=== PATIENT | male | born 1980 | race Caucasian/White ===

== ENCOUNTER 2024-09-16 02:20 | Day surgery (SDC) | payer OTHER, SELFPAY ==
[2024-09-09 10:54] VITALS: BMI 32.5
--- OUTSIDE RECORDS SUMMARY | 2024-09-16 02:22 | XMS_ITS ---
Author Name [facility] [place] [facility] [place] Address [address] [place] [address] Care Team Providers Care Department Of Natural Resources Officer Name Role Phone CONNIE MURILLO Primary Care Provider Unavailabl e Insurance Providers: All historical and current Section Date Range: From patient's date of to the date document was created. This section includes the names of all active insurance providers for the patient. Insurance Provider Type of Coverage Plan Name Start of Policy Coverage End of Policy Coverage Group Number Member ID Insurance Provider's Telephone Number Policy Wagner's Name Patient's Relationship to Policy Wagner [facility]U [employer]IG[employer] PREFERRED PROVIDER ORGANIZAT ION (PPO) AP[facility]U HEALT H PLAN Nov 08, 2013 [id number] [phone] WIDEL,CHR ISTOPHER PATIENT APWU-SS PREFERRED PROVIDER ORGANIZAT ION (PPO) APWU Apr 16, 2023 [id number] WIDEL,CHR ISTOPHER PATIENT [facility]U PART A ONLY Mar 11, 2014 [id number] WIDEL,CHR ISTOPHER PATIENT [facility]U HEALT H PLAN Apr 16, 2020 [id number] [phone] WIDEL,CHR ISTOPHER PATIENT [employer] PRESCRIPT ION APWU HEALT H PLAN Mar 11, 2014 [id number] [phone] WIDEL,CHR ISTOPHER PATIENT [employer] PRESCRIPT ION APWU RX PLAN Nov 08, 2013 [id number] [phone] WIDEL,CHR ISTOPHER PATIENT [employer] PRESCRIPT ION APWU Nov 08, 2013 [id number] [phone] WIDEL,CHR ISTOPHER PATIENT Selected Encounter This section includes the information on record at CT for the Encounter. Date/Time Encounter Type Encounter Description Reason Provider Source Dec 04, 2023 12:10 PM Outpatient Encounter ADMIN PAT ACTIVTIES (MASNONCT) GITA JACOBS Encounter Template Text not used by CT Plan of Treatment: Future Appointments (+ 6 months) and Future Tests (+/- 45 days) The Plan of Treatment section includes future care activities for the patient from all CT treatmentfacilities. This section includes future appointments and future orders which are active, pending or scheduled. Future Appointments This section includes appointments that were scheduled to occur 6 months from the date of the Encounter, up to a maximum of 20 appointments. The data comes from all CT treatment facilities. Appointment Date/Time Appointment Type Appointme nt Facility Name Dec 13, 2023 09:30 AM AMBULATORY - SURGERY [facility] Dec 26, 2023 02:00 PM AMBULATORY - REHAB MEDICIN E [facility] Jan 21, 2024 08:30 AM AMBULATORY - REHAB MEDICIN E [facility] Jan 21, 2024 09:30 AM AMBULATORY - SURGERY [facility] Feb 04, 2024 09:00 AM AMBULATORY - REHAB MEDICIN E [facility] Feb 18, 2024 09:00 AM AMBULATORY - REHAB MEDICIN E [facility] May 15, 2024 09:30 AM AMBULATORY - MEDICINE [facility] Active, Pending, and Scheduled Orders This section includes a listing of several types of active, pending, and scheduled orders, including clinic medications orders, diagnostic test orders, procedure orders and consult orders; where the start date of the order is 45 days before the date of the Encounter or 45 days after the date of theEncounter. The data comes from all CT treatment facilities. Test Date/Time Test Type Test Details Facility Name Nov 07, 2023 12:00 AM Laboratory - Blood Bank Order RED BLOOD CELLS - LAB VBECS - NO SPECIMEN REQUIRED SP [facility] Nov 07, 2023 12:00 AM Laboratory - Blood Bank Order TYPE & SCREEN - LAB BLOOD SP [facility] Dec 04, 2023 06:00 AM Laboratory - Blood Bank Order TYPE & SCREEN - LAB BLOOD WC [facility] Lab Results: +/- 30 days of the encounter This section includes the Chemistry and Hematology Lab Results on record with CT for the patient. Radiology Reports and Pathology Reports are provided separately, in subsequent sections. Lab Results This section contains the Chemistry/Hematology Results that were resulted 30 days before or 30 daysafter the date of the Encounter. Date/Time Source Result Type Result - Unit Interpretation Reference Range Specimen Type Comment Dec 05, 2023 04:56 AM [facility] GLUCOSE,BLOOD-poct (STL) BLOOD Specimen Type: BLOOD Comment: Test Performed by: [id number] Meter #: [id number] Ordering Provider: UMESH ABARCA Report Released Date/Time: Dec 05, 2023 06:07 AM Reporting Lab: [facility] [address] [facility] [address] Performing Lab: [facility] [address] [facility] [address] GLUCOSE,BLOOD-poct (STL) 107 mg/dL H 72-99 Dec 04, 2023 10:43 PM [facility] GLUCOSE,BLOOD-poct (STL) BLOOD Specimen Type: BLOOD Comment: Test Performed by: [id number] Meter #: [id number] Ordering Provider: UMESH ABARCA Report Released Date/Time: Dec 04, 2023 11:11 PM Reporting Lab: [facility] [address] [facility] [address] Performing Lab: [address] [address] GLUCOSE,BLOOD-poct (STL) 154 mg/dL H 72-99 Dec 04, 2023 08:57 PM [facility] MAGNESIUM PLASMA Specimen Type: PLASM A No comment entered. Ordering Provider: ANGEL THOMPSON Report Released Date/Time: Dec 04, 2023 02:05 PM Reporting Lab: [address] [address] Performing Lab: [address] [address] MAGNESIUM 2.1 mg/dL 1.6-2.6 Dec 04, 2023 08:57 PM [facility] CBC BLOOD Specimen Type: BLOOD No comment entered. Ordering Provider: ANGEL THOMPSON Report Released Date/Time: Dec 04, 2023 02:05 PM Reporting Lab: [address] [address] Performing Lab: [address] [address] WBC 9.0 10*3/uL 3.6-11.2 RBC 4.43 10*6/uL 4.10-5.70 HGB 13.2 g/dL 13.1-16.8 HCT 39.2 38.2-48.4 MCV 88.5 fL 80.0-100.0 MCH 29.8 pg 27.0-34.0 MCHC 33.7 g/dL 33.0-36.0 PLT 247 10*3/uL 150-400 MPV 10.9 fL 7.5-11.2 RDW 13.0 11.8-15.1 LYMPHOCYTES, AUTO % 8 MONOCYTES, AUTO % 2 NEUTROPHILS, AUTO % 90 EOSINOPHILS, AUTO % 0 BASOPHILS, AUTO % 0 LYMPHOCYTES, ABSOLUTE 0.67 10*3/uL L 0.77- 4.50 MONOCYTES, ABSOLUTE 0.21 10*3/uL 0.19-0. 80 NEUTROPHILS, ABSOLUTE 8.03 10*3/uL H 2.10- 8.00 EOSINOPHILS, ABSOLUTE 0.00 10*3/uL 0.00- 0.60 BASOPHILS, ABSOLUTE 0.01 10*3/uL 0.00-0. 20 Dec 04, 2023 04:56 PM [facility] GLUCOSE,BLOOD-poct (STL) BLOOD Specimen Type: BLOOD Comment: Test Performed by: [id number] Meter #: [id number] Ordering Provider: UMESH ABARCA Report Released Date/Time: Dec 04, 2023 05:07 PM Reporting Lab: [address] [address] Performing Lab: [address] [address] GLUCOSE,BLOOD-poct (STL) 129 mg/dL H 72-99 Dec 04, 2023 02:00 PM [facility] MRSA SURVL NARES DNA NARES Specimen Type: BRENT ES Comment: Qualitative real-time PCR test for the rapid detection of methicillin-resistant Staphylococcus aureus (MRSA) DNA from nasal swabs. A negative result does not preclude infection with the agent(s) tested and should not be used as the sole basis for treatment or other patient management decisions. A positive test does not necessarily indicate the presence of viable organisms, following bacterial culture to recover the organism for further characterization and susceptibility testing. All results must be combined with clinical observations, patient history, and epidemiological information for final interpretation. Ordering Provider: ANGEL THOMPSON Report Released Date/Time: Dec 04, 2023 02:05 PM Reporting Lab: [address] [address] Performing Lab: [address] [address] MRSA SURVL NARES DNA Negative Negative Dec 04, 2023 01:30 PM [facility] GLUCOSE,BLOOD-poct (L) BLOOD Specimen Type: BLOOD Comment: Test Performed by: [id number] Meter #: [id number] Ordering Provider: UMESH ABARCA Report Released Date/Time: Dec 04, 2023 01:43 PM Reporting Lab: [address] [address] Performing Lab: [facility] [address] [facility] [address] GLUCOSE,BLOOD-poct (STL) 126 mg/dL H 72-99 Nov 12, 2023 10:45 AM [facility] MRSA SURVL NARES DNA NARES Specimen Type: BRENT ES Comment: Qualitative real-time PCR test for the rapid detection of methicillin-resistant Staphylococcus aureus (MRSA) DNA from nasal swabs. A negative result does not preclude infection with the agent(s) tested and should not be used as the sole basis for treatment or other patient management decisions. A positive test does not necessarily indicate the presence of viable organisms, following bacterial culture to recover the organism for further characterization and susceptibility testing. All results must be combined with clinical observations, patient history, and epidemiological information for final interpretation. Ordering Provider: SOBIA DOMINGO Report Released Date/Time: Nov 07, 2023 04:35 PM Reporting Lab: [address] [address] Performing Lab: [address] [address] MRSA SURVL NARES DNA Negative Negative Nov 12, 2023 09:55 AM [facility] DRUGS OF ABUSE (NEW) (STL) URINE Specimen Typ e: URINE No comment entered. Ordering Provider: SOBIA DOMINGO Report Released Date/Time: Nov 07, 2023 04:35 PM Reporting Lab: [address] [address] Performing Lab: [address] [address] ETHANOL Negative mg/dL 0-20 AMPHET/METHAMPHETAMINE Negative ng/mL COCAINE METABOLITES Negative ng/mL CANNABINOIDS Negative ng/mL OPIATES Negative ng/mL CREATININE URINE/OTHERS 333.4 mg/dL H 63-1 66 Nov 12, 2023 09:46 AM [facility] PT/INR NEW (L-MA) PLASMA Specimen Type: PLAS MA No comment entered. Ordering Provider: SOBIA DOMINGO Report Released Date/Time: Nov 07, 2023 04:35 PM Reporting Lab: [address] [place] [address] Performing Lab: [address] [address] PROTIME 11.9 s 9.4-12.5 INR VALUE 1.1 {INR} Nov 12, 2023 09:46 AM [facility] APTT PLASMA Specimen Type: PLASM A No comment entered. Ordering Provider: SOBIA DOMINGO Report Released Date/Time: Nov 07, 2023 04:35 PM Reporting Lab: [address] [address] Performing Lab: [address] [address] APTT 28.5 s 26.7-39.9 Nov 12, 2023 09:46 AM [facility] COMPREHENSIVE METABOLIC PANEL PLASMA Specimen Type: PLASMA Comment: No hemolysis noted. Ordering Provider: SOBIA DOMINGO Report Released Date/Time: Nov 07, 2023 04:35 PM Reporting Lab: [address] [address] Performing Lab: [address] [address] CREATININE 0.86 mg/dL 0.7-1.3 UREA NITROGEN 9.1 mg/dL 9.0-25.0 GLUCOSE 106 mg/dL H 72-99 SODIUM 140 meq/L 136-145 POTASSIUM 3.9 meq/L 3.5-5 CHLORIDE 107 meq/L 98-107 CARBON DIOXIDE 24 meq/L 22-31 CALCIUM 8.7 mg/dL 8.4-10.4 PROTEIN 7.2 g/dL 6-8.6 ALBUMIN 4.2 g/dL 3.4-5 TOTAL BILIRUBIN 0.4 mg/dL 0.2-1.2 ALKALINE PHOSPHATASE 132 U/L 40-150 AST/SGOT 23 U/L 5-34 ALT/SGPT 24 U/L 8-40 EGFR (CKD-EPI 2020) 109.5 >60 Nov 12, 2023 09:46 AM [facility] CBC BLOOD Specimen Type: BLOOD No comment entered. Ordering Provider: SOBIA DOMINGO Report Released Date/Time: Nov 07, 2023 04:35 PM Reporting Lab: [facility] [address] [facility] [address] Performing Lab: [address] [address] WBC 5.1 10*3/uL 3.6-11.2 RBC 4.80 10*6/uL 4.10-5.70 HGB 14.2 g/dL 13.1-16.8 HCT 42.2 38.2-48.4 MCV 87.9 fL 80.0-100.0 MCH 29.6 pg 27.0-34.0 MCHC 33.6 g/dL 33.0-36.0 PLT 277 10*3/uL 150-400 MPV 10.6 fL 7.5-11.2 RDW 13.4 11.8-15.1 LYMPHOCYTES, AUTO % 27 MONOCYTES, AUTO % 6 NEUTROPHILS, AUTO % 62 EOSINOPHILS, AUTO % 4 BASOPHILS, AUTO % 1 LYMPHOCYTES, ABSOLUTE 1.39 10*3/uL 0.77- 4.50 MONOCYTES, ABSOLUTE 0.31 10*3/uL 0.19-0. 80 NEUTROPHILS, ABSOLUTE 3.14 10*3/uL 2.10- 8.00 EOSINOPHILS, ABSOLUTE 0.19 10*3/uL 0.00- 0.60 BASOPHILS, ABSOLUTE 0.04 10*3/uL 0.00-0. 20 Nov 12, 2023 09:46 AM [facility] HGA1C BLOOD Specimen Type: BLOO D No comment entered. Ordering Provider: SOBIA DOMINGO Report Released Date/Time: Nov 07, 2023 04:35 PM Reporting Lab: [facility] [address] [facility] [address] Performing Lab: [address] [address] HGA1C 5.6 4.0-6.0 Vital Signs: All taken on the encounter date This section contains inpatient and outpatient Vital Signs collected on the date of the Encounter. Date/Time Temperature Pulse Blood Pressure Respiratory Rate SP02 Pain Height Weight Body Mass Index Source Dec 04, 2023 08:30 PM 5 [facility] Dec 04, 2023 07:23 PM 6 [facility] Dec 04, 2023 04:59 PM 2 [facility] Dec 04, 2023 03:11 PM 3 [facility] Dec 04, 2023 06:15 AM 97.7 72 134/97 16 100 4 72 245.8 33 [facility] Social History: Smoking Status (Most current) and Tobacco Use (All prior to encounter date) This section includes the most current, and the historical, smoking and tobacco- related health factors from the CT facility where the Encounter took place. Current Smoking Status This section includes the most current smoking, or tobacco-related health factor, from the CT facility where the Encounter took place. Date/Time Current Smoking Status Comment Abad lora Apr 21, 2022 01:[address]-TOBACCO NEVER USED [facility] Tobacco Use History This section includes a history of the smoking, or tobacco-related health factors, that were collected on or before the date of the Encounter. The data comes from the CT facility where the Encounter took place. Date/Time Smoking Status/Tobacco Use Comment F acility Dec 03, 2020 12:[address]-TOBACCO NEVER USED [facility] Radiology Reports: +/- 30 days of the encounter Radiology Reports For cases when an order for radiology services may have been completed prior to the date of the Encounter, the report list includes the Radiology Reports that were completed up to 30 days before dateof the Encounter. For cases when an order for radiology services may have been completed after the date of the Encounter, the report list also includes the Radiology Reports that were completed up to30 days after date of the Encounter. The data comes from all CT treatment facilities. Date/Time Radiology Report Provider Source Dec 04, 2023 06:27 AM FLUOROS(SEPARATE PROCEDURE),UP TO 1 HOUR: NIKKO GOMEZ [id number] -[id number] M Exm Date: DEC 04, 2023@06:27 Req Phys: UMESH ABARCA Pat Loc: SICU [facility]E-[facility]/12-05-2023@05:59 Img Loc: [facility]-MAIN RADIOLOGY SUITE Service: [facility], [facility] [address] [place] [address] (Case [id number] COMPLETE) FLUOROS(SEPARATE PROCEDURE),UP TO(RAD Detailed) CPT:35417 CPT Modifiers : TC TECHNICAL COMPONENT Reason for Study: bilater c6-c7 lami Clinical History: Report Status: Verified Date Reported: DEC 05, 2023 Date Verified: DEC 05, 2023 Practice Management Consultant E-Sig: Report: Fluoroscopy was provided to another service. For detailed report on procedure, please see note entered in CPRS by performing physician. Impression: 1. Technical service only. 2. For detailed report of procedure, please see note in CPRS entered by the by physician who performed the procedure. 3. This is a non-medical report and was therefore completed administratively. Primary Interpreting Staff: JANAY FIGUEROA, RADIOLOGIST Verified by svp chief marketing officer for JANAY FIGUEROA /JANAY DAVIS [facility] Nov 12, 2023 09:40 AM CHEST X-RAY, 2 VIE WS: NIKKO GOMEZ SC [id number] -[id number] M Exm Date: NOV 12, 2023@09:40 Req Phys: SOBIA DOMINGO Loc: [facility]-NEUROSURGERY YEAST CULTURE OPERATOR 2 (Req'g Lo Img Loc: [facility]MAIN RADIOLOGY SUITE Service: [address] [address] (Case [id number] COMPLETE) CHEST X-RAY, 2 VIEWS (RAD Detailed) CPT:71492 Reason for Study: Pre Op Clinical History: Report Status: Verified Date Reported: NOV 12, 2023 Date Verified: NOV 12, 2023 Practice Management Consultant E-Sig:/ES/Austin Branham MD. FACR. Report: History: Pre Op. Comparison: No previous pertinent examination is available. Technique: PA and lateral views Findings: No pulmonary consolidation, pleural effusion, pneumothorax, cardiomegaly or pulmonary edema is seen. Impression: No acute cardiopulmonary disease is seen. Primary Interpreting Staff: Austin Branham MD. FACR, Neuroradiologist (Practice Management Consultant) /AUSTIN IGNACIO [facility] Encounter Notes: All associated encounter notes This section contains the clinical notes associated to the Encounter. Date/Time Encounter Note(s) Provider Source Dec 04, 2023 12:10 PM ANESTHESIOLOGY BHAVYA WSHEET: LOCAL TITLE: ANES INTRA-OP FLOWSHEET [facility] STANDARD TITLE: ANESTHESIOLOGY FLOWSHEET DATE OF NOTE: DEC 04, 2023@12:10 ENTRY DATE: DEC 04, 2023@12:10:15 AUTHOR: GITA JACOBS COSIGNER: URGENCY: STATUS: COMPLETED Patient: NIKKO GOMEZ SSN: [id number] Date of Operation: 12/04/2023 Surgery Start Time: 12/04/2023 8:47 Surgery End Time: 12/04/2023 11:55 Anesthesia Care Start: 12/04/2023 7:29 Anesthesia Care End: 12/04/2023 12:10 Anesthesia Method: General 12/04/2023 11:11 (Primary), Airway: Endotracheal Intubation, Technique: Indirect Laryngoscopy, Level Of Consciousness: Sedated, Patient Position: Supine, Preoxygenated, Induction Type: Intravenous, Breathing Circuit: [place] Adult, Ventilation by Mask: Easy to Ventilate without Aid/Adjunct, Intubating Device: Glidescope, Ease: Easy, 1 Number Of Attempts, Intubation View: Grade 2, Blade Size: 3, Size: 8 mm, Depth (cm): 23, Tube: Cuffed, Depth Measurement Location: Teeth, Tracheal Cuff Inflated With Min. Volume To Create Seal, Tracheal Cuff Inflated With: Air, EtCO2 Verified: Waveform, Breath Sounds: Equal And Bilateral, Epigastric Sounds Negative, Performed By: PRIN. CONDON, Performed By Staff: RADHA HORVATH, Result: Successful Rationale For Selected Technique: Expected Difficult, Elective Route: Oral Tube Checklist: Balloons Checked Airway Tube: Standard Adjunct Devices: Stylet Verification Of Tube Placement: Bilateral Chest Movement, Confirmed With Fiberoptic - Vocal Cords Securement: Taped Eye Protection: Both Eyes, Tape, Goggles Insertion Complication: No Complications Noted Positioning: Head Neutral, Head And Neck In Alignment With Spine, Pressure Points Padded & Checked, Eyes, Ears And Nose Free Of Pressure ASA Number: 2 Procedure: C6-7 bilateral laminectomy, attn right Diagnosis: cervical stenosis Holding, Anesthesia, PACU Drugs: ------ Povidone-Iodine skin prep: 5 % Midazolam: 2 mg FentaNYL: 100 mcg Lidocaine: 100 mg Propofol: 150 mg Sugammadex: 200 mg Rocuronium: 50 mg Succinylcholine: 120 mg HYDROmorphone: 1 mg Ondansetron: 4 mg ceFAZolin: 2 g Propofol: 2734.292 mg Remifentanil gtt: 2750.021 mcg Acetaminophen IVPB: 1 g Dexamethasone: 8 mg Ketamine: 50 mg Holding, Anesthesia, PACU Fluids: ------- Normal Saline: 750 ml Estimated Blood Loss: 20 ml Urine Output: 250 ml Ringers Lactated Solution: 543.643 ml Resources: Aquacel foam placed on pk prominence to protect skin during surgery Safety Belt Staff: --------- UMESH ABARCA, SURGEON UMESH ABARCA, ATT. SURGEON NIKO WOLFF, Holding Nurse RADHA HORVATH PRIN. ANES. GITA JACOBS ANES. MANJIT RENNER RELIEF RAILS DEVELOPER Anesthesia Procedure: -- Procedure 12/04/2023 6:24 Line Number: 1, Level Of Consciousness: Awake, Site: Arm, Laterality: Right, Catheter Type: Angio, Catheter Size: 18 Ga, Inserted By: Holding Nurse Procedure Date: 12/04/2023 Procedure Start Time: Procedure End Time: /es/ GITA JACOBS MD Staff Anesthesiologist Signed: 12/04/2023 12:10 GITA JACOBS [facility]
--- OUTSIDE RECORDS SUMMARY | 2024-09-16 02:22 | XMS_ITS | Encounter Summary ---
Author Name [facility] Organization [facility] Address [address] [place] [address] Care Team Providers Care Extractions Technologist Name Role Phone CONNIE MURILLO Primary Care [...] [facility] HEALT H PLAN Nov 08, 2013 [id number] [phone] WIDEL,CHR ISTOPHER PATIENT APWU-SS PREFERRED PROVIDER ORGANIZAT ION (PPO) APWU Apr 16, 2023 [id number] WIDEL,CHR ISTOPHER PATIENT [facility] APWU PART A ONLY Mar 11, 2014 [id number] WIDEL,CHR ISTOPHER PATIENT [facility] APWU HEALT H PLAN Apr 16, 2020 [id number] [phone] WIDEL,CHR ISTOPHER PATIENT [facility] PRESCRIPT ION APWU HEALT H PLAN Mar 11, 2014 [id number] [phone] WIDEL,CHR ISTOPHER PATIENT [facility] PRESCRIPT ION AP[facility] RX PLAN Nov 08, 2013 [id number] [phone] WIDEL,CHR ISTOPHER PATIENT [facility] PRESCRIPT ION AP[facility] Nov 08, 2013 [id number] [phone] WIDEL,CHR ISTOPHER PATIENT Selected Encounter This section includes the information on record at OR for the Encounter. Date/Time Encounter Type Encounter Description Reason Provider Source Dec 04, 2023 02:32 PM 1ST HOSP IP/OBS SF/LOW 40 NEUROSURGERY ICD-10-CM M48.02 Spinal stenosis, cervical region MONTY NEAL [facility] Encounter Template Text not used by OR Assessments - Encounter Diagnoses This section includes the primary and secondary diagnoses documented for the Encounter. Date/Time Primary/Secondary Diagnosis Diagnosis Name Provider Source Dec 05, 2023 07:52 AM PRIMARY [facility]inal [facility], [facility] Dec 05, 2023 07:52 AM SECONDARY Cervicalgia [facility] Plan of Treatment: Future Appointments (+ 6 months) and Future Tests (+/- 45 days) The Plan of Treatment section includes future care activities for the [facility] This section includes future appointments and future orders which are active, pending or scheduled. Future Appointments This section includes appointments that were scheduled to occur 6 months from the date of the Encounter, up to a maximum of 20 appointments. The data comes from all OR treatment facilities. Appointment Date/Time Appointment Type Appointme nt Facility Name Dec 13, 2023 09:30 AM AMBULATORY - SURGERY [facility] Dec 26, 2023 02:00 PM AMBULATORY - REHAB MEDICIN [facility] Jan 21, 2024 08:30 AM AMBULATORY - REHAB MEDICIN E [facility] Jan 21, 2024 09:30 AM AMBULATORY - SURGERY [facility] Feb 04, 2024 09:00 AM AMBULATORY - REHAB MEDICHI E [facility] Feb 18, 2024 09:00 AM AMBULATORY - REHAB MEDICIN E [facility] May 15, 2024 09:30 AM AMBULATORY - MEDICINE [facility] Active, Pending, and Scheduled Orders This section includes a listing of several types of active, pending, and scheduled orders, including clinic medications orders, diagnostic test orders, procedure orders and consult orders; where the start date of the order is 45 days before the date of the Encounter or 45 days after the date of theEncounter. The data comes from all [place] treatment facilities. Test Date/Time Test Type Test Details Facility Name Nov 07, 2023 12:00 AM Laboratory - Blood Bank Order RED BLOOD CELLS - LAB VBECS - NO SPECIMEN REQUIRED [facility] Nov 07, 2023 12:00 AM Laboratory - Blood Bank Order TYPE & SCREEN - LAB BLOOD SP [facility] Dec 04, 2023 06:00 AM Laboratory - Blood Bank Order TYPE & SCREEN - LAB BLOOD [facility] Lab Results: +/- 30 days of the encounter This section includes the Chemistry and Hematology Lab Results on record with OR for the patient. Radiology Reports and Pathology Reports are provided separately, in subsequent sections. Lab Results This section contains the Chemistry/Hematology Results that were resulted 30 days before or 30 daysafter the date of the Encounter. Date/Time Source Result Type Result - Unit Interpretation Reference Range Specimen Type Comment Dec 05, 2023 04:56 AM [facility] GLUCOSE,BLOOD-poct (STL) BLOOD Specimen Type: BLOOD Comment: Test Performed by: [id number] Meter #: [id number] Ordering Provider: MONTY NEAL Report Released Date/Time: Dec 05, 2023 06:07 AM Reporting Lab: [facility] [address] [facility] [address] Performing Lab: [address] [address] GLUCOSE,BLOOD-poct (STL) 107 mg/dL H 72-99 Dec 04, 2023 10:43 PM [facility] GLUCOSE,BLOOD-poct (STL) BLOOD Specimen Type: BLOOD Comment: Test Performed by: [id number] Meter #: [id number] Ordering Provider: MONTY NEAL Report Released Date/Time: Dec 04, 2023 11:11 PM Reporting Lab: [address] [address] Performing Lab: [address] [address] GLUCOSE,BLOOD-poct (STL) 154 mg/dL H 72-99 Dec 04, 2023 08:57 PM [facility] MAGNESIUM PLASMA Specimen Type: PLASM A No comment entered. Ordering Provider: ANGEL THOMPSON Report Released Date/Time: Dec 04, 2023 02:05 PM Reporting Lab: [address] [address] Performing Lab: [address] [address] MAGNESIUM 2.1 mg/dL 1.6-2.6 Dec 04, 2023 08:57 PM [facility] CBC BLOOD Specimen Type: BLOOD No comment entered. Ordering Provider: ANGEL THOMPSON Report Released Date/Time: Dec 04, 2023 02:05 PM Reporting Lab: [address] [address] Performing Lab: [address] [address] WBC 9.0 10*3/uL 3.6-11.2 RBC 4.43 10*6/uL [...] 0.00-0. 20 Dec 04, 2023 04:56 PM [facility] GLUCOSE,BLOOD-poct (STL) BLOOD Specimen Type: BLOOD Comment: Test Performed by: [id number] Meter #: [id number] Ordering Provider: MONTY NEAL Report Released Date/Time: Dec 04, 2023 05:07 PM Reporting Lab: [address] [address] Performing Lab: [address] [address] GLUCOSE,BLOOD-poct (STL) 129 mg/dL H 72-99 Dec 04, 2023 02:00 PM [facility] MRSA SURVL NARES DNA NARES Specimen Type: [...] Dec 04, 2023 02:05 PM Reporting Lab: [address] [address] Performing Lab: [address] [address] MRSA SURVL NARES DNA Negative Negative Dec 04, 2023 01:30 PM [facility] GLUCOSE,BLOOD-poct (L) BLOOD Specimen Type: BLOOD Comment: Test Performed by: [id number] Meter #: [id number] Ordering Provider: MONTY NEAL Report Released Date/Time: Dec 04, 2023 01:43 PM Reporting Lab: [address] [address] Performing Lab: [address] [address] GLUCOSE,BLOOD-poct ([facility]) 126 mg/dL H 72-99 Nov 12, 2023 10:45 AM [facility] MRSA SURVL NARES DNA NARES Specimen Type: [...] Nov 07, 2023 04:35 PM Reporting Lab: [address] [address] Performing Lab: [address] [address] MRSA SURVL NARES DNA Negative Negative Nov 12, 2023 09:55 AM [facility] DRUGS OF ABUSE (NEW) (L) URINE Specimen Typ e: URINE No comment entered. Ordering Provider: SOBIA DOMINGO Report Released Date/Time: Nov 07, 2023 04:35 PM Reporting Lab: [address] [address] Performing Lab: [address] [address] ETHANOL Negative mg/dL 0-20 AMPHET/METHAMPHETAMINE Negative ng/mL COCAINE METABOLITES Negative ng/mL CANNABINOIDS Negative ng/mL OPIATES Negative ng/mL CREATININE URINE/OTHERS 333.4 mg/dL H 63-1 66 Nov 12, 2023 09:46 AM [facility] PT/INR NEW (STL-MA) PLASMA Specimen Type: PLAS MA No comment entered. Ordering Provider: SOBIA DOMINGO Report Released Date/Time: Nov 07, 2023 04:35 PM Reporting Lab: [address] [address] Performing Lab: [address] [address] PROTIME 11.9 s 9.4-12.5 INR VALUE 1.1 {INR} Nov 12, 2023 09:46 AM [facility] APTT PLASMA Specimen Type: PLASM A No comment entered. Ordering Provider: SOBIA DOMINGO Report Released Date/Time: Nov 07, 2023 04:35 PM Reporting Lab: [address] [address] Performing Lab: [address] [address] APTT 28.5 s 26.7-39.9 Nov 12, 2023 09:46 AM [facility] CBC BLOOD Specimen Type: BLOOD No comment entered. Ordering Provider: SOBIA DOMINGO Report Released Date/Time: Nov 07, 2023 04:35 PM Reporting Lab: [address] [address] Performing Lab: [address] [address] WBC 5.1 10*3/uL 3.6-11.2 RBC 4.80 10*6/uL [...] 0.00-0. 20 Nov 12, 2023 09:46 AM [facility] COMPREHENSIVE METABOLIC PANEL PLASMA Specimen Type: PLASMA Comment: No hemolysis noted. Ordering Provider: SOBIA DOMINGO Report Released Date/Time: Nov 07, 2023 04:35 PM Reporting Lab: [address] [address] Performing Lab: [address] [address] CREATININE 0.86 mg/dL 0.7-1.3 UREA NITROGEN 9.1 [...] 109.5 >60 Nov 12, 2023 09:46 AM [facility] HGA1C BLOOD Specimen Type: BLOOD No comment entered. Ordering Provider: SOBIA DOMINGO Report Released Date/Time: Nov 07, 2023 04:35 PM Reporting Lab: [address] [address] Performing Lab: [address] [place] [address] HGA1C 5.6 4.0-6.0 Vital Signs: All taken on the encounter date This section contains inpatient and outpatient Vital Signs collected on the date of the Encounter. Date/Time Temperature Pulse Blood Pressure Respiratory Rate SP02 Pain Height Weight Body Mass Index Source Dec 04, 2023 08:30 PM [facility] Dec 04, 2023 07:23 PM 6 [facility] Dec 04, 2023 04:59 PM 2 [facility] N Dec 04, 2023 03:11 PM 3 [facility] N Dec 04, 2023 06:15 AM 97.7 72 134/97 16 100 4 72 245.8 33 [facility] N Social History: Smoking Status (Most current) and Tobacco Use (All prior to encounter date) This section includes the most current, and the historical, smoking and tobacco- related health factors from the OR facility where the Encounter took place. Current Smoking Status This section includes the most current smoking, or tobacco-related health factor, from the OR facility where the Encounter took place. Date/Time Current Smoking Status Comment Facil ity Apr 21, 2022 01:21 PM OR-TOBACCO NEVER USED [facility] Tobacco Use History This section includes a history of the smoking, or tobacco-related health factors, that were collected on or before the date of the Encounter. The data comes from the OR facility where the Encounter took place. Date/Time Smoking Status/Tobacco Use Comment F acility Dec 03, 2020 12:04 PM OR-TOBACCO NEVER USED [facility] Radiology Reports: +/- 30 days of the [...] the Encounter. The data comes from all OR treatment facilities. Date/Time Radiology Report Provider Source Dec 04, 2023 06:27 AM FLUOROS(SEPARATE PROCEDURE),UP TO 1 HOUR: NIKKO GOMEZ MT [id number] -1980 M Exm Date: DEC 04, 2023@06:27 Req Phys: MONTY NEAL Loc: SICU -/12-05-2023@05:59 Img Loc: [facility] RADIOLOGY SUITE Service: Unknown [address] [address] (Case [id number] COMPLETE) FLUOROS(SEPARATE PROCEDURE),UP TO(RAD Detailed) CPT:47806 CPT Modifiers : TC TECHNICAL COMPONENT Reason for Study: bilater c6-c7 lami Clinical History: Report Status: Verified Date Reported: DEC 05, 2023 Date Verified: DEC 05, 2023 College Archivist E-Sig: Report: Fluoroscopy was provided to another [...] Interpreting Staff: JANAY FIGUEROA, RADIOLOGIST Verified by global recruiter for JANAY FIGUEROA /[facility] Nov 12, 2023 09:40 AM CHEST X-RAY, 2 VIE WS: NIKKO GOMEZ MT [id number] -1980 M Exm Date: NOV 12, 2023@09:40 Req Phys: SOBIA DOMINGO Loc: -NEUROSURGERY STRATEGIC PROCUREMENT MANAGER 2 (Req'g Lo Img Loc: [facility] RADIOLOGY SUITE Service: Unknown [address] [address] (Case [id number] COMPLETE) CHEST X-RAY, 2 VIEWS (RAD Detailed) CPT:46439 Reason for Study: Pre Op Clinical History: Report Status: Verified Date Reported: NOV 12, 2023 Date Verified: NOV 12, 2023 College Archivist E-Sig:/ES/Austin Branham MD. FACR. Report: History: Pre Op. Comparison: No previous pertinent examination is available. Technique: PA and lateral views Findings: No pulmonary consolidation, pleural effusion, pneumothorax, cardiomegaly or pulmonary edema is seen. Impression: No acute cardiopulmonary disease is seen. Primary Interpreting Staff: Austin Branham MD. FACR, Neuroradiologist (College Archivist) /[facility] Encounter Notes: All associated encounter notes This section contains the clinical notes associated to the Encounter. Date/Time Encounter Note(s) Provider Source Dec 04, 2023 02:32 PM NEUROSURGERY NOTE: LOCAL TITLE: NEUROSURGERY STL STANDARD TITLE: NEUROSURGERY NOTE DATE OF NOTE: DEC 04, 2023@14:32 ENTRY DATE: DEC 04, 2023@14:32:57 AUTHOR: JAYANGEL King EXP COSIGNER: URGENCY: STATUS: COMPLETED NEUROSURGERY ST Has ADDENDA SURGERY PERFORMED: Cervical C6-[address] Monty Neal HPI:Nikko Gomez is a pleasant 43 y/o with chronic neck pain radiating down the bilateral arms, right greater than left, to the hands with associated numbness and tingling. MRI revealed C6-7 right disc osteophyte, facet arthropathy, and right foraminal narrowing with mild to moderate canal stenosis. He tried conservative therapy without relief; therefore, he underwent surgery as above. INTERVAL HISTORY:[place] is resting. He states the radicular symptoms in the arms have resolved. He states the surgical neck pain is controlled. He voices no concerns. PAST MEDICAL HISTORY: 1) Benign essential hypertension 2) Obesity 3) Osteoarthritis of knee 4) Sleep apnea 5) Prediabetes 6) Posttraumatic stress disorder 7) Gastroesophageal reflux disease 8) Cervicalgia 9) Tinnitus 10) Exposure to potentially hazardous substance ACTIVE INPATIENT MEDICATIONS: 1) HYDROMORPHONE (OR/PACU) INJ,SOLN IVP Q15MIN PRN 0.2MG-0.8MG 2) FENTANYL INJ,SOLN IVP Q15MIN PRN 25MCG-50MCG 3) ONDANSETRON INJ,SOLN IVP Q6H PRN 4MG/2ML 4) HYDROMORPHONE 30MG/30ML (TURKISH RUBBER) INJ,SOLN IV CONTIN_BY_PUMP PRN 30MG/30ML 5) LABETALOL INJ,SOLN IVP Q15MIN PRN 10MG/2ML 6) ACETAMINOPHEN TAB PO QID 1000MG 7) INSULIN ASPART (NOVOLOG) INJ SQ QID AC/HS SLIDING SCALE 8) METHOCARBAMOL TAB PO QID 750MG 9) OMEPRAZOLE CAP,EC PO BID AC 10) SENNOSIDES (OTC) TAB PO QDAILY 17.2MG 11) DEXTROSE 50% INJ,SOLN IVP PRN 25-50 ML 12) NALOXONE (EQV-NARCAN) INJ,SOLN IVP PRN 0.4MG-2MG 13) ONDANSETRON INJ,SOLN IVP TID PRN 4MG/2ML 14) OXYCODONE (IMMEDIATE RELEASE) UD TAB PO Q4H PRN 5MG 15) OXYCODONE (IMMEDIATE RELEASE) UD TAB PO Q4H PRN 10MG 16) CEFAZOLIN 2GM/BAG INJ,SOLN IVPB ONE-TIME TO BE GIVEN IN O.R. ONLY ON Nov@07:30 17) SODIUM CHLORIDE 0.9/KCL 20MEQ INJ,SOLN IVPB 18) CEFAZOLIN 2GM/BAG INJ,SOLN IVPB Q8H WHILE DRAIN IS IN PLACE PHYSICAL EXAM: A&Ox4. Motor strength 5/5 bilaterally in the upper and lower extremities. Sensation intact to light touch. Cervical surgical dressing dry and intact. JOHNNIE drain in place. LABS:pending A/P: Mr Gomez underwent electvie cervical spine surgery with resolution of his radicular arm symptoms. He is neuro intact 1.NEURO: -POD #0, s/p Cervical C6-7 bilateral laminectomy --> neurochecks Q2 hrs --> monitor and record JOHNNIE drain output --> cefazolin while drain in place --> up with assist --> PT/OT consult in the morning --> wear c-collar for comfort --> Cervical precautions: no lifting greater than 10 lbs, no bending/twisting the spine, no pushing or pulling, no carrying weight, no driving. -Acute post-op pain 2/2 surgical procedure: --> oxycodone PRN for pain --> tylenol and methocarbamol scheduled --> Dilaudid TURKISH RUBBER if pain not controlled with oral regimen 2.Delirium risk and plan of care: -Keep lights on during the day and off at night -Assess for confusion. Minimize noise at night. -Mobilize patient once off bedrest 3.CARDIO: -Hypertension, poa --> he is not on medication at home --> labetolol PRN for SBP > 160 or DBP > 100 4:PULM: -Sleep apnea, poa --> Monitor O2 sats. Apply oxygen as needed (he has a CPAP but does not use it becasue it doesn ot fit correctly per his report) -->Encourage post op pulm hygiene --> IS Q1 hr while awake --> T/C/DB 5.FEN: -Monitor electrolytes. Replaceas needed to goal K+ >4, Mag >2 -Regular diet -IVF's until morning for volume replacement 6.GI: -Risk for constipation post op --> Bowel regimen: sennosides -GERD, poa --> PPI 7.RENAL: --> Monitor urine output s/p desai removal 8:ENDO: -follow glycemic protocol for potential hyperglycemia s/p surgical procedure HgbA1C preop 5.6% --> hold home metformin --> SSI 9.HEME/ID: -risk for post op anemia --> Trend CBC 10.Standards of care: -VTE prophylaxis --> SCD's, chemical proph contraindicated s/p recent surgical procedure -Stress ulcer prophylaxis --> on PPi for GERD -Pressure ulcer prophylaxis --> specialty mattress and OOB -Code status --> Full code This was seen in collaboration with Dr Monty Neal /ben/ ANGEL THOMPSON DNP, DIRECTOR RETIREMENT, NURSE PRACTITIONER, NEUROSURGERY Signed: 12/04/2023 15:15 12/05/2023 ADDENDUM STATUS: COMPLETED Neurosurgery Attending Addendum: I have seen and examined MR Gomez. I have reviewed the patient's medical chart, the nurse practicioners' notes, and relevant imaging studies. I agree with the assessment and plan. I also spoke with Mrs Gomez in person at the bedside in the ICU. /ben/ MONTY NEAL MD PhD FAANS FCNS ATTENDING NEUROSURGEON Signed: 12/05/2023 07:52 ANGEL THOMPSON [facility]
--- OUTSIDE RECORDS SUMMARY | 2024-09-16 02:22 | XMS_ITS ---
Author Name [facility] [facility] [place] Address [address] [place] [address] Care Team Providers Care Fire Safety Inspector Name Role Phone CONNIE MURILLO Primary Care [...] [facility] HEALT H PLAN Nov 08, 2013 [id number] [phone] WIDEL,CHR ISTOPHER PATIENT [facility]-SS PREFERRED PROVIDER ORGANIZAT ION (PPO) [facility] Apr 16, 2023 [id number] WIDEL,CHR ISTOPHER PATIENT [facility] PART A ONLY Mar 11, 2014 [id number] WIDEL,CHR ISTOPHER PATIENT [facility] HEALT H PLAN Apr 16, 2020 [id number] [phone] WIDEL,CHR ISTOPHER PATIENT [facility] PRESCRIPT ION [facility] HEALT H PLAN Mar 11, 2014 [id number] [phone] WIDEL,CHR ISTOPHER PATIENT [facility] PRESCRIPT ION [facility] RX PLAN Nov 08, 2013 [id number] [phone] WIDEL,CHR ISTOPHER PATIENT [facility] PRESCRIPT ION [facility] Nov 08, 2013 [id number] [phone] WIDEL,CHR ISTOPHER PATIENT Selected Encounter This section includes the information on record at OR for the Encounter. Date/Time Encounter Type Encounter Description Reason Provider Source Dec 13, 2023 09:30 AM POSTOP FOLLOW-UP VISIT NEUROSURGERY ICD-10-CM M54.2 Cervicalgia SOBIA DOMINGO [place] Encounter Template Text not used by OR Assessments - Encounter Diagnoses This section includes the primary and secondary diagnoses documented for the Encounter. Date/Time Primary/Secondary Diagnosis Diagnosis Name Provider Source Dec 25, 2023 11:[address] [facility] Dec 25, 2023 11:30 AM SECONDARY Spinal stenosis, cervical region [facility] Plan of Treatment: Future Appointments (+ 6 months) and Future Tests (+/- 45 days) The Plan of Treatment section includes future care activities for the [facility] This section includes future appointments and future orders which are active, pending or scheduled. Future Appointments This section includes appointments that were scheduled to occur 6 months from the date of the Encounter, up to a maximum of 20 appointments. The data comes from all OR treatment facilities. Appointment Date/Time Appointment Type Appointme nt Facility Name Dec 26, 2023 02:00 PM AMBULATORY - REHAB MEDICIN [facility] Jan 21, 2024 08:30 AM AMBULATORY - [facility] MEDICIN [facility] Jan 21, 2024 09:30 AM AMBULATORY - SURGERY [facility] Feb 04, 2024 09:00 AM AMBULATORY - REHAB MEDICIN E [facility] Feb 18, 2024 09:00 AM AMBULATORY - REHAB MEDICIN E [facility] May 15, 2024 09:30 AM AMBULATORY - MEDICINE [facility] Active, Pending, and Scheduled Orders This section [...] LAB VBECS - NO SPECIMEN REQUIRED SP [facility] Nov 07, 2023 12:00 AM Laboratory - Blood Bank Order TYPE & SCREEN - LAB BLOOD SP [facility] Dec 04, 2023 06:00 AM Laboratory - Blood Bank Order TYPE & SCREEN - LAB BLOOD WC [facility] Lab Results: +/- 30 days [...] Type Comment Dec 05, 2023 04:56 AM [facility] GLUCOSE,BLOOD-poct (STL) BLOOD Specimen Type: BLOOD Comment: Test Performed by: [id number] Meter #: [id number] Ordering Provider: UMESH AABRCA Report Released Date/Time: Dec 05, 2023 06:07 AM Reporting Lab: [place] [address] [facility] [id number] Performing Lab: [address] [address] GLUCOSE,BLOOD-poct (STL) 107 mg/dL H 72-99 Dec 04, 2023 10:43 PM [facility] GLUCOSE,BLOOD-poct (STL) BLOOD Specimen Type: BLOOD Comment: Test Performed by: [id number] Meter #: [id number] Ordering Provider: UMESH ABARCA Report Released Date/Time: Dec 04, 2023 11:11 PM Reporting Lab: [address] [address] Performing Lab: [address] [address] GLUCOSE,BLOOD-poct (STL) 154 mg/dL H 72-99 Dec 04, 2023 08:57 PM [facility] MAGNESIUM PLASMA Specimen Type: PLASM A No comment entered. Ordering Provider: ANGEL THOMPSON Report Released Date/Time: Dec 04, 2023 02:05 PM Reporting Lab: [address] [address] Performing Lab: [place] [id number] MAGNESIUM 2.1 mg/dL 1.6-2.6 Dec 04, 2023 08:57 PM [facility] CBC BLOOD Specimen Type: BLOOD No comment entered. Ordering Provider: ANGEL THOMPSON Report Released Date/Time: Dec 04, 2023 02:05 PM Reporting Lab: [address] [address] Performing Lab: [address] [address] WBC 9.0 10*3/uL 3.6-11.2 RBC 4.43 10*6/uL [...] 0.00-0. 20 Dec 04, 2023 04:56 PM [facility] GLUCOSE,BLOOD-poct (STL) BLOOD Specimen Type: BLOOD Comment: Test Performed by: [id number] Meter #: [id number] Ordering Provider: UMESH ABARCA Report Released Date/Time: Dec 04, 2023 05:07 PM Reporting Lab: [address] [address] Performing Lab: [address] [address] GLUCOSE,BLOOD-poct (ST) 129 mg/dL H 72-99 Dec 04, 2023 02:00 PM [facility] MRSA SURVL NARES DNA NARES [...] Dec 04, 2023 02:05 PM Reporting Lab: [address] [address] Performing Lab: [address] [address] MRSA SURVL NARES DNA Negative Negative Dec 04, 2023 01:30 PM [facility] GLUCOSE,BLOOD-poct (L) BLOOD Specimen Type: BLOOD Comment: Test Performed by: [id number] Meter #: [id number] Ordering Provider: UMESH ABARCA Report Released Date/Time: Dec 04, 2023 01:43 PM Reporting Lab: [facility] [address] [place] [address] Performing Lab: [facility] [address] [place] [address] GLUCOSE,BLOOD-poct (STL) 126 mg/dL H 72-99 Vital Signs: All taken on the encounter date This section contains inpatient and outpatient Vital Signs collected on the date of the Encounter. Date/Time Temperature Pulse Blood Pressure Respiratory Rate SP02 Pain Height Weight Body Mass Index Source Dec 13, 2023 09:12 AM 97.8 97 130/85 18 94 241.9 33 [facility] Social History: Smoking Status (Most current) [...] 21, 2022 01:21 PM OR-TOBACCO NEVER USED [facility] Tobacco Use History This section includes a history of the smoking, or tobacco-related health factors, that were collected on or before the date of the Encounter. The data comes from the OR facility where the Encounter took place. Date/Time Smoking Status/Tobacco Use Comment F acility Dec 03, 2020 12:04 PM OR-TOBACCO NEVER USED [facility] Radiology Reports: +/- 30 days [...] FLUOROS(SEPARATE PROCEDURE),UP TO 1 HOUR: NIKKO GOMEZ [place] [id number] -1980 M Exm Date: DEC 04, 2023@06:27 Req Phys: UMESH ABARCA Pat Loc: [facility]/12-05-2023@05:59 Img Loc: -MAIN RADIOLOGY SUITE Service: Unknown [facility], [address] [place] [address] (Case [id number] COMPLETE) FLUOROS(SEPARATE PROCEDURE),UP TO(RAD Detailed) CPT:99030 CPT Modifiers : TC TECHNICAL COMPONENT Reason for Study: bilater c6-c7 lami Clinical History: Report Status: Verified Date Reported: DEC 05, 2023 Date Verified: DEC 05, 2023 Reservoir Engineering Consultant E-Sig: Report: Fluoroscopy was provided to [...] Interpreting Staff: JANAY FIGUEROA, RADIOLOGIST Verified by supplemental manager for JANAY FIGUEROA /[facility] Encounter Notes: All associated encounter notes This section contains the clinical notes associated to the Encounter. Date/Time Encounter Note(s) Provider Source Dec 13, 2023 08:36 AM NEUROSURGERY NOTE: LOCAL TITLE: NEUROSURGERY [facility] STANDARD TITLE: NEUROSURGERY NOTE DATE OF NOTE: DEC 13, 2023@08:36 ENTRY DATE: DEC 13, 2023@08:36:27 AUTHOR: SOBIA DOMINGO COSIGNER: URGENCY: STATUS: COMPLETED [place] presents today for a 2 week post-op visit. SURGERY/PROCEDURE PERFORMED: Bilateral laminectomies C6 and top of C7, and removal of hypertrophied yellow ligament, attn right foramen for decompression S: Doing well. Surgical pain improving. Denies UE radicular pain. Weaning from cervical collar. O: AOX4. Pleasant and cooperative. Strength to BL UE is 5/5. Sensation intact to light touch. Post cervical incision well approximated without erythema, reddness or drainage. A: with cervical spinal stenosis who is POD #9 following a post C6/7 decompression. Incision is healing well. No complaints today. P: 1. Wean from cervical collar 2. Physical therapy arranged to begin in about 4 more weeks 3. Refilled oxycodone/acetaminophen - begin weaning 4. Avoid lifting more than 10-15 pounds until fully healed, no hyperextending neck or lifting overhead 5. RTC arranged for 6 week f/u. /ben/ SOBIA DOMINGO, MSN, FILTER CHANGING TECHNICIAN, BC NURSE PRACTITIONER, NEUROSURGERY Signed: 12/13/2023 09:[address] [facility]
--- OUTSIDE RECORDS SUMMARY | 2024-09-16 02:22 | XMS_ITS | Encounter Summary ---
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 Name Role Phone MURILLOKATHE Primary Care Provider Unavailabl e Insurance Providers: [...] [facility] HEALT H PLAN Nov 08, 2013 [id number] [phone] WIDEL,CHR ISTOPHER PATIENT [facility] PREFERRED PROVIDER ORGANIZAT ION (PPO) [facility] Apr 16, 2023 [id number] WIDEL,CHR ISTOPHER PATIENT [facility] PART A ONLY Mar 11, 2014 [id number] WIDEL,CHR ISTOPHER PATIENT [employer] MENTAL HEALTH [facility] HEALT H PLAN Apr 16, 2020 [id number] [phone] WIDEL,CHR ISTOPHER PATIENT [employer] [facility] PRESCRIPT ION [facility] HEALT H PLAN Mar 11, [facility] [id number] [phone] WIDEL,CHR ISTOPHER PATIENT [employer] [facility] PRESCRIPT ION [facility] Nov 08, 2013 [id number] [phone] WIDEL,CHR ISTOPHER PATIENT [employer] [facility] PRESCRIPT ION [facility] RX PLAN Nov 08, 2013 [facility] [id number] [phone] WIDEL,CHR ISTOPHER PATIENT Selected Encounter This section includes the information on record at [place] for the Encounter. Date/Time Encounter Type Encounter Description Reason Provider Source May 15, 2024 09:30 AM Outpatient Encounter PRIMARY CARE/MEDICINE ICD-10-CM Z00.00 Encntr for general adult medical exam w/o abnormal findings KATHE MURILLO [place] Encounter Template Text not used by [place] Assessments - Encounter Diagnoses This section includes the primary and secondary diagnoses documented for the Encounter. Date/Time Primary/Secondary Diagnosis Diagnosis Name Provider Source May 15, 2024 09:58 AM PRIMARY Encntr for general adult medical exam w/o abnormal findings KATHE MURILLO [facility] May 15, 2024 09:58 AM SECONDARY Cervicalgia KATHE MURILLO [place] [facility] May 15, 2024 09:58 AM SECONDARY Essential (primary) hypertension KATHE MURILLO [facility] May 15, 2024 09:58 AM SECONDARY Gastro-esophageal reflux disease without esophagitis KATHE MURILLO [facility] May 15, 2024 09:58 AM SECONDARY Obesity, unspecified KATHE MURILLO [facility] May 15, 2024 09:58 AM SECONDARY Post-traumatic stress disorder, unspecified KATHE MURILLO [facility] May 15, 2024 09:58 AM SECONDARY Prediabetes KATHE MURILLO [place] [facility] May 15, 2024 09:58 AM SECONDARY Sleep apnea, unspecified MURILLO,KATHE R [facility] May 15, 2024 09:58 AM SECONDARY Tinnitus, unspecified ear KATHE MURILLO [facility] May 15, 2024 09:58 AM SECONDARY Unilateral post-traumatic osteoarthritis, right knee KATHE MURILLO [facility] Vital Signs: All taken on the encounter date This section contains inpatient and outpatient Vital Signs collected on the date of the Encounter. Date/Time Temperature Pulse Blood Pressure Respiratory Rate SP02 Pain Height Weight Body Mass Index Source May 15, 2024 09:29 AM 98.6 70 130/85 18 96 4 257.2 35 [facility] Social History: Smoking Status (Most current) and Tobacco Use (All prior to encounter date) This section includes the most current, and the historical, smoking and tobacco- related health factors from the [place] facility where the Encounter took place. Current Smoking Status This section includes the most current smoking, or tobacco-related health factor, from the [place] facility where the Encounter took place. Date/Time Current Smoking Status Comment Facil ity May 15, 2024 09:30 AM VA-TOBACCO NEVER U SED CIGARETTES [facility] Tobacco Use History This section includes a history of the smoking, or tobacco-related health factors, that were collected on or before the date of the Encounter. The data comes from the [place] facility where the Encounter took place. Date/Time Smoking Status/Tobacco Use Comment F acility May 15, 2024 09:30 AM VA-TOBACCO NEVER U SED OTHER TYPE [facility] May 14, 2023 08:30 AM VA-TOBACCO NEVER USED [facility] Jul 24, 2018 02:44 PM VA-TOBACCO FORMER USER [facility] Jul 24, 2018 02:44 PM [place] QUIT 15 YRS OR MORE [facility] September 07, 2015 10:09 AM LIFETIME NON-USER OF TOBACCO [facility] Encounter Notes: All associated encounter notes This section contains the clinical notes associated to the Encounter. Date/Time Encounter Note(s) Provider Source May 15, 2024 09:37 AM NURSING NOTE: LOCAL TITLE: V15 PACT FACE TO FACE NOTE STL STANDARD TITLE: NURSING NOTE DATE OF NOTE: MAY 15, 2024@09:37 ENTRY DATE: MAY 15, 2024@09:37:58 AUTHOR: DANIELLE REDD EXP COSIGNER: URGENCY: STATUS: COMPLETED Provider Visit: Patient Identifiers : Full Name Date of Reason for visit: Established Follow-Up Mode of Arrival: Ambulatory Allergy Review: MORPHINE Allergy list reviewed and remains current. Recent Vital Signs: Temperature: 98.6 F [37.0 C] (05/15/2024 09:29) Pulse: 70 (05/15/2024 09:29) Respiration: 18 (05/15/2024 09:29) B/P: 130/85 (05/15/2024 09:29) Pain: 4 (05/15/2024 09:29) Wt: 257.2 lb [116.66 kg] (05/15/2024 09:29) Ht: 72 in [182.9 cm] (01/21/2024 09:22) BMI: 35.0 POX: 96% (05/15/2024 09:29) PERSONAL HEALTH INVENTORY Notes: No data available for PHI note titles PERSONAL HEALTH INVENTORY - MAP: No data available for PHI MAP What matters most to you in your life right now? - [place]'s Response: family WHOLE HEALTH SHARED GOALS: PERSONAL HEALTH PLAN - SHARED GOALS: No data available for: Php Shared Goals SHARED GOALS staying healthy Would you like to discuss any personal problem, family problem, alcohol use, drug use, or a mental or emotional illness? No My [facility] ([facility]), please select appointment type: Face to face: Yes- Done Contact provided Primary Care phone number and encouraged to call if any questions or concerns. Review that after hours nurse line [phone] and emergency room are available 06/11 for patient use. Contact verbalized good understanding. Sexual Orientation - CP,L,N,P,PH,PS,S,U: The patient thinks of their sexual orientation as: Straight or Heterosexual Depression Screening - V: Perform PHQ-2 A PHQ-2 screen was performed. The score was 0 which is a negative screen for depression. Over the past two weeks, how often have you been bothered by the following problems? 1. Little interest or pleasure in doing things Not at all 2. Feeling down, depressed, or hopeless Not at all Homelessness/Food Insecurity Screen - DI,L,N,P,PH,PS,S,U: In the past 2 months, have you been living in stable housing that you own, rent, or stay in as part of a household? Yes - Living in stable housing. Are you worried or concerned that in the next 2 months you may NOT have stable housing that you own, rent, or stay in as part of a household? No - Not worried about housing near future The [place] reports the following: Within the past 12 months, you worried whether your food would run out before you got money to buy more. Never true Within the past 12 months, the food you bought just didn't last and you didn't have money to get more. Never true Tobacco Use Screening - AT,DE,L,M,N,P,PH,PS,RT,S,U: The patient has never smoked cigarettes. The patient has never used other types of tobacco. COVID-19 Immunization - L,N,P,PH,U: Refused Pfizer Monovalent COVID-19 vaccine Immunization: COVID-19 (PFIZER), MRNA, LNP-S, PF, ROBIN-SUCROSE, 30 MCG/0.3 ML (AGES 12+ YEARS) Refusal Reason: PATIENT DECISION Patient refuses all immunization(s) in the COVID-19 group Date Documented: 05/15/24 09:40 Influenza Immunization - L,N,P,PH,U: The patient has received the seasonal influenza vaccine for the current season at another location. Documented: INFLUENZA, UNSPECIFIED FORMULATION Historical Date Administered: Mar 2024 Exact date unknown Outside Location: private doctor Information Source: FROM PATIENT'S RECALL /ben/ DANIELLE REDD LPN LICENSED PRACITCAL NURSE Signed: 05/15/2024 09:41 DANIELLE REDD [facility] May 15, 2024 09:33 AM PRIMARY CARE NOTE: LOCAL TITLE: PRIMARY CARE PROVIDER ESTABLISHED VISIT ST STANDARD TITLE: PRIMARY CARE NOTE DATE OF NOTE: MAY 15, 2024@09:33 ENTRY DATE: MAY 15, 2024@09:33:38 AUTHOR: KATHE MURILLO EXP COSIGNER: URGENCY: STATUS: COMPLETED REASON FOR VISIT/CHIEF COMPLAINT: Evaluation and management of chronic medical conditions/My scheduled visit HPI: Patient is a 43 year old WHITE MALE who presents to the clinic for evaluation and management of chronic medical conditions. Patient denies any recent ED visits or hospitalizations. Patient goes by Jose. Private providers: -[place] to the [place] annually [place]. Patient prefers for his private PCP to continue to manage his care. -Private PCP Dr. Lee Owens in [place], [place]. -Private GI Dr. Elmer Bolden in [facility]. -Private podiatry PRN ( unsure of name). -Private optometry ( unsure of name). #Prediabetes: -A1C: Obtains in the private sector. -Historically prescribed Metformin. -[place] reports having private statistical secretary for foot exams PRN. #HTN: -Denies being prescribed medication for this. -Reports having blood pressure machine at home. -Blood pressure readings at home: <130/80. -Denies CP, SOB, heart palpitations, headaches, blurred vision, dizziness/lightheadedness. #Obesity: -BMI: 34.96 -Diet: Regular. -Exercise: Denies regular exercise. -Patient had gastric sleeve in approx. 2014 s/p revision in 2023. -Patient has history of being prescribed Phentermine per private PCP. #BLAYNE: -Denies nightly CPAP use. Reports he is intolerable. #PTSD: -Stable per patient. -Denies SI/HI. -Patient reports having a private counselor that he sees PRN. -Patient reports he was in [place] that contributed to this. #GERD: -Medication: Omeprazole. -Reports compliance with medication regimen. -Patient reports had a EGD 05/09/23. #Cervicalgia: -Chronic. Onset: 2001. -Has associated cervical radiculopathy to bilateral hands (has numbness). -Duration: Constant. -Character: Ache. -Aggravating factors: Unknown. -Relieving factors: Neck traction. -Medications: Denies. -Patient had TENS unit and neck traction. -Treatments: PT and chiropractor historically. -Injury: Denies. -Imaging: Patient had cervical MRI in 2021. -[facility] -Denies bowel or bladder incontinence and saddle anesthesia. -On 12/04/2023 had bilateral laminectomies C6 and top of C7, and removal of hypertrophied yellow ligament, attn right foramen for decompression with [facility]. Last visit 01/21/24 with RTC recommended PRN. #Left knee OA: -Chronic. Began in 2003. -Hx of ACL and meniscal repair and transplant. Reports having the surgeries in 2003, 2013 and 2016. 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 -Previously managed by private orthopedics. Reports he was released. -Patient reports doing PT exercises on his own that helps with the pain. -Denies being on medications for this. -Injury: Reports having a injury when in the in 2003. -Denies clicking, buckling, locking, swelling, or limited ROM of the knee. #Tinnitus: -Stable per patient. SOURCE(S) OF HISTORY: Patient PAST MEDICAL HISTORY: 1) Benign essential hypertension 2) Obesity 3) Osteoarthritis of knee 4) Sleep apnea 5) Prediabetes 6) Posttraumatic stress disorder 7) Gastroesophageal reflux disease 8) Cervicalgia comment: Cervical C6-7 bilateral laminectomy 11/2023. 9) Tinnitus 10) Exposure to potentially hazardous substance SOCIAL HISTORY: Tobacco: Denies. Alcohol: Socially. Has 6 drinks once a month. Illicit: Vapes cannabis. ALLERGIES: MORPHINE ALLERGY REVIEW: Allergy list reviewed and remains current. MEDICATIONS: Active and Recently Outpatient Medications (excluding Supplies): Active Non-VA Medications Status 1) Non-VA METFORMIN HCL 1000MG TAB 500MG BY MOUTH TWICE A DAY ACTIVE WITH MEALS Indication: prediabetes 2) Non-VA OMEPRAZOLE 40MG EC CAP 40MG BY MOUTH TWICE A DAY ACTIVE Indication: FOR GASTROESOPHAGEAL REFLUX DISEASE REVIEW OF SYSTEMS: Constitutional: Denies weight loss, fever, chills. Ears, Nose, Mouth, Throat: Denies nasal drainage or sore throat. Denies dizziness. Endocrinology: Denies heat or cold intolerance, polydipsia, polyuria, or polyphagia. Cardiovascular: Denies chest pain, palpitations, or dizziness. Respiratory: Denies cough or shortness of breath. ABD/GI: Denies abdominal pain, nausea, vomiting, constipation, diarrhea or incontinence. Musculoskeletal/Extremities: Denies edema. Denies pain. /WALKING DRAGLINE OPERATOR: Denies frequency, hesitancy, urgency, or hematuria. Psychology: Denies insomnia or SI/HI. Denies anxiety or depression. Neurology: Denies DAVIES, tremors, neuropathy, or seizures. Skin: Denies rashes, skin lesions. PHYSICAL EXAMINATION: VITALS (most recent, as listed in the electronic record): Temperature: 98.6 F [37.0 C] (05/15/2024 09:29) BP: 130/85 (05/15/2024 09:29) Pulse: 70 (05/15/2024 09:29) Resp: 18 (05/15/2024 09:29) PulsOx: 96% (05/15/2024 09:29) Pain: 4 (05/15/2024 09:29) Weight: Measurement DT WEIGHT LB(KG)[BMI] 05/15/2024 09:29 257.2(116.66)[35*] 01/21/2024 09:22 247.1(112.08)[34*] 12/13/2023 09:12 241.9(109.72)[33*] HEENT: EOMI, PERRLA, Moist mucous membranes. No Scleral icterus or cervical lymphadenopathy. Lungs: Clear to auscultation bilaterally. No accessory muscle use. Cardiovascular: Regular rate and rhythm. No murmur. No JVD. Abdomen: Soft, nontender and non-distended. No palpable masses. Positive bowel sounds in all four quadrants. Extremities: No edema. Nontender. Full ROM to all joints. Gait steady. : Deferred. Neurologic: No focal neurological deficits. Psychiatric: Appropriate mood and affect. Skin: Skin warm, dry and intact. No lesions or rashes noted. DATA REVIEW: HGA1C 5.6 % 11/12/2023 09:46 Lipid Panel: No LIPID PANEL EO data found CMP: SODIUM 140 mEq/L 11/12/2023 09:46 POTASSIUM 3.9 mEq/L 11/12/2023 09:46 CHLORIDE 107 mEq/L 11/12/2023 09:46 UREA NITROGEN 9.1 mg/dL 11/12/2023 09:46 CREATININE 0.86 mg/dL 11/12/2023 09:46 CALCIUM 8.7 mg/dL 11/12/2023 09:46 PROTEIN 7.2 g/dL 11/12/2023 09:46 ALBUMIN 4.2 g/dL 11/12/2023 09:46 ALKALINE PHOSPHATASE 132 U/L 11/12/2023 09:46 ALT/SGPT 24 U/L 11/12/2023 09:46 AST/SGOT 23 U/L 11/12/2023 09:46 TOTAL BILIRUBIN 0.4 mg/dL 11/12/2023 09:46 CARBON DIOXIDE 24 mEq/L 11/12/2023 09:46 GLUCOSE 106 H mg/dL 11/12/2023 09:46 EGFR (CKD-EPI 2020) 109.5 11/12/2023 09:46 CBC: WBC 9.0 10*3/uL 12/04/2023 20:00 RBC 4.43 10*6/uL 12/04/2023 20:00 HGB 13.2 g/dL 12/04/2023 20:00 HCT 39.2 % 12/04/2023 20:00 MCV 88.5 fL 12/04/2023 20:00 MCH 29.8 pg 12/04/2023 20:00 MCHC 33.7 g/dL 12/04/2023 20:00 RDW 13.0 % 12/04/2023 20:00 PLT 247 10*3/uL 12/04/2023 20:00 MPV 10.9 fL 12/04/2023 20:00 NEUTROPHILS, AUTO % 90 % 12/04/2023 20:00 LYMPHOCYTES, AUTO % 8 % 12/04/2023 20:00 MONOCYTES, AUTO % 2 % 12/04/2023 20:00 EOSINOPHILS, AUTO % 0 % 12/04/2023 20:00 BASOPHILS, AUTO % 0 % 12/04/2023 20:00 NEUTROPHILS, ABSOLUTE 8.03 H 10*3/uL 12/04/2023 20:00 LYMPHOCYTES, ABSOLUTE 0.67 L 10*3/uL 12/04/2023 20:00 MONOCYTES, ABSOLUTE 0.21 10*3/uL 12/04/2023 20:00 EOSINOPHILS, ABSOLUTE 0.00 10*3/uL 12/04/2023 20:00 BASOPHILS, ABSOLUTE 0.01 10*3/uL 12/04/2023 20:00 PSA: No PSA EO data found Result: Acceptable. Health maintenance: -Declines immunizations today. Immunization Series Date Facility Reaction Info COVID-19 (DYLAN), VECTOR-NR, R* 2 02/18/2021 [facility] COVID-19 (DYLAN), VECTOR-NR, R* 1 06/24/2020 [facility] INFLUENZA, MDCK, QUADRIVALENT, PF 1 02/18/2021 [facility] TDAP 09/04/2017 [facility] <C> Colonoscopy: Patient denies family history of colon cancer. [place] reports pending to be scheduled for this in the private sector. PSA: Patient denies family history of prostate cancer. Eye exam: Evaluation and management per private optometry. Obtains labs in the private sector. ASSESSMENT/PLAN: Annual visit: -Routine labs reviewed. -Preventative health screenings reviewed. -Recommend regular eye exams. -Discussed Fall Safety. -Continue wearing mask in public and wash hands frequently. -Immunizations reviewed. -Evaluation and management per private PCP. Prediabetes: -Continue medication regimen. -Reviewed lifestyle modifications. -Dietitian contact information given. -Evaluation and management per private PCP. HTN: -Controlled at home. -Discussed importance of regular exercise and/or physical activity in the control of blood pressure. -Discussed low sodium diet w/ <2 g daily. -Discussed avoidance of caffeine. -Discussed appropriate sleep hygiene and quality with >6 hours of uninterrupted sleep. -Self-monitor BP at home and report readings consistently above goal of <130/80. -Evaluation and management per private PCP. Obesity: -Reviewed lifestyle modifications. -MOVE program and dietitian contact information given. -Evaluation and management per private PCP. BLAYNE: -Recommend using CPAP machine nightly. -Clean machine daily and replace filters q6m. -The patient has been advised that using CPAP regularly can decrease cardiac strain and help to control blood pressure. -Evaluation and management per private PCP. PTSD: -Reviewed lifestyle modifications. - crisis line and whole health contact information given. -Patient declines [facility] psychology consult. -Evaluation and management per private PCP. GERD: -Continue medication regimen. -Reviewed lifestyle modifications. -Educated to avoid triggering foods such as alcohol, caffeinated drinks, chocolate, coffee, spicy foods, citrus foods, tomatoes etc. -Evaluation and management per private GI. Cervicalgia: -Whole health contact information given. -Evaluation and management per private PCP. Left knee OA: -Whole health contact information given. -Evaluation and management per private PCP. Tinnitus: -Audiology contact information given. -Educated to avoid loud noises, avoid cotton swabs and to keep ears dry. -Evaluation and management per private PCP. RETURN TO CLINIC: 1 year or earlier as needed. SUMMARY STATEMENT: Plan of care has been discussed with including expected therapeutic benefits and potential side effects of prescribed medication and treatments. verbalizes understanding and is in agreement with the plan of care. Patient was instructed to keep all scheduled appointments and contact food assembler for any additional problems. Medication Reconciliation Opt STL: I have reviewed the patient's medication list (including active outpatient prescriptions dispensed from this [place] (local) and dispensed from another [place] or [place] facility (remote) as well as inpatient orders (local pending and active), local clinic medications, locally documented non-VA medications, and local prescriptions that have or been discontinued in the past 90 days.) with the patient and/or his/her care-sleep tech. Handwritten corrections, additions and/or deletions were made to the list, as appropriate. Corrected Outpatient Medication List was provided to the patient/caregiver. HIV Screening (Routine): Patient has been offered HIV testing and has declined. I have explained that HIV testing is recommended for all adults, even if all risk factors are absent. PAVE Foot Check - L,N,P,PH,PO,PT,U: Patient declined limb care exam. The patient was advised the [place] mandates all patients with diabetes mellitus, end stage renal disease, peripheral vascular disease, or sensory neuropathy should have a complete foot check completed annually. This includes a visual exam of the skin, pedal pulses and a sensory exam. Patients with any abnormality noted during the foot check should be referred to a specialist. Avg Risk Colorectal Cancer Screen - L,N,P,PH: AVERAGE RISK colorectal cancer screening is due based on information available to this clinical reminder Patient has arranged or is choosing to arrange this care independent of and without assistance from this [place]. /ben/ Kathe Murillo DNP, COINING PRESS OPERATOR, CREATIVE DESIGNER-C Primary Care Nurse Practitioner Signed: 05/15/2024 09:58 KATHE MURILLO [facility]
--- OUTSIDE RECORDS SUMMARY | 2024-09-16 02:22 | XMS_ITS | Data Portability ---
[facility] [address] [place] [address] Care Team Providers Care Network Intelligence Analyst Name Role Phone MIRIAM OWENS Primary Care Provider Unavailabl e Assessment Encounter Date Assessment Date Assessment LastModified by Organization Details LastModified Time 06/12/2023 06/12/[address] [facility] sinus rhythm with IVCD moderate. Chest x-ray no acute findings. [id number] A1c 5.7. Diabetes is stable headaches have been stable his chronic medical problems no new issues he has blood work coming up with his bariatric surgeon next week and if that is all without marked abnormality then he is optimized for surgery and he will see me back in 4 months. Anxiety appears to Not available 06/23/2023 21:59:57 03/19/2024 03/19/2024 blood work has been ordered podiatry referral for diabetic foot exam x-rays up-to-date on diabetic eye exam. Refer for vasectomy. We have a host of blood work that his bariatric surgeon once done he would wishes to get it done here in our lab so we will go ahead and write those orders follow up 6 months [email or web address] Not available 03/23/2024 15:57:19 Plan of Treatment Reminders Order Date Submit Date Provider Last Modified By Organization Details Last Modified Time Details Appointments ANY 15 2024 10:15A M Miriam Owens MD Not available Not available Not available Lab HbA1c (hemoglob in A1c), blood 2023 024 ALEX [facility], [address], [address], [address], 03/28/2024 19:10:02 albumin/c reatinine , mass ratio, urine 2023 024 [facility], [address], [address], [place], [address], 03/28/2024 19:09:57 lipid panel, serum 2023 024 [facility], [address], [address], [place], [address], 03/28/2024 19:09:58 CMP, serum or plasma 2023 024 [facility], [address], [address], [place], [address], 03/28/2024 19:09:59 CBC w/ auto diff 2023 024 [facility], [address], [address], [place], [address], 03/28/2024 19:10:07 TSH, ultra-sen sitive, serum 2023 024 [facility], [address], [address], [place], [address], 03/28/2024 19:10:06 T4, free, serum 2023 024 ALEXOTILIO [facility], [address], [address], [place], [address], 03/28/2024 19:10:12 T3, free, serum or plasma 2023 024 ALEX [facility], [address], [address], [place], [address], 03/28/2024 19:10:08 cobalamin and folate panel, serum 2023 024 MAUMELLE [facility], [address], [address], [place], [address], 03/28/2024 19:10:00 thiamine, QN, blood 2023 024 [email or web address] [facility], [address], [address], [place], [address], 03/19/2024 18:23:48 iron + TIBC + ferritin, serum 2023 024 ALEX [facility], [address], [address], [place], [address], 03/28/2024 19:10:13 vitamin D, 25-hydrox y, total, serum 2023 024 ALEX [facility], [address], [address], [place], [address], 03/28/2024 19:10:16 vitamin A (retinol) , serum 2023 024 ALEX [facility], [address], [address], [place], [address], 03/28/2024 19:10:11 vitamin E, serum 2023 024 ALEX [facility], [address], [address], [place], [address], 03/28/2024 19:10:14 PTH (parathyr oid hormone), intact, serum or plasma 2023 024 ALEX Charles, [address], [address], [place], [address], 03/28/2024 19:10:10 copper, serum or plasma 2023 024 ALEX Charles, [address], [address], [place], [address], 03/28/2024 19:10:03 selenium, quantitat koko, blood 2023 024 ALEX Charles, [address], [address], [place], [address], 03/28/2024 19:10:15 zinc, serum or plasma 2023 024 MAUMELLE [facility], [address], [address], [place], [address], 03/28/2024 19:10:05 HbA1c (hemoglob in A1c), blood 2023 024 In-Office Order, Internal Use Only DO Not Attach Compendium DO Not Attach Compendium, Do Not Delete/merge, [id number] 06/23/2023 22:00:38 Referral urologist referral 2023 024 MAUMELLE [facility], [address] [place] [address] [address], [address], [place], [address], 03/21/2024 17:33:21 podiatris t referral 2023 024 ALEX Rainer Griffiths DPM, [address], [address], [place], [address], 05/06/2024 17:44:56 Procedures None recorded. Surgeries None recorded. Imaging None recorded. Medication Orders None recorded. Patient TargetsNo targets recorded. Patient Instructions Encounter Date Encounter Id Patient Instructions Last Modified By Organization Details Last Modified Time 03/19/2024 [id number] A healthy lifestyle: care instructions [email or web address] Not available 03/19/2024 18:23:48 vitamin K [email or web address] Not available 2023 18:23:48 Reason for Referral Camp Attendant Referral for Type 2 diabetes mellitus Referring Physician: Miriam Owens, Internal Medicine, Encounter Date: 03/19/2024 Urologist Referral for Vasec telly requested Referring Physician: Miriam Owens, Internal Medicine, Encounter Date: 03/19/2024 Results Created Date Observation Date Name Description Value Unit Range Abnormal Flag Note LastModifiedBy Organization Detail LastModifiedTime 06/12/19 24 06/12/2023 HbA1c (hemo globi n A1c), blood HbA1c 5.7 Not Available In-Office Order Internal Use Only DO Not Attach Compendium DO Not Attach Compendium, Do Not Delete/merge, [id number] 06/12/2023 15:25:57 03/19/20 24 03/20/2024 ALBUM IN/CR EATIN INE RATIO ,URIN E creatinine, urine 193.3 mg/dL notest ab. Not Available [facility] ([facility]) [address] [place], [address], 03/28/2024 19:09:57 03/19/20 24 03/20/2024 ALBUM IN/CR EATIN INE RATIO ,URIN E albumin, urine 10.3 ug/mL notest ab. Not Available [facility] ([facility]) [address] [place], [address], 03/28/2024 19:09:57 03/19/20 24 03/20/2024 ALBUM IN/CR EATIN INE RATIO ,URIN E alb/creat ratio 5 mg/g_ creat 0-29 Nadia l: 0 - 29 Moder ately incre ased: 30 - 300 Sever callie incre ased: >300 Not Available [facility] ([facility]) [address] [place], [address], 03/28/2024 19:09:57 03/19/20 24 03/20/2024 LIPID PANEL cholesterol, total 206 mg/dL 100-19 9 above high normal Not Available [facility] ([facility]) [address] [place], [address], 03/28/2024 19:09:58 03/19/20 24 03/20/2024 LIPID PANEL triglyceride s 115 mg/dL 0-149 Not Available [facility] ([facility]) [address] [place], [address], 03/28/2024 19:09:58 03/19/20 24 03/20/2024 LIPID PANEL HDL cholesterol 53 mg/dL >39 Not Available [facility] [address] [place], [address], 03/28/2024 19:09:58 03/19/20 24 03/20/2024 LIPID PANEL VLDL cholesterol catrachito 21 mg/dL 5-40 Not Available [facility] ([facility]) [address] [facility], [place], [address], 03/28/2024 19:09:58 03/19/20 24 03/20/2024 LIPID PANEL LDL chol calc ([facility]) 132 mg/dL 0-99 above high normal Not Available [facility] ([facility]) [address] [facility], [place], [address], 03/28/2024 19:09:58 03/19/20 24 03/20/2024 COMP. METAB OLIC PANEL (14) glucose 78 mg/dL 70-99 Not Available [facility] ([facility]) [address] [place], [address], 03/28/2024 19:09:59 03/19/20 24 03/20/2024 COMP. METAB OLIC PANEL (14) BUN 9 mg/dL 6-24 Not Available [facility] ([facility]) [address] [place], [address], 03/28/2024 19:09:59 03/19/20 24 03/20/2024 COMP. METAB OLIC PANEL (14) creatinine 1.00 mg/dL 0.76-1 .27 Not Available [facility] ([facility]) [address] [place], [address], 03/28/2024 19:09:59 03/19/20 24 03/20/2024 COMP. METAB OLIC PANEL (14) eGFR 95 mL/mi n/1.7 3 >59 Not Available [facility] ([facility]) [address] [place], [address], 03/28/2024 19:09:59 03/19/20 24 03/20/2024 COMP. METAB OLIC PANEL (14) BUN/creatini ne ratio 9 9-20 Not Available [facility] ([facility]) [address] [facility] [place] [place], [address], 03/28/2024 19:09:59 03/19/20 24 03/20/2024 COMP. METAB OLIC PANEL (14) sodium 143 mmol/ L 134-14 4 Not Available [facility] ([facility]) [address] [facility] [place] [place], [address], 03/28/2024 19:09:59 03/19/20 24 03/20/2024 COMP. METAB OLIC PANEL (14) potassium 4.3 mmol/ L 3.5-5. 2 Not Available [facility] ([facility]) [address] [facility], [place], [address], 03/28/2024 19:09:59 03/19/20 24 03/20/2024 COMP. METAB OLIC PANEL (14) chloride 104 mmol/ L 96-106 Not Available [facility] ([facility]) [address] [facility] [place] [place], [address], 03/28/2024 19:09:59 03/19/20 24 03/20/2024 COMP. METAB OLIC PANEL (14) carbon dioxide, total 27 mmol/ L 20-29 Not Available [facility] ([facility]) [address] [facility] [place] [place], [address], 03/28/2024 19:09:59 03/19/20 24 03/20/2024 COMP. METAB OLIC PANEL (14) calcium 9.1 mg/dL 8.7-10 .2 Not Available [facility] ([facility]) [address] [facility] [place] [place], [address], 03/28/2024 19:09:59 03/19/20 24 03/20/2024 COMP. METAB OLIC PANEL (14) protein, total 6.8 g/dL 6.0-8. 5 Not Available [facility] ([facility]) [address] [place], [address], 03/28/2024 19:09:59 03/19/20 24 03/20/2024 COMP. METAB OLIC PANEL (14) albumin 4.3 g/dL 4.1-5. 1 Not Available [facility] ([facility]) [address] [place], [address], 03/28/2024 19:09:59 03/19/20 24 03/20/2024 COMP. METAB OLIC PANEL (14) globulin, total 2.5 g/dL 1.5-4. 5 Not Available [facility] ([facility]) [address] [place], [address], 03/28/2024 19:09:59 03/19/20 24 03/20/2024 COMP. METAB OLIC PANEL (14) bilirubin, total 0.2 mg/dL 0.0-1. 2 Not Available [facility] ([facility]) [address] [place], [address], 03/28/2024 19:09:59 03/19/20 24 03/20/2024 COMP. METAB OLIC PANEL (14) alkaline phosphatase 145 IU/L 44-121 above high normal Not Available [facility] ([facility]) [address] [place], [address], 03/28/2024 19:09:59 03/19/20 24 03/20/2024 COMP. METAB OLIC PANEL (14) AST (SGOT) 21 IU/L 0-40 Not Available [facility] ([facility]) [address] [place], [address], 03/28/2024 19:09:59 03/19/20 24 03/20/2024 COMP. METAB OLIC PANEL (14) ALT (SGPT) 25 IU/L 0-44 Not Available [facility] ([facility]) [address], [place], [address], 03/28/2024 19:09:59 03/19/20 24 03/20/2024 VITAM IN B12 AND FOLAT E vitamin B12 285 pg/mL 232-12 45 Not Available [facility] ([facility]) [address] [facility], [place], [address], 03/28/2024 19:10:00 03/19/20 24 03/20/2024 VITAM IN B12 AND FOLAT E folate (folic acid), serum 9.6 NG/mL >3.0 A serum folat e marisa ntrat ion of less than 3.1 ng/mL is consi dered to repre sent clini catrachito defic iency . Not Available [facility] ([facility]) [address] [facility], [place], [address], 03/28/2024 19:10:00 03/19/20 24 03/20/2024 HEMOG LOBIN A1C hemoglobin A1C 5.5 % 4.8-5. 6 Predi abete s: 5.7 - 6.4 Diabe genet: >6.4 Glyce kenney contr ol for adult s with diabe genet: <7.0 Not Available [facility] ([facility]) [address] [facility], [place], [address], 03/28/2024 19:10:02 03/19/20 24 03/21/2024 COPPE R, SERUM OR PLASM A copper, serum or plasma 93 ug/dL 69-132 Detec tion Limit = 5 Not Available [facility] ([facility]) [address] [facility], [place], [address], 03/28/2024 19:10:03 03/19/20 24 03/21/2024 ZINC, PLASM A OR SERUM zinc, plasma or serum 67 ug/dL 44-115 Detec tion Limit = 5 Not Available [facility] ([facility]) [address] [place], [address], 03/28/2024 19:10:05 03/19/20 24 03/20/2024 TSH TSH 1.300 uIU/m L 0.450- 4.500 Not Available [facility] ([facility]) [address] [facility], [place], [address], 03/28/2024 19:10:06 03/19/20 24 03/20/2024 CBC WITH DIFFE RENTI AL/PL ATELE T WBC 5.6 x10e3 /uL 3.4-10 .8 Not Available [facility] ([facility]) [address] [facility], [place], [address], 03/28/2024 19:10:07 03/19/20 24 03/20/2024 CBC WITH DIFFE RENTI AL/PL ATELE T RBC 4.73 x10e6 /uL 4.14-5 .80 Not Available [facility] ([facility]) [address] [facility], [place], [address], 03/28/2024 19:10:07 03/19/20 24 03/20/2024 CBC WITH DIFFE RENTI AL/PL ATELE T hemoglobin 14.4 g/dL 13.0-1 7.7 Not Available [facility] ([facility]) [address] [facility], [place], [address], 03/28/2024 19:10:07 03/19/20 24 03/20/2024 CBC WITH DIFFE RENTI AL/PL ATELE T hematocrit 43.3 % 37.5-5 1.0 Not Available [facility] ([facility]) [address] [facility], [place], [address], 03/28/2024 19:10:07 03/19/20 24 03/20/2024 CBC WITH DIFFE RENTI AL/PL ATELE T MCV 92 fL 79-97 Not Available [facility] ([facility]) [address] [place], [address], 03/28/2024 19:10:07 03/19/20 24 03/20/2024 CBC WITH DIFFE RENTI AL/PL ATELE T MCH 30.4 pg 26.6-3 3.0 Not Available [facility] ([facility]) [address] [facility], [place], [address], 03/28/2024 19:10:07 03/19/20 24 03/20/2024 CBC WITH DIFFE RENTI AL/PL ATELE T MCHC 33.3 g/dL 31.5-3 5.7 Not Available [facility] ([facility]) [address] [facility], [place], [address], 03/28/2024 19:10:07 03/19/20 24 03/20/2024 CBC WITH DIFFE RENTI AL/PL ATELE T RDW 12.2 % 11.6-1 5.4 Not Available [facility] ([facility]) [address] [facility], [place], [address], 03/28/2024 19:10:07 03/19/20 24 03/20/2024 CBC WITH DIFFE RENTI AL/PL ATELE T platelets 283 x10e3 /uL 150-45 0 Not Available [facility] ([facility]) [address] [facility], [place], [address], 03/28/2024 19:10:07 03/19/20 24 03/20/2024 CBC WITH DIFFE RENTI AL/PL ATELE T neutrophils 58 % notest ab. Not Available [facility] ([facility]) [address] [facility], [place], [address], 03/28/2024 19:10:07 03/19/20 24 03/20/2024 CBC WITH DIFFE RENTI AL/PL ATELE T lymphs 31 % notest ab. Not Available [facility] ([facility]) [address] [place] [address], [place], [address], 03/28/2024 19:10:07 03/19/20 24 03/20/2024 CBC WITH DIFFE RENTI AL/PL ATELE T monocytes 7 % notest ab. Not Available [facility] ([facility]) [address] [facility], [place], [address], 03/28/2024 19:10:07 03/19/20 24 03/20/2024 CBC WITH DIFFE RENTI AL/PL ATELE T eos 3 % notest ab. Not Available [facility] ([facility]) [address] [facility], [place], [address], 03/28/2024 19:10:07 03/19/20 24 03/20/2024 CBC WITH DIFFE RENTI AL/PL ATELE T basos 1 % notest ab. Not Available [facility] ([facility]) [address] [facility], [place], [address], 03/28/2024 19:10:07 03/19/20 24 03/20/2024 CBC WITH DIFFE RENTI AL/PL ATELE T neutrophils (absolute) 3.2 x10e3 /uL 1.4-7. 0 Not Available [facility] ([facility]) [address] [facility], [place], [address], 03/28/2024 19:10:07 03/19/20 24 03/20/2024 CBC WITH DIFFE RENTI AL/PL ATELE T lymphs (absolute) 1.7 x10e3 /uL 0.7-3. 1 Not Available [facility] ([facility]) [address] [facility], [place], [address], 03/28/2024 19:10:07 03/19/20 24 03/20/2024 CBC WITH DIFFE RENTI AL/PL ATELE T monocytes(ab solute) 0.4 x10e3 /uL 0.1-0. 9 Not Available [facility] ([facility]) [address] [facility], [place], [address], 03/28/2024 19:10:07 03/19/20 24 03/20/2024 CBC WITH DIFFE RENTI AL/PL ATELE T eos (absolute) 0.2 x10e3 /uL 0.0-0. 4 Not Available [facility] ([facility]) [address] [place], [address], 03/28/2024 19:10:07 03/19/20 24 03/20/2024 CBC WITH DIFFE RENTI AL/PL ATELE T baso (absolute) 0.0 x10e3 /uL 0.0-0. 2 Not Available [facility] ([facility]) [address] [place], [address], 03/28/2024 19:10:07 03/19/20 24 03/20/2024 CBC WITH DIFFE RENTI AL/PL ATELE T immature granulocytes 0 % notest ab. Not Available [facility] ([facility]) [address] [place], [address], 03/28/2024 19:10:07 03/19/20 24 03/20/2024 CBC WITH DIFFE RENTI AL/PL ATELE T immature grans (abs) 0.0 x10e3 /uL 0.0-0. 1 Not Available [facility] ([facility]) [address] [place], [address], 03/28/2024 19:10:07 03/19/20 24 03/20/2024 TRIIO DOTHY POLO E (T3), FREE triiodothyro nine (T3), free 3.1 pg/mL 2.0-4. 4 Not Available [facility] ([facility]) [address] [place], [address], 03/28/2024 19:10:08 03/19/20 24 03/20/2024 PTH, INTAC T PTH, intact 53 pg/mL 15-65 Not Available [facility] ([facility]) [address] [place], [address], 03/28/2024 19:10:09 03/19/20 24 03/28/2024 VITAM IN A, SERUM vitamin A 45.1 ug/dL 20.1-6 2.0 Refer ence inter vals for vitam in A deter mined from [facility] inter nal studi es. Indiv idual s with vitam in A less than 20 ug/dL are consi dered vitam in A defic ient and those with serum marisa ntrat ions less than 10 ug/dL are consi dered sever callie defic ient. This test was devel nikkied and its perfo rmanc e alyssa cteri stics deter mined by [facility] [facility]. It has not been clear ed or appro veronica by the Food and Drug Admin istra tion. Not Available [facility] ([facility]) [address] [place], [address], 03/28/2024 19:10:11 03/19/20 24 03/20/2024 T4,FR EE(DI RECT) T4,free(dire ct) 1.09 NG/dL 0.82-1 .77 Not Available [facility] ([facility]) [address] [place], [address], 03/28/2024 19:10:12 03/19/20 24 03/20/2024 FE+TI BC+FE R iron bind.cap.(TI BC) 410 ug/dL 250-45 0 Not Available [facility] ([facility]) [address] [place], [address], 03/28/2024 19:10:13 03/19/20 24 03/20/2024 FE+TI BC+FE R UIBC 345 ug/dL 111-34 3 above high normal Not Available [facility] ([facility]) [address] [place], [address], 03/28/2024 19:10:13 03/19/20 24 03/20/2024 FE+TI BC+FE R iron 65 ug/dL 38-169 Not Available [facility] ([facility]) [address] [place], [address], 03/28/2024 19:10:13 03/19/20 24 03/20/2024 FE+TI BC+FE R iron saturation 16 % 15-55 Not Available [facility] ([facility]) [address] [facility], [place], [address], 03/28/2024 19:10:13 03/19/20 24 03/20/2024 FE+TI BC+FE R ferritin 18 NG/mL 30-400 below low normal Not Available [facility] ([facility]) [address] [facility], [place], [address], 03/28/2024 19:10:13 03/19/20 24 03/28/2024 VITAM IN E vitamin E(alpha tocopherol) 9.9 mg/L 7.0-25 .1 Not Available [facility] ([facility]) [address] [facility], [place], [address], 03/28/2024 19:10:14 03/19/20 24 03/28/2024 VITAM IN E vitamin E(gamma tocopherol) 1.6 mg/L 0.5-5. 5 Refer ence inter vals for alpha and gamma -toco phero l deter mined from [facility] [employer] n Surve y, 2004- 2005. Indiv idual s with alpha -toco phero l level s less than 5.0 mg/L are consi dered vitam in E defic ient. Not Available [facility] ([facility]) [address] [facility], [place], [address], 03/28/2024 19:10:14 03/19/20 24 03/26/2024 SELEN IUM, BLOOD selenium, blood 141 ug/L 100-34 0 Detec tion Limit = 10 Not Available [facility] ([facility]) [address] [facility], [place], [address], 03/28/2024 19:10:15 03/19/20 24 03/20/2024 VITAM IN D, 25-HY DROXY vitamin D, 25-hydroxy 18.8 NG/mL 30.0-1 00.0 below low normal Vitam in D defic iency has been defin ed by the Insti tute of Medic ine and an Endoc rine Socie ty pract ice guide line as a level of serum 25-OH vitam in D less than 20 ng/mL (1,2) . The Endoc rine Socie ty went on to furth er defin e vitam in D insuf ficie ncy as a level betwe en 21 and 29 ng/mL (2). 1. IOM (Inst itute of Medic ine). 2010. Dieta ry refer ence garland es for calci um and D. Alva logan [place]: [facility] . 2. Nannette burnham MF, Allyssa hall [place], Pita off-F errar i DAVIES, et al. Evalu ation , treat ment, and preve ntion of vitam in D defic iency : an Endoc rine Socie ty clini catrachito pract ice guide line. JCEM. 2010; 96(7) :1911 -30. Not Available [facility] ([facility]) [address] [facility], [place], [address], 03/28/2024 19:10:16 06/12/19 24 06/05/2023 XR, chest No observ ation record ed. BARCODE Not Available 2023 11:11:20 06/12/19 24 06/05/2023 elect xavier arellanogr am No observ ation record ed. [email or web address] Not Available 06/12 12:02:09 06/13/19 24 05/08/2023 esoph agoga strod uoden oscop y with biops y (PROC ) No observ ation record ed. BARCODE Not Available 2023 09:07:26 03/31/20 24 03/31/2024 diabe tic eye exam* No observ ation record ed. debra Fajardo [address], [place], [address], 04/01/2024 16:25:09 Result Notes None recorded. Problems Name Problem SNOMED Code Status Onset Date Resolution Date Notes Provider Name and Address Organization Details Recorded Time Type 2 diabetes mellitus 10358439 Active 024 Paula Moore MA [facility], [place] - SI 4 15:06:59 Problem Notes None recorded. Medical Equipment None Reported. Allergies Allergen ID Allergen Name Allergen Category Reaction Reaction Severity Criticality Documentation Date Start Date Code Code System Note Provider Name and Address Organization Details Recorded Time 853311 morphine medicatio n dizziness Not available Not available 06/12/2023 7052 RxNorm Sam Melton MA null, [place] - [facility] 4 10:04:21 Medications Name Sig Start Date Stop Date Status Note LastModified by Organization Details LastModified Time walg algy rlf aleg d 240mg/dc tbs TAKE 1 TABLET BY MOUTH EVERY DAY active Not Available Not Available No t Available methocarbam ol 500 mg tablet active Not Available Not Available Not Available azithromyci n 250 mg tablet 06/12 completed Not Available Not Available Not Available benzonatate 200 mg capsule TAKE 1 CAPSULE BY MOUTH THREE TIMES DAILY NEEDED FOR COUGH 06/12 completed Not Available Not Available Not Available phentermine 37.5 mg tablet TAKE 1 TABLET BY MOUTH EVERY MORNING active Not Available Not Available No t Available omeprazole 40 mg capsule,del ayed release TAKE 1 CAPSULE BY MOUTH TWICE DAILY active Not Available Not Available No t Available oxycodone-a cetaminophe n 5 mg-325 mg tablet TAKE 1 TO 2 TABLETS BY MOUTH EVERY 6 HOURS FOR 3 DAYS NEEDED FOR PAIN active Not Available Not Available No t Available cyanocobala min (vit B-12) 1,000 mcg/mL injection solution INJECT 1 ML IN THE MUSCLE ONCE A MONTH active Not Available Not Available No t Available mupirocin 2 % topical ointment active Not Available Not Available Not Available scopolamine 1 mg over 3 days transdermal patch APPLY 1 PATCH BEHIND EAR AT BEDTIME THE NIGHT BEFORE PROCEDURE active Not Available Not Available No t Available albuterol sulfate HFA 90 mcg/actuati on aerosol inhaler INHALE 2 PUFFS BY MOUTH EVERY 4 TO 6 HOURS NEEDED FOR WHEEZING / SHORTNESS OF BREATH active Not Available Not Available No t Available ondansetron 4 mg disintegrat ing tablet DISSOLVE 1 TABLET ON THE TONGUE EVERY 4 HOURS NEEDED FOR NAUSEA active Not Available Not Available No t Available metformin ER 500 mg tablet,exte nded release 24 hr TAKE 1 TABLET BY MOUTH ONCE DAILY WITH DINNER FOR 1 WEEK THEN TAKE 1 TABLET BY MOUTH WITH BREAKFAST AND DINNER active Not Available Not Available No t Available aprepitant 40 mg capsule TAKE 1 CAPSULE BY MOUTH 3 HOURS PRIOR TO SURGERY active Not Available Not Available No t Available cholecalcif hector (vitamin D3) 1,250 mcg (50,000 unit) capsule TAKE ONE CAPSULE BY MOUTH ONCE WEEKLY active Not Available Not Available No t Available naloxone 4 mg/actuatio n nasal spray active Not Available Not Available Not Available Bariatric Multivitami ns active Not Available Not Available Not Available Citracal-D3 Maximum Plus active Not Available Not Available Not Available Wegovy 1.7 mg/0.75 mL subcutaneou s pen injector INJECT 1.7 MG UNDER THE SKIN WEEKLY active Not Available Not Available No t Available Wegovy 1 mg/0.5 mL subcutaneou s pen injector INJECT 1 MG UNDER THE SKIN ONCE WEEKLY active Not Available Not Available No t Available Wegovy 0.5 mg/0.5 mL subcutaneou s pen injector INJECT 0.5 MG UNDER THE SKIN ONCE WEEKLY active Not Available Not Available No t Available Allergy Relief-D (fexofenadi ne) 180 mg-240 mg tablet,ext. release 24 hr TAKE 1 TABLET BY MOUTH EVERY DAY 2024 active Not Available Not Available Not Avai lable Vitals Date Recorded Body height Body mass index (BMI) Body weight Heart rate Oxygen saturation Oxygen saturation in Arterial blood by Pulse oximetry Body temperature Systolic blood pressure Diastolic blood pressure Provider Name and Address Organization Details Last Updated DateTime 4 182.88 cm 38.2 kg/m2 465120. 05 g 96 /min 96 % 96 % 98.3 [degF] 140 mm[Hg] 90 mm[Hg] Sam Melton MA [place] - [facility] 4 10:16:20 Date Recorded Body height Body mass index (BMI) Body weight Heart rate Oxygen saturation Oxygen saturation in Arterial blood by Pulse oximetry Systolic blood pressure Diastolic blood pressure Provider Name and Address Organization Details Last Updated DateTime 4 182.88 cm 34.4 kg/m2 367407. 46 g 68 /min 97 % 97 % 122 mm[Hg] 68 mm[Hg] Makenna Lopez MA [place] - [facility] 14:16:23 Social History Question Answer Notes LastModified by Organizat ion Details LastModified Time Tobacco Smoking Status Never Smoker Sam Melton MA null, [place] - [facility] 06/12/2023 10:11:18 Are You Blind Or Do You Have Difficulty Seeing? No Information not available 06/12/2023 What Is Your Level Of Caffeine Consumption? Occasional Coffee Information not available 06/12/2023 Are You Deaf Or Do You Have Serious Difficulty Hearing? No Information not available 06/12/2023 What Type Of Diet Are You Following? REGULAR Information not available 06/12/2023 What Is The Highest Grade Or Level Of School You Have Completed Or The Highest Degree You Have Received? [id number] Information not available 06/12/2023 Are There Any Guns Present In Your Home? No Information not available 06/12/2023 What Was The Date Of Your Most Recent Tobacco Screening? 03/19/2024 [email or web address] Information not available 03/19/2024 What Is Your Relationship Status? Information not available 06/12/2023 Do You Use Your Seat Belt Or Car Seat Routinely? Yes Information not available 06/12/2023 Do You Have Smoke And Carbon Monoxide Detectors In Your Home? Yes Information not available 06/12/2023 Do You Use Sunscreen Routinely? Yes Information not available 06/12/2023 Has Tobacco Cessation Counseling Been Provided? No Information not available 06/12/2023 Sex: Male Functional Status Question Answer Note LastModified by Organizat ion Details LastModified Time Do you use any illicit or recreational drugs? No Information not available 06/12/2023 Do you or have you ever used any other forms of tobacco or nicotine? No Information not available 06/12/2023 What is your level of alcohol consumption? Occasional Information not available 06/12/2023 Are you currently employed? Yes Information not available 06/12/2023 Are you able to care for yourself? 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 Occasional Information not available 06/12/2023 Mental Status Question Answer Note LastModified by Organization D etails LastModified Time Do you feel stressed (tense, restless, nervous, or anxious, or unable to sleep at night)? [id number] Information not available 06/12/2023 Family History Nothing Reported. Medical History Condition Response Coronary Artery Disease N High Blood Pressure N Atrial Fibrillation N Thyroid Problems N Kidney or Bladder Problems N GI Problems N Depression Y COPD N Blood Clots N Skin Problems N Anemia N Heart Attack (MS) N Diabetes Y Anxiety Disorder Y Muscle, Joint, or Bone Problems Y Seizures/Epilepsy N Acid Reflux (GERD) Y Cancer N Stroke N Asthma N Allergies Y High Cholesterol N Hepatitis N Liver Disease N Headaches Y Osteoporosis N Heart Failure N Immunizations Vaccine Type Date Status Note Provider Nam e and Address Organization Details Recorded Time Influenza, MDCK, quadrivalent, PF 02/18/2021 completed MADAN L[place], [place] - [facility] 03/19/2024 17:50:56 COVID-19 vaccine, vector-nr, rS-Ad26, PF, 0.5 mL 06/24/2020 completed MADAN [place], [place] - [facility] 03/19/2024 17:50:56 COVID-19 vaccine, vector-nr, rS-Ad26, PF, 0.5 mL 02/18/2021 completed MADAN [place], [place] - [facility] 03/19/2024 17:50:56 Past Encounters Encounter ID Performer Location Encounter Start Date Encounter Closed Date Diagnosis/Indication Diagnosis SNOMED-CT Code Diagnosis ICD10 Code Diagnosis Note [id number] MD Alisa Davis (Adult Med) [address] [place] [phone] 06/12/2023 09:52:29 06/12/2023 10:46:47 Type 2 diabetes mellitus 76204809 E11.9 Gastroesop hageal reflux disease 476427262 K21.00 Anxiety 74793437 F41.9 [id number] MD Alisa Davis (Adult Med) [address] [place] [address] 03/19/2024 13:55:12 03/19/2024 15:16:10 Type 2 diabetes mellitus 51885281 E11.9 Gastroesop hageal reflux disease without esophagitis 155284670 K21.9 Screening for cardiovascular system disease 315236359 Z13.6 Long-term drug therapy 054164666 Z79.891 Vasectomy requested 1839 37896 Z30.2 Fatigue 34926571 R53.83 Obesity 901397874 E66.9 Health Concerns Section Related Observation LastModified by Organization Detai ls LastModified Time None Recorded Concern Status LastModified by Organization Details LastModified Time None Recorded Advance Directives Directive None Recorded Payers Encounter Date Sequence Insurance Name Policy Number Policy Wagner Covered Member ID Wagner Member ID Guarantor Name 06/12/2023 1 [facility]) [id number] Adonis Timmonsl [id number] [facility] Adonis Coronado 03/19/2024 1 [facility]) [id number] Adonis Timmonsl [id number] [facility] Notes Date Note Type Note Provider Name and Address Organization Details Recorded Time 06/12/2023 text/html Gastric bypass planned. GERD some nausea no vomiting depression stable headaches history of which but doing okay anxiety stable Miriam Owens MD Attn: Accounting,[address] [place], [address], [facility] 06/23/2023 22:00:40 03/19/2024 text/html diabetes has bee n controlled by a surgery. He has had sometimes a little bit of fatigue he has GERD has been doing fine he wants to be referred for a vasectomy Miriam Owens MD Attn: Accounting[address] [facility], [place], [address], [facility] 03/23/2024 15:57:40
--- OUTSIDE RECORDS SUMMARY | 2024-09-16 02:22 | XMS_ITS | Encounter Summary ---
Author Organization [facility] Health Address [address] [place] [address] Care Team Providers Care Guard Supervisor Name Role Phone Lee Owens MD Primary Care Provider [phone] Encounter Details Date Type Department Care Team (Late st Contact Info) Description 10/02/2019 Lab Requisition [facility] [address] [place] [address] Social History Tobacco Use Types Packs/Day Years Used Date Smoking Tobacco: Never Assessed Sex and Gender Information Value Date Recorded Sex Assigned at Not on file Legal Sex Male 2:04 PM CDT Gender Identity Not on file Sexual Orientation Not on file documented as of this encounter Functional Status * Is person deaf or have serious hearing difficulty? Answer Date of Assessment Author No 08/14/2016 8:28 AM CDT Nikki Reyna RN * Is person blind or have serious difficulty seeing? Answer Date of Assessment Author No 08/14/2016 8:28 AM CDT Nikki Reyna RN * Does person have serious difficulty walking/climbing stairs? Answer Date of Assessment Author No 08/14/2016 8:28 AM CDT Nikki Reyna RN * Does person have difficulty dressing/bathing? Answer Date of Assessment Author No 08/14/2016 8:28 AM CDT Nikki Reyna RN * Does person have difficulty doing errands alone? Answer Date of Assessment Author No 08/14/2016 8:28 AM CDT Nikki Reyna RN documented as of this encounter Mental Status * Does person have difficulty concentrating/remembering/making decisions? Answer Entry Date Author No 08/14/2016 8:28 AM CDT Nikki Reyna RN documented in this encounter Plan of Treatment Not on file documented as of this encounter Procedures Procedure Name Priority Date/Time Associated Diagnosis Comments SARS-COV-2 (COVID-19) IN HOUSE Routine 10/01/2019 1:10 PM CDT documented in this encounter Results * SARS-COV-2 (COVID-19) IN HOUSE (10/01/2019 1:10 PM CDT) COVID-19 PCR Not detected Not detected, Invalid 10/02/2019 8:56 PM CDT [facility] Microbiology SPECIMEN FROM NASOPHARYNGEAL STRUCTURE / Unknown Collection / Unknown 10/01/2019 1:10 PM CDT 10/02/2019 11:05 AM CDT Narrative [facility] - 10/02/2019 8:56 PM CDT This Real Time RT-PCR assay was developed and its performance characteristics determined by [facility]. This test has been authorized by the Food and Drug administration (FDA)under an Emergency Use Authorization (EUA). This test has been validated in accordance with the FDA's guidance document Policy for Diagnostic Testing in Laboratories Certified to perform High Complexity Testing under CLIA prior to Emergency Use Authorization for Coronavirus Disease-2019 during the Public Health Emergency issued on June 14, 2019. FDA independent review of this validation is pending. This test is only authorized for the duration of time the declaration that circumstances exist justifying the authorization of emergency use of in vitro diagnostic tests for detection of SARS-CoV-2 virus and/or diagnosis of COVID-19 infection under section 564(b)(1) of the Act, 21 U.S.C 360bbb-3 (b)(1), unless the authorization is terminated or revoked sooner. us LAB - MICROBIOLOGY ORDERABLES Fi nal Result [facility] [address] [place] [address], [facility] [phone] documented in this encounter Visit Diagnoses Not on filedocumented in this encounter Additional Health Concerns Infection Onset Date Last Indicated Resolved Time COVID-19 Under Investigation 10/02/2019 10/01/2019 10/02/2019 8:56 PM CDT documented as of this encounter Care Teams Guard Supervisor Relationship Specialty Start Date End Date Lee Owens MD PCP - General Internal Medicine 08/14/16 documented as of this encounter
--- OUTSIDE RECORDS SUMMARY | 2024-09-16 02:22 | XMS_ITS | Encounter Summary ---
Author Name [facility] [place] [facility] [place] Address [address] [place] [address] Care Team Providers Care Member Of Technical Staff Name Role Phone CONNIE MURILLO Primary Care [...] [facility] HEALT H PLAN Nov 08, 2013 [id number] [phone] WIDEL,CHR ISTOPHER PATIENT [facility] PREFERRED PROVIDER ORGANIZAT ION (PPO) [facility] Apr 16, 2023 [id number] WIDEL,CHR ISTOPHER PATIENT [facility] PART A ONLY Mar 11, 2014 [id number] WIDEL,CHR ISTOPHER PATIENT [facility] HEALT H PLAN Apr 16, 2020 [id number] [phone] WIDEL,CHR ISTOPHER PATIENT [facility] PRESCRIPT ION [facility] HEALT H PLAN Mar 11, 2014 [id number] [phone] WIDEL,CHR ISTOPHER PATIENT [facility] PRESCRIPT ION [facility] RX PLAN Nov 08, 2013 [facility] [id number] [phone] WIDEL,CHR ISTOPHER PATIENT [facility] PRESCRIPT ION [facility] Nov 08, 2013 [id number] [phone] WIDEL,CHR ISTOPHER PATIENT Selected Encounter This section includes the information on record at [place] for the Encounter. Date/Time Encounter Type Encounter Description Reason Provider Source Dec 04, 2023 09:30 AM Outpatient Encounter GENERAL SURGERY AGUEDA VALDEZ Encounter Template Text not used by [place] Plan of Treatment: Future Appointments (+ 6 months) and Future Tests (+/- 45 days) The Plan of Treatment section includes future care activities for the patient [facility] [place] [facility] This section includes future appointments and future orders which are active, pending or scheduled. Future Appointments This section includes appointments that were scheduled to occur 6 months from the date of the Encounter, up to a maximum of 20 appointments. The data comes from all [place] treatment facilities. Appointment Date/Time Appointment Type Appointme nt Facility Name Dec 13, 2023 09:30 AM AMBULATORY - SURGERY [facility] Dec 26, 2023 02:00 PM AMBULATORY - REHAB MEDICIN E [facility] Jan 21, 2024 08:30 AM AMBULATORY - REHAB MEDICIN E [facility] Jan 21, 2024 09:30 AM AMBULATORY - SURGERY [facility] Feb 04, 2024 09:00 AM AMBULATORY - REHAB MEDICIN E [facility] Feb 18, 2024 09:00 AM AMBULATORY - REHAB MEDICIN E [facility] May 15, 2024 09:30 AM AMBULATORY - MEDICINE [facility] Active, Pending, and Scheduled Orders This section includes a listing of several types of active, pending, and scheduled orders, including clinic medications orders, diagnostic test orders, procedure orders and consult orders; where the start date of the order is 45 days before the date of the Encounter or 45 days after the date of theEncounter. The data comes from all [facility] facilities. Test Date/Time Test Type Test Details Facility Name Nov 07, 2023 12:00 AM Laboratory - Blood Bank Order RED BLOOD CELLS - LAB VBECS - NO SPECIMEN REQUIRED SP [facility] Nov 07, 2023 12:00 AM Laboratory - Blood Bank Order TYPE & SCREEN - LAB BLOOD SP [facility] Dec 04, 2023 06:00 AM Laboratory - Blood Bank Order TYPE & SCREEN - LAB BLOOD WC [facility] Lab Results: +/- 30 days of the encounter This section includes the Chemistry and Hematology Lab Results on record with [facility] for the [facility]. Radiology Reports and Pathology Reports are provided separately, in subsequent sections. Lab Results This section contains the Chemistry/Hematology Results that were resulted 30 days before or 30 daysafter the date of the Encounter. Date/Time Source Result Type Result - Unit Interpretation Reference Range Specimen Type Comment Dec 05, 2023 04:56 AM [facility] GLUCOSE,BLOOD-poct (STL) BLOOD Specimen Type: BLOOD Comment: Test Performed by: [id number] Meter #: [id number] Ordering Provider: UMESH ABARCA Report Released Date/Time: Dec 05, 2023 06:07 AM Reporting Lab: [facility] [address] [facility] [address] Performing Lab: [place] [id number] [facility] [address] GLUCOSE,BLOOD-poct (STL) 107 mg/dL H 72-99 Dec 04, 2023 10:43 PM [facility] GLUCOSE,BLOOD-poct (STL) BLOOD Specimen Type: BLOOD Comment: Test Performed by: [id number] Meter #: [id number] Ordering Provider: UMESH ABARCA Report Released Date/Time: Dec 04, 2023 11:11 PM Reporting Lab: [place] [id number] [facility] [address] Performing Lab: [facility] [address] [facility] [address] GLUCOSE,BLOOD-poct (STL) 154 mg/dL H 72-99 Dec 04, 2023 08:57 PM [facility] MAGNESIUM PLASMA Specimen Type: PLASM A No comment entered. Ordering Provider: ANGEL THOMPSON Report Released Date/Time: Dec 04, 2023 02:05 PM Reporting Lab: [place] [address] [facility] [address] Performing Lab: [address] [address] MAGNESIUM 2.1 mg/dL 1.6-2.6 Dec 04, 2023 08:57 PM [facility] CBC BLOOD Specimen Type: BLOOD No comment entered. Ordering Provider: ANGEL THOMPSON Report Released Date/Time: Dec 04, 2023 02:05 PM Reporting Lab: [address] [address] Performing Lab: [address] [address] WBC 9.0 10*3/uL 3.6-11.2 RBC 4.43 10*6/uL [...] 20 Dec 04, 2023 04:56 PM [facility] GLUCOSE,BLOOD-poct (STL) BLOOD Specimen Type: BLOOD Comment: Test Performed by: [id number] Meter #: [id number] Ordering Provider: UMESH ABARCA Report Released Date/Time: Dec 04, 2023 05:07 PM Reporting Lab: [address] [address] Performing Lab: [address] [address] GLUCOSE,BLOOD-poct (STL) 129 mg/dL H 72-99 Dec 04, 2023 02:00 PM [facility] MRSA SURVL NARES DNA NARES Specimen Type: [...] Dec 04, 2023 02:05 PM Reporting Lab: [address] [address] Performing Lab: [address] [address] MRSA SURVL NARES DNA Negative Negative Dec 04, 2023 01:30 PM [facility] GLUCOSE,BLOOD-poct (L) BLOOD Specimen Type: BLOOD Comment: Test Performed by: [id number] Meter #: [id number] Ordering Provider: UMESH ABARCA Report Released Date/Time: Dec 04, 2023 01:43 PM Reporting Lab: [address] [address] Performing Lab: [address] [address] GLUCOSE,BLOOD-poct (STL) 126 mg/dL H 72-99 Nov 12, 2023 10:45 AM [facility] MRSA SURVL NARES DNA NARES Specimen Type: [...] Nov 07, 2023 04:35 PM Reporting Lab: [address] [address] Performing Lab: [address] [address] MRSA SURVL NARES DNA Negative Negative Nov 12, 2023 09:55 AM [facility] DRUGS OF ABUSE (NEW) (STL) URINE Specimen Typ e: URINE No comment entered. Ordering Provider: SOBIA DOMINGO Report Released Date/Time: Nov 07, 2023 04:35 PM Reporting Lab: [address] [address] Performing Lab: [address] [address] ETHANOL Negative mg/dL 0-20 AMPHET/METHAMPHETAMINE Negative ng/mL COCAINE METABOLITES Negative ng/mL CANNABINOIDS Negative ng/mL OPIATES Negative ng/mL CREATININE URINE/OTHERS 333.4 mg/dL H 63-1 66 Nov 12, 2023 09:46 AM [facility] PT/INR NEW (STL-MA) PLASMA Specimen Type: PLAS MA No comment entered. Ordering Provider: SOBIA DOMINGO Report Released Date/Time: Nov 07, 2023 04:35 PM Reporting Lab: [address] [address] Performing Lab: [place] [address] [facility] [address] PROTIME 11.9 s 9.4-12.5 INR VALUE 1.1 {INR} Nov 12, 2023 09:46 AM [facility] APTT PLASMA Specimen Type: PLASM A No comment entered. Ordering Provider: SOBIA DOMINGO Report Released Date/Time: Nov 07, 2023 04:35 PM Reporting Lab: [address] [address] Performing Lab: [address] [address] APTT 28.5 s 26.7-39.9 Nov 12, 2023 09:46 AM [facility] COMPREHENSIVE METABOLIC PANEL PLASMA Specimen Type: PLASMA Comment: No hemolysis noted. Ordering Provider: SOBIA DOMINGO Report Released Date/Time: Nov 07, 2023 04:35 PM Reporting Lab: [address] [address] Performing Lab: [address] [address] CREATININE 0.86 mg/dL 0.7-1.3 UREA NITROGEN 9.1 [...] 109.5 >60 Nov 12, 2023 09:46 AM [facility] CBC BLOOD Specimen Type: BLOOD No comment entered. Ordering Provider: SOBIA DOMINGO Report Released Date/Time: Nov 07, 2023 04:35 PM Reporting Lab: [facility] [address] [facility] [address] Performing Lab: [address] [address] WBC 5.1 10*3/uL 3.6-11.2 RBC 4.80 10*6/uL [...] 0.00-0. 20 Nov 12, 2023 09:46 AM [facility] HGA1C BLOOD Specimen Type: BLOOD No comment entered. Ordering Provider: SOBIA DOMINGO Report Released Date/Time: Nov 07, 2023 04:35 PM Reporting Lab: [place] [address] [facility] [address] Performing Lab: [address] [address] HGA1C 5.6 4.0-6.0 Vital Signs: All taken on the encounter date This section contains inpatient and outpatient Vital Signs collected on the date of the Encounter. Date/Time Temperature Pulse Blood Pressure Respiratory Rate SP02 Pain Height Weight Body Mass Index Source Dec 04, 2023 08:30 PM 5 [facility] N Dec 04, 2023 07:23 PM 6 [facility] N Dec 04, 2023 04:59 PM 2 [facility] N Dec 04, 2023 03:11 PM 3 [facility] N Dec 04, 2023 06:15 AM 97.7 72 134/97 16 100 4 72 245.8 33 [facility] Social History: Smoking Status (Most current) and Tobacco Use (All prior to encounter date) This section includes the most current, and the historical, smoking and tobacco- related health factors from the [place] facility where the Encounter took place. Current Smoking Status This section includes the most current smoking, or tobacco-related health factor, from the [place] facility where the Encounter took place. Date/Time Current Smoking Status Comment Facil ity Apr 21, 2022 01:21 PM [place]-TOBACCO NEVER USED [facility] Tobacco Use History This section includes a history of the smoking, or tobacco-related health factors, that were collected on or before the date of the Encounter. The data comes from the [place] facility where the Encounter took place. Date/Time Smoking Status/Tobacco Use Comment F acility Dec 03, 2020 12:04 PM [place]-TOBACCO NEVER USED [facility] Radiology Reports: +/- 30 days of the [...] the Encounter. The data comes from all [place] treatment facilities. Date/Time Radiology Report Provider Source Dec 04, 2023 06:27 AM FLUOROS(SEPARATE PROCEDURE),UP TO 1 HOUR: NIKKO GOMEZ [place] [id number] -[id number] M Ex Date: DEC 04, 2023@06:27 Req Phys: UMESH ABARCA Pat Loc: [facility]/12-05-2023@05:59 Img Loc: -MAIN RADIOLOGY SUITE Service: [address] [address] (Case [id number] COMPLETE) FLUOROS(SEPARATE PROCEDURE),UP TO(RAD Detailed) CPT:70751 CPT Modifiers : TC TECHNICAL COMPONENT Reason for Study: bilater c6-c7 lami Clinical History: Report Status: Verified Date Reported: DEC 05, 2023 Date Verified: DEC 05, 2023 Manager Corporate Communications E-Sig: Report: Fluoroscopy was provided to another [...] Interpreting Staff: JANAY FIGUEROA, RADIOLOGIST Verified by rodding anode worker for JANAY FIGUEROA /JANAY ADVIS [facility] Nov 12, 2023 09:40 AM CHEST X-RAY, 2 VIE WS: PATRICIAPEÑAKATERIN [place] [id number] -1980 M Exm Date: NOV 12, 2023@09:40 Req Phys: SOBIA DOMINGO Pat Loc: -[facility] 2 (Req'g Lo Img Loc: -MAIN RADIOLOGY SUITE Service: [facility], [facility] [address] [place] [address] (Case [id number] COMPLETE) CHEST X-RAY, 2 VIEWS (RAD Detailed) CPT:08846 Reason for Study: Pre Op Clinical History: Report Status: Verified Date Reported: NOV 12, 2023 Date Verified: NOV 12, 2023 Manager Corporate Communications E-Sig:/ES/Austin Branham MD. FACR. Report: History: Pre Op. Comparison: No previous pertinent examination is available. Technique: PA and lateral views Findings: No pulmonary consolidation, pleural effusion, pneumothorax, cardiomegaly or pulmonary edema is seen. Impression: No acute cardiopulmonary disease is seen. Primary Interpreting Staff: Austin Branham MD. FACR, Neuroradiologist (Manager Corporate Communications) /[place] IGNACIO [facility] Encounter Notes: All associated encounter notes This section contains the clinical notes associated to the Encounter. Date/Time Encounter Note(s) Provider Source Dec 04, 2023 09:30 AM NURSING PROCEDURE NOTE: LOCAL TITLE: [facility] OPERATING ROOM/PROCEDURE FIRE RISK ASSESSMEN STANDARD TITLE: NURSING PROCEDURE NOTE DATE OF NOTE: DEC 04, 2023@09:30 ENTRY DATE: DEC 04, 2023@09:30:04 AUTHOR: AGUEDA VALDEZ COSIGNER: URGENCY: STATUS: COMPLETED PROBLEM: FIRE RISK ASSESSMENT EXPECTED OUTCOME: Patient will remain free from injury related to surgical fire/ procedural fire NURSING ASSESSMENT: A. Is an alcohol-based skin antiseptic or other flammable solution being used preoperatively? Yes, Interventions TIME-OUT to include: Flammable prep solutions were contained in nonflammable packaging. Flammable prep solutions utilized were a unit dosed applicator. Allow flammable skin antiseptics to dry completely and fumes to dissipate per manufacture guidelines prior to applying drapes and before using a potential ignition source. Flammable solution soaked materials have been removed from the OR/Procedural area prior to draping and use of an ignition source. Comments: B. Is the procedure being performed above the xiphoid process or in the oropharynx? Yes, Interventions Coat head and facial hair near the site with water-soluble surgical lubricant to decrease flammability. Use an adhesive incise drape between the surgical/procedural site and the oxygen source. If oxygen concentration is greater than 30% consider laryngeal mask airway or endotracheal tube. Comments: C. Is open oxygen or nitrous oxide being administered (delivery via nasal cannula or face mask)? No D. Is an ESU (Electrical Surgical Unit), laser, or fiber optic cord being used? Yes, Interventions ESU Place the ESU in a location that does not put stress on the electrical cord. Keep the electrical cord dry and free of kinks, knots, and bends. Inspect the ESU cord before use, and do not use it if there is any evidence of breaks, nicks, or cracks in the outer insulation coating. Keep the active electrode cord free of kinks and coils during use. Only the person controlling the active electrode should activate the ESU. Use the lowest possible power setting for the ESU. Store the active electrode in a clean, dry, non-conductive safety holster when it is not in use. Keep sterile drapes or linens away from the activated ESU. Do not use an ignition source to enter the bowel or the trachea. Keep the ESU active electrode away from oxygen, nitrous oxide, or combustible anesthetic gas sources if possible. Do not activate the active electrode in the presence of flammable agents until the agents are dry and vapors have dissipated (eg, alcohol-based skin antiseptics, tinctures, de-fatting agents, collodion, petroleum-based lubricants, phenol, aerosol adhesives, uncured methyl methacrylate). Keep the active electrode tip clean. Use active electrode tips according to the cork insulation setter's instructions. Use only active electrodes or return electrodes that are compatible with the ESU. Seat the active electrode tip securely into the electrosurgical hand piece. Do not alter the active electrode tip (eg, by bending, by using insulation sheaths made from flammable materials such as rubber catheters). Activate the active electrode only when it is in close proximity to the target tissue and away from other metal objects that could conduct heat or cause arcing. Inspect minimally invasive electrosurgical instruments for impaired insulation and remove them from service if the insulation is not intact. Use cut or blend settings instead of coagulation when possible. Remove the active electrode tip from the electrosurgical hand piece before discarding it. Remove the batteries or disable the cautery tip before disposing of battery-powered, hand-held cautery units, if applicable. During perineal procedure, use moistened radiopaque sponges to cover or pack the anus. Comments: E. Other possible contributors to fire are present (defibrillator, drills, saws, burrs) No OUTCOME: Option 1. Patient is free from fire/burn injury. Additional comments: /ben/ AGUEDA VALDEZ RN, BSN REGISTERED NURSE Signed: 12/04/2023 09:30 AGUEDA VALDEZ [facility] Dec 04, 2023 09:30 AM NURSING INPATIENT NOTE: LOCAL TITLE: [facility] ACUTE INPATIENT NSG SHIFT ASSESSMENT STANDARD TITLE: NURSING INPATIENT NOTE DATE OF NOTE: DEC 04, 2023@09:30 ENTRY DATE: DEC 04, 2023@09:30:46 AUTHOR: AGUEDA VALDEZ EXP COSIGNER: URGENCY: STATUS: COMPLETED Version 2.2 Charting in accordance with [place] APPROVED [place] STANDARD (NCAES) ACUTE INPATIENT/REHABILITATION NURSING ADMISSION SCREENING, ASSESSMENT, AND STANDARDS OF CARE ======== ASSESSMENT ======== ======== GENITOURINARY ======== Urinary Catheter: Type: Indwelling: New Insertion/Application: Date/Time of insertion: Nov@08:00 Type: Urethral: Regular Size (Slovenian): 16 Balloon inflation (mL): 10 Indication(s): Perioperative use for selected surgical procedures Catheter Associated Urinary Tract Infection (CAUTI) Prevention Insertion Bundle Completed - Hands washed prior to donning sterile gloves - Sterile gloves worn by nurse case management - Sterile drape and sponges - Sterile periurethral cleaning - Single use of lubricant and jelly by nurse case management Comment: Secured to bed for duration of case. Assessment: Type: Site Condition: No redness, pain, swelling Indication(s): ======= INTEGUMENTARY/SKIN/WOUND - (INCLUDING MITZY) SEE NOTE: VAAES SKIN INPECTION/ASSESSMENT ======= /es/ AGUEDA VALDEZ RN, BSN REGISTERED NURSE Signed: 12/04/2023 09:32 AGUEDA VALDEZ [facility]
--- OUTSIDE RECORDS SUMMARY | 2024-09-16 02:23 | XMS_ITS | Encounter Summary ---
Author Name [facility] Organization [facility] [place] Address [address] [place] [address] Care Team Providers Care Hand Sewer Shoes Name Role Phone CONNIE MURILLO Primary Care [...] AP[facility]U HEALT H PLAN Nov 08, 2013 [id number] [phone] WIDEL,CHR ISTOPHER PATIENT [facility]-SS PREFERRED PROVIDER ORGANIZAT ION (PPO) AP[facility]U Apr 16, 2023 [id number] WIDEL,CHR ISTOPHER PATIENT [facility] APWU PART A ONLY Mar 11, 2014 [id number] WIDEL,CHR ISTOPHER PATIENT [facility]ENT[facility] APWU HEALT H PLAN Apr 16, 2020 [id number] [phone] WIDEL,CHR ISTOPHER PATIENT [facility] PRESCRIPT ION APWU HEALT H PLAN Mar 11, 2014 [id number] [phone] WIDEL,CHR ISTOPHER PATIENT [facility] [facility] PRESCRIPT ION APWU RX PLAN Nov 08, 2013 [id number] [phone] WIDEL,CHR ISTOPHER PATIENT [employer] [facility] PRESCRIPT ION AP[facility]U Nov 08, 2013 [id number] [phone] WIDEL,CHR ISTOPHER PATIENT Selected Encounter This section includes the information on record at [place] for the Encounter. Date/Time Encounter Type Encounter Description Reason Provider Source Nov 12, 2023 09:15 AM OFFICE O/P EST MOD 30 MIN NEUROSURGERY ICD-10-CM M54.2 Cervicalgia ANGEL THOMPSON [facility] Encounter Template Text not used by [place] Assessments - Encounter Diagnoses This section includes the primary and secondary diagnoses documented for the Encounter. Date/Time Primary/Secondary Diagnosis Diagnosis Name Provider Source Nov 20, 2023 12:56 PM [facility] Nov 20, 2023 12:56 PM SECONDARY Spinal stenosis, cervical [facility] Plan of Treatment: Future Appointments (+ 6 months) and Future Tests (+/- 45 days) The Plan of Treatment section includes future care activities for the [facility] This section includes future appointments and future orders which are active, pending or scheduled. Future Appointments This section includes appointments that were scheduled to occur 6 months from the date of the Encounter, up to a maximum of 20 appointments. The data comes from all [place] treatment facilities. Appointment Date/Time Appointment Type Appointme nt Facility Name Dec 04, 2023 06:00 AM AMBULATORY - NONE [facility] Dec 13, 2023 09:30 AM AMBULATORY - SURGERY [facility] Dec 26, 2023 02:00 PM AMBULATORY - REHAB MEDICIN E [facility] Jan 21, 2024 08:30 AM AMBULATORY - REHAB MEDICIN E [facility] Jan 21, 2024 09:30 AM AMBULATORY - SURGERY [facility] Feb 04, 2024 09:00 AM AMBULATORY - REHAB MEDICIN E [facility] Feb 18, 2024 09:00 [facility] Active, Pending, and Scheduled Orders This section includes a listing of several types of active, pending, and scheduled orders, including clinic medications orders, diagnostic test orders, procedure orders and consult orders; where the start date of the order is 45 days before the date of the Encounter or 45 days after the date of theEncounter. The data comes from all [place] treatment facilities. Test Date/Time Test Type Test Details Facility Name Nov 07, 2023 12:00 AM Laboratory - Blood Bank Order RED BLOOD CELLS - LAB VBECS - NO SPECIMEN REQUIRED [facility] Nov 07, 2023 12:00 AM Laboratory - Blood Bank Order TYPE & SCREEN - LAB BLOOD SP [facility] Dec 04, 2023 06:00 AM Laboratory - Blood Bank Order TYPE & SCREEN - LAB BLOOD [facility] Lab Results: +/- 30 days [...] Type Comment Dec 05, 2023 04:56 AM [facility] GLUCOSE,BLOOD-poct (STL) BLOOD Specimen Type: BLOOD Comment: Test Performed by: [id number] Meter #: [id number] Ordering Provider: MONTY NEAL Report Released Date/Time: Dec 05, 2023 06:07 AM Reporting Lab: [facility] [address] [facility] [address] Performing Lab: [place] [id number] [facility] [address] GLUCOSE,BLOOD-poct (STL) 107 mg/dL H 72-99 Dec 04, 2023 10:43 PM [facility] GLUCOSE,BLOOD-poct (STL) BLOOD Specimen Type: BLOOD Comment: Test Performed by: [id number] Meter #: [id number] Ordering Provider: MONTY NEAL Report Released Date/Time: Dec 04, 2023 11:11 PM Reporting Lab: [address] [address] Performing Lab: [address] [address] GLUCOSE,BLOOD-poct (STL) 154 mg/dL H 72-99 Dec 04, 2023 08:57 PM [facility] MAGNESIUM PLASMA Specimen Type: PLASM A No comment entered. Ordering Provider: ANGEL THOMPSON Report Released Date/Time: Dec 04, 2023 02:05 PM Reporting Lab: [address] [address] Performing Lab: [address] [address] MAGNESIUM 2.1 mg/dL 1.6-2.6 Dec 04, 2023 08:57 PM [facility] CBC BLOOD Specimen Type: BLOOD No comment entered. Ordering Provider: ANGEL THOMPSON Report Released Date/Time: Dec 04, 2023 02:05 PM Reporting Lab: [address] [address] Performing Lab: [address] [address] WBC 9.0 10*3/uL 3.6-11.2 RBC 4.43 10*6/uL [...] 0.00-0. 20 Dec 04, 2023 04:56 PM [facility] GLUCOSE,BLOOD-poct (STL) BLOOD Specimen Type: BLOOD Comment: Test Performed by: [id number] Meter #: [id number] Ordering Provider: MONTY NEAL Report Released Date/Time: Dec 04, 2023 05:07 PM Reporting Lab: [address] [address] Performing Lab: [address] [address] GLUCOSE,BLOOD-poct (STL) 129 mg/dL H 72-99 Dec 04, 2023 02:00 PM [facility] MRSA SURVL NARES DNA NARES Specimen [...] Dec 04, 2023 02:05 PM Reporting Lab: [address] [address] Performing Lab: [address] [address] MRSA SURVL NARES DNA Negative Negative Dec 04, 2023 01:30 PM [facility] GLUCOSE,BLOOD-poct ([facility]) BLOOD Specimen Type: BLOOD Comment: Test Performed by: [id number] Meter #: [id number] Ordering Provider: MONTY NEAL Report Released Date/Time: Dec 04, 2023 01:43 PM Reporting Lab: [address] [address] Performing Lab: [address] [address] GLUCOSE,BLOOD-poct ([facility]) 126 mg/dL H 72-99 Nov 12, 2023 10:45 AM [facility] MRSA SURVL NARES DNA NARES Specimen [...] Nov 07, 2023 04:35 PM Reporting Lab: [address] [address] Performing Lab: [address] [address] MRSA SURVL NARES DNA Negative Negative Nov 12, 2023 09:55 AM [facility] DRUGS OF ABUSE (NEW) (L) URINE Specimen Typ e: URINE No comment entered. Ordering Provider: SOBIA DOMINGO Report Released Date/Time: Nov 07, 2023 04:35 PM Reporting Lab: [address] [address] Performing Lab: [address] [address] ETHANOL Negative mg/dL 0-20 AMPHET/METHAMPHETAMINE Negative ng/mL COCAINE METABOLITES Negative ng/mL CANNABINOIDS Negative ng/mL OPIATES Negative ng/mL CREATININE URINE/OTHERS 333.4 mg/dL H 63-1 66 Nov 12, 2023 09:46 AM [facility] PT/INR NEW (STL-MA) PLASMA Specimen Type: PLAS MA No comment entered. Ordering Provider: SOBIA DOMINGO Report Released Date/Time: Nov 07, 2023 04:35 PM Reporting Lab: [address] [address] Performing Lab: [address] [address] PROTIME 11.9 s 9.4-12.5 INR VALUE 1.1 {INR} Nov 12, 2023 09:46 AM [facility] APTT PLASMA Specimen Type: PLASM A No comment entered. Ordering Provider: SOBIA DOMINGO Report Released Date/Time: Nov 07, 2023 04:35 PM Reporting Lab: [address] [address] Performing Lab: [address] [address] APTT 28.5 s 26.7-39.9 Nov 12, 2023 09:46 AM [facility] CBC BLOOD Specimen Type: BLOOD No comment entered. Ordering Provider: SOBIA DOMINGO Report Released Date/Time: Nov 07, 2023 04:35 PM Reporting Lab: [address] [address] Performing Lab: [address] [address] WBC 5.1 10*3/uL 3.6-11.2 RBC 4.80 10*6/uL [...] 0.00-0. 20 Nov 12, 2023 09:46 AM [facility] COMPREHENSIVE METABOLIC PANEL PLASMA Specimen Type: PLASMA Comment: No hemolysis noted. Ordering Provider: SOBIA DOMINGO Report Released Date/Time: Nov 07, 2023 04:35 PM Reporting Lab: [address] [address] Performing Lab: [address] [address] CREATININE 0.86 mg/dL 0.7-1.3 UREA NITROGEN 9.1 [...] 109.5 >60 Nov 12, 2023 09:46 AM [facility] HGA1C BLOOD Specimen Type: BLOOD No comment entered. Ordering Provider: SOBIA DOMINGO Report Released Date/Time: Nov 07, 2023 04:35 PM Reporting Lab: [address] [address] Performing Lab: [address] [address] HGA1C 5.6 4.0-6.0 Vital Signs: All taken on the encounter date This section contains inpatient and outpatient Vital Signs collected on the date of the Encounter. Date/Time Temperature Pulse Blood Pressure Respiratory Rate SP02 Pain Height Weight Body Mass Index Source Nov 12, 2023 08:58 AM 98.1 77 144/89 18 98 7 72 244.9 33 [facility] Social History: Smoking Status (Most current) and Tobacco Use (All prior to encounter date) This section includes the most current, and the historical, smoking and tobacco- related health factors from the [place] facility where the Encounter took place. Current Smoking Status This section includes the most current smoking, or tobacco-related health factor, from the [place] facility where the Encounter took place. Date/Time Current Smoking Status Comment Abad lora Apr 21, 2022 01:21 PM [place]-TOBACCO NEVER USED [facility] Tobacco Use History This section includes a history of the smoking, or tobacco-related health factors, that were collected on or before the date of the Encounter. The data comes from the [place] facility where the Encounter took place. Date/Time Smoking Status/Tobacco Use Comment F acility Dec 03, 2020 12:04 PM [place]-TOBACCO NEVER USED [facility] Radiology Reports: +/- 30 days of [...] the Encounter. The data comes from all [place] treatment facilities. Date/Time Radiology Report Provider Source Dec 04, 2023 06:27 AM FLUOROS(SEPARATE PROCEDURE),UP TO 1 HOUR: NIKKO GOMEZ [id number] -1980 M Exm Date: DEC 04, 2023@06:27 Req Phys: MONTY NEAL Pat Loc: [facility]E-[facility]/12-05-2023@05:59 Img Loc: -MAIN RADIOLOGY SUITE Service: Unknown [facility] [address] (Case [id number] COMPLETE) FLUOROS(SEPARATE PROCEDURE),UP TO(RAD Detailed) CPT:47775 CPT Modifiers : TC TECHNICAL COMPONENT Reason for Study: bilater c6-c7 lami Clinical History: Report Status: Verified Date Reported: DEC 05, 2023 Date Verified: DEC 05, 2023 Radiologic Technology Program Director E-Sig: Report: Fluoroscopy was provided to another [...] Interpreting Staff: JANAY FIGUEROA, RADIOLOGIST Verified by supervisor stave finishing for JANAY FIGUEROA /[facility]EROAC[facility] Nov 12, 2023 09:40 AM CHEST X-RAY, 2 VIE WS: NIKKO GOMEZ MA [id number] -1980 M Exm Date: NOV 12, 2023@09:40 Req Phys: SOBIA DOMINGO Pat Loc: [facility]-NEUROSURGERY INSPECTOR PLATING 2 (Req'g Lo Img Loc: [facility]-MAIN RADIOLOGY SUITE Service: [address] [address] (Case [id number] COMPLETE) CHEST X-RAY, 2 VIEWS (RAD Detailed) CPT:90839 Reason for Study: Pre Op Clinical History: Report Status: Verified Date Reported: NOV 12, 2023 Date Verified: NOV 12, 2023 Radiologic Technology Program Director E-Sig:/ES/Austin Branham MD. FACR. Report: History: Pre Op. Comparison: No previous pertinent examination is available. Technique: PA and lateral views Findings: No pulmonary consolidation, pleural effusion, pneumothorax, cardiomegaly or pulmonary edema is seen. Impression: No acute cardiopulmonary disease is seen. Primary Interpreting Staff: Austin Branham MD. FACR, Neuroradiologist (Radiologic Technology Program Director) /[place] [facility] Encounter Notes: All associated encounter notes This section contains the clinical notes associated to the Encounter. Date/Time Encounter Note(s) Provider Source Nov 27, 2023 01:29 PM NEUROSURGERY NOTE: LOCAL TITLE: NEUROSURGERY STL STANDARD TITLE: NEUROSURGERY NOTE DATE OF NOTE: NOV 27, 2023@13:29 ENTRY DATE: NOV 27, 2023@13:29:18 AUTHOR: PAMELA HEWITT EXP COSIGNER: URGENCY: STATUS: COMPLETED PREOPERATIVE PHONE CALL Left message for patient to return call at extension [phone]. SURGERY:C6-7 bilateral laminectomy on 12/04/[address] Monty Neal Pt has stopped/Pt will hold: Stop all aspirin products and NSAIDs by 11/24/23 Do not take metformin the morning of surgery Discussed/Reinforced: ~Reporting to 4N at 6am ~NPO after midnight the night before surgery, except for a sip of water with medications. ~NPO status after midnight also includes: chewing tobacco, smoking anything, eating candy, gum, breath mints. ~Surgical Scrub-Chlorhexidine: Wash with and rinse off for 5 days. The 5th day being the morning of surgery. Avoid contact with head, eyes, and genital region. ~Mupirocin applied to both nostrils twice a day for 5 days. ~ understands that he will need a wheelchair driver upon discharge. ~Will stay well hydrated and limit alcohol the week before surgery. ~ instructed to bring CPAP if he has one and any inhalers he is on. Pt verbalized understanding of preoperative plan as dicussed above. /ben/ PAMELA JAMESN RN REGISTERED NURSE Signed: 11/27/2023 13:38 PAMELA HEWITT [facility] Nov 12, 2023 08:55 AM NEUROSURGERY H & P NOTE: LOCAL TITLE: NEUROSURGERY HISTORY AND PHYSICAL STL STANDARD TITLE: NEUROSURGERY H & P NOTE DATE OF NOTE: NOV 12, 2023@08:55 ENTRY DATE: NOV 12, 2023@08:55:46 AUTHOR: ANGEL THOMPSON EXP COSIGNER: URGENCY: STATUS: COMPLETED NEUROSURGERY HISTORY AND PHYSICAL STL Has ADDENDA Chief Complaint: neck pain radiating down the arms Reason for Admission:C6-7 bilateral laminectomy on 12/04/[address] Monty Neal Outpatient medication list has been compared to the admission order medication list: [ ] there are no discrepancies [X] the following medication(s) were held for the following reason(s): Stop all aspirin products and NSAIDs by 11/24/23 Do not take metformin the morning of surgery History of Present Illness:Nikko Gomez is a pleasant 42 y/o with chronic neck pain radiating down the bilateral arms, right greater than left, to the hands with associated numbness and tingling. MRI revealed C6-7 right disc osteophyte, facet arthropathy, and right foraminal narrowing with mild to moderate canal stenosis. He tried conservative therapy without relief; therefore, he is scheduled for surgery as above. Significant past medical history: 1) Benign essential hypertension 2) Obesity 3) Osteoarthritis of knee 4) Sleep apnea 5) Prediabetes 6) Posttraumatic stress disorder 7) Gastroesophageal reflux disease 8) Cervicalgia 9) Tinnitus 10) Exposure to potentially hazardous substance Active Outpatient Medications (including Supplies): Active Outpatient Medications Status 1) CHLORHEXIDINE GLUCONATE 4% TOP LIQUID APPLY MODERATE ACTIVE AMOUNT TO AFFECTED AREA(S) DIRECTED FOR SKIN DISINFECTION (TOPICAL USE ONLY) AVOID CONTACT WITH EYES. STARTING 5 DAYS PRIOR TO SURGERY, USE THE SOLUTION DAILY IN THE SHOWER AND WASH YOUR ENTIRE BODY (WITH THE EXCEPTION OF FACE AND GENITALS). 2) MUPIROCIN 2% OINT APPLY SPARINGLY TO AFFECTED AREA(S) ACTIVE TWICE A DAY FOR BACTERIAL INFECTION EXTERNAL USE ONLY. STARTING 5 DAYS PRIOR TO SURGERY, APPLY OINTMENT TWICE PER DAY TO NARES. 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 No chest pain or SOB. Denies lightheadedness or dizziness. Bowels are ok, without constipation, diarrhea, or incontinence. Urine is ok without hematuria, dysuria, retention, or incontinence. Denies abnormal bleeding or bruising. Had one episode 3 weeks ago where he got chest pain radiating to his back when bending over but it resolved within the day. Pertinent Examination: A&Ox3. VS stable. Lungs clear to auscultation. Cardiac: RR S1S2. Extremities without edema. Strength 5/5 bilaterally in the upper and lower extremities. Joseph's negative. No hyperreflexia. Gait steady. He has a small reddened patchy rash on the left side of his posterior neck, right arm, and left hip- states he was cutting grass a few days ago and it came up after that. He thinks it is poison emy. He has been using hydrocortisone on it. Diagnosis/Conclusion/Impres edd:cervical stenosis Plan: [employer] to undergo C6-7 bilateral laminectomy on 12/04/[address] Monty Neal. satisfied with this date. Consent obtained. Preop instructions discussed. -NPO after midnight the night before surgery, except for a sip of water with medications. -Stop all aspirin products and NSAIDs by 11/24/23 -Do not take metformin the morning of surgery -Arrive at [facility] @0600 the day of surgery. [employer] was instructed on the importance of being on time and failure to do so could results in cancellation of the surgery. -Preop testing ordered--> CBC, CMP, PT, PTT, HgbA1C, urine drug screen, MRSA swab, EKG, and chest x-ray to be done today. -Chlorhexidine surgical scrub--> shower with the surgical scrub daily for 5 days prior to surgery 11/28 thru 12/02. Wash the entire body (except face and genital region) for 2 minutes, then rinse off. -Apply mupirocin ointment inside the nares BID x5 days prior to surgery 11/28 thru 12/02 -[employer] instructed that he will need a wheelchair driver upon discharge--> , Arielle, will be the wheelchair driver. -[employer] denies inhaler use. He states he has a CPAP but does not wear it because the mask does not fit correctly. He was advised to bring the CPAP given the preop written instructions and verbalized understanding. Further recommendations as needed. Please note that this dictation was completed with computer voice recognition software, often unanticipated grammatical, syntax and other interpretive errors are inadvertently transcribed by the computer software. Please disregard these errors /ben/ ANGEL THOMPSON DNP, APRN, NAEL NURSE PRACTITIONER, NEUROSURGERY Signed: 11/12/2023 09:28 11/20/2023 ADDENDUM STATUS: COMPLETED Labs:MRSA neg, UDS neg, PT/INR/PTT normal, HgbA1C 5.6% CBC and CMP within acceptable limits EKG: Sinus bradycardia, 56 BPM Otherwise normal ECG No previous ECGs available CXR: No acute cardiopulmonary disease is seen. Anesthesia preop /ben/ ANGEL THOMPSON DNP, APRN, BC NURSE PRACTITIONER, NEUROSURGERY Signed: 11/20/2023 17:20 11/30/2023 ADDENDUM STATUS: COMPLETED anesthesia preop 11/30/23: RECOMMENDATIONS/PLAN: 1. Additional labs/imaging/consults needed for anesthesia team: none 2. The patient may proceed as planned and will be reassessed by Anesthesia AM of surgery. 3. NPO after midnight except for small sips of water with meds. 4. Unless directed by procedural team, take morning medications with a sip of water. (pt is not taking metformin anymore) /quentin THOMPSON DNP, APRN, BC NURSE PRACTITIONER, NEUROSURGERY Signed: 11/30/2023 14:24 ANGEL THOMPSON [facility]
--- OUTSIDE RECORDS SUMMARY | 2024-09-16 02:23 | XMS_ITS | CONTINUITY OF CARE DOCUMENT ---
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
--- OUTSIDE RECORDS SUMMARY | 2024-09-16 02:23 | XMS_ITS | Encounter Summary ---
Author Name [facility] [facility] [place] Address [address] [place] [address] Care Team Providers Care Director Imaging Name Role Phone CHIDI CONNIE Primary Care Provider Unavailabl e Insurance Providers: [...] APWU HEALT H PLAN Nov 08, 2013 [id number] [phone] WIDEL,CHR ISTOPHER PATIENT [facility] PREFERRED PROVIDER ORGANIZAT ION (PPO) APWU Apr 16, 2023 [id number] WIDEL,CHR ISTOPHER PATIENT [facility] APWU PART A ONLY Mar 11, 2014 [id number] WIDEL,CHR ISTOPHER PATIENT [employer] APWU HEALT H PLAN Apr 16, 2020 [id number] [phone] WIDEL,CHR ISTOPHER PATIENT [employer] PRESCRIPT ION APWU HEALT H PLAN Mar 11, 2014 [id number] [phone] WIDEL,CHR ISTOPHER PATIENT [employer] ([employer]) PRESCRIPT ION APWU RX PLAN Nov 08, 2013 [id number] [phone] WIDEL,CHR ISTOPHER PATIENT [employer]) PRESCRIPT ION APWU Nov 08, 2013 [id number] [phone] WIDEL,CHR ISTOPHER PATIENT Selected Encounter This section includes the information on record at [place] for the Encounter. Date/Time Encounter Type Encounter Description Reason Provider Source Dec 04, 2023 06:34 PM CRITICAL CARE FIRST HOUR GENERAL SURGERY ICD-10-CM M54.2 Cervicalgia EDUARDO CEE [facility] Encounter Template Text not used by [place] Assessments - Encounter Diagnoses This section includes the primary and secondary diagnoses documented for the Encounter. Date/Time Primary/Secondary Diagnosis Diagnosis Name Provider Source Dec 04, 2023 07:32 PM PRIMARY [facility] Dec 04, 2023 07:32 PM SECONDARY Essential (primary) [facility] Dec 04, 2023 07:32 PM SECONDARY Gastro-esophageal reflux disease without esophagitis [facility] Dec 04, 2023 07:32 PM SECONDARY Ob[facility], [facility] Dec 04, 2023 07:32 PM SECONDARY Post-traumatic stress disorder, unspecified [facility] Dec 04, 2023 07:32 PM SECONDARY Prediabetes [facility] Dec 04, 2023 07:32 PM SECONDARY Sleep apnea, unspecified [facility] Plan of Treatment: Future Appointments (+ 6 months) and Future Tests (+/- 45 days) The Plan of Treatment section includes future care activities for the patient from all [place] [facility]. This section includes future appointments and future orders which are active, pending or scheduled. Future Appointments This section includes appointments that were scheduled to occur 6 months from the date of the Encounter, up to a maximum of 20 appointments. The data comes from all [facility]. Appointment Date/Time Appointment Type Appointme nt Facility Name Dec 13, 2023 09:30 AM AMBULATORY - SURGERY . [facility] Dec 26, 2023 02:00 PM AMBULATORY - REHAB MEDICIN E [facility] Jan 21, 2024 08:30 AM AMBULATORY - REHAB MEDICIN E [facility] Jan 21, 2024 09:30 AM AMBULATORY - SURGERY [facility] Feb 04, 2024 09:00 AM AMBULATORY - REHAB MEDICIN E [facility] Feb 18, 2024 09:00 AM AMBULATORY - REHAB [facility] May 15, 2024 09:30 AM AMBULATORY - MEDICINE [facility] Active, Pending, and Scheduled Orders This section includes a listing of several types of active, pending, and scheduled orders, including clinic medications orders, diagnostic test orders, procedure orders and consult orders; where the start date of the order is 45 days before the date of the Encounter or 45 days after the date of theEncounter. The data comes from all [facility]. Test Date/Time Test Type Test Details Facility Name Nov 07, 2023 12:00 AM Laboratory - Blood Bank Order RED BLOOD CELLS - LAB VBECS - NO SPECIMEN REQUIRED [facility] Nov 07, 2023 12:00 AM Laboratory - Blood Bank Order TYPE & SCREEN - LAB BLOOD [facility] Dec 04, 2023 06:00 AM Laboratory - Blood Bank Order TYPE & SCREEN - LAB BLOOD [facility] Lab Results: +/- 30 days of the encounter This section includes the Chemistry and Hematology Lab Results on record with [place] for the patient. Radiology Reports and Pathology Reports are provided separately, in subsequent sections. Lab Results This section contains the Chemistry/Hematology Results that were resulted 30 days before or 30 daysafter the date of the Encounter. Date/Time Source Result Type Result - Unit Interpretation Reference Range Specimen Type Comment Dec 05, 2023 04:56 AM [facility] GLUCOSE,BLOOD-poct (STL) BLOOD Specimen Type: BLOOD Comment: Test Performed by: [id number] Meter #: [id number] Ordering Provider: UMSEH ABARCA Report Released Date/Time: Dec 05, 2023 06:07 AM Reporting Lab: [facility] [address] [address] Performing Lab: [facility] [address] [address] GLUCOSE,BLOOD-poct (STL) 107 mg/dL H 72-99 Dec 04, 2023 10:43 PM [facility] GLUCOSE,BLOOD-poct (STL) BLOOD Specimen Type: BLOOD Comment: Test Performed by: [id number] Meter #: [id number] Ordering Provider: UMESH ABARCA Report Released Date/Time: Dec 04, 2023 11:11 PM Reporting Lab: [facility] [address] [address] Performing Lab: [facility] [address] [address] GLUCOSE,BLOOD-poct (STL) 154 mg/dL H 72-99 Dec 04, 2023 08:57 PM [facility] MAGNESIUM PLASMA Specimen Type: PLASM A No comment entered. Ordering Provider: ANGEL THOMPSON Report Released Date/Time: Dec 04, 2023 02:05 PM Reporting Lab: [facility] [address] [address] Performing Lab: [facility] [address] [address] MAGNESIUM 2.1 mg/dL 1.6-2.6 Dec 04, 2023 08:57 PM [facility] CBC BLOOD Specimen Type: BLOOD No comment entered. Ordering Provider: ANGEL THOMPSON Report Released Date/Time: Dec 04, 2023 02:05 PM Reporting Lab: [facility] [address] [address] Performing Lab: [facility] [address] [address] WBC 9.0 10*3/uL 3.6-11.2 RBC 4.43 10*6/uL [...] 0.00-0. 20 Dec 04, 2023 04:56 PM [facility] GLUCOSE,BLOOD-poct (STL) BLOOD Specimen Type: BLOOD Comment: Test Performed by: [id number] Meter #: [id number] Ordering Provider: UMESH ABARCA Report Released Date/Time: Dec 04, 2023 05:07 PM Reporting Lab: [place] [address] [address] Performing Lab: [place] [address] [address] GLUCOSE,BLOOD-poct (STL) 129 mg/dL H 72-99 Dec 04, 2023 02:00 PM [facility] MRSA SURVL NARES DNA NARES Specimen [...] Dec 04, 2023 02:05 PM Reporting Lab: [facility] [address] [address] Performing Lab: [address] [address] MRSA SURVL NARES DNA Negative Negative Dec 04, 2023 01:30 PM [facility] GLUCOSE,BLOOD-poct ([facility]) BLOOD Specimen Type: BLOOD Comment: Test Performed by: [id number] Meter #: [id number] Ordering Provider: UMESH ABARCA Report Released Date/Time: Dec 04, 2023 01:43 PM Reporting Lab: [facility] [address] [address] Performing Lab: [address] [address] GLUCOSE,BLOOD-poct ([facility]) 126 mg/dL H 72-99 Nov 12, 2023 10:45 AM [facility] MRSA SURVL NARES DNA NARES Specimen [...] Nov 07, 2023 04:35 PM Reporting Lab: [facility] [address] [address] Performing Lab: [address] [address] MRSA SURVL NARES DNA Negative Negative Nov 12, 2023 09:55 AM [facility] DRUGS OF ABUSE (NEW) (STL) URINE Specimen Typ e: URINE No comment entered. Ordering Provider: SOBIA DOMINGO Report Released Date/Time: Nov 07, 2023 04:35 PM Reporting Lab: [facility] [address] [address] Performing Lab: [facility] [address] [address] ETHANOL Negative mg/dL 0-20 AMPHET/METHAMPHETAMINE Negative ng/mL COCAINE METABOLITES Negative ng/mL CANNABINOIDS Negative ng/mL OPIATES Negative ng/mL CREATININE URINE/OTHERS 333.4 mg/dL H 63-1 66 Nov 12, 2023 09:46 AM [facility] PT/INR NEW (STL-MA) PLASMA Specimen Type: PLAS MA No comment entered. Ordering Provider: SOBIA DOMINGO Report Released Date/Time: Nov 07, 2023 04:35 PM Reporting Lab: [facility] [address] [address] Performing Lab: [address] [address] PROTIME 11.9 s 9.4-12.5 INR VALUE 1.1 {INR} Nov 12, 2023 09:46 AM [facility] APTT PLASMA Specimen Type: PLASM A No comment entered. Ordering Provider: SOBIA DOMINGO Report Released Date/Time: Nov 07, 2023 04:35 PM Reporting Lab: [facility] [address] [address] Performing Lab: [facility] [address] [place] [phone] APTT 28.5 s 26.7-39.9 Nov 12, 2023 09:46 AM [facility] COMPREHENSIVE METABOLIC PANEL PLASMA Specimen Type: PLASMA Comment: No hemolysis noted. Ordering Provider: SOBIA DOMINGO Report Released Date/Time: Nov 07, 2023 04:35 PM Reporting Lab: [facility] [address] [address] Performing Lab: [address] [address] CREATININE 0.86 mg/dL 0.7-1.3 UREA NITROGEN 9.1 [...] 109.5 >60 Nov 12, 2023 09:46 AM [facility] CBC BLOOD Specimen Type: BLOOD No comment entered. Ordering Provider: SOBIA DOMINGO Report Released Date/Time: Nov 07, 2023 04:35 PM Reporting Lab: [address] [address] Performing Lab: [address] [address] WBC 5.1 10*3/uL 3.6-11.2 RBC 4.80 10*6/uL [...] 12, 2023 09:46 AM [facility] HGA1C BLOOD Specimen Type: BLOOD No comment entered. Ordering Provider: SOBIA DOMINGO Report Released Date/Time: Nov 07, 2023 04:35 PM Reporting Lab: [facility] [address] [facility] [address] Performing Lab: [facility] [address] [address] HGA1C 5.6 4.0-6.0 Vital Signs: All taken on the encounter date This section contains inpatient and outpatient Vital Signs collected on the date of the Encounter. Date/Time Temperature Pulse Blood Pressure Respiratory Rate SP02 Pain Height Weight Body Mass Index Source Dec 04, 2023 08:30 PM 5 [facility] Dec 04, 2023 07:23 PM 6 [facility] Dec 04, 2023 04:59 PM 2 [facility] Dec 04, 2023 03:11 PM 3 [facility] Dec 04, 2023 06:15 AM 97.7 72 134/97 16 100 4 72 245.8 33 [facility] N Social History: Smoking Status (Most current) and Tobacco Use (All prior to encounter date) This section includes the most current, and the historical, smoking and tobacco- related health factors from the [place] facility where the Encounter took place. Current Smoking Status This section includes the most current smoking, or tobacco-related health factor, from the [place] facility where the Encounter took place. Date/Time Current Smoking Status Comment Abad lora Apr 21, 2022 01:21 PM [facility] NEVER USED [facility] Tobacco Use History This section includes a history of the smoking, or tobacco-related health factors, that were collected on or before the date of the Encounter. The data comes from the [place] facility where the Encounter took place. Date/Time Smoking Status/Tobacco Use Comment F acility Dec 03, 2020 12:04 PM [facility] NEVER USED [facility] Radiology Reports: +/- 30 days of the [...] the Encounter. The data comes from all [place] treatment facilities. Date/Time Radiology Report Provider Source Dec 04, 2023 06:27 AM FLUOROS(SEPARATE PROCEDURE),UP TO 1 HOUR: NIKKO GOMEZ [place] [id number] -[id number] M Exm Date: DEC 04, 2023@06:27 Req Phys: UMESH ABARCA Loc: SICU [facility]E[place]/12-05-2023@05:59 [facility] [place]: [place] Service: [facility], [facility] [address] [place] [address] (Case [id number] COMPLETE) FLUOROS(SEPARATE PROCEDURE),UP TO(RAD Detailed) CPT:05648 CPT Modifiers : TC TECHNICAL COMPONENT Reason for Study: bilater c6-c7 lami Clinical History: Report Status: Verified Date Reported: DEC 05, 2023 Date Verified: DEC 05, 2023 Machine Loader E-Sig: Report: Fluoroscopy was provided to another [...] Interpreting Staff: JANAY FIGUEROA, RADIOLOGIST Verified by biodiesel engineering manager for JANAY FIGUEROA /JANAY DAVIS [facility] Nov 12, 2023 09:40 AM CHEST X-RAY, 2 VIE WS: NIKKO GOMEZ [place] [id number] -1980 M Exm Date: NOV 12, 2023@09:40 Req Phys: SOBIA DOMINGO Loc: [facility]-NEUROSURGERY SAW SHARPENER 2 (Req'g Lo Img Loc: [facility]-MAIN RADIOLOGY SUITE Service: Unknown [facility], [facility] [address] [place] [address] (Case [id number] COMPLETE) CHEST X-RAY, 2 VIEWS (RAD Detailed) CPT:91437 Reason for Study: Pre Op Clinical History: Report Status: Verified Date Reported: NOV 12, 2023 Date Verified: NOV 12, 2023 Machine Loader E-Sig:/ES/Austin Branham MD. FACR. Report: History: Pre Op. Comparison: No previous pertinent examination is available. Technique: PA and lateral views Findings: No pulmonary consolidation, pleural effusion, pneumothorax, cardiomegaly or pulmonary edema is seen. Impression: No acute cardiopulmonary disease is seen. Primary Interpreting Staff: Austin Branham MD. FACR, Neuroradiologist (Machine Loader) /[facility] Encounter Notes: All associated encounter notes This section contains the clinical notes associated to the Encounter. Date/Time Encounter Note(s) Provider Source Dec 04, 2023 06:34 PM SURGERY ATTENDING CRITICAL CARE UNIT NOTE: LOCAL TITLE: SURGICAL CRITICAL CARE ATTENDING [facility] STANDARD TITLE: SURGERY ATTENDING CRITICAL CARE UNIT NOTE DATE OF NOTE: DEC 04, 2023@18:34 ENTRY DATE: DEC 04, 2023@18:34:38 AUTHOR: TIFFANIE CEE EXP COSIGNER: URGENCY: STATUS: COMPLETED PRINCIPAL DIAGNOSIS:Cervical canal stenosis C6-7 and right foramenal stenosis with medically intractable right arm pain SURGERY PERFORMED:Cervical C6-7 bilateral laminectomy attn right foramen, removal of hypertrophied ligament POST-OPERATIVE DAY NUMBER: DOS HPI:Nikko Gomez is a pleasant 43 y/o with chronic neck pain radiating down the bilateral arms, right greater than left, to the hands with associated numbness and tingling. MRI revealed C6-7 right disc osteophyte, facet arthropathy, and right foraminal narrowing with mild to moderate canal stenosis, he underwent surgery as above. PAST MEDICAL HISTORY: HTN / HLD / diabetes / BLAYNE / prediabetes / GERD INTERVAL HISTORY:[place] resting well. Some discomfort at surgical site, but radiating rt arm pain and numbness resolved. No other complaints VITALS Temp (Tmax):36.7 Pulse: 80 Blood Pressure: 143/100 Respiration: 19 Pulse Ox: 97 I-IV: 1300 ml O-Urine:250 ml EBL: 20ml JOHNNIE Drain neck: 30ml (SS) DIET/TUBE FEEDINGS: Regular Diet INTRAVENOUS FLUIDS: NS w/ 20mEq KCL @ 120ml/hr DRIPS: None ACTIVE INPATIENT MEDICATIONS 1) HYDROMORPHONE (OR/PACU) INJ,SOLN IVP Q15MIN PRN 0.2MG-0.8MG 2) FENTANYL INJ,SOLN IVP Q15MIN PRN 25MCG-50MCG 3) ONDANSETRON INJ,SOLN IVP Q6H PRN 4MG/2ML 4) HYDROMORPHONE 30MG/30ML (PSYCHOLOGICAL ASSISTANT) INJ,SOLN IV CONTIN_BY_PUMP PRN 30MG/30ML 5) ACETAMINOPHEN TAB PO QID 1000MG 6) INSULIN ASPART (NOVOLOG) INJ SQ QID AC/HS SLIDING SCALE 7) METHOCARBAMOL TAB PO QID 750MG 8) OMEPRAZOLE CAP,EC PO BID AC 9) SENNOSIDES (OTC) TAB PO QDAILY 17.2MG 10) DEXTROSE 50% INJ,SOLN IVP PRN 25-50 ML 11) NALOXONE (EQV-NARCAN) INJ,SOLN IVP PRN 0.4MG-2MG 12) ONDANSETRON INJ,SOLN IVP TID PRN 4MG/2ML 13) LABETALOL INJ,SOLN IVP Q6H PRN 5MG/1ML 14) OXYCODONE (IMMEDIATE RELEASE) UD TAB PO Q4H PRN 5MG 15) OXYCODONE (IMMEDIATE RELEASE) UD TAB PO Q4H PRN 10MG 16) CEFAZOLIN 2GM/BAG INJ,SOLN IVPB ONE-TIME TO BE GIVEN IN O.R. ONLY ON Nov@07:30 17) SODIUM CHLORIDE 0.9/KCL 20MEQ INJ,SOLN IVPB 18) CEFAZOLIN 2GM/BAG INJ,SOLN IVPB Q8H WHILE DRAIN IS IN PLACE PHYSICAL EXAM General:NAD, pleasant, resting Cardiovascular System:RRR Respiratory:CTAB Abdomen:Soft, NT/ND/Bs + Extremities:WWP Vascular:2+ PP Neurologic:AAO X 4, No focal deficits, Motor 5/5 BUE/BLE, Sensation intact, Cervical incision C/D/I, JOHNNIE drain w/ SS output Skin:Appropriate for ethnicity, warm, dry; surgical site CDI with JOHNNIE x1 LABS WBC: 5.1 10*3/uL (11/12/23 09:46) HGB 14.2 g/dL 11/12/2023 09:46 HCT: 42.2 % (11/12/23 09:46) PLT: PLT 277 10*3/uL 11/12/2023 09:46 Neut/Bands: 0 BMP: SODIUM 140 mEq/L 11/12/2023 09:46 POTASSIUM 3.9 mEq/L 11/12/2023 09:46 CHLORIDE 107 mEq/L 11/12/2023 09:46 UREA NITROGEN 9.1 mg/dL 11/12/2023 09:46 CREATININE 0.86 mg/dL 11/12/2023 09:46 CALCIUM 8.7 mg/dL 11/12/2023 09:46 CARBON DIOXIDE 24 mEq/L 11/12/2023 09:46 GLUCOSE 106 H mg/dL 11/12/2023 09:46 EGFR (CKD-EPI 2020) 109.5 11/12/2023 09:46 Accuchecks: GLUCOSE,BLOOD-poct (STL) 129 H mg/dL 12/04/2023 16:56 GLUCOSE,BLOOD-poct (STL) 126 H mg/dL 12/04/2023 13:30 ASSESSMENT AND RECOMMENDATIONS 1. Neurology: #Cervical canal stenosis C6-7 (POA) POD #0, s/p Cervical C6-7 bilateral laminectomy - Neuro checks q2hr - Cefazolin while JOHNNIE is in place - Cervical precautions - Maintain c-collar - Encourage early mobilization - PT/OT in AM #Acute post-op pain 2/2 surgical procedure: - Scheduled Acetaminophen - PRN Oxycodone mild to moderate - Hydromorphone PSYCHOLOGICAL ASSISTANT if indicated - Methocarbamol - BM regimen while on opiates # PTSD (POA) - No meds 2. At risk for Delirium and Plan of Care: CAM-ICU: Neg Moderate risk for delirium, givenrisk factors such as: use of opiates for postop pain, psychiatric hx, hx of EtOH use, hx of HTN, severity of illness and diminished mobility Preventative measures, such as: Judicious opiate use, promotion of sleep hygiene, lights on by day, resumption of home psychoactives, promote mobility 3. Cardiovascular System: #HTN (POA) - No meds at home - PRN IV Labetalol for SBP > 160 4. Pulmonary: - Wean FiO2 as tolerated for SpO2 >93% - Promote postop pulm hygiene to include T/C/DB and IS q1hr w/a # BLAYNE (POA) - does not use CPAP 5. Fluids, Electrolytes, Nutrients: Replete lytes prn 6. Gastrointestinal: #GERD (POA) - Cont home Omeprazole 7. Renal: 8. Endocrinology: - No acute Endo issues - HGA1C 5.6% 10/13/23 - Continue BG checks and SSI per ICU Glycemia protocol # Obesity (POA) 9. Hematology/Infectious Diseases: Trend CBC 10.Prophylaxis(Deep Vein Thrombosis/Stress Ulcer): VTE: SCDs, holding chemical prophylaxis in setting of recent surgery / bleeding risk SUP: No indication at present PU: Specialty mattress; OOBTC and walking with assist 11.Central Line:None 12.Daily goals checklist reviewed on rounds:Yes Total time spent Critical Care: 40 Minutes /ben/ TIFFANIE CEE MD SICU concrete block mason/Anesthesiologis t/Palliative Care Signed: 12/04/2023 19:[address] [facility]
--- OUTSIDE RECORDS SUMMARY | 2024-09-16 02:23 | XMS_ITS | Data Portability ---
Author Organization [facility], Main Office Address [address] [place] [address] Assessment Encounter Date Assessment Date Assessment LastModified by Organization Details LastModified Time 04/28/2024 04/28/2024 pes planus shin. pain Rt, onychomycosis akachigian Not available 04/29/2024 09:16:57 Plan of Treatment Reminders Order Date Submit Date Provider Last Modified By Organization Details Last Modified Time Details Appointments None record ed. Lab None record ed. Referral None record ed. Procedures None record ed. Surgeries None record ed. Imaging None record ed. Medication Orders None record ed. Patient TargetsNo targets recorded. Patient InstructionsNo instructions recorded. Reason for Referral None Reported. Problems Name Problem SNOMED Code Status Onset Date Resolution Date Notes Provider Name and Address Organization Details Recorded Time Benign essential hypertensi on 1626315 Active Not Available [facility] 3 14:45:25 Hyperchole sterolemia 85784751 Active Not Available [facility] 3 14:45:25 Insomnia 697786484 Active Not Available [facility] 3 14:45:25 Contact dermatitis caused by urushiol from Eastern poison emy 644146027 Active 2021 Not Available [facility] 3 14:45:25 Acute dermatitis 32143461 Active Not Available [facility] 3 14:45:25 Obesity 568056358 Active Not Available [facility] 3 14:45:25 Liver enzymes level above reference range 412982075 Active Not Available [facility] 3 14:45:25 Allergic rhinitis 03999494 Active 2022 Stacy Gonzalez RN null, [facility] 3 12:14:53 Cough 85025375 Active 2022 Stacy Gonzalez RN [facility], [facility] [employer] [facility] 3 16:41:11 Onychomyco sis of toenails 878732540 Active 2024 Christos Harmon DPM [address], [place], [address] , [facility] [employer] [facility] [employer] [facility] 5 09:17:00 Pain in right foot 7124935996088 07 Active 2024 Christos Harmon DPM [address], [place], [address] , [employer] [facility] [employer] 5 09:17:09 Acquired pes planus of right foot 5315870512205 06 Active 2024 Christos Harmno DPM [address], [address], [place], [address] , [facility] [employer] [facility] [employer] 5 09:17:14 Problem Notes None recorded. Procedures Surgical History Date Name Laterality Status Provider Name and Address Organization Details Recorded Time 04/28/19 25 Nail Debridement completed Christos Harmon DPM [address], [place], [address], [facility] [employer] 04/29/2024 09:16:12 04/28/19 25 Strapping Foot & Ankle completed Christos Harmon DPM [address], [place], [address], [facility] [employer] [facility] 04/29/2024 09:16:21 Knee Surgery completed Not Available [facility] 06/14/2022 14:44:01 cholecystectomy completed Not Available [facility] 06/14/2022 14:44:01 Gastric Bypass completed Not Available [facility] 06/14/2022 14:44:01 Imaging Results None recorded. Procedure Notes None recorded. Medical Equipment None Reported. Allergies No known drug allergies Medications Name Sig Start Date Stop Date Status Note LastModified by Organization Details LastModified Time martha allen rlf aleg d 240mg/dc tbs TAKE 1 TABLET BY MOUTH EVERY DAY active Not Available Not Available No t Available amoxicillin 500 mg capsule 11/21 completed Not Available Not Available Not Available methocarbam ol 500 mg tablet active Not Available Not Available Not Available promethazin e-DM 6.25 mg-15 mg/5 mL oral syrup 11/21 completed Not Available Not Available Not Available BD Luer-Carlo Syringe 3 mL 25 x 1 1/2 USE TO INJECT VITAMIN B12 EVERY MONTH active Not Available Not Available No t Available benzonatate 200 mg capsule TAKE 1 CAPSULE BY MOUTH THREE TIMES DAILY NEEDED FOR COUGH active Not Available Not Available No t Available hydrocodone 5 mg-acetamin ophen 325 mg tablet TAKE 2 TABLETS BY MOUTH EVERY 8 HOURS NEEDED FOR PAIN 12/06 completed Not Available Not Available Not Available meloxicam 15 mg tablet 12/06 completed Not Available Not Available Not Available Zithromax Z-Esteban 250 mg tablet TAKE 2 TABLETS (500 MG) BY ORAL ROUTE ONCE DAILY FOR 1 DAY THEN 1 TABLET (250 MG) BY ORAL ROUTE ONCE DAILY FOR 4 DAYS 2022 active Not Available Not Available Not Avai lable phentermine 15 mg capsule 12/06 completed Not Available Not Available Not Available Zyrtec 10 mg tablet Take 1 tablet every day by oral route. 12/06 completed Not Available Not Available Not Available phentermine 37.5 mg tablet TAKE 1 TABLET BY MOUTH EVERY MORNING 12/06 completed Not Available Not Available Not Available sulfamethox azole 800 mg-trimetho prim 160 mg tablet Take 1 tablet every 12 hours by oral route. 06/05 completed Not Available Not Available Not Available omeprazole 40 mg capsule,del ayed release TAKE 1 CAPSULE BY MOUTH TWICE DAILY active Not Available Not Available No t Available ketorolac 10 mg tablet TAKE 1 TABLET BY MOUTH EVERY 6 HOURS 12/06 completed Not Available Not Available Not Available oxycodone-a cetaminophe n 5 mg-325 mg tablet TAKE 1 TO 2 TABLETS BY MOUTH EVERY 6 HOURS FOR 3 DAYS NEEDED FOR PAIN active Not Available Not Available No t Available famotidine 20 mg tablet TAKE 1 TABLET BY MOUTH EVERY DAY 12/06 completed Not Available Not Available Not Available prednisolon e acetate 1 % eye drops,suspe nsion 11/21 completed Not Available Not Available Not Available ciprofloxac in 0.3 % eye drops 10/05 completed Not Available Not Available Not Available triamcinolo ne acetonide 40 mg/mL suspension for injection Take 80 mg by injection route. active Not Available Not Available No t Available cyanocobala min (vit B-12) 1,000 mcg/mL injection solution INJECT 1ML IN THE MUSCLE ONCE A MONTH active Not Available Not Available No t Available oseltamivir 75 mg capsule TK 1 C PO BID FOR 5 DAYS 01/17 completed Not Available Not Available Not Available esomeprazol e magnesium 40 mg capsule,del ayed release qd 08/12 completed Not Available Not Available Not Available triamcinolo ne acetonide 0.1 % topical ointment apply to rash daily 04/28 completed Not Available Not Available Not Available lisinopril 10 mg tablet Take 1 tablet every day by oral route. 04/28 completed Not Available Not Available Not Available polymyxin B sulfate 10,000 unit-trimet hoprim 1 mg/mL eye drops 11/21 completed Not Available Not Available Not Available mupirocin 2 % topical ointment active Not Available Not Available Not Available ergocalcife rol (vitamin D2) 1,250 mcg (50,000 unit) capsule TAKE ONE CAPSULE BY MOUTH WEEKLY active Not Available Not Available No t Available scopolamine 1 mg over 3 days transdermal patch APPLY 1 PATCH BEHIND EAR AT BEDTIME THE NIGHT BEFORE PROCEDURE active Not Available Not Available No t Available methylpredn isolone 4 mg tablets in a dose pack FOLLOW PACKAGE DIRECTION S active Not Available Not Available No t [...] Not Available Not Available No t Available cefdinir 300 mg capsule Take 1 capsule twice a day by oral route for 10 days. active Not Available Not Available No t Available metformin ER 500 mg tablet,exte nded release 24 hr TAKE 1 TABLET BY MOUTH ONCE DAILY WITH DINNER FOR 1 WEEK THEN TAKE 1 TABLET BY MOUTH WITH BREAKFAST AND DINNER active Not Available Not Available No t Available phentermine 37.5 mg capsule TAKE 1 CAPSULE BY MOUTH ONCE DAILY IN THE MORNING active Not Available Not Available No t Available amoxicillin 875 mg-potyulianaiu m clavulanate 125 mg tablet 03/06 completed Not Available Not Available Not Available topiramate 50 mg tablet TAKE 1 TABLET BY MOUTH WITH DINNER active Not Available Not Available No t Available Charlene-D 24 Hour 180 mg-240 mg tablet,exte nded release Take 1 tablet every day by oral route. 2022 active Not Available Not Available Not Avai lable aprepitant 40 mg capsule TAKE 1 CAPSULE BY MOUTH 3 HOURS PRIOR TO SURGERY active Not Available Not Available No t Available Nascobal 500 mcg/spray nasal spray 04/28 completed Not Available Not Available Not Available Charlene-D 2021 active Not Available Not Available Not Avai lable naloxone 4 mg/actuatio n nasal spray active Not Available Not Available Not Available Vitals Date Recorded Body height Body mass index (BMI) Body weight Oxygen saturation Oxygen saturation in Arterial blood by Pulse oximetry Heart rate Body temperature Provider Name and Address Organization Details Last Updated DateTime 5 182.88 cm 33.9 kg/m2 882725. 09 g 97 % 97 % 68 /min 98.6 [degF] [facility] [place] [facility] [place] [email or web address] [facility] 5 14:25:47 Date Recorded Body mass index (BMI) Body height Heart rate Body temperature Body weight Systolic blood pressure Diastolic blood pressure Provider Name and Address Organization Details Last Updated DateTime 2 36.6 kg/m2 182.88 cm 83 /min 98.2 [degF] 858264. 94 g 124 mm[Hg] 74 mm[Hg] Not Available [facility] 3 14:45:09 Social History Question Answer Notes LastModified by Organizat ion Details LastModified Time Tobacco Smoking Status Never Smoker Not Available [facility] 06/14/2022 14:43:58 Do You Have An Advance Directive? No [id number] Information not available 06/14/2022 Do You Wear A Helmet When Biking? No [id number] Information not available 06/14/2022 What Is Your Level Of Caffeine Consumption? Occasional [id number].[id number] Information not available 06/14/2022 In The 14 Days Before Symptom Onset, Have You Had Close Contact With A Laboratory-confir med COVID-19 While That Case Was Ill? No [id number] Information not available 06/14/2022 In The 14 Days Before Symptom Onset, Have You Had Close Contact With A Person Who Is Under Investigation For COVID-19 While That Person Was Ill? No [id number] [id number] Information not available 06/14/2022 What Type Of Diet Are You Following? REGULAR MIGRATION.[id number] 8754 Information not available 06/14/2022 Have There Been Any Changes To Your Family Or Social Situation? No MIGRATION.[id number] Information not available 06/14/2022 Are There Any Guns Present In Your Home? Yes MIGRATION.[id number] 5348 Information not available 06/14/2022 Do You Use Insect Repellent Routinely? No MIGRATION.[id number] 5859 Information not available 06/14/2022 Where Do You Live? [facility] MIGRATION.[id number] 9415 Information not available 06/14/2022 Do You Have A Medical Power Of Dermatological Surgeon? No MIGRATION.857249 7177 Information not available 06/14/2022 What Was The Date Of Your Most Recent Tobacco Screening? 04/28/2024 [email or web address] Information not available 04/28/2024 Do You Have Any Pets? Yes MIGRATION.[id number] 8839 Information not available 06/14/2022 What Is Your Relationship Status? MIGRATION.[id number] 0539 Information not available 06/14/2022 Do You Use Your Seat Belt Or Car Seat Routinely? Yes MIGRATION.[id number] 2612 Information not available 06/14/2022 Do You Have Smoke And Carbon Monoxide Detectors In Your Home? Yes MIGRATION.796459 6907 Information not available 06/14/2022 Are You Passively Exposed To Smoke? No MIGRATION.836693 2685 Information not available 06/14/2022 Are There Any Smokers In Your House? No MIGRATION.735101 4966 Information not available 06/14/2022 Do You Use Sunscreen Routinely? No MIGRATION.518719 2629 Information not available 06/14/2022 Has Tobacco Cessation Counseling Been Provided? No MIGRATION.060792 5278 Information not available 06/14/2022 Have You Recently Traveled Abroad? No MIGRATION.649213 6601 Information not available 06/14/2022 Do You Have Any Dietary Restrictions? No MIGRATION.397546 6003 Information not available 06/14/2022 Sex: Unknown Functional Status Question Answer Note LastModified by Organizat ion Details LastModified Time Do you use any illicit or recreational drugs? No MIGRATION.925861 8142 Information not available 06/14/2022 Do you or have you ever used any other forms of tobacco or nicotine? Yes MIGRATION.109544 9213 Information not available 06/14/2022 What is your level of alcohol consumption? Occasional MIGRATION.734779 1326 Information not available 06/14/2022 What is your occupation? [employer] MIGRATION.168194 7960 Information not available 06/14/2022 Do you or have you ever used e-cigarettes or vape? Current user of electronic cigarettes MIGRATION.648828 9132 Information not available 06/14/2022 What is your exercise level? Occasional MIGRATION.822298 8565 Information not available 06/14/2022 Mental Status Question Answer Note LastModified by Organizat ion Details LastModified Time Do you feel stressed (tense, restless, nervous, or anxious, or unable to sleep at night)? [id number] [id number].[id number] Information not available 06/14/2022 Family History Nothing Reported. Medical History Condition Response HAVE YOU BEEN HOSPITALIZED OR SEEN IN [facility] IN THE PAST YEAR ? N Past Encounters Encounter ID Performer Location Encounter Start Date Encounter Closed Date Diagnosis/Indication Diagnosis SNOMED-CT Code Diagnosis ICD10 Code Diagnosis Note [id number] Lee Owens MD [facility] Internal [facility] [place] [facility] [place] [address] 12/06/2021 00:00:00 12/06/2021 22:28:32 [id number] Christos Harmon DPM [facility] Pod[facility] [address] [address] 04/28/2024 14:10:30 04/29/2024 14:13:07 Onychomycosis of toenails 980321048 B35.1 Pain in right foot 97985 39048 60787 M79.671 Acquired p es planus of right foot 5497397051 04639 M21.41 Health Concerns Section Related Observation LastModified by Organization Detai ls LastModified Time None Recorded Concern Status LastModified by Organization Details LastModified Time None Recorded Advance Directives Directive N: Payers Encounter Date Sequence Insurance Name Policy Number Policy Wagner Covered Member ID Wagner Member ID Guarantor Name 04/28/2024 1 [employer] [id number] Adonis Coronado [id number] Adonis Coronado Notes Date Note Type Note Provider Name and Address Organization Details Recorded Time 04/28/2024 text/html [facility] pt RTC for c/o flat feet, occasional heel pain, long, thick, dystrophic nails shin feet. Christos Harmon DPM [address] [facility], [facility] [address], [place], [address], [place] [facility] 04/29/2024 09:17:21
--- OUTSIDE RECORDS SUMMARY | 2024-09-16 02:23 | XMS_ITS | Encounter Summary ---
Author Name [facility] Address [address] [place] [address] Care Team Providers Care Compliance Monitor Name Role Phone CONNIE MURILLO Primary Care [...] [facility] HEALT H PLAN Nov 08, 2013 [id number] [phone] WIDEL,CHR ISTOPHER PATIENT [facility] PREFERRED PROVIDER ORGANIZAT ION (PPO) [facility] Apr 16, 2023 [id number] WIDEL,CHR ISTOPHER PATIENT [facility] PART A ONLY Mar 11, 2014 [id number] WIDEL,CHR ISTOPHER PATIENT [facility] HEALT H PLAN Apr 16, 2020 [id number] [phone] WIDEL,CHR ISTOPHER PATIENT [facility] PRESCRIPT ION [facility] HEALT H PLAN Mar 11, 2014 [id number] [phone] WIDEL,CHR ISTOPHER PATIENT [facility] PRESCRIPT ION [facility] RX PLAN Nov 08, 2013 [id number] [phone] WIDEL,CHR ISTOPHER PATIENT [facility] PRESCRIPT ION [facility] Nov 08, 2013 [id number] [phone] WIDEL,CHR ISTOPHER PATIENT Selected Encounter This section includes the information on record at [place] for the Encounter. Date/Time Encounter Type Encounter Description Reason Provider Source Feb 18, 2024 09:00 AM PT RE-EVAL EST PLAN CARE PHYSICAL THERAPY ICD-10-CM M48.02 Spinal stenosis, cervical region LY RUSHING [place] Encounter Template Text not used by [place] Assessments - Encounter Diagnoses This section includes the primary and secondary diagnoses documented for the Encounter. Date/Time Primary/Secondary Diagnosis Diagnosis Name Provider Source Mar 04, 2024 11:50 AM PRIMARY Spinal stenosis, cervical region LY RUSHING [facility] Plan of Treatment: Future Appointments (+ 6 months) and Future Tests (+/- 45 days) The Plan of Treatment section includes future care activities for the patient from all [place] treatmentfacilities. This section includes future appointments and future orders which are active, pending or scheduled. Future Appointments This section includes appointments that were scheduled to occur 6 months from the date of the Encounter, up to a maximum of 20 appointments. The data comes from all [place] treatment facilities. Appointment Date/Time Appointment Type Appointme nt Facility Name May 15, 2024 09:30 AM AMBULATORY - MEDICINE [facility] Social History: Smoking Status (Most current) and Tobacco Use (All prior to encounter date) This section includes the most current, and the historical, smoking and tobacco- related health factors from the [facility] where the [facility]. Current Smoking Status This section includes the most current smoking, or tobacco-related health factor, from the [facility] facility where the Encounter took place. Date/Time Current Smoking Status Comment Abad lora Apr 21, 2022 01:21 PM [place]-TOBACCO NEVER USED [facility] Tobacco Use History This section includes a history of the smoking, or tobacco-related health factors, that were collected on or before the date of the Encounter. The data comes from the [facility] where the Encounter took place. Date/Time Smoking Status/Tobacco Use Comment Bart acrj Dec 03, 2020 12:04 PM [place]-TOBACCO NEVER USED [facility] Encounter Notes: All associated encounter notes This section contains the clinical notes associated to the Encounter. Date/Time Encounter Note(s) Provider Source Feb 18, 2024 11:34 AM PHYSICAL THERAPY D ISCHARGE NOTE: LOCAL TITLE: PT DISCHARGE STL STANDARD TITLE: PHYSICAL THERAPY DISCHARGE NOTE DATE OF NOTE: FEB 18, 2024@11:34 ENTRY DATE: FEB 18, 2024@11:34:11 AUTHOR: LY RUSHING EXP COSIGNER: URGENCY: STATUS: COMPLETED Current PC Provider: CONNIE MURILLO Current PC Team: [facility] PACT 3 USED [employer] WORK[employer] Current Pat. 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 Date: Jan 14, 2024 DST ID: Orderable Item: PT OUTPT STL Consult: Consult Request Provisional Diagnosis: Spinal Stenosis, Cervical Region(ICD-10-CM M48.02) Reason For Request: Physical Therapy Outpatient Consult Please educate patient prior to placing this consult that if they no show to this appointment, the consult will be discontinued and a new consult will be needed in order to reschedule.If a referral is for multiple areas, the treating therapist will work with the patient to prioritize treatment area(s) to optimize function. Referrals from patients who have received and been discharged from physical therapy within the last 6 months for the same condition will not be accepted. If contact with Physical Therapy Department is needed: Launch Email to [facility] PT Group Evaluation and Treatment for: (Please include post-op protocol as appropriate) S/p C6/7 decompression Responsible attending:Mae (REQUIRED) Enter any precautions: Chart Review: Imaging Chart Review: [facility] including: - PHYSICAL THERAPY DISCHARGE NOTE for s/p C6-7 decompression on 12/04/23 Referring provider: Al Wall NP Start of Care:12/26/23 Reevaluation due:01/25/24 POC through:03/26/24 Visits to date: 4 No shows/cancellations: 0 Treatment time: Total: 30 mins. Therapeutic exercise: 15 mins. PT Re-eval. Subjective: [place] states that he feels he is doing well enough to be discharged. He is having right upper trap trigger point discomfort. Pt states that he is feeling much better. States that he is able to work without too much discomfort. He also states that he reminds himself about practicing good posture. 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 Assistive Device:NA Posture: Improved posture AROM Cervical: (* = pain) right left -cervical rotation 30d 30d -cervical lateral flexion 25d 25d -upper cervical flexion 25d -upper cervical extension 20d AROM Shoulder: (* = pain) right left -standing flexion WNL's WNL's -standing abduction WNL's WNL's Palpation:Mild tenderness in the C-spine area Also some mild tenderness in the bilat upper traps. Treatment: Add to HEP Begin with 10 reps. -AROM of right and left upper extremities, against the wall. -[place] lifts -Arms up the wall(facing the wall) -Arms up the wall(back to the wall) -Lifting 5lb weight->flexion to shoulder level and abd to shoulder level, 10 reps. each -Instructed in 2 PNF patterns for BUE strengthening utilizing diagonal patterns with a 3lb weight, 10 reps. each. [place] to try Theracane or TENS if needed. He also has home cervical traction unit, but he not going to use unless needed and OK'D by his doctor. Therapeutic exercise: Pt was instructed in and demonstrated independence with current HEP x 1 (pt was provided with handouts): 2 sets of 10 reps.(as tolerated) -C-spine AROM(no excessive neck ext) -AROM of both shoulders -Theraband ex's:pulling theraband out to the side at knee level 1st, then at shoulder level(keeping elbows straight) -Shoulder rolls and pinches -Pt instructed to be aware of neck aligment and upper body posture saurabh. 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 Pt is a 43 yr old male with a dx of s/p C6-7 decompression on 12/04/23. He has been progressing well following surgery. He would benefit from improving his upper body posture and strength, as well as, C-spine posture/alignment He was cooperative and seems well motivated. Pt works(from home) full-time primariy using a computer most of the time --Complexity of eval: [X] Low [] Medium [] High -Complexity of eval due to: -Co-morbidities:see above -Personal Factors:see above -Examination: -Elements addressed: -Outcome measure: -Clinical Presentation: - [X] Stable and/or Uncomplicated - [] Evolving Clinical Presentation with Changing Clinical Characteristics: - [] Unstable And Unpredictable Characteristics Goals: Short term:(4 weeks) 1) Pt. will demonstrate independence with current HEP x 1 2) Pt. will verbalize pain at worst:2/10 Group Home: (12 weeks) 1) Pt. will demonstrate independence with current HEP x 1 2) Pt. will verbalize pain at worst /10 3) Pt will improve and be aware of upper body posture 4) Improve strength of upper body/bilat shoulders --BARRIERS: [X] NONE. [] Complexities/Conditions/Cir cumstances that may impact treatment: [] Cognition: [] Home environment: [] Distance patient lives from facility: [] Support of family/friends to assist: [] Transportation to facility issues: [] Patients willingness to participate: [] Work issues: [] Difficulty getting time off: [] Requires certain time slots to accommodate work schedule: [] Co-morbidities: [] Other: --REHABILITATION POTENTIAL: [] POOR - Limited potential for improvement. [] GUARDED - There exists a question of the potential for improvement [] FAIR - Presents with the potential to improve in some areas while other deficits may remain unchanged. [X] GOOD - Presents with the potential to improve to a level of functional independence, though may continue to demonstrate certain minimal limitations with consistent performance of HEP. [] EXCELLENT - Presents with the potential to fully recover with no residual deficits. --CONTINUED SKILLED THERAPY NEEDED TO ADDRESS THE FOLLOWING IMPAIRMENTS/FUNCTIONAL LIMITATIONS AND EDUCATIONAL NEEDS: [X] Pain: [X] Physiological impairments of: [] Balance: [X] ROM: [X] Strength: [] Other: [X] ADL deficits: [] WB activities: [X] Self-care: [] Other: [X] Education needs: Individual(s) involved: [X] Patient: [] Caregiver: [X] Achieving (I) with home program: [X] Gain further of understanding of self-management of condition: [X] Self-Care: [] Caregiver education: [] Other: Equipment Patient Currently Has:NA Plan: DC from [facility]. Pt to call if needed. --PATIENT EDUCATION DOCUMENTATION: Person(s) who received education: [x] Patient; [] Family: [] Other: Education Topic/Teaching Needs: [X] Home program: [X] Why compliance with home program is important [] Regarding automated call/letter regarding scheduled appointment; two no show policy; late arriving for appointment; follow up appointment lengths. [] TENS [X] Nature of condition [] Other: Methods used Included: [] Handout(s): [] Home program: [] Why compliance with home program is important [] Regarding automated call/letter regarding scheduled appointment; two no show policy; late arriving for appointment; follow up appointment lengths. [] TENS [] Other: [x] One-on one: [] Verbal instructions [] Visual instructions [] Tactile cues. [] Other: Teaching Outcomes: [X] Good; [] Fair; [] Poor [x] Patient acknowledged understanding of instruction [] Family/Other acknowledged understanding of instruction /es/ Ly Rushing MA, PT Physical Therapist Signed: 02/18/2024 11:45 LY RUSHING [facility]
--- OUTSIDE RECORDS SUMMARY | 2024-09-16 02:23 | XMS_ITS ---
[facility] HOSPITALIZATION [facility] Encounter Summary Created on: September 15, 2024 NIKKO GOMEZ : 1980 Sex: Male Author Name [facility] [place] [facility] [place] Address [address] [place] [address] Care Team Providers Care Metallographic Technician Name Role Phone KATHE MURILLO Primary Care Provider Unavailabl e Insurance [...] APWU HEALT H PLAN Nov 08, 2013 [id number] [phone] WIDEL,CHR ISTOPHER PATIENT APWU-SS PREFERRED PROVIDER ORGANIZAT ION (PPO) APWU Apr 16, 2023 [id number] WIDEL,CHR ISTOPHER PATIENT FORMERLY [facility] APWU PART A ONLY Mar 11, 2014 [id number] WIDEL,CHR ISTOPHER PATIENT [employer] APW[facility] HEALT H PLAN Apr 16, 2020 [id number] [phone] WIDEL,CHR ISTOPHER PATIENT [employer] ([employer]) PRESCRIPT ION [facility] HEALT H PLAN Mar 11, 2014 [id number] [phone] WIDEL,CHR ISTOPHER PATIENT [employer] ([employer]) PRESCRIPT ION APWU RX PLAN Nov 08, 2013 [id number] [phone] WIDEL,CHR ISTOPHER PATIENT [employer] ([employer]) PRESCRIPT ION APWU Nov 08, 2013 [id number] [phone] WIDEL,CHR ISTOPHER PATIENT Selected Encounter This section includes the information on record at [place] for the Encounter. Date/Time Encounter Type Encounter Description Reason Pro vider Source Dec 04, 2023 01:26 PM Inpatient Visit HOSPITALIZATION ICD-10-CM Z48.811 Encntr for surgical aftcr fol surgery on the nervous sys HAYLEY ABARCA Encounter Template Text not used by [place] Assessments - Encounter Diagnoses This section includes the primary and secondary diagnoses documented for the Encounter. Date/Time Primary/Secondary Diagnosis Diagnosis Name Provider Source Dec 05, 2023 01:47 PM Diagnosis for Length of Stay Spinal stenosis, cervical region [facility] Dec 05, 2023 01:47 PM SECONDARY Body mass index [BMI] 33.0-33.9, adult [facility] Dec 05, 2023 01:47 PM SECONDARY Encntr for surgical aftcr fol surgery on the nervous sys [facility] Dec 05, 2023 01:47 PM SECONDARY Essential (primary) hypertension [facility] Dec 05, 2023 01:47 PM SECONDARY Gastro-esophageal reflux disease without esophagitis [facility] Dec 05, 2023 01:47 PM SECONDARY Hyperlipidemia, unspecified [facility] Dec 05, 2023 01:47 PM SECONDARY Obesity, unspecified [facility] Dec 05, 2023 01:47 PM SECONDARY Obstructive sleep apnea (adult) (pediatric) [facility] Dec 05, 2023 01:47 PM SECONDARY Osteophyte, vertebrae [facility] Dec 05, 2023 01:47 PM SECONDARY Post-traumatic stress disorder, unspecified [facility] Plan of Treatment: Future Appointments (+ 6 months) and Future Tests (+/- 45 days) The Plan of Treatment section includes future care activities for the patient [facility] [place] [facility] This section includes future appointments and future orders which are active, pending or scheduled. Future Appointments This section includes appointments that were scheduled to occur 6 months from the date of the Encounter, up to a maximum of 20 appointments. The data comes from all [facility]. Appointment Date/Time Appointment Type Appointme nt Facility Name Dec 13, 2023 09:30 AM AMBULATORY - SURGERY [facility] Dec 26, 2023 02:00 PM AMBULATORY - REHAB MEDICIN E [facility] Jan 21, 2024 08:30 AM AMBULATORY - REHAB MEDICIN E [facility] Jan 21, 2024 09:30 AM AMBULATORY - SURGERY [facility] Feb 04, 2024 09:00 AM AMBULATORY - REHAB MEDICIN E [facility] Feb 18, 2024 09:00 AM [facility] May 15, 2024 09:30 AM AMBULATORY - MEDICINE [facility] Active, Pending, and Scheduled Orders This section includes a listing of several types of active, pending, and scheduled orders, including clinic medications orders, diagnostic test orders, procedure orders and consult orders; where the start date of the order is 45 days before the date of the Encounter or 45 days after the date of theEncounter. The data comes from all [facility]. Test Date/Time Test Type Test Details Facility Name Nov 07, 2023 12:00 AM Laboratory - Blood Bank Order RED BLOOD CELLS - LAB VBECS - NO SPECIMEN REQUIRED [facility] Nov 07, 2023 12:00 AM Laboratory - Blood Bank Order TYPE & SCREEN - LAB BLOOD [facility] Dec 04, 2023 06:00 AM Laboratory - Blood Bank Order TYPE & SCREEN - LAB BLOOD [facility] Lab Results: +/- 30 days of the [...] Type Comment Dec 05, 2023 04:56 AM [facility] GLUCOSE,BLOOD-poct (STL) BLOOD Specimen Type: BLOOD Comment: Test Performed by: [id number] Meter #: [id number] Ordering Provider: UMESH ABARCA Report Released Date/Time: Dec 05, 2023 06:07 AM Reporting Lab: [address] [address] Performing Lab: [facility] [address] [place] [phone] GLUCOSE,BLOOD-poct (STL) 107 mg/dL H 72-99 Dec 04, 2023 10:43 PM [facility] GLUCOSE,BLOOD-poct (STL) BLOOD Specimen Type: BLOOD Comment: Test Performed by: [id number] Meter #: [id number] Ordering Provider: UMESH ABARCA Report Released Date/Time: Dec 04, 2023 11:11 PM Reporting Lab: [facility] [address] [facility] [address] Performing Lab: [facility] [address] [facility] [address] GLUCOSE,BLOOD-poct (STL) 154 mg/dL H 72-99 Dec 04, 2023 08:57 PM [facility] MAGNESIUM PLASMA Specimen Type: PLASM A No comment entered. Ordering Provider: DESTINI THOMPSON Report Released Date/Time: Dec 04, 2023 02:05 PM Reporting Lab: [facility] [address] [facility] [address] Performing Lab: [facility] [address] [place] [phone] MAGNESIUM 2.1 mg/dL 1.6-2.6 Dec 04, 2023 08:57 PM [facility] CBC BLOOD Specimen Type: BLOOD No comment entered. Ordering Provider: DESTINI HTOMPSON Report Released Date/Time: Dec 04, 2023 02:05 PM Reporting Lab: [facility] [address] [facility] [address] Performing Lab: [address] [address] WBC 9.0 10*3/uL 3.6-11.2 RBC 4.43 10*6/uL [...] 0.00-0. 20 Dec 04, 2023 04:56 PM [facility] GLUCOSE,BLOOD-poct (STL) BLOOD Specimen Type: BLOOD Comment: Test Performed by: [id number] Meter #: [id number] Ordering Provider: UMESH ABARCA Report Released Date/Time: Dec 04, 2023 05:07 PM Reporting Lab: [place] [id number] [facility] [address] Performing Lab: [address] [address] GLUCOSE,BLOOD-poct (STL) 129 mg/dL H 72-99 Dec 04, 2023 02:00 PM [facility] MRSA SURVL NARES DNA NARES Specimen [...] epidemiological information for final interpretation. Ordering Provider: DESTINI THOMPSON Report Released Date/Time: Dec 04, 2023 02:05 PM Reporting Lab: [address] [address] Performing Lab: [address] [address] MRSA SURVL NARES DNA Negative Negative Dec 04, 2023 01:30 PM [facility] GLUCOSE,BLOOD-poct (STL) BLOOD Specimen Type: BLOOD Comment: Test Performed by: [id number] Meter #: [id number] Ordering Provider: UMESH ABARCA Report Released Date/Time: Dec 04, 2023 01:43 PM Reporting Lab: [place] [address] [facility] [address] Performing Lab: [address] [address] GLUCOSE,BLOOD-poct (STL) 126 mg/dL H 72-99 Nov 12, 2023 10:45 AM [facility] MRSA SURVL NARES DNA NARES Specimen [...] information for final interpretation. Ordering Provider: SOBIA WALL Report Released Date/Time: Nov 07, 2023 04:35 PM Reporting Lab: [facility] [address] [facility] [address] Performing Lab: [facility] [address] [place] [phone] MRSA SURVL NARES DNA Negative Negative Nov 12, 2023 09:55 AM [facility] DRUGS OF ABUSE (NEW) (STL) URINE Specimen Typ e: URINE No comment entered. Ordering Provider: SOBIA WALL Report Released Date/Time: Nov 07, 2023 04:35 PM Reporting Lab: [facility] [address] [place] [phone] Performing Lab: [address] [address] ETHANOL Negative mg/dL 0-20 AMPHET/METHAMPHETAMINE Negative ng/mL COCAINE METABOLITES Negative ng/mL CANNABINOIDS Negative ng/mL OPIATES Negative ng/mL CREATININE URINE/OTHERS 333.4 mg/dL H 63-1 66 Nov 12, 2023 09:46 AM [facility] PT/INR NEW (STL-MA) PLASMA Specimen Type: PLAS [place] No comment entered. Ordering Provider: SOBIA WALL Report Released Date/Time: Nov 07, 2023 04:35 PM Reporting Lab: [facility] [address] [place] [phone] Performing Lab: [facility] [address] [place] [phone] PROTIME 11.9 s 9.4-12.5 INR VALUE 1.1 {INR} Nov 12, 2023 09:46 AM [facility] APTT PLASMA Specimen Type: PLASM A No comment entered. Ordering Provider: SOBIA WALL Report Released Date/Time: Nov 07, 2023 04:35 PM Reporting Lab: [facility] [address] [facility] [address] Performing Lab: [facility] [address] [place] [phone] APTT 28.5 s 26.7-39.9 Nov 12, 2023 09:46 AM [facility] COMPREHENSIVE METABOLIC PANEL PLASMA Specimen Type: PLASMA Comment: No hemolysis noted. Ordering Provider: SOBIA WALL Report Released Date/Time: Nov 07, 2023 04:35 PM Reporting Lab: [address] [address] Performing Lab: [address] [address] CREATININE 0.86 mg/dL 0.7-1.3 UREA NITROGEN 9.1 [...] 109.5 >60 Nov 12, 2023 09:46 AM [facility] CBC BLOOD Specimen Type: BLOOD No comment entered. Ordering Provider: SOBIA WALL Report Released Date/Time: Nov 07, 2023 04:35 PM Reporting Lab: [address] [address] Performing Lab: [address] [address] WBC 5.1 10*3/uL 3.6-11.2 RBC 4.80 10*6/uL [...] 0.00-0. 20 Nov 12, 2023 09:46 AM [facility] HGA1C BLOOD Specimen Type: BLOOD No comment entered. Ordering Provider: SOBIA WALL Report Released Date/Time: Nov 07, 2023 04:35 PM Reporting Lab: [facility] [address] [facility] [address] Performing Lab: [address] [address] HGA1C 5.6 4.0-6.0 Vital Signs: All taken on the encounter date This section contains inpatient and outpatient Vital Signs collected on the date of the Encounter. Date/Time Temperature Pulse Blood Pressure Respiratory Rate SP02 Pain Height Weight Body Mass Index Source Dec 04, 2023 08:30 PM 5 [facility] Dec 04, 2023 07:23 PM 6 [facility] N Dec 04, 2023 04:59 PM 2 [facility] Dec 04, 2023 03:11 PM 3 [facility] N Dec 04, 2023 06:15 AM 97.7 72 134/97 16 100 4 72 245.8 33 [facility] N Social History: Smoking Status (Most current) and Tobacco Use (All prior to encounter date) This section includes the most current, and the historical, smoking and tobacco- related health factors from the [facility] where the Encounter took place. Current Smoking Status This section includes the most current smoking, or tobacco-related health factor, from the [place] facility where the Encounter took place. Date/Time Current Smoking Status Comment Abad lora Apr 21, 2022 01:21 PM VA-TOBACCO NEVER USED [facility] Tobacco Use History This section includes a history of the smoking, or tobacco-related health factors, that were collected on or before the date of the Encounter. The data comes from the [place] facility where the Encounter took place. Date/Time Smoking Status/Tobacco Use Comment F acility Dec 03, 2020 12:04 PM [place]-TOBAC[place] NEVER USED [facility] Radiology Reports: +/- 30 days of [...] the Encounter. The data comes from all [place] treatment facilities. Date/Time Radiology Report Provider Source Dec 04, 2023 06:27 AM FLUOROS(SEPARATE PROCEDURE),UP TO 1 HOUR: NIKKO GOMEZ [place] [id number] -1980 M Exm Date: DEC 04, 2023@06:27 Req Phys: UEMSH ABARCA Pat Loc: SICU OE-[facility]/12-05-2023@05:59 Img Loc: -MAIN RADIOLOGY SUITE Service: [facility], [facility] [address] [place] [address] (Case [id number] COMPLETE) FLUOROS(SEPARATE PROCEDURE),UP TO(RAD Detailed) CPT:33296 CPT Modifiers : TC TECHNICAL COMPONENT Reason for Study: bilater c6-c7 lami Clinical History: Report Status: Verified Date Reported: DEC 05, 2023 Date Verified: DEC 05, 2023 Package Drier E-Sig: Report: Fluoroscopy was provided to another [...] Interpreting Staff: JANAY FIGUEROA, RADIOLOGIST Verified by television journalist for JANAY FIGUEROA /SEF MHAPSEKAR,JANAY [facility] Nov 12, 2023 09:40 AM CHEST X-RAY, 2 VIE WS: NIKKO GOMEZ [place] [id number] -1980 M Exm Date: NOV 12, 2023@09:40 Req Phys: SOBIA WALL Loc: -NEUROSURGERY SAFETY ADMINISTRATOR 2 (Req'g Lo Img Loc: -MAIN RADIOLOGY SUITE Service: Unknown [facility], [facility] [address] [place] [address] (Case [id number] COMPLETE) CHEST X-RAY, 2 VIEWS (RAD Detailed) CPT:54304 Reason for Study: Pre Op Clinical History: Report Status: Verified Date Reported: NOV 12, 2023 Date Verified: NOV 12, 2023 Package Drier E-Sig:/ES/Austin Branham MD. FACR. Report: History: Pre Op. Comparison: No previous pertinent examination is available. Technique: PA and lateral views Findings: No pulmonary consolidation, pleural effusion, pneumothorax, cardiomegaly or pulmonary edema is seen. Impression: No acute cardiopulmonary disease is seen. Primary Interpreting Staff: Austin Branham MD. FACR, Neuroradiologist (Package Drier) /AUSTIN IGNACIO [facility] Encounter Notes: All associated encounter notes This section contains the clinical notes associated to the Encounter. Date/Time Encounter Note(s) Provider Source Dec 05, 2023 01:47 PM DISCHARGE SUMMARY: LOCAL TITLE: DISCHARGE OBSERVATION SURGERY ST STANDARD TITLE: DISCHARGE SUMMARY DICT DATE: DEC 05, 2023@07:38 ENTRY DATE: DEC 05, 2023@07:38:24 DICTATED BY: DESTINI THOMPSON ATTENDING: UMESH ABARCA URGENCY: routine STATUS: COMPLETED DISCHARGE OBSERVATION SURGERY STL DIAGNOSES: Other: post op Cervical C6-7 bilateral laminectomy Complications: none Comorbidities: none Reason for Observation Admission: close monitoring while JOHNNIE drain in place Outcome: Mr Gomez underwent elective cervical spine surgery with resolution of his radicular arm symptoms. He is neuro intact DISCHARGE MEDICATIONS: TO HELP YOU UNDERSTAND YOUR DRUG LIST ACTIVE means that you are presently taking these meds PENDING means that the medications have just been renewed or just ordered. HOLD means that the medications are on your list but will not be sent to you unless you or your doctor wants them taken off hold. NON-VA means you are getting the medication from somewhere besides the [place]. Active Outpatient Medications (including Supplies): Active Outpatient [...] APPLY OINTMENT TWICE PER DAY TO NARES. Pending Outpatient Medications Status 1) METHOCARBAMOL 500MG TAB TAKE 1-2 TABLETS BY MOUTH PENDING FOUR TIMES A DAY NEEDED 2) NALOXONE HCL 4MG/SPRAY SOLN NASAL SPRAY USE 1 SPRAY PENDING (4MG) INTO ONE NOSTRIL ONLY ONE-TIME NEEDED DO NOT PRIME NASAL SPRAY. SPRAY ONE DOSE IN ONE NOSTRIL, GIVE ADDITIONAL DOSE IF PATIENT DOES NOT START BREATHING WITHIN 2-3 MINUTES OR STOPS BREATHING AGAIN. CALL 911. IF USED, NOTIFY PROVIDER. 3) OXYCODONE 5MG/ACETAMINOPHEN 325MG TAB TAKE 1 TO 2 PENDING TABS BY MOUTH EVERY 6 HOURS NEEDED - NOTE: DO NOT EXCEED 4000MG PER DAY ACETAMINOPHEN (APAP) 4) SENNOSIDES 8.6MG TAB TAKE TWO TABLETS BY MOUTH ONCE A PENDING DAY 5) TAPE,MEDIPORE H SOFT 3IN X 10YD 3M#2863 USE/APPLY 1 PENDING ROLL TO AFFECTED AREA(S) ONCE A DAY NEEDED (EXTERNAL USE ONLY) 6) TELFA ADHESIVE PAD 3IN X 4IN USE/APPLY PAD TO PENDING AFFECTED AREA(S) ONCE A DAY Active Non-VA Medications Status 1) Non-VA METFORMIN HCL 1000MG TAB 500MG BY MOUTH TWICE ACTIVE A DAY WITH MEALS 2) Non-VA OMEPRAZOLE 40MG EC CAP 40MG BY MOUTH TWICE A ACTIVE DAY - Please take only those medications on the above list. - At your next appointment, please remember to bring all of your medication bottles with you. Please include any vitamins, herbal supplements & over the counter medications. - If you have any further questions regarding your medications, please call your primary care clinic or if after hours, please call and ask grinding mill operator to connect to Nurse Talk. NEW MEDICATIONS (and indications): 1) METHOCARBAMOL 500MG TAB TAKE 1-2 TABLETS BY MOUTH PENDING FOUR TIMES A DAY NEEDED 2) NALOXONE HCL 4MG/SPRAY SOLN NASAL SPRAY USE 1 SPRAY PENDING (4MG) INTO ONE NOSTRIL ONLY ONE-TIME NEEDED DO NOT PRIME NASAL SPRAY. SPRAY ONE DOSE IN ONE NOSTRIL, GIVE ADDITIONAL DOSE IF PATIENT DOES NOT START BREATHING WITHIN 2-3 MINUTES OR STOPS BREATHING AGAIN. CALL [phone]. IF USED, NOTIFY PROVIDER. 3) OXYCODONE 5MG/ACETAMINOPHEN 325MG TAB TAKE 1 TO 2 PENDING TABS BY MOUTH EVERY 6 HOURS NEEDED - NOTE: DO NOT EXCEED 4000MG PER DAY ACETAMINOPHEN (APAP) 4) SENNOSIDES 8.6MG TAB TAKE TWO TABLETS BY MOUTH ONCE A PENDING DAY 5) TAPE,MEDIPORE H SOFT 3IN X 10YD 3M#2863 USE/APPLY 1 PENDING ROLL TO AFFECTED AREA(S) ONCE A DAY NEEDED (EXTERNAL USE ONLY) 6) TELFA ADHESIVE PAD 3IN X 4IN USE/APPLY PAD TO PENDING AFFECTED AREA(S) ONCE A DAY The following changes were made to the medications you were taking prior to this hospitalization: none These medications have been stopped during your hospitalization (and reason why): 1) CHLORHEXIDINE GLUCONATE 4% TOP LIQUID APPLY MODERATE ACTIVE AMOUNT TO AFFECTED AREA(S) DIRECTED FOR SKIN DISINFECTION (TOPICAL USE ONLY) AVOID CONTACT WITH EYES. STARTING 5 DAYS PRIOR TO SURGERY, USE THE SOLUTION DAILY IN THE SHOWER AND WASH YOUR ENTIRE BODY (WITH THE EXCEPTION OF FACE AND GENITALS). --> DISCONTINUE. Completed treatment 2) MUPIROCIN 2% OINT APPLY SPARINGLY TO AFFECTED AREA(S) ACTIVE TWICE A DAY FOR BACTERIAL INFECTION EXTERNAL USE ONLY. STARTING 5 DAYS PRIOR TO SURGERY, APPLY OINTMENT TWICE PER DAY TO NARES. --> DISCONTINUE. Completed treatment At your next appointment, please remember to bring all of your medication bottles with you Medication Reconciliation: I have discussed active and pending medications with the patient and/or healthcare advisory services manager. I have made changes as appropriate................ ...YES DISCHARGE DIETARY INSTRUCTIONS: Your current weight is: 245.8 lb [111.49 kg] (12/04/2023 06:15) No Dietary Instructions If you have questions, contact the dietitians at . DISCHARGE PHYSICAL ACTIVITY INSTRUCTIONS: Other (specify below): 1. Do not twist or bend the cervical spine (neck). Wear c-collar for comfort. Do not push/pull. Do not lift > 10 lbs. Do not carry weight. 2. Can shower daily starting 12/06/23; running water only. No baths, hot tubs, or pools. You may shower with the silverlon dressing in place. 3. Do not drive or travel outside the [facility] until after the first post op visit. WOUND MANAGEMENT: Other (specify below) Silverlon dressing is to remain in place for 1 week- to be changed 12/12/23, unless saturation occurs. If saturation occurs prior to change, please notify neurosurgery. On 12/12/23, after showering, remove the silverlon dressing, pat surgical site dry with a clean towel, and cover with a telfa dressing. The telfa dressing will need to be changed daily after showering. Keep surgical site clean. TOBACCO CESSATION EDUCATION/COUNSELING: The patient states he/she is not a tobacco user. WORSENING and/or DANGEROUS SYMPTOMS TO REPORT (Phys. entry required): Other (specify below) Any fever greater than 100.5 degrees, increased discharge from the wound, or sudden severe pain in the neck or arms, call Neurosurgery or report to the ER immediately. If it is after hours, please call the [facility] grinding mill operator at [phone] and ask them to call the neurosurgery provider continuous process machine operator. Contact your Primary Care Physician Sunday through Sunday 8:00a.m. - 4:00p.m. After normal business hours the [place] Telephone Care Program is available (Sunday through Sunday 4p.m. to 8a.m.; Weekends and Holidays) at [phone] ext. [phone]. DISCHARGE INTRUCTIONAL MATERIALS *To be printed by Nurse and provided to patient Other (specify below) DISCHARGE INSTRUCTIONS GIVEN TO PATIENT: 1. Do not twist or bend the cervical spine (neck). Wear c-collar for comfort. Do not push/pull. Do not lift > 10 lbs. Do not carry weight. 2. Can shower daily starting 12/06/23; running water only. No baths, hot tubs, or pools. You may shower with the silverlon dressing in place. 3. Silverlon dressing is to remain in place for 1 week- to be changed 12/12/23, unless saturation occurs. If saturation occurs prior to change, please notify neurosurgery. On 12/12/23, after showering, remove the silverlon dressing, pat surgical site dry with a clean towel, and cover with a telfa dressing. The telfa dressing will need to bechanged daily after showering. Keep surgical site clean. 4. Do not drive or travel outside the [facility] until after the first post op visit. 5. Follow up in postop clinic 2 weeks from surgery--> 12/20/23 6. Any fever greater than 100.5 degrees, increased discharge from the wound, or sudden severe pain in the neck or arms, call Neurosurgery or report to the ER immediately. If it is after hours, please call the [facility] grinding mill operator at [phone] and ask them to call the neurosurgery provider continuous process machine operator. 7. NO ASPIRIN PRODUCTS OR NSAID'S UNTIL after your first post op visit Do not start new medications unless discussed with Neurosurgery until 6 weeks post op. 8. Follow nursing and physical therapy instructions given to you at the time of discharge. 9. Call the Neurosurgery office at [phone], extension [phone], to speak to Destini Thompson/Soiba Wall, Nurse Practitioners in Neurosurgery, if questions. FUTURE APPOINTMENT(S): To reschedule [facility] appointments call and use extension below. Date/time Clinic Phone number 01/21/24 9:30 am ANDRÉS-NEUROSURGERY MD 05/15/24 9:30 am NALINI CLR PACT 3 PCP [phone] Follow-up with your Primary Care Physician: KATHE MURILLO in as scheduled *This listing may be incomplete. CONDITION OF PATIENT AT DISCHARGE: improved Time Spent: 21-[address] OF DISPOSITION: home OTHER (Include employment status): no work at this time. Will re-eval after 1st post op visit NOTE: If you are having feelings of Depression or Emotional Distress, or feel you just need to talk with someone, please call PRESS 1. Verified By MRT/BRYAN /ben/ DESTINI THOMPSON DNP, METAL NUMERICAL TOOL PROGRAMMER, BC NURSE PRACTITIONER, NEUROSURGERY Signed: 12/05/2023 08:07 /ben/ UMESH ABARCA MD PhD FAANS FCNS ATTENDING NEUROSURGEON Cosigned: 12/05/2023 08:17 DESTINI THOMPSON [facility] UMESH [facility] Dec 05, 2023 12:42 PM NURSING TRANSFER SUMMARIZATION DISCHARGE NOTE: LOCAL TITLE: MIA DISCHARGE/TRANSFER SUMMARY [facility] STANDARD TITLE: NURSING TRANSFER SUMMARIZATION DISCHARGE NOTE DATE OF NOTE: DEC 05, 2023@12:42 ENTRY DATE: DEC 05, 2023@12:42:15 AUTHOR: JACQUI RASHEED EXP COSIGNER: URGENCY: STATUS: COMPLETED DISCHARGE - TRANSFER SUMMARY Action: Discharge Diagnosis: Last Admission: 12/04/23 1:26:59 pm Admit Dx: CERVICAL STENOSIS Age: 43 Allergies: MORPHINE Patient Condition: Stable Vital Signs: Temperature: 97.7 F [36.5 C] (12/04/2023 06:15) Pulse: 72 (12/04/2023 06:15) Respiration: 16 (12/04/2023 06:15) Blood Pressure: 134/97 (12/04/2023 06:15) Pain: 6 (12/05/2023 12:36) Fall Risk Assessment Score: Fall Risk Level: Low Risk ===== SUICIDE SCREEN ===== Result of C-SSRS screener done was NEGATIVE. C-SSRS Screen is Negative LEVEL OF LIFT REQUIRED: No assistance Safe Patient Handling - Patient Mobility Assessment Tool Isolation: No Precautions: Other: cervical Orientation: x3 Hygiene: Self Care Nutrition: Regular diet Special needs: Assistance: Independent Bowel/Bladder: Date of last bowel movement: Nov Defecation: Normal Able to void: YES Continent: YES Catheter: No Wound / Skin Condition: Assessment Type: SKIN REINSPECTION/REASSESSMENT SKIN INSPECTION: Skin Color: Usual for ethnicity Skin Temperature: Warm Skin Moisture: Normal Skin Turgor: Elastic (normal/immediate) Homer Skin Assessment: INTERVENTIONS: No change in previous interventions as listed below Vaaes Pressure Injury Interventions 12/05/2023 Vaaes Pressure Injury Int Not Needed RISK FACTORS THAT INCREASE RISK FOR DEVELOPING PRESSURE INJURIES The patient/resident does not have any additional risk factors. Incision and Flaps: Incision 1: Location: posterior cervical Status: Unable to visualize Closure: Glue Stabilization: Other: c-collar Surrounding tissue: Intact Wound drainage none. Dressing type: Other: silverlon STANDARD OF CARE / PRACTICE IMPLEMENTED: monitori VS, monitor neuro function, treat pain Indicate status at Discharge/Transfer: Stabilized Flu Shot Given: No Patient refused Pneumococcal Shot Given: No Patient refused MRSA Discharge Swab Done: No Reason: done on admission Discharged/Transfered to: Own home without home care services Accompanied by (Name & Relationship): Arielle Next of Kin notified: YES Discharge/Transfer Mode: Ambulatory Wheelchair Discharged/Transferred with: Written Discharge Instructions Medications Other: all medication bags sealed upon discharge Clothing / Valuables returned: Yes Describe: underwear, shoes,shorts, shirt, phone Prosthetics with patient: Dentures/Partials with patient: None Glasses with patient: NA Other: DAVID /ben/ ECTOR ZARCO RN CCRN REGISTERED NURSE Signed: 12/05/2023 12:45 JACQUI RASHEED [facility] Dec 05, 2023 08:00 AM NURSING NOTE: LOCAL TITLE: [facility] SKIN INSPECTION/ASSESSMENT STANDARD TITLE: NURSING NOTE DATE OF NOTE: DEC 05, 2023@08:00 ENTRY DATE: DEC 05, 2023@08:44:40 AUTHOR: JACQUI RASHEED EXP COSIGNER: URGENCY: STATUS: COMPLETED Assessment Type: SKIN REINSPECTION/REASSESSMENT SKIN INSPECTION: Skin Color: Usual for ethnicity Skin Temperature: Warm Skin Moisture: Normal Skin Turgor: Elastic (normal/immediate) Homer Skin Assessment: The patient's Homer Scale Score is 23. The patient is considered not at risk for development of pressure ulcers/injuries. Sensory perception -- ability to respond meaningfully to pressure-related discomfort No impairment. Moisture -- degree to which skin is exposed to moisture Rarely moist. Activity -- ability to change and control body position Walks frequently. Mobility -- ability to change and control body position No limitation. Nutrition -- usual food intake patterns Excellent. Friction and shear No apparent problem. INTERVENTIONS: The pressure injury interventions were not needed - patient/resident is not at risk. RISK FACTORS THAT INCREASE RISK FOR DEVELOPING PRESSURE INJURIES: The patient/resident has the following: Device(s): (nasogastric tubes, oxygen tubing, urinary catheters, cell phone etc.) Comment: VS monitoring, SCDs, cervical collar SKIN ALTERATIONS: Pressure Ulcer/Injury Documentation from the past year: No data available SKIN ALTERATIONS: Wound Documentation from the past year: Skin Assessment 12/04/2023 Skin Integrity - Wound 12/04/2023 Skin Integrity - Wound posterior neck surgical incision & JOHNNIE drain Skin Integrity - Wound Second bilateral temples Incision and Flaps: Incision 1: Location: posterior cervical Status: Unable to visualize Closure: Glue Stabilization: Other: c-collar as needed Surrounding tissue: Intact Wound drainage none. Dressing type: Other: silverlon Dressing activity: Changed Cleansed: Other: JOHNNIE drain removed, site cleansed and dsg changed by Sobia wall NP /ben/ JACQUI L WILI, BSN RN CCRN REGISTERED NURSE Signed: 12/05/2023 08:46 JACQUI RASHEED [facility] Dec 05, 2023 07:27 AM PHYSICIAN EDUCATIO N DISCHARGE NOTE: LOCAL TITLE: DISCHARGE INSTRUCTIONS [facility] STANDARD TITLE: PHYSICIAN EDUCATION DISCHARGE NOTE DATE OF NOTE: DEC 05, 2023@07:27 ENTRY DATE: DEC 05, 2023@07:28:22 AUTHOR: DESTINI THOMPSON EXP COSIGNER: UMESH ABARCA URGENCY: STATUS: COMPLETED DISCHARGE INSTRUCTIONS GIVEN TO PATIENT: 1. Do not twist or bend the cervical spine (neck). Wear c-collar for comfort. Do not push/pull. Do not lift > 10 lbs. Do not carry weight. 2. Can shower daily starting 12/06/23; running water only. No baths, hot tubs, or pools. You may shower with the silverlon dressing in place. 3. Silverlon dressing is to remain in place for 1 week- to be changed 12/12/23, unless saturation occurs. If saturation occurs prior to change, please notify neurosurgery. On 12/12/23, after showering, remove the silverlon dressing, pat surgical site dry with a clean towel, and cover with a telfa dressing. The telfa dressing will need to be changed daily after showering. Keep surgical site clean. 4. Do not drive or travel outside the [facility] until after the first post op visit. 5. Follow up in postop clinic 2 weeks from surgery--> 12/20/23 6. Any fever greater than 100.5 degrees, increased discharge from the wound, or sudden severe pain in the neck or arms, call Neurosurgery or report to the ER immediately. If it is after hours, please call the [facility] grinding mill [facility] at [phone] and ask them to call the neurosurgery provider continuous process machine operator. 7. NO ASPIRIN PRODUCTS OR NSAID'S UNTIL after your first post op visit Do not start new medications unless discussed with Neurosurgery until 6 weeks post op. 8. Follow nursing and physical therapy instructions given to you at the time of discharge. 9. Call the Neurosurgery office at [phone], extension [phone], to speak to Destini Thompson/Sobia Wall, Nurse Practitioners in Neurosurgery, if questions. Active Outpatient Medications (including Supplies): Active Outpatient Medications Status 1) CHLORHEXIDINE GLUCONATE 4% TOP LIQUID APPLY MODERATE ACTIVE AMOUNT TO AFFECTED AREA(S) DIRECTED FOR SKIN DISINFECTION (TOPICAL USE ONLY) AVOID CONTACT WITH EYES. STARTING 5 DAYS PRIOR TO SURGERY, USE THE SOLUTION DAILY IN THE SHOWER AND WASH YOUR ENTIRE BODY (WITH THE EXCEPTION OF FACE AND GENITALS). --> DISCONTINUE. Completed treatment 2) MUPIROCIN 2% OINT APPLY SPARINGLY TO AFFECTED AREA(S) ACTIVE TWICE A DAY FOR BACTERIAL INFECTION EXTERNAL USE ONLY. STARTING 5 DAYS PRIOR TO SURGERY, APPLY OINTMENT TWICE PER DAY TO NARES. --> DISCONTINUE. Completed treatment Pending Outpatient Medications Status 1) METHOCARBAMOL 500MG TAB TAKE 1-2 TABLETS BY MOUTH PENDING FOUR TIMES A DAY NEEDED 2) NALOXONE HCL 4MG/SPRAY SOLN NASAL SPRAY USE 1 SPRAY PENDING (4MG) INTO ONE NOSTRIL ONLY ONE-TIME NEEDED DO NOT PRIME NASAL SPRAY. SPRAY ONE DOSE IN ONE NOSTRIL, GIVE ADDITIONAL DOSE IF PATIENT DOES NOT START BREATHING WITHIN 2-3 MINUTES OR STOPS BREATHING AGAIN. CALL 911. IF USED, NOTIFY PROVIDER. 3) OXYCODONE 5MG/ACETAMINOPHEN 325MG TAB TAKE 1 TO 2 PENDING TABS BY MOUTH EVERY 6 HOURS NEEDED - NOTE: DO NOT EXCEED 4000MG PER DAY ACETAMINOPHEN (APAP) 4) SENNOSIDES 8.6MG TAB TAKE TWO TABLETS BY MOUTH ONCE A PENDING DAY 5) TAPE,MEDIPORE H SOFT 3IN X 10YD 3M#8680 USE/APPLY 1 PENDING ROLL TO AFFECTED AREA(S) ONCE A DAY NEEDED (EXTERNAL USE ONLY) 6) TELFA ADHESIVE PAD 3IN X 4IN USE/APPLY PAD TO PENDING AFFECTED AREA(S) ONCE A DAY Active Non-[facility] Medications Status 1) Non-VA METFORMIN HCL 1000MG TAB 500MG BY MOUTH TWICE ACTIVE A DAY WITH MEALS 2) Non-VA OMEPRAZOLE 40MG EC CAP 40MG BY MOUTH TWICE A ACTIVE DAY // July JAY LIN, SHERRILL, BC NURSE PRACTITIONER, NEUROSURGERY Signed: 12/05/2023 07:44 /es/ UMESH ABARCA MD PhD FAANS FCNS ATTENDING NEUROSURGEON Cosigned: 12/05/2023 07:52 Receipt Acknowledged By: 12/05/2023 08:15 /es/ Kateh Murillo DNP, APRN, CARDIOVASCULAR TECH-C Primary Care Nurse Practitioner DESTINI THOMPSON [facility] Dec 04, 2023 08:00 PM NURSING NOTE: LOCAL TITLE: [facility] SKIN INSPECTION/ASSESSMENT STANDARD TITLE: NURSING NOTE DATE OF NOTE: DEC 04, 2023@20:00 ENTRY DATE: DEC 04, 2023@20:51:36 AUTHOR: BLAYNE BRYANT COSIGNER: URGENCY: STATUS: COMPLETED [facility] SKIN INSPECTION/ASSESSMENT Has ADDENDA Assessment Type: INITIAL SKIN INSPECTION/ASSESSMENT SKIN INSPECTION: Skin Color: Usual for ethnicity Skin Temperature: Warm Skin Moisture: Normal, Dry Skin Turgor: Elastic (normal/immediate) Homer Skin Assessment: The patient's Homer Scale Score is 19. The patient is considered not at risk for development of pressure ulcers/injuries. Sensory perception -- ability to respond meaningfully to pressure-related discomfort No impairment. Moisture -- degree to which skin is exposed to moisture Rarely moist. Activity -- ability to change and control body position Chair fast. Mobility -- ability to change and control body position Slightly limited. Nutrition -- usual food intake patterns Adequate. Friction and shear No apparent problem. INTERVENTIONS: The pressure injury interventions were not needed - patient/resident is not at risk. RISK FACTORS THAT INCREASE RISK FOR DEVELOPING PRESSURE INJURIES: The patient/resident has the following: Device(s): (nasogastric tubes, oxygen tubing, urinary catheters, cell phone etc.) Comment: monitors, PIV, JOHNNIE drain, call light Neuropathy Wound - other than pressure ulcer/injury (includes open surgical wounds/incisions): Location: posterior neck surgical incision & JOHNNIE drain Wound Description: Wound Bed Tissue Types: Other: VICKI dressing intact Shwetha-wound skin status: No Edema Wound drainage none. Second Wound - other than pressure ulcer/injury (includes open surgical wounds/incisions): Location: bilateral temples Edema present Wound drainage: Amount: Scant Color: Red Characteristics: Sanguineous /ECTOR Shoemaker, RN REGISTERED NURSE Signed: 12/04/2023 20:56 12/05/2023 ADDENDUM STATUS: COMPLETED Skin reassessment completed. No changes noted. Will continue to monitor. /ECTOR Shoemaker, RN REGISTERED NURSE Signed: 12/05/2023 06:48 12/05/2023 ADDENDUM STATUS: COMPLETED Skin reassessment completed. No changes. /ECTOR Shoemaker, RN REGISTERED NURSE Signed: 12/05/2023 06:49 BLAYNE BRYANT [facility] Dec 04, 2023 02:21 PM NURSING NOTE: LOCAL TITLE: [facility] PERSONAL EFFECTS STL STANDARD TITLE: NURSING NOTE DATE OF NOTE: DEC 04, 2023@14:21 ENTRY DATE: DEC 04, 2023@14:21:51 AUTHOR: JACQUI RASHEED EXP COSIGNER: URGENCY: STATUS: COMPLETED PERSONAL EFFECTS Hazardous Check: Advised of prohibited hazardous items, Denies hazardous items, No hazardous items observed Medication Check: Denies medication on person Prosthetic Check: None Personal Items: Patient/Family advised that [facility] not responsible for loss of any personal effects or valuables., Patient chooses to keep belongings at bedside. Patient Valuables Observed: shoes, shorts, underwear, t-shirt, phone /ECTOR Dorantes RN CCRN REGISTERED NURSE Signed: 12/04/2023 14:22 JACQUI RASHEED [facility] Dec 04, 2023 02:18 PM NURSING NOTE: LOCAL TITLE: [facility] SKIN INSPECTION/ASSESSMENT STANDARD TITLE: NURSING NOTE DATE OF NOTE: DEC 04, 2023@14:18 ENTRY DATE: DEC 04, 2023@14:18:36 AUTHOR: JACQUI RASHEED EXP COSIGNER: URGENCY: STATUS: COMPLETED Assessment Type: SKIN REINSPECTION/REASSESSMENT SKIN INSPECTION: Skin Color: Usual for ethnicity Skin Temperature: Warm Skin Moisture: Normal Skin Turgor: Elastic (normal/immediate) Homer Skin Assessment: The patient's Homer Scale Score is 20. The patient is considered not at risk for development of pressure ulcers/injuries. Sensory perception -- ability to respond meaningfully to pressure-related discomfort No impairment. Moisture -- degree to which skin is exposed to moisture Rarely moist. Activity -- ability to change and control body position Walks occasionally. Mobility -- ability to change and control body position Slightly limited. Nutrition -- usual food intake patterns Adequate. Friction and shear No apparent problem. INTERVENTIONS: The pressure injury interventions were not needed - patient/resident is not at risk. RISK FACTORS THAT INCREASE RISK FOR DEVELOPING PRESSURE INJURIES: The patient/resident has the following: Device(s): (nasogastric tubes, oxygen tubing, urinary catheters, cell phone etc.) Comment: VS monitoring, IV lines, cervical collar SKIN ALTERATIONS: Pressure Ulcer/Injury Documentation from the past year: No data available SKIN ALTERATIONS: Wound Documentation from the past year: No data available for: Skin Integrity - Wound Skin Integrity - Wound Second Skin Integrity - Wound Third Skin Integrity - Wound Fourth Skin Integrity - Wound Fifth Skin Integrity - Wound Additional Localized abnormality: Other: Location(s): bilateral temples Comment: pinhole incisions from head bracket in surgery. sites swollen, JOSE no drainage Incision and Flaps: Incision 1: Location: posterior cervical Status: Unable to visualize Closure: Glue Stabilization: Other: c-collar Surrounding tissue: Intact Wound drainage none. Dressing type: Other: kym martinez/ JACOB ZARCON RN CCRN REGISTERED NURSE Signed: 12/04/2023 14:21 JACQUI RASHEED [facility] Dec 04, 2023 01:37 PM TELEHEALTH NOTE: LOCAL TITLE: TELECRITICAL CARE NOTE STANDARD TITLE: TELEHEALTH NOTE DATE OF NOTE: DEC 04, 2023@13:37 ENTRY DATE: DEC 04, 2023@13:38 AUTHOR: ROBBI COREAS EXP COSIGNER: URGENCY: STATUS: COMPLETED TeleCritical Care Note TeleCritical Care Nurse Note: Admission: Patient admitted to TeleCritical Care. Upon discharge from ICU or Stepdown/PCU status, patient will be discharged from TeleCritical Care. Education/Verbal Agreement to video monitoring by TeleCritical Care: Verbal agreement obtained by TeleCritical Care staff from patient /es/ ROBBI COREAS Tele encyclopedia research worker Signed: 12/04/2023 13:38 ROBBI COREAS [facility] Dec 04, 2023 01:35 PM NURSING ADMISSION EVALUATION NOTE: LOCAL TITLE: [facility] ACUTE INPATIENT NSG ADMISSION SCREEN STANDARD TITLE: NURSING ADMISSION EVALUATION NOTE DATE OF NOTE: DEC 04, 2023@13:35 ENTRY DATE: DEC 04, 2023@13:35:26 AUTHOR: RANJIT MILNER COSIGNER: URGENCY: STATUS: COMPLETED ======= ALLERGY/ADVERSE DRUG REACTION (ADR) REVIEW (MRT5) ======= FACILITY ALLERGY/ADR -------- No Remote Allergy/ADR Data available for this patient [facility] Allergy/Adverse Drug Reaction Review to be conducted by: Nurse: Results of Allergy/ADR Review: Allergy/Adverse Drug Reaction list confirmed. ====== GENERAL INFORMATION ====== Admission information given by: Patient Is there a legal guardian/conservator? No Preferred language for discussing healthcare: Ethiopian Preferred mode of communication: Verbal Items at Bedside: None ======= INFECTIOUS DISEASE RISK SCREEN ======= Travel Screen: Have you traveled within the [place] within the last 21 days? No Have you traveled outside the [place] within the last 21 days? No Within the last 14 days, have you had: No known exposure Other Exposure to Infectious Disease: No known exposure Patient reported the following symptoms: No Symptoms Present History of Multiple Drug Resistant Organism (MDRO): No ======= NUTRITION SCREENING ======= Malnutrition Screening Weight (Previous 6 months): Measurement DT WEIGHT LB(KG)[BMI] 12/04/2023 06:15 245.8(111.49)[33*] 11/12/2023 08:58 244.9(111.08)[33*] 11/05/2023 10:01 248.6(112.76)[34*] Lost weight recently without trying: No (0 points) Have you been eating poorly because of decreased appetite? No (0 points) Total Score: 0 Other Nutrition Screening Questions: The patient does not report any concerns with their teeth that would make it difficult to eat. The patient does not report overeating to the point of feeling sick or making themselves vomit. The patient denies gaining 10 lbs.(4.5 kgs) or more in the past 3 months without trying. The patient denies having any food allergies, intolerance, special dietary needs, or ethnic, cultural or taoist preferences that would affect their dietary needs. Food Insecurity Screening Within the past 12 months, you worried whether your food would run out before you got money to buy more. Never true Within the past 12 months, the food you bought just did not last you and you did not have the money to get more. Never true Food Insecurity Disposition: ====== RISK SCREENINGS ====== Alcohol Screen: Screen to be completed by: Nurse: SCREEN FOR ALCOHOL (AUDIT-C) An alcohol screening test (AUDIT-C) was negative (score=2). 1. How often did you have a drink containing alcohol in the past year? Consider a drink to be a 12 ounce can or bottle of regular beer, 8 ounces of malt liquor, a 5 ounce glass of table wine, or a 1.5 ounce shot of liquor (like scotch, gin, or vodka). Monthly or less 2. How many drinks containing alcohol did you have on a typical day when you were drinking in the past year? Three or four drinks 3. How often did you have six or more drinks on one occasion in the past year? Never *Does the patient consume alcohol? Yes: Alcohol Use History: Amount used/Frequency: pt states socially less than once per month Date/Time of last use: Do you have a history of alcohol withdrawal symptoms? No Do you have a history of Delirium Tremens (DTs)? No Do you have a history of seizures related to withdrawal? No Tobacco Use: Never - tobacco user Do you currently or have you ever used alternative nicotine products? No Substance Use Assessment: *Do you use any recreational drugs or narcotics (prescription or non-prescription)? Yes: Cannabinoids/Marijuana: Amount used/Frequency: occasionally to help him sleep Date/Time of last use: Offer Services for Substance Use Disorder: ===== SUICIDE SCREEN ===== [place] Suicide Severity Rating Scale (C-SSRS) 1. Over the past month, have you wished you were or wished you could go to sleep and not wake up? No 2. Over the past month, have you had any actual thoughts of killing yourself? No 3. Over the past month, have you been thinking about how you might do this? Response not required due to responses to other questions. 4. Over the past month, have you had these thoughts and had some intention of acting on them? Response not required due to responses to other questions. 5. Over the past month, have you started to work out or worked out the details of how to kill yourself? Response not required due to responses to other questions. 6. If yes, at any time in the past month did you intend to carry out this plan? Response not required due to responses to other questions. 7. In your lifetime, have you ever done anything, started to do anything, or prepared to do anything to end your life (for example, collected pills, obtained a gun, gave away valuables, went to the roof but didn't jump)? No 8. If YES, was this within the past 3 months? Response not required due to responses to other questions. ====== EXPOSURE TO VIOLENCE AND ABUSE PRE-SCREEN ====== Are you worried for your safety, that you will be hurt or harmed? No Has anyone tried to force you to sign papers or use your money against your will? No ====== POST TRAUMATIC STRESS DISORDER CARE CONSIDERATIONS ====== To minimize a startle response, what is your preference on how best to awaken you? No preference ====== ANTICIPATED DISCHARGE NEEDS ====== Where do you live? Housing owned/rented by Ida: Method of transportation upon discharge: Private Vehicle: Are there any anticipated barriers to discharge? No ======== CHASE FALL SCALE & TIPS PROGRAM ======== Chase Fall Scale: The Chase Fall scale was performed and score was 20. This is indicative of low risk of falls. History of falling: immediate or within 3 months? No Secondary diagnosis: No Ambulatory aid: None/bedrest/nurse assist Intravenous therapy/Heparin lock: Yes Gait/Transferring: Normal/bed rest/immobile Mental Status: Oriented to own ability/knows own limitations Fall Tailoring Interventions for Patient Safety (TIPS) Fall TIPS initiated with patient: Yes Interventions: Assistance out of bed: Call for assistance before getting out of bed /ben/ ECTOR Guadarrama, RN REGISTERED NURSE Signed: 12/04/2023 13:48 RANJIT MILNER [facility] Dec 04, 2023 01:29 PM ADMINISTRATIVE NOT E: LOCAL TITLE: ADMINISTRATIVE ST STANDARD TITLE: ADMINISTRATIVE NOTE DATE OF NOTE: DEC 04, 2023@13:29 ENTRY DATE: DEC 04, 2023@13:29:44 AUTHOR: BRANDEN GOFF COSIGNER: URGENCY: STATUS: COMPLETED was admitted SICU OE on 12/04/2023 @13:26:59 I spoke with Davidurosurrossy(Alexandra) and informed her that the arrived to sicu rm [id number]. /ben/ DAVID CARY CRIMINAL COURT JUDGE Signed: 12/04/2023 13:37 Receipt Acknowledged By: * AWAITING SIGNATURE * SUSY FONG * AWAITING SIGNATURE * SHEILA BARTLETT * AWAITING SIGNATURE * ABHI TALAVERA * AWAITING SIGNATURE * RADHA PORTER HEATHER [facility]
--- OUTSIDE RECORDS SUMMARY | 2024-09-16 02:23 | XMS_ITS | Encounter Summary ---
Author Name [facility] [place] [facility] [place] [facility] [place] [facility] [place] Address [address] [place] [address] Care Team Providers Care Clam Sorter Name Role Phone KATHE MURILLO Primary Care [...] [facility] HEALT H PLAN Nov 08, 2013 [id number] [phone] WIDEL,CHR ISTOPHER PATIENT [facility]-SS PREFERRED PROVIDER ORGANIZAT ION (PPO) [facility] Apr 16, 2023 [id number] WIDEL,CHR ISTOPHER PATIENT ON LICENSE OF [facility] PART A ONLY Mar 11, 2014 [id number] [phone] WIDEL,CHR ISTOPHER PATIENT [facility] HEALT H PLAN Apr 16, 2020 [id number] [phone] WIDEL,CHR ISTOPHER PATIENT [facility] PRESCRIPT ION [facility] HEALT H PLAN Mar 11, 2014 [id number] [phone] WIDEL,CHR ISTOPHER PATIENT [facility] PRESCRIPT ION [facility] RX PLAN Nov 08, 2013 [id number] [phone] WIDEL,CHR ISTOPHER PATIENT [facility] PRESCRIPT ION [facility] Nov 08, 2013 [id number] [phone] WIDEL,CHR ISTOPHER PATIENT Selected Encounter This section includes the information on record at [place] for the Encounter. Date/Time Encounter Type Encounter Description Reason Provider Source Jan 21, 2024 09:30 AM OFFICE O/P EST MOD 30 MIN NEUROSURGERY ICD-10-CM M47.812 Spondylosis w/o myelopathy or radiculopathy, cervical region CARAGINEHAYLEY [facility] Encounter Template Text not used by [place] Assessments - Encounter Diagnoses This section includes the primary and secondary diagnoses documented for the Encounter. Date/Time Primary/Secondary Diagnosis Diagnosis Name Provider Source Feb 01, 2024 04:21 PM PRIMARY Spondylosis w/o myelopathy or radiculopathy, cervical region CARAGINEUMESH [facility] Plan of Treatment: Future Appointments (+ 6 months) and Future Tests (+/- 45 days) The Plan of Treatment section includes future care activities for the patient from all [place] treatmentfacilities. This section includes future appointments and future orders which are active, pending or scheduled. Future Appointments This section includes appointments that were scheduled to occur 6 months from the date of the Encounter, up to a maximum of 20 appointments. The data comes from all [place] treatment facilities. Appointment Date/Time Appointment Type Appointme nt Facility Name Feb 04, 2024 09:00 AM AMBULATORY - REHAB MEDICIN E [facility] Feb 18, 2024 09:00 AM AMBULATORY - [facility]AB MEDICIN [facility] May 15, 2024 09:30 AM AMBULATORY - MEDICINE [facility] Vital Signs: All taken on the encounter date This section contains inpatient and outpatient Vital Signs collected on the date of the Encounter. Date/Time Temperature Pulse Blood Pressure Respiratory Rate SP02 Pain Height Weight Body Mass Index Source Jan 21, 2024 09:22 AM 98.2 65 124/85 18 96 0 72 247.1 34 [facility] Social History: Smoking Status (Most current) and Tobacco Use (All prior to encounter date) This section includes the most current, and the historical, smoking and tobacco- related health factors from the [place] facility where the Encounter took place. Current Smoking Status This section includes the most current smoking, or tobacco-related health factor, from the [facility] where the Encounter took place. Date/Time Current Smoking Status Comment Facil ity Apr 21, 2022 01:21 PM [place]-TOBAC[place] NEVER USED [facility] Tobacco Use History This section includes a history of the smoking, or tobacco-related health factors, that were collected on or before the date of the Encounter. The data comes from the [facility] where the Encounter took place. Date/Time Smoking Status/Tobacco Use Comment F acility Dec 03, 2020 12:04 PM [place]-TOBACCO NEVER USED [facility] Encounter Notes: All associated encounter notes This section contains the clinical notes associated to the Encounter. 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 I saw: C6-7 right disc osteophyte, faCET ARTHROPATHY, with right foramenal narrowing, AND mild to moderate canal stenosis. We asked Dr Griffin to please order: Course of in person conservative management for the neck and the back including: PT/OT, stretching under supervision, gym, light weights, cervical and lumbar traction, TENS, aquatic, traction and inversion, Health and Wellness program, accupuncture and chiropractor. BAF MOVE program We ordered right and left arm EMG NCV R/O right chronic C7 radiculopathy and c.t.s. EMG/NCV negative. PT started 6-8 times [place], No TENS unit at home had not tried traction. Mr Gomez told me he was already approved and was seeing a Dr FLOREZ at [facility]. We discovered this was not the case and the patient may have been mixing up Neurology and NS. Started therapy for neck 2 different stretches. No TENS unit and No traction Wished to try the above prior to surgery. WE discussed C6-7 bilateral laminectomy attn right. Declined. Mr Gomez felt he can get more out of therapy that he hasn't tried yet. Mr Gomez requested to call us if he desires. He was happy with the plan. Soon after he called to schedule surgery. 12/04/2023 SURGERY/PROCEDURE PERFORMED: Bilateral laminectomies C6 and top of C7, and removal of hypertrophied yellow ligament, attn right foramen for decompression. No complications . Home in AM. Last visit with Mr Wall, Doing well. Surgical pain improving. Denied UE radicular pain. Strength to BL UE is 5/5. Sensation intact to light touch. Post cervical incision well approximated without erythema, reddness or drainage. 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 home [employer] 1) Encounters for unspecified Administrative Purpose (ICD-9-CM V68.9) 2) Pain of left knee joint (SNOMED CT [id number]) 3) HTN - Hypertension 4) Obesity 5) Osteoarthritis of knee 6) Sleep apnea Active Outpatient Medications (including Supplies): Active Non-VA Medications Status 1) Non-VA OMEPRAZOLE 40MG EC CAP 40MG BY MOUTH EVERY ACTIVE MORNING BEFORE A MEAL Neurologic EXAMINATION Vitals: Stable Weight: BMI = 38, 278 lbs No saddle paresthesia. 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 LE: R L Power Hip flex 5 5 Hip ext 5 5 Knee flex 5 5 Knee ext 5 5 Ankle flex 5 5 Ankle ext 5 5 Toe flex 5 5 Toe ext 5 5 Muscle bulk Normal Normal Tone Normal Normal SLR Negative Negative Reflexes Patellar 2+ 2+ Achilles 2+ 2+ Sensory Normal to light touch bilaterally Coordination Movements are normal. Gait: Posture is normal. Gait is steady with normal steps. Not myelopathic. MRI cervical. Final Result MRI CERVICAL SPINE WWO CONT DATE: 05/21/2021 10:37 AM EXAMINATION: Magnetic resonance imaging (MRI) of the cervical spine without and with contrast HISTORY: M54.12: Radiculopathy, cervical region TECHNIQUE: MRI of the cervical spine was performed prior to and following the uneveniful administration of 10 mL intravenous gadolinium contrast according to standard protocol. COMPARISON: No prior study is available for comparison at the time of this dictation. FINDINGS: Straightening of the cervical lordosis from C2 to C6. The alignment is otherwise maintained. Vertebral bodies are normal in height without evidence of compression deformities or fractures. No abnormal marrow replacing infiltrative process or mass is identified. The craniocervical junction and visualized portions of the posterior fossa appear normal. The spinal cord appears normal. No abnormal enhancement is identified. The intervertebral discs are normal in height. No soft tissue abnormality is identified. Normal flow voids are identified in the vertebral arteries. Mild opacification in the left mastoid air cells. C2-3: There is no disc bulge. There is no central canal stenosis. There is no facet osteoarthritis. There is no uncovertebral joint osteoarthritis. There is no neural foraminal stenosis. C3-4: There is no disc bulge. There is no central canal stenosis. There is no facet osteoarthritis. There is no uncovertebral joint osteoarthritis. There is no neural foraminal stenosis. C4-5: There is no disc bulge. There is no central canal stenosis. There is no facet osteoarthritis. There is no uncovertebral joint osteoarthritis. There is no neural foraminal stenosis. C5-6: There is mild posterior disc bulge, eccentric to the right with a [employer] Nikko Gomez MRN: [id number] ACc: [id number] MR CERVICAL SPINE WWO CONT Page 1 of 2 E superinposed mild right paracentral disc protrusion-extrusion with caudal extension. It is associated bilateral mild facet and uncovertebral arthropathy, right greater than left, resulting in mild central canal stenosis and mild right neural foraminal stenosis. C6-7: Diffuse disc bulge and superimposed right paracentral posterior disc protrusion/extrusion with cephalad extension. Associated bilateral mild facet arthropathy and severe right uncovertebral arthropathy, resulting in moderate central canal stenosis and severe right neural foraminal stenosis. C7-T1: There is no disc bulge. There is no central canal stenosis. There is mild bilateral facet osteoarthritis. There is mild uncovertebral joint osteoarthritis. There is mild right neural foraminal stenosis. Partially imaged first arthropathy at T1-12 with associated mild to moderate right neural foraminal stenosis. Impression 1 .Multilevel degenerative disc and joint disease as detailed [id number] above. There is moderate central canal stenosis and severe right foraminal stenosis at the level of C6-C7. This report was approved by Freddy Gamino on 05/23/2021 5:16 PM I, Dr. SHARA KHALIL have personally reviewed and interpreted this examination/study. This report was electronically signed by SHARA KHALIL on 05/23/2021 5:16 PM. Signed by Shara Khalil YJMD on 05/23/2021 5:16 I see C6-7 right disc osteophyte, faCET ARTHROPATHY, with right foramenal narrowing, AND mild to moderate canal stenosis. Supervising Physician: Balwinder Phillips MD Chief Complaint: neck pain and hand tingling Patient History: 40 y.o. left handed male presents with bilateral hands going to sleep with activities and neck pain that radiates to the shoulder region. He denies hand or arm weakness. MRi with rt C6/7 severe foraminal stenosis and moderate spinal stenosis. Clinical Examination: UE. Motor intact. SILT arms and hands Bicep and tricep DTR +2 and equal. Neg Durkins. Findings: 1. Bilateral median motor and sensory conduction studies are within normal limits. 2. Bilateral ulnar motor and sensory conduction studies are within normal limits. 3. EMG as below. Conclusion: This is a normal study 1. Nerve conduction studies at this time does not demonstrate median or ulnar nerve entrapments in the upper extremities. 2. EMG screening myotomes C5-8 including cervical paraspinals does not show an active motor radiculopathy at this time. Balwinder Phillips. 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 I saw: C6-7 right disc osteophyte, faCET ARTHROPATHY, with right foramenal narrowing, AND mild to moderate canal stenosis. We asked Dr Griffin to please order: Course of in person conservative management for the neck and the back including: PT/OT, stretching under supervision, gym, light weights, cervical and lumbar traction, TENS, aquatic, traction and inversion, Health and Wellness program, accupuncture and chiropractor. BAF MOVE program We ordered right and left arm EMG NCV R/O right chronic C7 radiculopathy and c.t.s. EMG/NCV negative. PT started 6-8 times [place], No TENS unit at home had not tried traction. Mr Gomez told me he was already approved and was seeing a Dr FLOREZ at [facility]. We discovered this was not the case and the patient may have been mixing up Neurology and NS. Started therapy for neck 2 different stretches. No TENS unit and No traction Wished to try the above prior to surgery. WE discussed C6-7 bilateral laminectomy attn right. Declined. Mr Gomez felt he can get more out of therapy that he hasn't tried yet. Mr Gomez requested to call us if he desires. He was happy with the plan. Soon after he called to schedule surgery. 12/04/2023 SURGERY/PROCEDURE PERFORMED: Bilateral laminectomies C6 and top of C7, and removal of hypertrophied yellow ligament, attn right foramen for decompression. No complications . Home in AM. Last visit with Mr Wall, Doing well. Surgical pain improving. Denied UE radicular pain. Strength to BL UE is 5/5. Sensation intact to light touch. Post cervical incision well approximated without erythema, reddness or drainage. F/U today. Wound well healed. Neuro intact. Denies radicular pain. BAck to work on computer from home. Just started neck therapy We went over hobbies and things MR Widel shoudl or should not do. All qeustions answered to the best of my ability. F/U PRN. /ben/ UMESH ABARCA MD PhD FAANS FCNS ATTENDING NEUROSURGEON Signed: 01/21/2024 09:34 Receipt Acknowledged By: 01/21/2024 16:09 /es/ Kathe Murillo DNP, MARKET RESEARCH INTERVIEWER, CARDIOPULMONARY TECHNOLOGIST CHIEF-C Primary Care Nurse Practitioner UMESH ABARCA [facility]
--- OUTSIDE RECORDS SUMMARY | 2024-09-16 02:23 | XMS_ITS | Encounter Summary ---
Author Name [facility] [place] [facility] [place] [facility] [place] [facility] [place] Address [address] [place] [address] Care Team Providers Care Guide Domestic Tour Name Role Phone CONNIE MURILLO Primary Care [...] [facility] HEALT H PLAN Nov 08, 2013 [id number] [phone] WIDEL,CHR ISTOPHER PATIENT [facility] PREFERRED PROVIDER ORGANIZAT ION (PPO) [facility] Apr 16, 2023 [id number] WIDEL,CHR ISTOPHER PATIENT [facility] PART A ONLY Mar 11, 2014 [id number] WIDEL,CHR ISTOPHER PATIENT [facility] MENT[facility] APW[facility] HEALT H PLAN Apr 16, 2020 [id number] [phone] WIDEL,CHR ISTOPHER PATIENT [facility] PRESCRIPT ION [facility] HEALT H PLAN Mar 11, 2014 [id number] [phone] WIDEL,CHR ISTOPHER PATIENT [facility] PRESCRIPT ION [facility] RX PLAN Nov 08, 2013 [id number] [phone] WIDEL,CHR ISTOPHER PATIENT [facility] PRESCRIPT ION [facility] Nov 08, 2013 [id number] [phone] WIDEL,CHR ISTOPHER PATIENT Selected Encounter This section includes the information on record at [place] for the Encounter. Date/Time Encounter Type Encounter Description Reason Provider Source Dec 26, 2023 02:00 PM THERAPEUTIC EXERCISES PHYSICAL THERAPY ICD-10-CM M48.02 Spinal stenosis, cervical region LY RUSHING [facility] Encounter Template Text not used by [place] Assessments - Encounter Diagnoses This section includes the primary and secondary diagnoses documented for the Encounter. Date/Time Primary/Secondary Diagnosis Diagnosis Name Provider Source Jan 03, 2024 03:51 PM PRIMARY Spinal stenosis, cervical region LY RUSHING [facility] Plan of Treatment: Future Appointments (+ 6 months) and Future Tests (+/- 45 days) The Plan of Treatment section includes future care activities for the patient from all [place] treatmentfacilities. This section includes future appointments and future orders which are active, pending or scheduled. Future Appointments This section includes appointments that were scheduled to occur 6 months from the date of the Encounter, up to a maximum of 20 appointments. The data comes from all [place] treatment facilities. Appointment Date/Time Appointment Type Appointme nt Facility Name Jan 21, 2024 08:30 AM AMBULATORY - REHAB MEDICIN E [facility] Jan 21, 2024 09:30 AM AMBULATORY - SURGERY [facility] Feb 04, 2024 09:00 AM AMBULATORY - REHAB MEDICIN E [facility] Feb 18, 2024 09:00 AM AMBULATORY - [facility]AB MEDICIN [facility] May 15, 2024 09:30 AM AMBULATORY - MEDICINE [facility] Active, Pending, and Scheduled Orders This section includes a listing of several types of active, pending, and scheduled orders, including clinic medications orders, diagnostic test orders, procedure orders and consult orders; where the start date of the order is 45 days before the date of the Encounter or 45 days after the date of theEncounter. The data comes from all [place] treatment facilities. Test Date/Time Test Type Test Details Facility Name Dec 04, 2023 06:00 AM Laboratory - Blood Bank Order TYPE & SCREEN - LAB BLOOD WC [facility] Lab Results: +/- 30 days of the encounter This section includes the Chemistry and Hematology Lab Results on record with [place] for the patient. Radiology Reports and Pathology Reports are provided separately, in subsequent sections. Lab Results This section contains the Chemistry/Hematology Results that were resulted 30 days before or 30 daysafter the date of the Encounter. Date/Time Source Result Type Result - Unit Interpretation Reference Range Specimen Type Comment Dec 05, 2023 04:56 AM [facility] GLUCOSE,BLOOD-poct (STL) BLOOD Specimen Type: BLOOD Comment: Test Performed by: [id number] Meter #: [id number] Ordering Provider: UMESH ABARCA Report Released Date/Time: Dec 05, 2023 06:07 AM Reporting Lab: [facility] [address] [facility] [address] Performing Lab: [address] [address] GLUCOSE,BLOOD-poct (STL) 107 mg/dL H 72-99 Dec 04, 2023 10:43 PM [facility] GLUCOSE,BLOOD-poct (STL) BLOOD Specimen Type: BLOOD Comment: Test Performed by: [id number] Meter #: [id number] Ordering Provider: UMESH ABARCA Report Released Date/Time: Dec 04, 2023 11:11 PM Reporting Lab: [place] [id number] [facility] [address] Performing Lab: [place] [address] [facility] [address] GLUCOSE,BLOOD-poct (STL) 154 mg/dL H 72-99 Dec 04, 2023 08:57 PM [facility] MAGNESIUM PLASMA Specimen Type: PLASM A No comment entered. Ordering Provider: ANGEL THOMPSON Report Released Date/Time: Dec 04, 2023 02:05 PM Reporting Lab: [facility] [address] [address] [address] Performing Lab: [address] [address] MAGNESIUM 2.1 mg/dL 1.6-2.6 Dec 04, 2023 08:57 PM [facility] BLOOD Specimen Type: BLOOD No comment entered. Ordering Provider: ANGEL THOMPSON Report Released Date/Time: Dec 04, 2023 02:05 PM Reporting Lab: [address] [address] Performing Lab: [address] [address] WBC 9.0 10*3/uL 3.6-11.2 RBC 4.43 10*6/uL [...] 20 Dec 04, 2023 04:56 PM [facility] GLUCOSE,BLOOD-poct (STL) BLOOD Specimen Type: BLOOD Comment: Test Performed by: [id number] Meter #: [id number] Ordering Provider: UMESH ABARCA Report Released Date/Time: Dec 04, 2023 05:07 PM Reporting Lab: [facility] [address] [place] [phone] Performing Lab: [address] [address] GLUCOSE,BLOOD-poct (STL) 129 mg/dL H 72-99 Dec 04, 2023 02:00 PM [facility] MRSA SURVL NARES DNA [...] Dec 04, 2023 02:05 PM Reporting Lab: [address] [address] Performing Lab: [address] [address] MRSA SURVL NARES DNA Negative Negative Dec 04, 2023 01:30 PM [facility] GLUCOSE,BLOOD-poct (STL) BLOOD Specimen Type: BLOOD Comment: Test Performed by: [id number] Meter #: [id number] Ordering Provider: UMESH ABARCA Report Released Date/Time: Dec 04, 2023 01:43 PM Reporting Lab: [address] [address] Performing Lab: [address] [address] GLUCOSE,BLOOD-poct (STL) 126 mg/dL H 72-99 Social History: Smoking Status (Most current) and Tobacco Use (All prior to encounter date) This section includes the most current, and the historical, smoking and tobacco- related health factors from the [place] facility where the Encounter took place. Current Smoking Status This section includes the most current smoking, or tobacco-related health factor, from the [place] facility where the Encounter took place. Date/Time Current Smoking Status Comment Abad lora Apr 21, 2022 01:21 PM [place]-TOBACCO NEVER USED [facility] Tobacco Use History This section includes a history of the smoking, or tobacco-related health factors, that were collected on or before the date of the Encounter. The data comes from the [place] facility where the Encounter took place. Date/Time Smoking Status/Tobacco Use Comment F acility Dec 03, 2020 12:04 PM [place]-TOBACCO NEVER USED [facility] Radiology Reports: +/- 30 [...] the Encounter. The data comes from all [place] treatment facilities. Date/Time Radiology Report Provider Source Dec 04, 2023 06:27 AM FLUOROS(SEPARATE PROCEDURE),UP TO 1 HOUR: NIKKO GOMEZ SD [id number] -[id number] M Exm Date: DEC 04, 2023@06:27 Req Phys: UMESH ABARCA Pat Loc: [facility]/12-05-2023@05:59 Img Loc: -MAIN RADIOLOGY SUITE Service: [facility], [facility] [address] [place] [address] (Case [id number] COMPLETE) FLUOROS(SEPARATE PROCEDURE),UP TO(RAD Detailed) CPT:62117 CPT Modifiers : TC TECHNICAL COMPONENT Reason for Study: bilater c6-c7 lami Clinical History: Report Status: Verified Date Reported: DEC 05, 2023 Date Verified: DEC 05, 2023 Terrestrial Ecologist E-Sig: Report: Fluoroscopy was provided to another [...] Interpreting Staff: JANAY FIGUEROA, RADIOLOGIST Verified by industrial health engineer for JANAY FIGUEROA /[facility] Encounter Notes: All associated encounter notes This section contains the clinical notes associated to the Encounter. Date/Time Encounter Note(s) Provider Source Dec 26, 2023 02:49 PM PHYSICAL THERAPY C ONSULT: LOCAL TITLE: PT CONSULT STL STANDARD TITLE: PHYSICAL THERAPY CONSULT DATE OF NOTE: DEC 26, 2023@14:49 ENTRY DATE: DEC 26, 2023@14:49:21 AUTHOR: LY RUSHING EXP COSIGNER: URGENCY: STATUS: COMPLETED Current PC Provider: CONNIE MURILLO [facility] PACKING SHED SUPERVISOR Current Pat. 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 Date: Jan [...] Therapy Department is needed: Launch Email to [facility] PT [facility] Evaluation and Treatment for: (Please include post-op protocol as appropriate) S/p C6/7 decompression Responsible attending:Mae (REQUIRED) Enter any precautions: Chart Review: Imaging Chart Review: [facility] including: PHYSICAL THERAPY INITIAL EVAL FOR s/p C6-7 decompression on 12/04/23 Referring provider: Al Wall NP Start of Care:12/26/23 Reevaluation due:01/25/24 POC through:03/26/24 Visits to date: 1 No shows/cancellations: 0 Treatment time: Total: 60 mins. Evaluation: 20 mins. Therapeutic exercise: 40 mins. Subjective: Pt states that he is having a min/mod. amt of post-op neck pain. States that he took a muscle relaxer prior to coming to PT. 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 --Pain Increased With:excessive lifting --Pain Decreased With:rest;ice pk;pain meds(Percocet;muscle relaxers) --Co-morbidities:HTN;Obesit y --Personal Factors:Works from home full-time Independent with ADL's Able to drive 15lb lifting restriction --Pain rating (0-10): Current: 3-4 Best: Worst: --Patient's goals: Pt reports:Improve c-spine ROM;Strengthening;decrease pain Objective:No problems with ambulation and overall mobility Assistive Device:NA Posture: Slightly flexed/rounded posture AROM Cervical: (* = pain) right left -cervical rotation 18d 30d -cervical lateral flexion 25d 25d -upper cervical flexion 25d -upper cervical extension 20d AROM Shoulder: (* = pain) right left -standing flexion WNL's WNL's -standing abduction WNL's WNL's Palpation:Mild tenderness in the C-spine area Also some mild tenderness in the bilat upper traps. Treatment: Evaluation Therapeutic exercise: Pt was instructed in and [...] PT to address:C-spine ROM; upper body strength;posture Pt is a 43 yr old male [...] 2) Pt. will verbalize pain at worst:2/10 Gear Tester: (12 weeks) 1) Pt. will demonstrate independence with current HEP x 1 2) Pt. will verbalize pain at worst 1/10 3) Pt will improve and be aware [...] [] Other: Equipment Patient Currently Has:NA Plan: Cont. PT 1X/wk. for up to 12 weeks; --PATIENT EDUCATION DOCUMENTATION: Person(s) who received education: [...] Ly Rushing MA, PT Physical Therapist Signed: 12/27/2023 10:50 LY RUSHING [facility]
--- OUTSIDE RECORDS SUMMARY | 2024-09-16 02:23 | XMS_ITS | Continuity of Care Document ---
Author Name [facility] Organization [facility] Care Team Providers Care Sql Bi Developer Name Role Phone [facility] Unavailable Unavailable Problems Combined list of problems from Department of Defense and Veterans Affairs facilities. It does not include entries that were removed or entered in error. Problem Status Onset Date Problem Type Date of Resolution Comments Source KNEE [employer] ANTERIOR Inactive Condition Pt with iliotibial band syndrome. Will hold off on impact activities including running for 1 more month. 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 Progressed well iwth PT, now jogging and working to increase speed and distance. Has regained full ROM and strength. Will refer to the return to readiness program for endurance and DoD visit for: postsurgical exam Inactive Condition Nutritioni st for wt loss. Begin jogging when can easily do 40 single-leg squats. Plan for full duty at 7-8 mos. postop. [facility] joint pain, localized in the knee Active Condition Left knee ACLR (HS auto), LM repair, MM debridement. Progressing well with PT has met the goals of protocol up to 12.5 weeks. Needs to contiue with rehabGoals: 4 weeks1. 20 slqs with fair balance DoD Convalescence Following Surgery Inactive Condition LEFT ACLR WITH HS AUTOGRAFT, LM REPAIR AND MM DEBRIDEMENT. PROGRESSING WELL. IMPROVED ROM, MILD IMPROVEMENT IN STRENGTH. NEEDS MORE REHAB.GOALS: 4 WEEK1. ROM 0-1302. 20 SLQS DoD Other Physical Therapy Inactive Condition DoD JOINT INSTABILITY ANKLE / FOOT Active Condition DoD Benign essential hypertension Active Condition [facility] Cervicalgia Active Condition Dec 05, 2023 Entered By: CONNIE MURILLO Comment: Cervical C6-7 bilateral laminectomy 11/2023. [facility] Exposure to potentially hazardous substance Active Condition [facility] Gastroesophageal reflux disease Active Condition [facility] Obesity Active Condition [facility] Osteoarthritis of knee Active Condition [facility] Posttraumatic stress disorder Active Condition [facility] Prediabetes Active Condition [facility] Sleep apnea Active Condition [facility] Tinnitus Active Condition [facility] Encounters for unspecified Administrative Purpose (ICD-9-CM V68.9) Inactive Condition 05/14/2023 [facility] Pain of left knee joint (SNOMED CT [id number]) Inactive Condition 05/14/2023 [facility] Diagnosis: ICD-10-CM Z00.00 Encntr for general adult medical exam w/o abnormal findings Active Diagnosis [facility] Diagnosis: ICD-10-CM F43.10 Post-traumatic stress disorder, unspecified Active Diagnosis [facility] Diagnosis: ICD-10-CM M48.02 Spinal stenosis, cervical region Active Diagnosis [facility] Diagnosis: ICD-10-CM M47.812 Spondylosis w/o myelopathy or radiculopathy, cervical region Active Diagnosis [facility] Diagnosis: ICD-10-CM M54.2 [address] [facility] Diagnosis: ICD-10-CM Z71.81 Spiritual or pentecostalism counseling Active Diagnosis [facility] Admit Reason: CERVICAL STENOSIS Active Diagnosis [facility] Diagnosis: ICD-10-CM Z01.818 Encounter for other preprocedural examination Active Diagnosis [facility] Diagnosis: ICD-10-CM M54.50 Low back pain, unspecified Active Diagnosis 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 Medications Combined list of outpatient medications from Department of Defense and Veterans Affairs facilities.Medications provided include 1) outpatient medications from the last 15 months, and 2) patient-reported medications. Medication Details Route Status Patient Instructions Prescription Expires Prescription Number Last Dispense Date Ordering Provider Order Date Order Qty Source CHLORHEXIDI NE GLUCONATE 4% LIQUID,TOP APPLY MODERATE AMOUNT TO AFFECTED AREA(S) DIRECTED FOR SKIN DISINFEC TION (TOPICAL USE ONLY) AVOID CONTACT WITH EYES. STARTING 5 DAYS PRIOR TO SURGERY, USE THE SOLUTION DAILY IN THE SHOWER AND WASH YOUR ENTIRE BODY (WITH THE EXCEPTIO N OF FACE AND GENITALS ). TOPICA L 12/07/2023 [id number] Olesya DOMINGO OHN 2023 240 [facility] METHOCARBAM [place] 500MG TAB TAKE 1-2 TABLETS BY MOUTH FOUR TIMES A DAY NEEDED FOR MUSCLE SPASM ORAL DISCONT INUED 01/04/2024 [id number] Josue THOMPSON PRIL L 2023 112 [facility] METHOCARBAM OL 500MG TAB TAKE 1-2 TABLETS BY MOUTH FOUR TIMES A DAY NEEDED FOR MUSCLE SPASM ORAL 01/18/2024 [id number] Olesya DOMINGON 2023 112 [facility] MUPIROCIN 2% OINT,TOP APPLY SPARINGL Y TO AFFECTED AREA(S) TWICE A DAY FOR BACTERIA L INFECTIO N EXTERNAL USE ONLY. STARTING 5 DAYS PRIOR TO SURGERY, APPLY OINTMENT TWICE PER DAY TO NARES. TOPICA L 12/07/2023 [id number] Olesya DOMINGO OHN 2023 22 [facility] NALOXONE HCL 4MG/SPRAY SOLN,SPRAY, NASAL USE 1 SPRAY (4MG) INTO ONE NOSTRIL ONLY ONE-TIME NEEDED FOR OPIOID OVERDOSE DO NOT PRIME NASAL SPRAY. SPRAY ONE DOSE IN ONE NOSTRIL, GIVE ADDITION AL DOSE IF PATIENT DOES NOT START BREATHIN G WITHIN 2-3 MINUTES OR STOPS BREATHIN G AGAIN. CALL 911. IF USED, NOTIFY PROVIDER . NASAL 01/04/2024 [id number] 4 Josue THOMPSON PRIL L 2023 2 [facility] OMEPRAZOLE 40MG CAP,EC TAKE 1 CAPSULE BY MOUTH TWICE A DAY ORAL ACTIVE WILI MURILLO LBY R 2023 [facility] OXYCODONE HCL 5MG/ACETAMI NOPHEN 325MG TAB TAKE 1 TO 2 TABS BY MOUTH EVERY 6 HOURS NEEDED FOR ACUTE PAIN - NOTE: DO NOT EXCEED 4000MG PER DAY ACETAMIN OPHEN (APAP) ORAL DISCONT INUED 01/04/2024 [id number] 4 Josue THOMPSON PRIL L 2023 56 [facility] OXYCODONE HCL 5MG/ACETAMI NOPHEN 325MG TAB TAKE 1 TO 2 TABS BY MOUTH EVERY 6 HOURS NEEDED FOR ACUTE PAIN - NOTE: DO NOT EXCEED 4000MG PER DAY ACETAMIN OPHEN (APAP) ORAL 01/12/2024 [id number] 4 CHAYO,J OHN 2023 56 [facility] SEMAGLUTIDE (WEIGHT LOSS) INJ,SOLN INJECT UNDER THE SKIN EVERY WEEK SUBCUT ANEOUS ACTIVE WILI MURILLO LBY R 2024 [facility] SENNOSIDES 8.6MG TAB TAKE TWO TABLETS BY MOUTH ONCE A DAY FOR CONSTIPA TION ORAL 01/04/2024 [id number] 4 Josue THOMPSON 2023 60 [facility] Allergies, Adverse Reactions, Alerts Combined list of allergies from Department of Defense and Veterans Affairs facilities. It does not include entries that were removed or entered in error. Substance Category Reaction Severity Reaction type Status Date Reported Comments Source MORPHINE Propensity to adverse reactions to drug (finding) Flushing active 4 [facility] No Known Allergies Drug allergy (disorder) active 6 [facility] ID Immunizations Combined list of available immunizations from the Department of Defense and Veterans Affairs facilities. Immunization Series Date Given Administered By Site Reaction Lot Number CVX Code Drug Senior Planning Manager Status Comments Source INFLUENZA, UNSPECIFIED FORMULATION 2023 88 complet ed HISTORICA L INFORMATI ON - FROM PATIENT'S RECALL, [facility] COVID-19 (DYLAN), VECTOR-NR, [id number], PF, 0.5 ML 2 2020 212 complet ed HISTORICA L INFORMATI ON - FROM OTHER REGISTRY, [facility] N INFLUENZA, MDCK, QUADRIVALENT, PF 1 2020 171 complet ed HISTORICA L INFORMATI ON - [facility] OTHER REGISTRY, [facility] ([facility]), VECTOR-NR, [id number], PF, 0.5 ML 1 2020 212 complet ed [facility] TDAP 2017 115 complet ed Right Deltoid [facility] Results Combined list of recent chemistry, hematology and other laboratory results from Department of Defense and Veterans Affairs, ranging from 15 months to all on record, depending upon the facility. Order Name Results Value Reference Range Date Interpretation Specimen Comments Source GLUCOSE, BLOOD-po ct (STL) GLUCOSE [MASS/VOLU ME] IN BLOOD BY AUTOMATED TEST STRIP 107 mg/dL 72 - 99 12/04 H Specimen Type: BLOOD Comment: Test Performed by: [id number] Meter #: [id number] Ordering Provider: AMAYA ABARCA Report Released Date/Time: Dec 05, 2023 06:07 AM Reporting Lab: [address] [address] Performing Lab: [address] [address] [facility] GLUCOSE, BLOOD-po ct (STL) GLUCOSE [MASS/VOLU ME] IN BLOOD BY AUTOMATED TEST STRIP 154 mg/dL 72 - 99 12/03 H Specimen Type: BLOOD Comment: Test Performed by: [id number] Meter #: [id number] Ordering Provider: AMAYA ABARCA Report Released Date/Time: Dec 04, 2023 11:11 PM Reporting Lab: [address] [address] Performing Lab: [address] [address] [facility] MAGNESIU M MAGNESIUM [MASS/VOLU ME] IN SERUM OR PLASMA 2.1 mg/dL 1.6 - 2.6 12/03 Specimen Type: PLASMA No comment entered. Ordering Provider: LION THOMPSON Report Released Date/Time: Dec 04, 2023 02:05 PM Reporting Lab: [address] [address] Performing Lab: [address] [address] [facility] CBC LEUKOCYTES [#/VOLUME] IN BLOOD BY AUTOMATED COUNT 9.0 10*3/uL 3.6 - 11.2 12/03 Specimen Type: BLOOD No comment entered. Ordering Provider: LION THOMPSON Report Released Date/Time: Dec 04, 2023 02:05 PM Reporting Lab: [address] [address] Performing Lab: [address] [address] [facility] CBC ERYTHROCYT ES [#/VOLUME] IN BLOOD BY AUTOMATED COUNT 4.43 10*6/uL 4.10 - 5.70 12/03 Specimen Type: BLOOD No comment entered. Ordering Provider: LION THOMPSON Report Released Date/Time: Dec 04, 2023 02:05 PM Reporting Lab: [address] [address] Performing Lab: [address] [address] [facility] CBC HEMOGLOBIN [MASS/VOLU ME] IN BLOOD 13.2 g/dL 13.1 - 16.8 12/03 Specimen Type: BLOOD No comment entered. Ordering Provider: LION THOMPSON Report Released Date/Time: Dec 04, 2023 02:05 PM Reporting Lab: [address] [address] Performing Lab: [address] [address] [facility] CBC HEMATOCRIT [VOLUME FRACTION] OF BLOOD 39.2 38.2 - 48.4 12/03 Specimen Type: BLOOD No comment entered. Ordering Provider: LION THOMPSON Report Released Date/Time: Dec 04, 2023 02:05 PM Reporting Lab: [address] [address] Performing Lab: [address] [address] [facility] CBC MCV [ENTITIC VOLUME] BY AUTOMATED COUNT 88.5 fL 80.0 - 100.0 12/03 Specimen Type: BLOOD No comment entered. Ordering Provider: LION THOMPSON Report Released Date/Time: Dec 04, 2023 02:05 PM Reporting Lab: [address] [address] Performing Lab: [address] [address] [facility] CBC MCH [ENTITIC MASS] BY AUTOMATED COUNT 29.8 pg 27.0 - 34.0 12/03 Specimen Type: BLOOD No comment entered. Ordering Provider: LION THOMPSON Report Released Date/Time: Dec 04, 2023 02:05 PM Reporting Lab: [address] [address] Performing Lab: [address] [address] [facility] CBC MCHC [MASS/VOLU ME] BY AUTOMATED COUNT 33.7 g/dL 33.0 - 36.0 12/03 Specimen Type: BLOOD No comment entered. Ordering Provider: LION THOMPSON Report Released Date/Time: Dec 04, 2023 02:05 PM Reporting Lab: [address] [address] Performing Lab: [address] [address] [facility] CBC PLATELETS [#/VOLUME] IN BLOOD BY AUTOMATED COUNT 247 10*3/uL 150 - 400 12/03 Specimen Type: BLOOD No comment entered. Ordering Provider: LION THOMPSON Report Released Date/Time: Dec 04, 2023 02:05 PM Reporting Lab: [address] [address] Performing Lab: [address] [phone] [place] [address] CBC PLATELET MEAN VOLUME [ENTITIC VOLUME] IN BLOOD BY AUTOMATED COUNT 10.9 fL 7.5 - 11.2 12/03 Specimen Type: BLOOD No comment entered. Ordering Provider: LION THOMPSON Report Released Date/Time: Dec 04, 2023 02:05 PM Reporting Lab: [address] [address] Performing Lab: [address] [address] [facility] CBC ERYTHROCYT E DISTRIBUTI ON WIDTH [RATIO] BY AUTOMATED COUNT 13.0 11.8 - 15.1 12/03 Specimen Type: BLOOD No comment entered. Ordering Provider: LION THOMPSON Report Released Date/Time: Dec 04, 2023 02:05 PM Reporting Lab: [address] [address] Performing Lab: [address] [address] [facility] CBC LYMPHOCYTE S/100 LEUKOCYTES IN BLOOD BY AUTOMATED COUNT 8 12/03 Specimen Type: BLOOD No comment entered. Ordering Provider: LION THOMPSON Report Released Date/Time: Dec 04, 2023 02:05 PM Reporting Lab: [address] [address] Performing Lab: [address] [address] [facility] CBC MONOCYTES/ 100 LEUKOCYTES IN BLOOD BY AUTOMATED COUNT 2 12/03 Specimen Type: BLOOD No comment entered. Ordering Provider: LION THOMPSON L Report Released Date/Time: Dec 04, 2023 02:05 PM Reporting Lab: [facility] [address] [place] [phone] Performing Lab: [facility] [address] [facility] [address] [facility] CBC NEUTROPHIL S/100 LEUKOCYTES IN BLOOD BY AUTOMATED COUNT 90 12/03 Specimen Type: BLOOD No comment entered. Ordering Provider: LION THOMPSON L Report Released Date/Time: Dec 04, 2023 02:05 PM Reporting Lab: [facility] [address] [place] [phone] Performing Lab: [address] [phone] [place] [address] CBC EOSINOPHIL S/100 LEUKOCYTES IN BLOOD BY AUTOMATED COUNT 0 12/03 Specimen Type: BLOOD No comment entered. Ordering Provider: LION THOMPSON Report Released Date/Time: Dec 04, 2023 02:05 PM Reporting Lab: [facility] [address] [place] [phone] Performing Lab: [address] [address] [facility] CBC BASOPHILS/ 100 LEUKOCYTES IN BLOOD BY AUTOMATED COUNT 0 12/03 Specimen Type: BLOOD No comment entered. Ordering Provider: LION THOMPSON Report Released Date/Time: Dec 04, 2023 02:05 PM Reporting Lab: [facility] [address] [place] [phone] Performing Lab: [facility] [address] [place] [address] [phone] CBC LYMPHOCYTE S [#/VOLUME] IN BLOOD BY AUTOMATED COUNT 0.67 10*3/uL 0.77 - 4.50 12/03 L Specimen Type: BLOOD No comment entered. Ordering Provider: LION THOMPSON Report Released Date/Time: Dec 04, 2023 02:05 PM Reporting Lab: [place] [address] [facility] [address] Performing Lab: [address] [address] [facility] CBC MONOCYTES [#/VOLUME] IN BLOOD BY AUTOMATED COUNT 0.21 10*3/uL 0.19 - 0.80 12/03 Specimen Type: BLOOD No comment entered. Ordering Provider: LION THOMPSON Report Released Date/Time: Dec 04, 2023 02:05 PM Reporting Lab: [address] [address] Performing Lab: [address] [address] [facility] CBC NEUTROPHIL S [#/VOLUME] IN BLOOD BY AUTOMATED COUNT 8.03 10*3/uL 2.10 - 8.00 12/03 H Specimen Type: BLOOD No comment entered. Ordering Provider: LION THOMPSON Report Released Date/Time: Dec 04, 2023 02:05 PM Reporting Lab: [address] [address] Performing Lab: [address] [address] [facility] CBC EOSINOPHIL S [#/VOLUME] IN BLOOD BY AUTOMATED COUNT 0.00 10*3/uL 0.00 - 0.60 12/03 Specimen Type: BLOOD No comment entered. Ordering Provider: LION THOMPSON Report Released Date/Time: Dec 04, 2023 02:05 PM Reporting Lab: [address] [address] Performing Lab: [address] [address] [facility] CBC BASOPHILS [#/VOLUME] IN BLOOD BY AUTOMATED COUNT 0.01 10*3/uL 0.00 - 0.20 12/03 Specimen Type: BLOOD No comment entered. Ordering Provider: THOMPSON,APR IL L Report Released Date/Time: Dec 04, 2023 02:05 PM Reporting Lab: [address] [address] Performing Lab: [address] [address] [facility] GLUCOSE, BLOOD-po ct (STL) GLUCOSE [MASS/VOLU ME] IN BLOOD BY AUTOMATED TEST STRIP 129 mg/dL 72 - 99 12/03 H Specimen Type: BLOOD Comment: Test Performed by: [id number] Meter #: [id number] Ordering Provider: AMAYA ABARCA Report Released Date/Time: Dec 04, 2023 05:07 PM Reporting Lab: [address] [address] Performing Lab: [address] [phone] [place] [address] MRSA SURVL NARES DNA METHICILLI N RESISTANT STAPHYLOCO CCUS AUREUS (MRSA) DNA [PRESENCE] IN NOSE BY LAURA WITH PROBE DETECTION Negative 12/03 Specimen Type: NARES Comment: Qualitative real-time PCR test for the rapid detection of methicillin -resistant Staphylococ cus aureus (MRSA) DNA from nasal swabs. A negative result does not preclude infection with the agent(s) tested and should not be used as the sole basis for treatment or other patient management decisions. A positive test does not necessarily indicate the presence of viable organisms, following bacterial culture to recover the organism for further characteriz ation and susceptibil ity testing. All results must be combined with clinical observation s, patient history, and epidemiolog ical information for final interpretat ion. Ordering Provider: LION THOMPSON Report Released Date/Time: Dec 04, 2023 02:05 PM Reporting Lab: [address] [address] Performing Lab: [address] [address] [facility] GLUCOSE, BLOOD-po ct (STL) GLUCOSE [MASS/VOLU ME] IN BLOOD BY AUTOMATED TEST STRIP 126 mg/dL 72 - 99 12/03 H Specimen Type: BLOOD Comment: Test Performed by: [id number] Meter #: [id number] Ordering Provider: AMAYA ABARCA Report Released Date/Time: Dec 04, 2023 01:43 PM Reporting Lab: [address] [address] Performing Lab: [address] [phone] MRSA SURVL NARES DNA METHICILLI N RESISTANT STAPHYLOCO CCUS AUREUS (MRSA) DNA [PRESENCE] IN SPECIMEN BY LAURA WITH PROBE DETECTION Negative 11/11 Specimen Type: NARES Comment: Qualitative real-time PCR test for the rapid detection of methicillin -resistant Staphylococ cus aureus (MRSA) DNA from nasal swabs. A negative result does not preclude infection with the agent(s) tested and should not be used as the sole basis for treatment or other patient management decisions. A positive test does not necessarily indicate the presence of viable organisms, following bacterial culture to recover the organism for further characteriz ation and susceptibil ity testing. All results must be combined with clinical observation s, patient history, and epidemiolog ical information for final interpretat ion. Ordering Provider: LAURA DOMINGO Report Released Date/Time: Nov 07, 2023 04:35 PM Reporting Lab: [address] [address] Performing Lab: [address] [phone] [place] [address] DRUGS OF ABUSE (NEW) (STL) ETHANOL [MASS/VOLU ME] IN URINE Negative mg/dL 0 - 20 11/11 Specimen Type: URINE No comment entered. Ordering Provider: LAURA DOMINGO Report Released Date/Time: Nov 07, 2023 04:35 PM Reporting Lab: [address] [address] Performing Lab: [address] [address] [facility] DRUGS OF ABUSE (NEW) (STL) AMPHETAMIN E [PRESENCE] IN URINE BY SCREEN METHOD Negative ng/mL 11/11 Specimen Type: URINE No comment entered. Ordering Provider: LAURA DOMINGO Report Released Date/Time: Nov 07, 2023 04:35 PM Reporting Lab: [address] [address] Performing Lab: [address] [phone] [place] [address] DRUGS OF ABUSE (NEW) (STL) BENZOYLECG ONINE [PRESENCE] IN URINE Negative ng/mL 11/11 Specimen Type: URINE No comment entered. Ordering Provider: LAURA DOMINGO Report Released Date/Time: Nov 07, 2023 04:35 PM Reporting Lab: [address] [address] Performing Lab: [address] [phone] [place] [address] DRUGS OF ABUSE (NEW) (STL) CANNABINOI DS [PRESENCE] IN URINE BY SCREEN METHOD Negative ng/mL 11/11 Specimen Type: URINE No comment entered. Ordering Provider: LAURA DOMINGO Report Released Date/Time: Nov 07, 2023 04:35 PM Reporting Lab: [address] [address] Performing Lab: [address] [address] [facility] DRUGS OF ABUSE (NEW) (STL) OPIATES [PRESENCE] IN URINE BY SCREEN METHOD Negative ng/mL 11/11 Specimen Type: URINE No comment entered. Ordering Provider: LAURA DOMINGO Report Released Date/Time: Nov 07, 2023 04:35 PM Reporting Lab: [address] [address] Performing Lab: [address] [address] [facility] DRUGS OF ABUSE (NEW) (STL) CREATININE [MASS/VOLU ME] IN URINE 333.4 mg/dL 63 - 166 11/11 H Specimen Type: URINE No comment entered. Ordering Provider: LAURA DOMINGO Report Released Date/Time: Nov 07, 2023 04:35 PM Reporting Lab: [address] [address] Performing Lab: [address] [phone] [place] [address] PT/INR NEW (STL-MA) PROTHROMBI N TIME (PT) 11.9 s 9.4 - 12.5 11/11 Specimen Type: PLASMA No comment entered. Ordering Provider: LAURA DOMINGO Report Released Date/Time: Nov 07, 2023 04:35 PM Reporting Lab: [address] [address] Performing Lab: [address] [place] [address] PT/INR NEW (L-MA) INR IN PLATELET POOR PLASMA BY COAGULATIO N ASSAY 1.1 {INR} 11/11 Specimen Type: PLASMA No comment entered. Ordering Provider: LAURA DOMINGO Report Released Date/Time: Nov 07, 2023 04:35 PM Reporting Lab: [address] [address] Performing Lab: [phone] [place] [address] Vital Signs Combined list of inpatient and outpatient Vital Signs from Department of Defense and Veterans Affairs, ranging from 12 months to all on record, depending upon the facility. Vital Sign Value Date Comments Source SYSTOLIC BLOOD PRESSURE 130 05/15/2024 09:29:19 [facility] DIASTOLIC BLOOD PRESSURE 85 05/15/2024 09:29:19 [facility] PULSE OXIMETRY 96 05/15/2024 09:29:19 [facility] WEIGHT 257.2 05/15/2024 09:29:19 STLuis MCCALLUM [facility] BMI 35 kg/m2 05/15/2024 09:29:19 [facility] PAIN 4 05/15/2024 09:29:19 [facility] TEMPERATURE 98.6 05/15/2024 09:29:19 STLuis RODRIGUES [facility] PULSE 70 05/15/2024 09:29:19 [facility] RESPIRATION 18 05/15/2024 [facility]:29[facility] SYSTOLIC BLOOD PRESSURE 124 01/21/2024 09:22:29 [facility] DIASTOLIC BLOOD PRESSURE 85 01/21/2024 09:22:29 [facility] PULSE OXIMETRY 96 01/21/2024 09:22:29 S Elva [facility] WEIGHT 247.1 01/21/2024 09:22:29 [facility] King [facility] BMI 34 kg/m2 01/21/2024 09:22:29 [facility] King [facility] PAIN 0 01/21/2024 09:22:29 [facility] King [facility] HEIGHT 72 01/21/2024 09:22:29 [facility] TEMPERATURE 98.2 01/21/2024 09:22:29 [facility] PULSE 65 01/21/2024 09:22:29 [facility] King [facility] RESPIRATION 18 01/21/2024 09:22:29 [facility] SYSTOLIC BLOOD PRESSURE 130 12/13/2023 09:12:41 [facility] DIASTOLIC BLOOD PRESSURE 85 12/13/2023 09:12:41 [facility] PULSE OXIMETRY 94 12/13/2023 09:12:41 S Elva [facility] WEIGHT 241.9 12/13/2023 09:12:41 [facility] BMI 33 kg/m2 12/13/2023 09:12:41 [facility] TEMPERATURE 97.8 12/13/2023 09:12:41 [facility] PULSE 97 12/13/2023 09:12:41 [facility] RESPIRATION 18 12/13/2023 09:12:41 [facility] PAIN 8 12/05/2023 00:28:11 [facility] SYSTOLIC BLOOD PRESSURE 134 12/04/2023 06:15:00 [facility] DIASTOLIC BLOOD PRESSURE 97 12/04/2023 06:15:00 [facility] PULSE OXIMETRY 100 12/04/2023 06:15:00 [facility] WEIGHT 245.8 12/04/2023 06:15:00 [facility] BMI 33 kg/m2 12/04/2023 06:15:00 [facility] PAIN 4 12/04/2023 06:15:00 [facility] HEIGHT 72 12/04/2023 06:15:00 [facility] TEMPERATURE 97.7 12/04/2023 06:15:00 [facility] PULSE 72 12/04/2023 06:15:00 [facility] RESPIRATION 16 12/04/2023 06:15:00 [facility] Encounters Combined list of: 1) Encounters from Department of Veterans Affairs facilities going backup to the last 18 months, not all VA inpatient encounters are included; 2) Encounters from the [facility] facilities going backup to 280 months. Location Location Details Encounter Type Encounter Number Reason For Visit Attending Provider ADM Date DC Date Status [place] OUTPATIENT [id number] [facility] SNEED N 11/07 Released with Work/[place]uty Limitations [place] [facility] [place] [facility] [place] OUTPATIENT [id number] first posop [place]AC[place] SNEED N 11/22 [place]ased with [place]itations [place] [facility] [place] TELE CONSULT [id number] med refbradley JEANHAYDER OWENS Renny 11/24 [place] [facility] [place] DIRECT TO [facility] FROM OTHER THAN ER OR [facility] [id number] 11/30 [place]URN[place] [facility] [place] OUTPATIENT [id number] SARAHMIMI VALDIVIA Bart 11/30 Released w/o Limitations [place] [facility] [place] [facility] [id number] [facility] kenan YESSI Cunningham 12/05 Released w/o Limitations [place] [place] [facility] [facility] [place] OUTPATIENT [id number] SARAHMIMI VALDIVIA Bart 12/05 [place]ased w/o Limitations [place] [facility] [place] OUTPATIENT [id number] ANY MUNROE 12/09 Released with Work/Duty Limitations [place] [place] [facility] [facility] [place] OUTPATIENT [id number] SARAHMIMI VALDIVIA Bart 12/13 Released w/o Limitations [place] [facility] [place] OUTPATIENT [id number] ANY MUNROE 12/13 Released with Work/Duty Limitations [place] [place] [facility] [facility] [place] OUTPATIENT [id number] SAMAN ALBARRAN 12/16 Released with Work/Duty Limitations [place] [place] [place] [facility] [facility] [place] OUTPATIENT [id number] spoke w/ Dr. Curiel and he wanted this booked MIMI CURIEL F 12/26 Released w/o Limitations [place] [facility] [place] OUTPATIENT [id number] YESSI ALVARADO R 01/02 Released w/o Limitations [place] [place] [facility] [facility] [place] OUTPATIENT [id number] f/up MIMI CURIEL F 02/06 Released with Work/Duty Limitations [place] [facility] [place] OUTPATIENT [id number] f/u appt YESSI ALVARADO R 02/06 Released w/o Limitations [place] [place] [facility] [facility] [place] TELE CONSULT [id number] YESSI ALVARADO R 02/20 [place] [place] [facility] [facility] [place] OUTPATIENT [id number] f/u YESSI ALVARADO R 03/06 Released w/o Limitations [place] [place] [facility] [facility] [place] OUTPATIENT [id number] MIMI CURIEL F 04/03 Released w/o Limitations [place] [place] [facility] [facility] [place] OUTPATIENT [id number] YESSI ALVARADO R 04/21 Released w/o Limitations [place] [place] [facility] [facility] [place] OUTPATIENT [id number] YESSI ALVARADO R 05/15 Released w/o Limitations [place] [place] [facility] [facility] [place] TELE CONSULT [id number] MIMI CURIEL F 05/17 [place] [facility] [place] OUTPATIENT [id number] f/u SARAHMIMI F 05/31 Released with Work/Duty Limitations [place] [facility] Outpatient Encounter [id number] 05/03 [facility] Outpatient Encounter [id number] 05/07 [facility] Outpatient Encounter [id number] Diagnos is: ICD-10- CM Z00.00 Encntr for general adult medical exam w/o abnorma l susan s ELDON MURILLO 05/14 [facility] Outpatient Encounter [id number] RHONDA BROWN 10/30 [facility] Outpatient Encounter [id number] 11/01 [facility] OFFICE O/P EST LOW 20 MIN [id number] Diagnos is: ICD-10- CM M47.812 Spondyl osis w/o myelopa thy or radicul opathy, cervica l region CARAGINE,L OUIS P 11/04 [facility] Outpatient Encounter [id number] 11/05 [facility] Outpatient Encounter [id number] 11/06 [facility] Outpatient Encounter [id number] 11/07 [facility] Outpatient Encounter [id number] CLARENCE ARMAS M 11/07 [facility] OFFICE O/P EST MOD 30 MIN [id number] Diagnos is: ICD-10- CM M54.2 Cervica lgia JAYAP RIL L 11/11 [facility] OFFICE O/P EST MOD 30 MIN [id number] Diagnos is: ICD-10- CM M47.16 Other spondyl osis with myelopa thy, lumbar region CARAGINE,L OUIS P 11/11 [facility] Outpatient Encounter [id number] 11/11 [facility] Outpatient Encounter [id number] [id number] Diagnos is: ICD-10- CM Z01.818 Encount er for other preproc edural examina SINTIA Reyes 11/29 [facility] Outpatient Encounter [id number] Diagnos is: ICD-10- CM M54.50 Low back pain, unspeci fied TRUONG WOLFF SA 12/02 [facility] Outpatient Encounter [id number] 12/03 [facility] [place] [place] [id number] Diagnos is: ICD-10- CM M54.2 Cervica lgia TRUONG WOLFF SA 12/03 [facility] OFFICE O/P EST SF 10 MIN [id number]. [id number] Diagnos is: ICD-10- CM Z01.818 Encount er for other preproc edural examina PJ Miller ES 12/03 [facility] Outpatient Encounter [id number] CARAGINE,L OUIS P 12/03 [facility] Outpatient Encounter [id number] CARAGINE,L OUIS P 12/03 [facility] REMOVE SPINE LAMINA 1/2 CRVL [id number]. [id number] PATIENCE VALDEZ W 12/03 [facility] Outpatient Encounter [id number] PATIENCE VALDEZ W 12/03 [facility] Outpatient Encounter [id number] PJ JACOBS ES 12/03 [facility] Inpatient Encounter [id number] Admit Reason: CERVICA L STENOSI S CARKing ELMORE OUIS P 12/03 [facility] Inpatient Encounter [id number] Hilaria CASTANEDA JC 12/03 [facility] Inpatient Encounter [id number] ALEENA MILNER NDRA A 12/03 [facility] Inpatient Encounter [id number] [id number] LISBET COREAS A 12/03 [facility] Inpatient Encounter [id number] [id number] SUSAN THOMPSON RIL L 12/03 [facility] 1ST HOSP IP/OBS SF/LOW 40 [id number] [id number] Diagnos is: ICD-10- CM M48.02 Spinal stenosi s, cervica l region SUSAN THOMPSON RIL L 12/03 [facility] CRITICAL CARE FIRST HOUR [id number] Diagnos is: ICD-10- CM M54.2 Cervica lgia CEE,PAR TRISTAN 12/03 [facility] Inpatient Encounter [id number] GISSELL BRYANT LLEEN E 12/03 [facility] Inpatient Encounter [id number] [id number] 12/04 [facility] DERRICK HELPER ASSESSMENT [id number] [id number] Diagnos is: ICD-10- CM 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 eduardo KEITHSHUKRI CHRISTIAN 12/04 [facility] SBSQ HOSP IP/OBS SF/LOW 25 [id number] [id number] Diagnos is: ICD-10- CM M54.2 Cervica lgia King ABARCA OUFALLON P 12/04 [facility] Inpatient Encounter [id number] [id number] SERGEI RASHEED L 12/04 [facility] OT EVAL LOW COMPLEX 30 MIN [id number] [id number] Diagnos is: ICD-10- CM M54.2 Cervica lgia SULLY EDWARDS 12/04 [facility] PT EVAL LOW COMPLEX 20 MIN [id number] [id number] Diagnos is: ICD-10- CM M54.2 Cervica lgia NENO YEUNG 12/04 [facility] Inpatient Encounter [id number] SERGEI RASHEED L 12/04 [facility] Outpatient Encounter [id number] [id number] 12/05 [facility] Outpatient Encounter [id number] 12/05 [facility] Outpatient Encounter [id number] 12/06 [facility] POSTOP FOLLOW-UP VISIT [id number] [id number] Diagnos is: ICD-10- CM M54.2 Cervica lgia CHAYO,RADHA HN 12/12 [facility] Outpatient Encounter [id number] 12/17 [facility] Outpatient Encounter [id number] [id number] SUSAN THOMPSON RIL L 12/25 [facility] THERAPEUTI C EXERCISES [id number] [id number] Diagnos is: ICD-10- CM M48.02 Spinal stenosi s, cervica l region CAROLINA RUSHING ITH L 12/25 [facility] Outpatient Encounter [id number] 01/16 [facility] THERAPEUTI C EXERCISES [id number] Diagnos is: ICD-10- CM M48.02 Spinal stenosi s, cervica l region CAR[facility] RUSHING ITH L 01/20 [facility] OFFICE O/P EST MOD 30 MIN [id number] Diagnos is: ICD-10- CM M47.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 PT RE-EVAL EST PLAN CARE [id number] Diagnos is: ICD-10- CM M48.02 Spinal stenosi s, cervica l region [facility] L 02/17 [facility] Outpatient Encounter [id number] 1 03/16 [facility] PH1 ASSMT&MGMT NQHP 5-10 [id number] [id number] Diagnos is: ICD-10- CM F43.10 Post-tr aumatic stress disorde r, unspeci fied JAYLEN REDD C 05/14 [facility] Outpatient Encounter [id number] 05/15 [facility] Outpatient Encounter [id number] Diagnos is: ICD-10- CM Z00.00 Encntr for general adult medical exam w/o abnorma l finding s ELDON MURILLO BY Hilaria 05/15 [facility] Outpatient Encounter [id number] 06/17 [facility] Outpatient Encounter [id number] RHONDA BROWN 06/17 [facility] Outpatient Encounter [id number] RHONDA BROWN 06/18 [facility] Procedures Combined list of: 1) Procedures from Department of Veterans Affairs facilities going back up to thelast 18 months, not all VA non-surgical procedures are included; 2) All procedures from the Department of Defense facilities. Procedure Procedure Type Code Date Perfomer Comments Sourc e APPLICATION OF A MODALITY TO 1 OR MORE AREAS; ELECTRICAL STIMULATION (UNATTENDED) 2 [facility] PURE TONE AUDIOMETRY (THRESHOLD); AIR ONLY 2 [facility] Physical Medicine Physical Therapy Re-Evaluation Physical Medicine Physical Therapy Re-Evaluation 59012 6 YESSI ALVARADO [facility] Physical Medicine Physical Therapy Re-Evaluation Physical Medicine Physical Therapy Re-Evaluation 06400 6 YESSI ALVARADO Physical Medicine Physical Therapy Re-Evaluation Physical Medicine Physical Therapy Re-Evaluation 19736 5 YESSI ALVARADO Physical Medicine Physical Therapy Re-Evaluation Physical Medicine Physical Therapy Re-Evaluation 98030 5 YESSI ALVARADO [facility] Postoperative Visit, Without Charge Postoperative Visit, Without Charge 41997 5 MIMI CURIEL [facility] Physical Medicine Physical Therapy Re-Evaluation Physical Medicine Physical Therapy Re-Evaluation 95352 5 YESSI ALVARADO Physical Therapy Neuromuscular Re-education Physical Therapy Neuromuscular Re-education 58976 5 SAMAN ALBARRAN Modalities Electrical Stimulation Modalities Electrical Stimulation 13562 5 SAMAN ALBARRAN Modalities Cryotherapy Cold Packs Modalities Cryotherapy Cold Packs 77900 5 SAMAN ALBARRAN Physical Therapy - Unlisted Therapeutic Procedure Physical Therapy - Unlisted Therapeutic Procedure 05192 5 SAMAN ALBARRAN Exercises A isted Exercises For ROM Exercises Assisted Exercises For ROM 28420 5 ANY MUNROE Modalities Electrical Stimulation Modalities Electrical Stimulation 01447 5 ANY MUNROE Physical Therapy - Unlisted Therapeutic Procedure Physical Therapy - Unlisted Therapeutic Procedure 38518 5 ANY MUNROE Physical Therapy - Unlisted Therapeutic Procedure Physical Therapy - Unlisted Therapeutic Procedure 51129 5 ANY MUNROE Exercises A isted Exercises For ROM Exercises Assisted Exercises For ROM 20483 5 ANY MUNROE Modalities Cryotherapy Cold Packs Modalities Cryotherapy Cold Packs 05434 5 ANY MUNROE Modalities Electrical Stimulation Modalities Electrical Stimulation 06083 5 ANY MUNROE Physical Medicine Physical Therapy Evaluation Physical Medicine Physical Therapy Evaluation 82379 5 YESSI ALVARADO Exercises A isted Exercises For ROM Exercises Assisted Exercises For ROM 60750 5 YESSI ALVARADO C6-7 BILATERAL LAMINECTOMY, ATTENTION RIGHT REMOVE SPINE LAMINA 1/2 CRVL 80537 4 HAYLEY ABARCA [facility] Social History Combined list of available smoking, tobacco, and other social history from Department of Defense and Veterans Affairs facilities. Social History Type Response Date Comment [facility] e Tobacco smoking status NHIS VA-TOBACCO NEVER USED CIGARETTES 05/15/2024 [facility] History of tobacco use VA-TOBACCO NEVER USED OTHER TYPE 05/15/2024 [facility] History of tobacco use VA-TOBACCO NEVER USED 05/14/2023 [facility] History of tobacco use VA-TOBACCO NEVER USED 04/21/2022 [facility] History of tobacco use VA-TOBACCO NEVER USED 12/03/2020 [facility] History of tobacco use AR-TOBACCO QUIT 15 YRS OR MORE 07/24/2018 [facility] History of tobacco use LIFETIME NON-USER OF TOBACCO 09/07/2015 [facility] History of tobacco use QUIT TOBACCO >7 YEARS AGO 11/06/2012 [facility] This section is an empty social history section. [facility]
--- OUTSIDE RECORDS SUMMARY | 2024-09-16 02:23 | XMS_ITS | Clinical Summary ---
Author Organization [facility] Address [address] [place] [address] Care Team Providers Care Solo Truck Driver Name Role Phone Lee Owens MD Primary Care Provider [phone] Source Comments [facility],non-owned Affiliates and Associated Physician Practices is amultiple site organization consisting of ambulatory clinics and hospital sitesin [place], [place], [place] and [place]. This disclosure is being madepursuant to the Care Everywhere program and may not contain all information available regarding this patient. Last updated 18.[facility] Allergies Active Allergy Reactions Criticality Noted Date Comments Morphine Other Low 08/11/2016 Makes the pt feel warm and strange (patient prefers not to have, states he is not allergic but he does not like the way it makes him feel) Other reaction(s): Other (See comments) Makes the pt feel warm and strange (patient prefers not to have, states he is not allergic but he does not like the way it makes him feel) Medications * Be aware that medications may not be up to date on this document. Always verify current medications with the patient. cetirizine (ZYRTEC) 10 MG tablet Take 10 mg by mouth once daily as needed Active cyanocobalamin (VITAMIN B-12) injection Inject 1,000 mcg subcutaneously every 30 days 2 Active vitamin D, ergocalciferol , (DRISDOL) 1.25 MG (17551 UT) capsule Take 50,000 Units by mouth every 7 days 2 Active phentermine (ADIPEX-P) 37.5 MG capsule Take 37.5 mg by mouth once daily 2 Active B-D 3CC LUER-LULU SYR 25GX1/2 25G X 1-1/2 3 ML MISC as directed 2 Active topiramate (TOPAMAX) 50 MG tablet Take 50 mg by mouth as directed 2 Active fexofenadine-p seudoephedrine ER 12hr (MARJORIE-D) 60-120 MG tablet Take 1 tablet by mouth once daily Active omeprazole (PRILOSEC) 40 MG capsule Take 40 mg by mouth 2 times daily 2 Active Active Problems Problem Noted Date Diagnosed Date Spinal stenosis, cervical region 09/28/2021 Paresthesia of skin 09/28/2021 Pain, unspecified 09/28/2021 Cervicalgia 09/28/2021 Unilateral post-traumatic osteoarthritis, right knee 09/28/2021 Screening for other and unsp ecified cardiovascular conditions 03/28/2021 Pain in joint, lower leg 02/16/2021 Overview (02/16/2021): Left knee ACLR (HS auto), LM repair, MM debridement. Progressing well with PT has met the goals of protocol up to 12.5 weeks. Needs to contiue with rehab Goals: 4 weeks 1. 20 slqs with fair balance Acute dermatitis 10/20/2020 Benign essential hypertension 10/20/2020 Elevated liver enzymes 10/20/2020 Encounters for administrative purpose 10/20/2020 HTN (hypertension) 10/20/2020 Hypercholesterolemia 10/20/2020 Insomnia 10/20/2020 Instability of joint 10/20/2020 Knee stiffness 10/20/2020 Overview (10/20/2020): 6 months s/p left ACLR with HS autograft, LM repair and MM dedridement. Progressed well iwth PT, now jogging and working to increase speed and distance. Has regained full ROM and strength. Will refer to the return to readiness program for endurance and Left knee pain 10/20/2020 Overview (10/20/2020): Left knee ACLR (HS auto), LM repair, MM debridement. Progressing well with PT has met the goals of protocol up to 12.5 weeks. Needs to contiue with rehab Goals: 4 weeks 1. 20 slqs with fair balance Obesity 10/20/2020 Osteoarthritis of knee 10/20/2020 Postoperative care for cataract 10/20/2020 Sleep apnea 10/20/2020 Tear of lateral meniscus of left knee 08/11/2016 Derangement of medial meniscus of left knee 07/16 Immunizations Immunization Administration Dates Next Due LAURIE R[facility] PRIMARY 18+YR 06/24/2020 TDAP (7yrs+) 09/04/2017 Social History Tobacco Use Types Packs/Day Years Used Date Smoking Tobacco: Never Smokeless Tobacco: Never Alcohol Use Standard Drinks/Week Comments No 0 (1 standard drink = 0.6 oz pur e alcohol) Sex and Gender Information Value Date Recorded Sex Assigned at Not on file Legal Sex Male 2:04 PM CDT Gender Identity Not on file Sexual Orientation Not on file Last Filed Vital Signs Vital Sign Reading Time Taken Comments Blood Pressure 121/71 01/04/2021 2:10 PM CDT Pulse 66 01/04/2021 1:12 PM CDT Temperature 36.5 C (97.7 F) 01/04/2021 1:28 PM CDT Respiratory Rate 14 01/04/2021 1:12 PM CDT Oxygen Saturation 95% 01/04/2021 2:10 PM CDT Inhaled Oxygen Concentration - - Weight 122.9 kg (271 lb) 01/04/2021 8:04 AM CDT Height 180.3 cm (5' 11) 01/04/2021 8:04 AM CDT Body Mass Index 37.8 01/04/2021 8:04 AM CDT Plan of Treatment Health Maintenance Due Date Last Done Comments ACE (AGES 45-75) - COL ON CA SCREENING 1978 COLON MONITORING 1978 COLONOSCOPY - COLON CA SCREENING 1978 CT COLONOGRAPHY - COLON CA SCREENING 1978 Colorectal Cancer Screening 1978 FIT - COLON CA SCREENING 1978 FLEX SIG - COLON CA SCREENING 1978 LIPID TESTING 1978 HIV SCREENING 1993 HEPATITIS C SCREENING 11/11/1996 HEPATITIS B VACCINE (1 of 3 - 19+ 3-dose series) 1997 SCREENING FOR DIABETES 01/19/2021 COVID-19 VACCINE (3 - 2023-2 5 season) 2023 06/24/2020, 06/24/2020 DEPRESSION SCREENING 04/16/2024 INFLUENZA VACCINE (Season Ended) 2024 DTAP/TDAP/TD VACCINES (2 - T d or Tdap) 09/05/2027 09/04/2017 ZOSTER VACCINE (1 of 2) 2028 HIB VACCINE Aged Out No longer eligi ble based on patient's age to complete this topic HPV VACCINE Aged Out No longer eligi ble based on patient's age to complete this topic MENINGOCOCCAL (Group B) VACCINE SHARED DECISION-MAKING Aged Out No longer eligible based on patient's age to complete this topic MENINGOCOCCAL GROUPS A/C/Y/W VACCINE Aged Out No longer eligible b ased on patient's age to complete this topic PNEUMOCOCCAL VACCINE Aged Out No long er eligible based on patient's age to complete this topic Medical Devices Implanted Type Area Operations Agent Device Identifier Shelf Expiration Date Model / Serial / Lot Meniscus Medial Fresh Frozen Aseptic Implanted:Qty: 1 on 08/14/2016 by Bk Willingham MD at [facility] Left: Knee [employer] 02/09/2019 [id number] / [id number] / Truespan Meniscal Repair System Implanted:Qty: 2 on 08/14/2016 by Bk Willingham MD at [facility] Left: Knee 04/15/2019 [id number] / / [id number] Truespan Meniscal Repair System Implanted:Qty: 4 on 08/14/2016 by Bk Willingham MD at [facility] Left: Knee 04/15/2019 [id number] / / [id number] Truespan Meniscal Repair System Implanted:Qty: 5 on 08/14/2016 by Bk Willingham MD at [facility] Left: Knee 06/14/2019 [id number] / / [id number] Truespan Meniscal Repair System Implanted:Qty: 1 on 08/14/2016 by Bk Willingham MD at [facility] Left: Knee 04/15/2019 [id number] / / [id number] Bioabsorbable Baker/Plla Interface Screw Implanted:Qty: 1 on 08/14/2016 by Bk Willingham MD at [facility] Left: Knee [facility] Walk-in Appointment Scheduler 11/13/2017 [id number] / / [id number] Explanted Type Area Operations Agent Device Identifier Shelf Expiration Date Model / Serial / Lot Truespan Meniscal Repair System Explanted:Qty: 1 on 08/14/2016 by Bk Willingham MD at [facility] Left: Knee 06/14/2019 [id number] / / [id number] Insurance Advance Directives Documents on File Type Date Recorded Patient Hr Receptionist Expl anation Adv Directive/Living Will/POA 08/14/2016 Care Teams Solo Truck Driver Relationship Specialty Start Date End Date Lee Owens MD PCP - General Internal Medicine 08/14/16
--- OUTSIDE RECORDS SUMMARY | 2024-09-16 02:23 | XMS_ITS | Encounter Summary ---
Author Name [facility] [facility] [place] Address [address] [place] [address] Care Team Providers Care Middleware Developer Name Role Phone CONNIE MURILLO Primary Care [...] [facility] HEALT H PLAN Nov 08, 2013 [id number] [phone] WIDEL,CHR ISTOPHER PATIENT [facility] PREFERRED PROVIDER ORGANIZAT ION (PPO) [facility] Apr 16, 2023 [id number] WIDEL,CHR ISTOPHER PATIENT [facility]LY [facility] PART A ONLY Mar 11, 2014 [id number] WIDEL,CHR ISTOPHER PATIENT [facility] MENTAL HE[facility] HEALT H PLAN Apr 16, 2020 [id number] [phone] WIDEL,CHR ISTOPHER PATIENT [facility] PRESCRIPT ION [facility] HEALT H PLAN Mar 11, 2014 [id number] [phone] WIDEL,CHR ISTOPHER PATIENT [facility] PRESCRIPT ION [facility] RX PLAN [facility], [id number] [phone] WIDEL,CHR ISTOPHER PATIENT [facility] PRESCRIPT ION [facility] Nov 08, 2013 [id number] [phone] WIDEL,CHR ISTOPHER PATIENT Selected Encounter This section includes the information on record at [place] for the Encounter. Date/Time Encounter Type Encounter Description Reason Provider Source Feb 04, 2024 09:00 AM THERAPEUTIC EXERCISES PHYSICAL THERAPY ICD-10-CM M48.02 Spinal stenosis, cervical region LY RUSHING E Encounter Template Text not used by [place] Assessments - Encounter Diagnoses This section includes the primary and secondary diagnoses documented for the Encounter. Date/Time Primary/Secondary Diagnosis Diagnosis Name Provider Source Feb 15, 2024 01:29 PM PRIMARY Spinal stenosis, cervical region LY RUSHING [facility] Plan of Treatment: Future Appointments (+ 6 months) and Future Tests (+/- 45 days) The Plan of Treatment section includes future care activities for the patient from all [place] treatmentfacilities. This section includes future appointments and future orders which are active, pending or scheduled. Future Appointments This section includes appointments that were scheduled to occur 6 months from the date of the Encounter, up to a maximum of 20 appointments. The data comes from all [place] treatment facilities. Appointment Date/Time Appointment Type Appointme nt Facility Name Feb 18, 2024 09:00 AM AMBULATORY - REHAB MEDICIN E [facility] May 15, 2024 09:30 AM AMBULATORY - MEDICINE [facility] Social History: Smoking Status (Most current) and Tobacco Use (All prior to encounter date) This section includes the most current, and the historical, smoking and tobacco- related health factors from the [facility] where the [facility]. Current Smoking Status This section includes the most current smoking, or tobacco-related health factor, from the [place] facility where the Encounter took place. Date/Time Current Smoking Status Comment Abad lora Apr 21, 2022 01:21 PM [place] NEVER USED [facility] Tobacco Use History This section includes a history of the smoking, or tobacco-related health factors, that were collected on or before the date of the Encounter. The data comes from the [place] facility where the Encounter took place. Date/Time Smoking Status/Tobacco Use Comment Bart julian Dec 03, 2020 12:04 PM [place]-TO[place] NEVER USED [facility] Encounter Notes: All associated encounter notes This section contains the clinical notes associated to the Encounter. Date/Time Encounter Note(s) Provider Source Feb 04, 2024 01:02 PM PHYSICAL MEDICINE REHAB NOTE: LOCAL TITLE: PT DAILY ST[facility] STANDARD TITLE: PHYSICAL MEDICINE REHAB NOTE DATE OF NOTE: FEB 04, 2024@13:02 ENTRY DATE: FEB 04, 2024@13:02:48 AUTHOR: LY RUSHING EXP COSIGNER: URGENCY: STATUS: COMPLETED Current PC Provider: CONNIE MURILLO Current PC Team: NALINI [facility] PACT 3 LADDERMAN Current Pat. 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 Date: Jan [...] Therapy Department is needed: Launch Email to [facility] PT [facility] Evaluation and Treatment for: (Please include post-op protocol as appropriate) S/p C6/7 decompression Responsible attending:Mae (REQUIRED) Enter any precautions: Chart Review: Imaging Chart Review: [facility] including: - PHYSICAL THERAPY DAILY NOTE for s/p C6-7 decompression on 12/04/23 Referring provider: Al Wall NP Start of Care:12/26/23 Reevaluation due:01/25/24 POC through:03/26/24 Visits to date: 3 No shows/cancellations: 0 Treatment time: Total: 35 mins. Therapeutic exercise: 35 mins. Subjective: Pt states that he is feeling much better. States that he is able to work without too much discomfort. He also states that he reminds himself about practicing good posture. --Onset:12/04/23 --Occupation:Works for the [employer] Working 8hr/day now --Pain Increased With:excessive lifting [...] tenderness in the bilat upper traps. Treatment: Added today:begin with 10 reps. -AROM of right and left upper extremities, against the wall. -[place] lifts with small [place] ball -Arms up the wall(facing the wall) -Arms up the wall(back to the wall) -Lifting 5lb weight->flexion to shoulder level and abd to shoulder level, 10 reps. each -Instructed in 2 PNF patterns for BUE strengthening utilizing diagonal patterns with a 3lb weight, 10 reps. each. Reminded pt about neck and upper back posture Therapeutic exercise: Pt was instructed in and [...] 2) Pt. will verbalize pain at worst:2/10 Ingot Passer: (12 weeks) 1) Pt. will demonstrate independence with current HEP x 1 2) Pt. will verbalize pain at worst 10 3) Pt will improve and be aware [...] Equipment Patient Currently Has:NA Plan: Cont. PT in 2 weeks for postural ex's, strengthening ex's., HEP. --PATIENT EDUCATION DOCUMENTATION: Person(s) who received education: [...] instruction [] Family/Other acknowledged understanding of instruction /ben/ Ly Rushing MA, PT Physical Therapist Signed: 02/04/2024 13:13 LY RUSHING [facility]
--- OUTSIDE RECORDS SUMMARY | 2024-09-16 02:23 | XMS_ITS | Encounter Summary ---
Author Name [facility] [place] Address [address] [place] [address] Care Team Providers Care Carpet Jack Name Role Phone MURILLO CONNIE Primary Care Provider Unavailabl e Insurance [...] APWU HEALT H PLAN Nov 08, 2013 [id number] [phone] WIDEL,CHR ISTOPHER PATIENT APWU-SS PREFERRED PROVIDER ORGANIZAT ION (PPO) APWU Apr 16, 2023 [id number] WIDEL,CHR ISTOPHER PATIENT [facility] HEALTH APWU PART A ONLY Mar 11, 2014 [id number] WIDEL,CHR ISTOPHER PATIENT [employer] MENTAL HEALTH APWU HEALT H PLAN Apr 16, 2020 [id number] [phone] WIDEL,CHR ISTOPHER PATIENT [employer]) PRESCRIPT ION APWU HEALT H PLAN Mar 11, 2014 [id number] [phone] WIDEL,CHR ISTOPHER PATIENT [employer] ([employer]) PRESCRIPT ION APWU RX PLAN Nov 08, 2013 [id number] [phone] WIDEL,CHR ISTOPHER PATIENT [employer] ([employer]) PRESCRIPT ION APWU Nov 08, 2013 [id number] [phone] WIDEL,CHR ISTOPHER PATIENT Selected Encounter This section includes the information on record at [place] for the Encounter. Date/Time Encounter Type Encounter Description Reason Provider Source Dec 05, 2023 09:30 AM PT EVAL LOW COMPLEX 20 MIN PHYSICAL THERAPY ICD-10-CM M54.2 Cervicalgia MIGUEL YEUNG [place] Encounter Template Text not used by [place] Assessments - Encounter Diagnoses This section includes the primary and secondary diagnoses documented for the Encounter. Date/Time Primary/Secondary Diagnosis Diagnosis Name Provider Source Dec 05, 2023 10:46 AM PRIMARY Cervicalgia JAIME WELLS [facility] Plan of Treatment: Future Appointments (+ 6 months) and Future Tests (+/- 45 days) The Plan of Treatment section includes future care activities for the patient from all [place] treatmentfacilities. This section includes future appointments and [...] 13, 2023 09:30 AM AMBULATORY - SURGERY [facility] Dec 26, 2023 02:00 PM [facility] Jan 21, 2024 08:30 AM AMBULATORY - REHAB MEDICIN [facility] Jan 21, 2024 09:30 AM AMBULATORY - SURGERY [facility] Feb 04, 2024 09:00 AM AMBULATORY - REHAB MEDICIN E [facility] Feb 18, 2024 09:00 AM AMBULATORY - REHAB MEDICIN E [facility] May 15, 2024 09:30 AM AMBULATORY - MEDICINE [facility] Active, Pending, and Scheduled Orders This [...] - LAB VBECS - NO SPECIMEN REQUIRED [facility] Nov 07, 2023 12:00 AM Laboratory - Blood Bank Order TYPE & SCREEN - LAB BLOOD [facility] Dec 04, 2023 06:00 AM Laboratory - Blood Bank Order TYPE & SCREEN - LAB BLOOD [facility] Lab Results: +/- 30 days of the encounter This section includes the Chemistry and Hematology Lab Results on record with [place] for the patient. Radiology Reports and Pathology Reports are provided separately, in subsequent sections. Lab Results This section contains the Chemistry/Hematology Results that were resulted 30 days before or 30 daysafter the date of the Encounter. Date/Time Source Result Type Result - Unit Interpretation Reference Range Specimen Type Comment Dec 05, 2023 04:56 AM [facility] GLUCOSE,BLOOD-poct (STL) BLOOD Specimen Type: BLOOD Comment: Test Performed by: [id number] Meter #: [id number] Ordering Provider: MONTY ABARCA Report Released Date/Time: Dec 05, 2023 06:07 AM Reporting Lab: [place] [address] [facility] [address] Performing Lab: [address] [address] GLUCOSE,BLOOD-poct (STL) 107 mg/dL H 72-99 Dec 04, 2023 10:43 PM [facility] GLUCOSE,BLOOD-poct (STL) BLOOD Specimen Type: BLOOD Comment: Test Performed by: [id number] Meter #: [id number] Ordering Provider: MONTY ABARCA Report Released Date/Time: Dec 04, 2023 11:11 PM Reporting Lab: [address] [address] Performing Lab: [address] [address] GLUCOSE,BLOOD-poct (L) 154 mg/dL H 72-99 Dec 04, 2023 08:57 PM [facility] MAGNESIUM PLASMA Specimen Type: PLASM A No comment entered. Ordering Provider: ANGEL THOMPSON Report Released Date/Time: Dec 04, 2023 02:05 PM Reporting Lab: [address] [address] Performing Lab: [place] [phone] MAGNESIUM 2.1 mg/dL 1.6-2.6 Dec 04, 2023 08:[address] [facility] CBC BLOOD Specimen Type: BLOOD No comment entered. Ordering Provider: ANGEL THOMPSON Report Released Date/Time: Dec 04, 2023 02:05 PM Reporting Lab: [address] [address] Performing Lab: [address] [address] WBC 9.0 10*3/uL 3.6-11.2 RBC 4.43 10*6/uL [...] 0.00-0. 20 Dec 04, 2023 04:56 PM [facility] GLUCOSE,BLOOD-poct (L) BLOOD Specimen Type: BLOOD Comment: Test Performed by: [id number] Meter #: [id number] Ordering Provider: MONTY ABARCA Report Released Date/Time: Dec 04, 2023 05:07 PM Reporting Lab: [address] [address] Performing Lab: [address] [address] GLUCOSE,BLOOD-poct (ST) 129 mg/dL H 72-99 Dec 04, 2023 02:00 PM [facility] MRSA SURVL NARES DNA NARES Specimen [...] Dec 04, 2023 02:05 PM Reporting Lab: [address] [address] Performing Lab: [address] [address] MRSA SURVL NARES DNA Negative Negative Dec 04, 2023 01:30 PM [facility] GLUCOSE,BLOOD-poct ([facility]) BLOOD Specimen Type: BLOOD Comment: Test Performed by: [id number] Meter #: [id number] Ordering Provider: MONTY ABARCA Report Released Date/Time: Dec 04, 2023 01:43 PM Reporting Lab: [facility] [address] [place] [phone] Performing Lab: [address] [address] GLUCOSE,BLOOD-poct (STL) 126 mg/dL H 72-99 Nov 12, 2023 10:45 AM [facility] MRSA SURVL NARES DNA NARES Specimen [...] Nov 07, 2023 04:35 PM Reporting Lab: [address] [address] Performing Lab: [address] [address] MRSA SURVL NARES DNA Negative Negative Nov 12, 2023 09:55 AM [facility] DRUGS OF ABUSE (NEW) (STL) URINE Specimen Typ e: URINE No comment entered. Ordering Provider: SOBIA DOMINGO Report Released Date/Time: Nov 07, 2023 04:35 PM Reporting Lab: [address] [address] Performing Lab: [address] [address] ETHANOL Negative mg/dL 0-20 AMPHET/METHAMPHETAMINE Negative ng/mL COCAINE METABOLITES Negative ng/mL CANNABINOIDS Negative ng/mL OPIATES Negative ng/mL CREATININE URINE/OTHERS 333.4 mg/dL H 63-1 66 Nov 12, 2023 09:46 AM [facility] PT/INR NEW (STL-MA) PLASMA Specimen Type: PLAS MA No comment entered. Ordering Provider: SOBIA DOMINGO Report Released Date/Time: Nov 07, 2023 04:35 PM Reporting Lab: [facility] [address] [facility] [address] Performing Lab: [facility] [address] [place] [phone] PROTIME 11.9 s 9.4-12.5 INR VALUE 1.1 {INR} Nov 12, 2023 09:[address] [facility] APTT PLASMA Specimen Type: PLASM A No comment entered. Ordering Provider: SOBIA DOMINGO Report Released Date/Time: Nov 07, 2023 04:35 PM Reporting Lab: [address] [address] Performing Lab: [address] [address] APTT 28.5 s 26.7-39.9 Nov 12, 2023 09:46 AM [facility] COMPREHENSIVE METABOLIC PANEL PLASMA Specimen Type: PLASMA Comment: No hemolysis noted. Ordering Provider: SOBIA DOMINGO Report Released Date/Time: Nov 07, 2023 04:35 PM Reporting Lab: [address] [address] Performing Lab: [address] [address] CREATININE 0.86 mg/dL 0.7-1.3 UREA NITROGEN 9.1 [...] 109.5 >60 Nov 12, 2023 09:[address] [facility] CBC BLOOD Specimen Type: BLOOD No comment entered. Ordering Provider: SOBIA DOMINGO Report Released Date/Time: Nov 07, 2023 04:35 PM Reporting Lab: [facility] [address] [facility] [address] Performing Lab: [address] [address] WBC 5.1 10*3/uL 3.6-11.2 RBC 4.80 10*6/uL [...] 0.00-0. 20 Nov 12, 2023 09:[address] [facility] HGA1C BLOOD Specimen Type: BLOOD No comment entered. Ordering Provider: SOBIA DOMINGO Report Released Date/Time: Nov 07, 2023 04:35 PM Reporting Lab: [facility] [address] [facility] [address] Performing Lab: [address] [address] HGA1C 5.6 4.0-6.0 Vital Signs: All taken on the encounter date This section contains inpatient and outpatient Vital Signs collected on the date of the Encounter. Date/Time Temperature Pulse Blood Pressure Respiratory Rate SP02 Pain Height Weight Body Mass Index Source Dec 05, 2023 12:36 PM 6 [facility] N Dec 05, 2023 10:01 AM 4 [facility] N Dec 05, 2023 07:26 AM 6 [facility] N Dec 05, 2023 01:15 AM 5 [facility] N Dec 05, 2023 12:28 AM 8 [facility] Social History: Smoking Status (Most current) [...] 21, 2022 01:21 PM [place]-TOBACCO NEVER USED [facility] Tobacco Use History This section includes a history of the smoking, or tobacco-related health factors, that were collected on or before the date of the Encounter. The data comes from the [place] facility where the Encounter took place. Date/Time Smoking Status/Tobacco Use Comment F iesha Dec 03, 2020 12:04 PM [place]-TOBACCO NEVER USED [facility] Radiology Reports: +/- 30 days of [...] FLUOROS(SEPARATE PROCEDURE),UP TO 1 HOUR: NIKKO GOMEZ DC [id number] -1980 M Exm Date: DEC 04, 2023@06:27 Req Phys: CARAGINE,MONTY P Pat Loc: SICU OE-/12-05-2023@05:59 Img Loc: [facility] RADIOLOGY SUITE Service: Unknown [address] [address] (Case [id number] COMPLETE) FLUOROS(SEPARATE PROCEDURE),UP TO(RAD Detailed) CPT:33976 CPT Modifiers : TC TECHNICAL COMPONENT Reason for Study: bilater c6-c7 lami Clinical History: Report Status: Verified Date Reported: DEC 05, 2023 Date Verified: DEC 05, 2023 [facility] E-Sig: Report: Fluoroscopy was provided to another [...] Interpreting Staff: JANAY FIGUEROA, RADIOLOGIST Verified by engineering secretary for JANAY FIGUEROA /[facility] Nov 12, 2023 09:40 AM CHEST X-RAY, 2 VIE WS: NIKKO GOMEZ DC [id number] -1980 M Exm Date: NOV 12, 2023@09:40 Req Phys: SOBIA DOMINGO Lorie Loc: -NEUROSURGERY [facility]ER 2 (Req'g Lo Img Loc: -[facility] RADIOLOGY SUITE Service: Unknown [address] [address] (Case [id number] COMPLETE) CHEST X-RAY, 2 VIEWS (RAD Detailed) CPT:54065 Reason for Study: Pre Op Clinical History: Report Status: Verified Date Reported: NOV 12, 2023 Date Verified: NOV 12, 2023 [facility] E-Sig:/ES/Autsin Branham MD. FACR. Report: History: Pre Op. Comparison: No previous pertinent examination is available. Technique: PA and lateral views Findings: No pulmonary consolidation, pleural effusion, pneumothorax, cardiomegaly or pulmonary edema is seen. Impression: No acute cardiopulmonary disease is seen. Primary Interpreting Staff: Austin Branham MD. FACR, Neuroradiologist ([facility]) /[place] IGNACIO [facility] Encounter Notes: All associated encounter notes This section contains the clinical notes associated to the Encounter. Date/Time Encounter Note(s) Provider Source Dec 05, 2023 09:30 AM PHYSICAL THERAPY CONSULT: LOCAL TITLE: PT CONSULT ST STANDARD TITLE: PHYSICAL THERAPY CONSULT DATE OF NOTE: DEC 05, 2023@09:30 ENTRY DATE: DEC 05, 2023@10:28:48 AUTHOR: CINDY WELLS COSIGNER: URGENCY: STATUS: COMPLETED PT CONSULT STL Has ADDENDA PHYSICAL THERAPY INITIAL EVALUATION Order Information To Service: PT INPT [facility] From Service: [facility] Requesting Provider: ANGEL THOMPSON Service is to be rendered on an INPATIENT basis Place: Bedside Urgency: Routine Clinically Ind. Date: Dec 05, 2023 DST ID: Orderable Item: PT INPT [facility]S Consult: Consult Request Provisional Diagnosis: Cervicalgia(ICD-10-CM M54.2) Reason For Request: PROVIDERS ENTERING THIS CONSULT: Reason for referral to Physical Therapy: Post-surgical care (non-orthopedic) ENTER ANY PRECAUTIONS OTHER:cervical Length of Visit: 16 mins ([id number]) Evaluation: __x_Low ___Mod ___ High Treatment: Evaluation Date: 12/05/23 Visit #1 HISTORY OF PRESENT ILLNESS: Per Neurosurgery note 12/05/23: SURGERY PERFORMED: Cervical C6-[address] Monty Abarca HPI:Nikko Gomez is a pleasant 43 y/o with chronic neck pain radiating down the bilateral arms, right greater than left, to the hands with associated numbness and tingling. MRI revealed C6-7 right disc osteophyte, facet arthropathy, and right foraminal narrowing with mild to moderate canal stenosis. He tried conservative therapy without relief; therefore, he underwent surgery as above. PMH/PSH: 1) Benign essential hypertension 2) Obesity 3) Osteoarthritis of knee 4) Sleep apnea 5) Prediabetes 6) Posttraumatic stress disorder 7) Gastroesophageal reflux disease 8) Cervicalgia 9) Tinnitus 10) Exposure to potentially hazardous substance SOCIAL HISTORY/PRIOR LEVEL OF FUNCTION *Information provided by: Pt/family Home environment: ranch style house, has basement but does not need to go down into, lives with , 3 steps to enter with HR Assistance at home: if needed, children in area Home equipment: crutches ADLs: independent [employer] IADLs: splits with , independent Mobility: independent [employer] History of falls: denies SUBJECTIVE: Pt verbally agreeable to PT evaluation. Reports radicular symptoms have resolved into BUEs. Notes pain is in the R side of cervical spine into shoulder. Pt goals: Return to home COGNITION/COMMUNICATION: alert and oriented in all spheres PAIN: 210 Location: cervical spine Quality: sore Pain intervention: RN is aware Abbreviations: WFL=Within Functional Limits; (I)=Independent; A=Assist; A/PROM=Act.Rom/Passive ROM; STR=Strength; SUP=Supervision; NT=Not Tested; VC=Verbal Cues; [employer]=Prior To Admission; [facility]=Community M[facility]; CGA=Contact Guard Assist OBJECTIVE: SBAR c/RN prior to evaluation. Pt received in bedside chair with c- collar donned. LDA: ICU monitoring VITALS: Position BP HR O2 Pre-Activity Sitting 167/108 78 97% Activity Ambulating 90s 95% Post-Activity Sitting 162/113 76 97% ROM: grossly WFL's in all extremities STRENGTH: grossly 5/5 in bilateral UE's, not assessed above 90 degrees of shoulder abduction/flexion grossly 5/5 BLEs NEURO: Sensation: light touch intact in all 4 extremities Tone/Motor Control: grossly WFL's throughout Proprioception: intact Coordination: intact toe taps, heel to delong FUNCTIONAL MOBILITY: Rolling: not observed, reportedly I Supine <-> sit: not observed, reportedly I Scooting: I Transfer bed <-> chair: I Sit <-> stand: I Gait: I without AD 200' on level surface -gait pattern/deviations: Minimal arm sway bilaterally W/C mobility: NT Stairs: 10 steps with unilateral HR performed (I) *Gait belt donned for safety* <*><*><*> GG MOBILITY ASSESSMENT ITEMS <*><*><*> --- --- --- --- --- --- --- --- --- --- --- --- --- --- --- <> SECTION A THROUGH G: ADMISSION GOAL DISCHARGE A. ROLL LEFT AND RIGHT....: [6] [] [] B. SIT TO LYING...........: [6] [] [] C. LYING TO SITTING ON SIDE OF BED............: [6] [] [] D. SIT TO STAND...........: [6] [] [] E. CHAIR/FEX-JH-LVVPX TRANSFER...............: [6] [] [] F. TOILET TRANSFER........: [-] [] [] G. CAR TRANSFER...........: [-] [] [] --- --- --- --- --- --- --- --- --- --- --- --- --- --- --- <> SECTION I THROUGH O ONLY IF THE Pt. IS WALKING: ADMISSION GOAL DISCHARGE I. WALK 10 FEET...........: [6] [] [] J. WALK 50 FEET W. 2 TURNS: [6] [] [] K. WALK 150 FEET*.........: [6] [] [] L. WALKING 10 FEET ON UNEVEN SURFACE.........: [10] [] [] M. 1 STEP (CURB)*.........: [-] [] [] N. 4 STEPS*...............: [6] [] [] O. 12 STEPS*..............: [] [] [] P. PICKING UP OBJECT*.....: [88] [] [] --- --- --- --- --- --- --- --- --- --- --- --- --- --- --- <> SECTION R THROUGH S SCORE ONLY IF CLIENT USES WC: [] MANUAL; [] MOTORIZED R. WHEEL 50 FEET W. 2 TURNS: [09] [] [] S. WHEEL 150 FEET..........: [09] [] [] --- --- --- --- --- --- --- --- --- --- --- <> SCORING OF THE GG MOBILITY ITEMS: 6: INDEPENDENTPATIENT/RESIDENT SAFELY COMPLETES THE ACTIVITY BY THEMSELVES WITH NO ASSISTANCE FROM A HELPER. 5. SETUP OR CLEANUP ASSISTANCEHELPER SETS UP OR CLEANS UP; PATIENT/RESIDENT COMPLETES ACTIVITY. HELPER ASSISTS ONLY PRIOR TO OR FOLLOWING THE ACTIVITY. 4. SUPERVISION OR TOUCHING ASSISTANCEHELPER PROVIDES VERBAL CUES AND/OR TOUCHING/STEADYING AND/OR CONTACT GUARD ASSISTANCE PATIENT/RESIDENT COMPLETES ACTIVITY. ASSISTANCE MAY BE PROVIDED THROUGHOUT THE ACTIVITY OR INTERMITTENTLY. 3. PARTIAL/MODERATE ASSISTANCEHELPER DOES LESS THAN HALF THE EFFORT. HELPER LIFTS, HOLDS, OR SUPPORTS TRUNK OR LIMBS, BUT PROVIDES LESS THAN HALF THE EFFORT. 2. SUBSTANTIAL/MAXIMAL ASSISTANCEHELPER DOES MORE THAN HALF THE EFFORT. HELPER LIFTS OR HOLDS TRUNK OR LIMBS AND PROVIDES MORE THAN HALF THE EFFORT 1. DEPENDENTHELPER DOES ALL THE EFFORT. PATIENT/RESIDENT DOES NONE OF THE EFFORT TO COMPLETE THE ACTIVITY. OR, THE ASSISTANCE OF 2 OR MORE HELPERS IS REQUIRED FOR THE PATIENT/RESIDENT TO COMPLETE THE ACTIVITY. <> 07: RESIDENT REFUSED <> 09: NOT APPLICABLERESIDENT DID NOT PERFORM THIS ACTIVITY PRIOR TO CURRENT INJURY, EXACERBATION, OR INJURY. <> 10: NOT ATTEMPTEDDUE TO ENVIRONMENTAL LIMITATIONS. <> 88: NOT ATTEMPTEDDUE TO MEDICAL CONDITION AND SAFETY CONCERNS. --- --- --- --- --- --- --- --- --- --- --- --- --- --- --- Outcome Measures: [facility] AM-PAC 6-clicks How much difficulty? Score 1. Turning over in bed 4 2. Sitting down and standing 4 3. Moving from supine to sit 4 How much help from another person? Score 4. Moving to/from bed to chair 4 5. Need to walk in hospital room 4 6. Climbing 3-5 steps 4 Total: 24/24 Scores Unable: 1, Alot: 2, A little: 3, None: 4 Interventions: []Therapeutic Exercise []Therapeutic Activity []Neuromuscular Re-education []Gait training []Balance training [x]EDUCATION: Pt/family member demonstrated understanding of education/instructions. Pt given 1:1 instruction on: _X__Purpose of PT _X__ findings of evaluation, POC, goals, DC plan per assessment ___ cardiac condition ___body/back mechanics ___TKA/MAE _x__Gait __x_Falls ___ Equip use/care ___ Exercise program ___respiratory exercises/effective cough ___ Weightbearing status ___ w/c safety of importance of locking brakes before transfers and asking for assistance with transfers - Reviewed cervical spine precautions including no bending of the neck, no twisting of the neck, no pushing/pulling, c-collar donning/doffing, no lifting >10 lbs Pt left in bedside chair with all needs in reach and all lines intact as found. RN aware. Assessment: Pt is a 43 year-old male admitted to [facility] on 12/04/2023 for C6-7 bilateral laminectomy. Pt referred to PT for evaluation on 12/04/2023. Prior to admission, pt was independent for all mobility and ADLs but had history of radicular pain into bilateral upper extremities. On PT exam today, pt continues to be independent with all mobility and reports radicular symptoms mostly resolved. Pt with expected post-operative pain in cervical spine region with mobility. Pt verbalized good understanding of cervical spine precautions and able to verbalize specifics of activities to avoid with precautions. Pt demonstrates at independent level of function. No acute PT needs indicated at this time. DISCHARGE RECOMMENDATION: []Low Intensity Inpatient Rehabilitation []Comprehensive Inpatient Rehabilitation []06/11 Care []06/11 Supervision [x]Home with [x]No further needs []Consult to Outpt STL PT for a virtual [facility] Visit []consult to Occupational Therapy [place] Video Connect Home Safety Eval []Home Health PT- [facility] Home [facility] []Prior Level of Assist []Outpatient PT []Assist for IADLs []Physiatry Consult to Outpatient PMR Service - indicated for post-ICU stay, post Stroke, post amputation and other medical diagnosis requiring custodial physical medicine and rehabilitation services as an outpatient []Other: Email Address for Virtual Visit: __ Equipment Issued: none Problems: complicating co-morbidities decreased independence with functional mobility decreased endurance compromised balance decreased tolerance to activity compromised safety with mobility P.T. Prognosis: __POOR- Limited potential for improvement.* __GUARDED- There exists a question of the potential for improvement secondary to any of the above questions.* __FAIR- Presents with the potential to improve in some areas while other deficits may remain unchanged.* _x_GOOD- Presents with the potential to improve to a level of functional independence, though may continue to demonstrate certain minimal limitations. __EXCELLENT- Presents with the potential to fully recover with no residual deficits. PLAN: Discharge from acute PT. Total number of elements examined: 5 including -> Strength -> Neurological Influence -> Balance -> Functional Mobility -> Vital Signs Pts CLINICAL PRESENTATION was: [x] Stable and/or Uncomplicated: [] Evolving Clinical Presentation with Changing Clinical Characteristics: [] Unstable and Unpredictable Characteristics: Therefore the level of complexity for this patient was: [x] Low, [] Moderate, [] High If this is the last PT intervention then this documentation serves at the discharge Note as well. /ben/ CINDY WELLS PHYSICAL THERAPIST Signed: 12/05/2023 10:46 Receipt Acknowledged By: 12/05/2023 13:21 /ben/ MIGUEL YEUNG PT, DPT, c/NDT 12/05/2023 ADDENDUM STATUS: COMPLETED I have reviewed the treatment, documentation, and plan of care for this patient with P.T. Resident Jaun Wells PT, DPT and agree with the above assessment. Level of Supervision: [ ] Room [ ] Area [ x] Available /ben/ MIGUEL YEUNG PT, DPT, c/NDT Signed: 12/05/2023 13:22 CINDY WELLS [facility]
--- OUTSIDE RECORDS SUMMARY | 2024-09-16 02:24 | XMS_ITS | Encounter Summary ---
Author Name [facility] [place] [facility] [place] Address [address] [place] [address] Care Team Providers Care Construction Code Administrator Name Role Phone CONNIE MURILLO Primary Care [...] [facility] HEALT H PLAN Nov 08, 2013 [id number] [phone] WIDEL,CHR ISTOPHER PATIENT [facility] PREFERRED PROVIDER ORGANIZAT ION (PPO) [facility] Apr 16, 2023 [id number] WIDEL,CHR ISTOPHER PATIENT [facility] PART A ONLY Mar 11, 2014 [id number] WIDEL,CHR ISTOPHER PATIENT [facility] HEALT H PLAN Apr 16, 2020 [id number] [phone] WIDEL,CHR ISTOPHER PATIENT [facility] PRESCRIPT ION [facility] HEALT H PLAN Mar 11, 2014 [id number] [phone] WIDEL,CHR ISTOPHER PATIENT [facility] PRESCRIPT ION [facility] RX PLAN Nov 08, 2013 [id number] [id number] [phone] WIDEL,CHR ISTOPHER PATIENT [facility] PRESCRIPT ION [facility] Nov 08, 2013 [id number] [phone] WIDEL,CHR ISTOPHER PATIENT Selected Encounter This section includes the information on record at [place] for the Encounter. Date/Time Encounter Type Encounter Description Reason Provider Source Jan 21, 2024 08:30 AM THERAPEUTIC EXERCISES PHYSICAL THERAPY ICD-10-CM M48.02 Spinal stenosis, cervical region LY RUSHING E Encounter Template Text not used by [place] Assessments - Encounter Diagnoses This section includes the primary and secondary diagnoses documented for the Encounter. Date/Time Primary/Secondary Diagnosis Diagnosis Name Provider Source Feb 01, 2024 04:10 PM PRIMARY Spinal stenosis, cervical region LY RUSHING [facility] Plan of Treatment: Future Appointments (+ 6 months) and Future Tests (+/- 45 days) The Plan of Treatment section includes future care activities for the patient from all [place] treatmentfacilities. This section includes future appointments and future orders which are active, pending or scheduled. Future Appointments This section includes appointments that were scheduled to occur 6 months from the date of the Encounter, up to a maximum of 20 appointments. The data comes from all [place] treatment facilities. Appointment Date/Time Appointment Type Appointme nt Facility Name Feb 04, 2024 09:00 AM AMBULATORY - REHAB MEDICIN [facility] Feb 18, 2024 09:00 [facility] May 15, 2024 09:30 AM AMBULATORY - MEDICINE [facility] Vital Signs: All taken on the encounter date This section contains inpatient and outpatient Vital Signs collected on the date of the Encounter. Date/Time Temperature Pulse Blood Pressure Respiratory Rate SP02 Pain Height Weight Body Mass Index Source Jan 21, 2024 09:22 AM 98.2 65 124/85 18 96 0 72 247.1 34 [facility] Social History: Smoking Status (Most current) and Tobacco Use (All prior to encounter date) This section includes the most current, and the historical, smoking and tobacco- related health factors from the [facility] where the Encounter took place. Current Smoking Status This section includes the most current smoking, or tobacco-related health factor, from the [facility] where the Encounter took place. Date/Time Current Smoking Status Comment Facil ity Apr 21, 2022 01:21 PM [place]-TOBACCO NEVER USED [facility] Tobacco Use History This section includes a history of the smoking, or tobacco-related health factors, that were collected on or before the date of the Encounter. The data comes from the [facility] where the Encounter took place. Date/Time Smoking Status/Tobacco Use Comment F acility Dec 03, 2020 12:04 PM [place]-TOBACCO NEVER USED [facility] Encounter Notes: All associated encounter notes This section contains the clinical notes associated to the Encounter. Date/Time Encounter Note(s) Provider Source Jan 21, 2024 03:02 PM PHYSICAL MEDICINE REHAB NOTE: LOCAL TITLE: PT DAILY STL STANDARD TITLE: PHYSICAL MEDICINE REHAB NOTE DATE OF NOTE: JAN 21, 2024@15:02 ENTRY DATE: JAN 21, 2024@15:03:01 AUTHOR: LY RUSHING EXP COSIGNER: URGENCY: STATUS: COMPLETED Current PC Provider: CONNIE MURILLO Current PC Team: NALINI ZIMMER PACT 3 RIB BENDER Current Pat. Status: Outpatient UCID: [id number] Primary [...] Service: PT OUTPT STL From Service: [facility] RIB BENDER 2 Requesting Provider: SOBIA WALL Service is to be rendered on an OUTPATIENT basis Place: [facility] Blind [employer]er And Repairer's choice Urgency: Routine Clinically Ind. Date: Jan 14, 2024 DST ID: Orderable Item: PT OUTPT [facility] Consult: Consult Request Provisional Diagnosis: Spinal Stenosis, [...] Therapy Department is needed: Launch Email to [facility] PT Group Evaluation and Treatment for: (Please include post-op protocol as appropriate) S/p C6/7 decompression Responsible attending:Mae (REQUIRED) Enter any precautions: Chart Review: Imaging Chart Review: [facility] including: PHYSICAL THERAPY INITIAL EVAL FOR s/p C6-7 decompression on 12/04/23 Referring provider: Al Wall NP Start of Care:12/26/23 Reevaluation due:01/25/24 POC through:03/26/24 Visits to date: 2 No shows/cancellations: 0 Treatment time: Total: 35 mins. Therapeutic exercise: 35 mins. Subjective: Pt states that he is feeling much better. Pt states that he has a TENS UNIT, but hasn't used it lately. 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 Treatment: Added today:begin with 10 reps. -Reynolds lifts -Arms up the wall(facing the wall) -Arms up the wall(back to the wall) -Theraband rowing(with theraband hooked in the door) Issued blue theraband Reminded pt about neck and upper back posture Pt to try TENS if needed. Therapeutic exercise: Pt was instructed in and [...] strength;posture Seems to be tolerating work activities well. Pt is a 43 yr old [...] 2) Pt. 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 will demonstrate independence with current HEP x 1 2) Pt. will verbalize pain at worst 04/25 3) Pt will improve and be aware [...] Ly Rushing MA, PT Physical Therapist Signed: 01/22/2024 09:[address] [facility]
--- OUTSIDE RECORDS SUMMARY | 2024-09-16 02:24 | XMS_ITS | Encounter Summary ---
Author Name [facility] [facility] [place] [facility] [place] Address [address] [place] [address] Care Team Providers Care Claims Service Adjustor Name Role Phone CONNIE MURILLO Primary Care [...] [facility] HEALT H PLAN Nov 08, 2013 [id number] [phone] WIDEL,CHR ISTOPHER PATIENT [facility] PREFERRED PROVIDER ORGANIZAT ION (PPO) [facility] Apr 16, 2023 [id number] WIDEL,CHR ISTOPHER PATIENT [facility] PART A ONLY Mar 11, 2014 [id number] WIDEL,CHR ISTOPHER PATIENT [facility] HEALT H PLAN Apr 16, 2020 [id number] [phone] WIDEL,CHR ISTOPHER PATIENT [facility] PRESCRIPT ION [facility] HEALT H PLAN Mar 11, 2014 [id number] [phone] WIDEL,CHR ISTOPHER PATIENT [facility] PRESCRIPT ION [facility] RX PLAN Nov 08, 2013 APWMEDC [id number] [phone] WIDEL,CHR ISTOPHER PATIENT [facility] PRESCRIPT ION [facility] Nov 08, 2013 [id number] [phone] WIDEL,CHR ISTOPHER PATIENT Selected Encounter This section includes the information on record at [place] for the Encounter. Date/Time Encounter Type Encounter Description Reason Provider Source Dec 04, 2023 01:31 PM Inpatient Visit ADMIN PAT ACTIVLISBET (MASNONCT) RADHA PERRY Encounter Template Text not used by [place] Plan of Treatment: Future Appointments (+ 6 months) and Future Tests (+/- 45 days) The Plan of Treatment section includes future care activities for the patient from all [place] [facility]. This section includes future appointments and future orders which are active, pending or scheduled. Future Appointments This section includes appointments that were scheduled to occur 6 months from the date of the Encounter, up to a maximum of 20 appointments. The data comes from all [place] treatment facilities. Appointment Date/Time Appointment Type Appointme nt Facility Name Dec 13, 2023 09:30 AM AMBULATORY - SURGERY [facility] Dec 26, 2023 02:00 PM AMBULATORY - REHAB MEDICIN E [facility] Jan 21, 2024 08:30 AM AMBULATORY - REHAB MEDICIN E [facility] Jan 21, 2024 09:30 AM AMBULATORY - SURGERY [facility] Feb 04, 2024 09:00 AM AMBULATORY - REHAB MEDICIN E [facility] Feb 18, 2024 09:00 AM AMBULATORY - REHAB MEDICIN E [facility] May 15, 2024 09:30 AM AMBULATORY - MEDICINE [facility] Active, Pending, and Scheduled Orders This section includes a listing of several types of active, pending, and scheduled orders, including clinic medications orders, diagnostic test orders, procedure orders and consult orders; where the start date of the order is 45 days before the date of the Encounter or 45 days after the date of theEncounter. The data comes from all [place] treatment facilities. Test Date/Time Test Type Test Details Facility Name Nov 07, 2023 12:00 AM Laboratory - Blood Bank Order RED BLOOD CELLS - LAB VBECS - NO SPECIMEN REQUIRED SP [facility] Nov 07, 2023 12:00 AM Laboratory - Blood Bank Order TYPE & SCREEN - LAB BLOOD SP [facility] Dec 04, 2023 06:00 AM Laboratory - Blood Bank Order TYPE & SCREEN - LAB BLOOD WC [facility] Lab Results: +/- 30 days of [...] Type Comment Dec 05, 2023 04:56 AM [facility] GLUCOSE,BLOOD-poct (STL) BLOOD Specimen Type: BLOOD Comment: Test Performed by: [id number] Meter #: [id number] Ordering Provider: UMESH ABARCA Report Released Date/Time: Dec 05, 2023 06:07 AM Reporting Lab: [facility] [address] [facility] [address] Performing Lab: [facility] [address] [facility] [address] GLUCOSE,BLOOD-poct (STL) 107 mg/dL H 72-99 Dec 04, 2023 10:43 PM [facility] GLUCOSE,BLOOD-poct (STL) BLOOD Specimen Type: BLOOD Comment: Test Performed by: [id number] Meter #: [id number] Ordering Provider: UMESH ABARCA Report Released Date/Time: Dec 04, 2023 11:11 PM Reporting Lab: [facility] [address] [facility] [address] Performing Lab: [address] [address] GLUCOSE,BLOOD-poct (STL) 154 mg/dL H 72-99 Dec 04, 2023 08:57 PM [facility] MAGNESIUM PLASMA Specimen Type: PLAS MA No comment entered. Ordering Provider: ANGEL THOMPSON Report Released Date/Time: Dec 04, 2023 02:05 PM Reporting Lab: [address] [address] Performing Lab: [address] [address] MAGNESIUM 2.1 mg/dL 1.6-2.6 Dec 04, 2023 08:57 PM [facility] CBC BLOOD Specimen Type: BLOOD No comment entered. Ordering Provider: ANGEL THOMPSON Report Released Date/Time: Dec 04, 2023 02:05 PM Reporting Lab: [address] [address] Performing Lab: [address] [address] WBC 9.0 10*3/uL 3.6-11.2 RBC 4.43 10*6/uL [...] 0.00-0. 20 Dec 04, 2023 04:56 PM [facility] GLUCOSE,BLOOD-poct (STL) BLOOD Specimen Type: BLOOD Comment: Test Performed by: [id number] Meter #: [id number] Ordering Provider: UMESH ABARCA Report Released Date/Time: Dec 04, 2023 05:07 PM Reporting Lab: [facility] [address] [facility] [address] Performing Lab: [address] [address] GLUCOSE,BLOOD-poct (ST) 129 mg/dL H 72-99 Dec 04, 2023 02:00 PM [facility] MRSA SURVL NARES DNA NARES Specimen Type: NA RES Comment: Qualitative real-time PCR test for the [...] Dec 04, 2023 02:05 PM Reporting Lab: [address] [address] Performing Lab: [address] [address] MRSA SURVL NARES DNA Negative Negative Dec 04, 2023 01:30 PM [facility] GLUCOSE,BLOOD-poct (L) BLOOD Specimen Type: BLOOD Comment: Test Performed by: [id number] Meter #: [id number] Ordering Provider: UMESH ABARCA Report Released Date/Time: Dec 04, 2023 01:43 PM Reporting Lab: [address] [address] Performing Lab: [facility] [address] [place] [address] GLUCOSE,BLOOD-poct (STL) 126 mg/dL H 72-99 Nov 12, 2023 10:45 AM [facility] MRSA SURVL NARES DNA NARES Specimen [...] Nov 07, 2023 04:35 PM Reporting Lab: [address] [address] Performing Lab: [address] [address] MRSA SURVL NARES DNA Negative Negative Nov 12, 2023 09:55 AM [facility] DRUGS OF ABUSE (NEW) (STL) URINE Specimen Typ e: URINE No comment entered. Ordering Provider: SOBIA DOMINGO Report Released Date/Time: Nov 07, 2023 04:35 PM Reporting Lab: [address] [address] Performing Lab: [address] [address] ETHANOL Negative mg/dL 0-20 AMPHET/METHAMPHETAMINE Negative ng/mL COCAINE METABOLITES Negative ng/mL CANNABINOIDS Negative ng/mL OPIATES Negative ng/mL CREATININE URINE/OTHERS 333.4 mg/dL H 63-1 66 Nov 12, 2023 09:46 AM [facility] PT/INR NEW (STL-MA) PLASMA Specimen Type: PLAS MA No comment entered. Ordering Provider: SOBIA DOMINGO Report Released Date/Time: Nov 07, 2023 04:35 PM Reporting Lab: [address] [place] [address] Performing Lab: [address] [address] PROTIME 11.9 s 9.4-12.5 INR VALUE 1.1 {INR} Nov 12, 2023 09:46 AM [facility] APTT PLASMA Specimen Type: PLASM A No comment entered. Ordering Provider: SOBIA DOMINGO Report Released Date/Time: Nov 07, 2023 04:35 PM Reporting Lab: [address] [address] Performing Lab: [address] [address] APTT 28.5 s 26.7-39.9 Nov 12, 2023 09:46 AM [facility] COMPREHENSIVE METABOLIC PANEL PLASMA Specimen Type: PLASMA Comment: No hemolysis noted. Ordering Provider: SOBIA DOMINGO Report Released Date/Time: Nov 07, 2023 04:35 PM Reporting Lab: [address] [address] Performing Lab: [address] [address] CREATININE 0.86 mg/dL 0.7-1.3 UREA NITROGEN 9.1 [...] 109.5 >60 Nov 12, 2023 09:46 AM [facility] CBC BLOOD Specimen Type: BLOOD No comment entered. Ordering Provider: SOBIA DOMINGO Report Released Date/Time: Nov 07, 2023 04:35 PM Reporting Lab: [facility] [address] [facility] [address] Performing Lab: [address] [address] WBC 5.1 10*3/uL 3.6-11.2 RBC 4.80 10*6/uL [...] 0.00-0. 20 Nov 12, 2023 09:46 AM [facility] HGA1C BLOOD Specimen Type: BLOOD No comment entered. Ordering Provider: SOBIA DOMINGO Report Released Date/Time: Nov 07, 2023 04:35 PM Reporting Lab: [facility] [address] [facility] [address] Performing Lab: [address] [address] HGA1C 5.6 4.0-6.0 Vital Signs: All taken on the encounter date This section contains inpatient and outpatient Vital Signs collected on the date of the Encounter. Date/Time Temperature Pulse Blood Pressure Respiratory Rate SP02 Pain Height Weight Body Mass Index Source Dec 04, 2023 08:30 PM 5 [facility] Dec 04, 2023 07:23 PM 6 [facility] Dec 04, 2023 04:59 PM 2 [facility] Dec 04, 2023 03:11 PM 3 [facility] Dec 04, 2023 06:15 AM 97.7 72 134/97 16 100 4 72 245.8 33 [facility] Social History: Smoking Status (Most current) [...] Abad lora Apr 21, 2022 01:21 PM [place]-TOBAC[place] NEVER USED [facility] Tobacco Use History This section includes a history of the smoking, or tobacco-related health factors, that were collected on or before the date of the Encounter. The data comes from the [place] facility where the Encounter took place. Date/Time Smoking Status/Tobacco Use Comment F acility Dec 03, 2020 12:04 PM [place]-TO[place]AC[place] NEVER USED [facility] Radiology Reports: +/- 30 days of [...] FLUOROS(SEPARATE PROCEDURE),UP TO 1 HOUR: NIKKO GOMEZ [id number] -[id number] M Exm Date: DEC 04, 2023@06:27 Req Phys: UMESH ABARCA Pat Loc: SICU OE-[facility]/12-05-2023@05:59 Img Loc: [facility]-MAIN RADIOLOGY SUITE Service: [facility], [facility] [address] [place] [address] (Case [id number] COMPLETE) FLUOROS(SEPARATE PROCEDURE),UP TO(RAD Detailed) CPT:04470 CPT Modifiers : TC TECHNICAL COMPONENT Reason for Study: bilater c6-c7 lami Clinical History: Report Status: Verified Date Reported: DEC 05, 2023 Date Verified: DEC 05, 2023 Process Pumper E-Sig: Report: Fluoroscopy was provided to another [...] Interpreting Staff: JANAY FIGUEROA, RADIOLOGIST Verified by gis manager for JANAY FIGUEROA /JANAY DAVIS [facility] Nov 12, 2023 09:40 AM CHEST X-RAY, 2 VIE WS: NIKKO GOMEZ [place] [id number] -1980 M Exm Date: NOV 12, 2023@09:40 Req Phys: SOBIA DOMINGO Loc: [facility]-NEUROSURGERY BOX LINING MACHINE FEEDER 2 (Req'g Lo Img Loc: [facility]MAIN RADIOLOGY SUITE Service: [address] [address] (Case [id number] COMPLETE) CHEST X-RAY, 2 VIEWS (RAD Detailed) CPT:21107 Reason for Study: Pre Op Clinical History: Report Status: Verified Date Reported: NOV 12, 2023 Date Verified: NOV 12, 2023 Process Pumper E-Sig:/ES/Austin Branham MD. FACR. Report: History: Pre Op. Comparison: No previous pertinent examination is available. Technique: PA and lateral views Findings: No pulmonary consolidation, pleural effusion, pneumothorax, cardiomegaly or pulmonary edema is seen. Impression: No acute cardiopulmonary disease is seen. Primary Interpreting Staff: Austin Branham MD. FACR, Neuroradiologist (Process Pumper) /AUSTIN IGNACIO [facility] Encounter Notes: All associated encounter notes This section contains the clinical notes associated to the Encounter. Date/Time Encounter Note(s) Provider Source Dec 04, 2023 01:31 PM ANESTHESIOLOGY BHAVYA WSHEET: LOCAL TITLE: PACU POST-OP FLOWSHEET [facility] STANDARD TITLE: ANESTHESIOLOGY FLOWSHEET DATE OF NOTE: DEC 04, 2023@13:31 ENTRY DATE: DEC 04, 2023@13:31:35 AUTHOR: RADHA PERRY COSIGNER: URGENCY: STATUS: COMPLETED Patient: NIKKO GOMEZ SSN: [id number] Anesthesia Method: General 12/04/2023 11:11 (Primary), Airway: Endotracheal Intubation, Technique: Indirect Laryngoscopy, Level Of Consciousness: Sedated, Patient Position: Supine, Preoxygenated, Induction Type: Intravenous, Breathing Circuit: [place] Adult, Ventilation by Mask: Easy to Ventilate [...] bilateral laminectomy, attn right Diagnosis: cervical stenosis PACU Drugs: HYDROmorphone: 0.8 mg Labetalol: 10 mg PACU Fluids: Anesthesia Procedure: ---- Procedure 12/04/2023 6:24 Line Number: 1, Level Of Consciousness: Awake, Site: Arm, Laterality: Right, Catheter Type: Angio, Catheter Size: 18 Ga, Inserted By: Holding Nurse Date of Operation: 12/04/2023 Anesthesia Care End: 12/04/2023 12:10 Resources: Aquacel foam placed on pk prominence to protect skin during surgery Safety Belt Staff: --------- UMESH ABARCA, SURGEON UMESH ABARCA, ATT. SURGEON NIKO WOLFF, Holding Nurse RADHA HORVATH PRIN. ANES. GITA JACOBS ANES. CHANDANA. MANJIT ALEJANDRE, [facility] SECURITY ENGINEER RADHA PERRY, Post-Op Nurse Surgery Start Time: 12/04/2023 8:47 Procedure End Time: Moderate Sedation Care End: /es/ Radha Perry RN REGISTERED NURSE Signed: 12/04/2023 13:31 RADHA PERRY [facility]
--- OUTSIDE RECORDS SUMMARY | 2024-09-16 02:24 | XMS_ITS | Encounter Summary ---
Author Name [facility] [place] [facility] [place] [facility] [place] Address [address] [place] [address] Care Team Providers Care Taxonomy Teacher Name Role Phone CHIDI KATHE Primary Care Provider Unavailabl e Insurance Providers: [...] [facility] HEALT H PLAN Nov 08, 2013 [id number] [phone] WIDEL,CHR ISTOPHER PATIENT [facility] PREFERRED PROVIDER ORGANIZAT ION (PPO) [facility] Apr 16, 2023 [id number] WIDEL,CHR ISTOPHER PATIENT [facility] APWU PART A ONLY Mar 11, 2014 [id number] WIDEL,CHR ISTOPHER PATIENT [facility] MENT[facility] APW[facility] HEALT H PLAN Apr 16, 2020 [id number] [phone] WIDEL,CHR ISTOPHER PATIENT [employer] PRESCRIPT ION APW[facility] HEALT H PLAN Mar 11, 2014 [id number] [phone] WIDEL,CHR ISTOPHER PATIENT [employer]) PRESCRIPT ION AP[facility] RX PLAN Nov 08, 2013 [id number] [phone] WIDEL,CHR ISTOPHER PATIENT [employer]) PRESCRIPT ION [facility] Nov 08, 2013 [id number] [phone] WIDEL,CHR ISTOPHER PATIENT Selected Encounter This section includes the information on record at [place] for the Encounter. Date/Time Encounter Type Encounter Description Reason Pro vider Source Nov 06, 2023 11:01 AM Outpatient Encounter GENERAL INTERNAL MEDICINE IHE Encounter Template Text not used by [place] Plan of Treatment: Future Appointments (+ 6 months) and Future Tests (+/- 45 days) The Plan of Treatment section includes future care activities for the [facility] [place] [facility] This section includes future appointments and future orders which are active, pending or scheduled. Future Appointments This section includes appointments that were scheduled to occur 6 months from the date of the Encounter, up to a maximum of 20 appointments. The data comes from all [place] treatment facilities. Appointment Date/Time Appointment Type Appointme nt Facility Name Nov 12, 2023 09:15 AM AMBULATORY - SUR[facility]ERY [facility] Nov 12, 2023 09:30 AM AMBULATORY - [facility]ERY [facility] Dec 04, 2023 06:00 AM AMBULATORY - NONE [facility] Dec 13, 2023 09:30 AM AMBULATORY - [facility]ERY [facility] Dec 26, 2023 02:00 PM AMBULATORY - REHAB MEDICIN E [facility] Jan 21, 2024 08:30 AM AMBULATORY - REHAB MEDICIN E [facility] Jan 21, 2024 09:30 AM AMBULATORY - SUR[facility]ERY [facility] Feb 04, 2024 09:00 AM AMBULATORY - REHAB MEDICIN E [facility] Feb 18, 2024 09:00 AM AMBULATORY - REHAB MEDICIN E [facility] Active, Pending, and Scheduled Orders This section includes a listing of several types of active, pending, and scheduled orders, including clinic medications orders, diagnostic test orders, procedure orders and consult orders; where the start date of the order is 45 days before the date of the Encounter or 45 days after the date of theEncounter. The data comes from all [facility] facilities. Test Date/Time Test Type Test Details Facility Name Nov 07, 2023 12:00 AM Laboratory - Blood Bank Order RED BLOOD CELLS - LAB VBECS - NO SPECIMEN REQUIRED SP [facility] Nov 07, 2023 12:00 AM Laboratory - Blood Bank Order TYPE & SCREEN - LAB BLOOD SP [facility] Dec 04, 2023 06:00 AM Laboratory - Blood Bank Order TYPE & SCREEN - LAB BLOOD WC [facility] Lab Results: +/- 30 days of the encounter This section includes the Chemistry and Hematology Lab Results on record with [place] for the patient. Radiology Reports and Pathology Reports are provided separately, in subsequent sections. Lab Results This section contains the Chemistry/Hematology Results that were resulted 30 days before or 30 daysafter the date of the Encounter. Date/Time Source Result Type Result - Unit Interpretation Reference Range Specimen Type Comment Dec 05, 2023 04:56 AM [facility] GLUCOSE,BLOOD-poct (STL) BLOOD Specimen Type: BLOOD Comment: Test Performed by: [id number] Meter #: [id number] Ordering Provider: UMESH ABARCA Report Released Date/Time: Dec 05, 2023 06:07 AM Reporting Lab: [facility] [address] [facility] [address] Performing Lab: [place] [id number] [facility] [address] GLUCOSE,BLOOD-poct (STL) 107 mg/dL H 72-99 Dec 04, 2023 10:43 PM [facility] GLUCOSE,BLOOD-poct (STL) BLOOD Specimen Type: BLOOD Comment: Test Performed by: [id number] Meter #: [id number] Ordering Provider: UMESH ABARCA Report Released Date/Time: Dec 04, 2023 11:11 PM Reporting Lab: [address] [address] Performing Lab: [address] [address] GLUCOSE,BLOOD-poct (STL) 154 mg/dL H 72-99 Dec 04, 2023 08:57 PM [facility] MAGNESIUM PLASMA Specimen Type: PLASM A No comment entered. Ordering Provider: ANGEL THOMPSON Report Released Date/Time: Dec 04, 2023 02:05 PM Reporting Lab: [address] [address] Performing Lab: [address] [address] MAGNESIUM 2.1 mg/dL 1.6-2.6 Dec 04, 2023 08:57 PM [facility] CBC BLOOD Specimen Type: BLOOD No comment entered. Ordering Provider: ANGEL THOMPSON Report Released Date/Time: Dec 04, 2023 02:05 PM Reporting Lab: [address] [address] Performing Lab: [address] [address] WBC 9.0 10*3/uL 3.6-11.2 RBC 4.43 10*6/uL [...] 0.00-0. 20 Dec 04, 2023 04:56 PM [facility] GLUCOSE,BLOOD-poct (STL) BLOOD Specimen Type: BLOOD Comment: Test Performed by: [id number] Meter #: [id number] Ordering Provider: UMESH ABARCA Report Released Date/Time: Dec 04, 2023 05:07 PM Reporting Lab: [address] [address] Performing Lab: [address] [address] GLUCOSE,BLOOD-poct (STL) 129 mg/dL H 72-99 Dec 04, 2023 02:00 PM [facility] MRSA SURVL NARES DNA NARES Specimen Type: [...] epidemiological information for final interpretation. Ordering Provider: NAGEL THOMPSON Report Released Date/Time: Dec 04, 2023 02:05 PM Reporting Lab: [address] [address] Performing Lab: [address] [address] MRSA SURVL NARES DNA Negative Negative Dec 04, 2023 01:30 PM [facility] GLUCOSE,BLOOD-poct (STL) BLOOD Specimen Type: BLOOD Comment: Test Performed by: [id number] Meter #: [id number] Ordering Provider: UMESH ABARCA Report Released Date/Time: Dec 04, 2023 01:43 PM Reporting Lab: [facility] [address] [facility] [address] Performing Lab: [facility] [address] [place] [address] GLUCOSE,BLOOD-poct (STL) 126 mg/dL H 72-99 Nov 12, 2023 10:45 AM [facility] MRSA SURVL NARES DNA NARES Specimen Type: [...] Nov 07, 2023 04:35 PM Reporting Lab: [place] [id number] [facility] [address] Performing Lab: [address] [address] MRSA SURVL NARES DNA Negative Negative Nov 12, 2023 09:55 AM [facility] DRUGS OF ABUSE (NEW) (STL) URINE Specimen Typ e: URINE No comment entered. Ordering Provider: SOBIA DOMINGO Report Released Date/Time: Nov 07, 2023 04:35 PM Reporting Lab: [place] [id number] [facility] [address] Performing Lab: [address] [address] ETHANOL Negative mg/dL 0-20 AMPHET/METHAMPHETAMINE Negative ng/mL COCAINE METABOLITES Negative ng/mL CANNABINOIDS Negative ng/mL OPIATES Negative ng/mL CREATININE URINE/OTHERS 333.4 mg/dL H 63-1 66 Nov 12, 2023 09:46 AM [facility] PT/INR NEW (STL-MA) PLASMA Specimen Type: PLAS MA No comment entered. Ordering Provider: SOBIA DOMINGO Report Released Date/Time: Nov 07, 2023 04:35 PM Reporting Lab: [address] [address] Performing Lab: [address] [address] PROTIME 11.9 s 9.4-12.5 INR VALUE 1.1 {INR} Nov 12, 2023 09:46 AM [facility] APTT PLASMA Specimen Type: PLASM A No comment entered. Ordering Provider: SOBIA DOMINGO Report Released Date/Time: Nov 07, 2023 04:35 PM Reporting Lab: [address] [address] Performing Lab: [address] [address] APTT 28.5 s 26.7-39.9 Nov 12, 2023 09:46 AM [facility] COMPREHENSIVE METABOLIC PANEL PLASMA Specimen Type: PLASMA Comment: No hemolysis noted. Ordering Provider: SOBIA DOMINGO Report Released Date/Time: Nov 07, 2023 04:35 PM Reporting Lab: [address] [address] Performing Lab: [address] [address] CREATININE 0.86 mg/dL 0.7-1.3 UREA NITROGEN 9.1 [...] 109.5 >60 Nov 12, 2023 09:46 AM [facility] CBC BLOOD Specimen Type: BLOOD No comment entered. Ordering Provider: SOBIA DOMINGO Report Released Date/Time: Nov 07, 2023 04:35 PM Reporting Lab: [facility] [address] [facility] [address] Performing Lab: [facility] [address] [place] [address] WBC 5.1 10*3/uL 3.6-11.2 RBC 4.80 10*6/uL [...] 0.00-0. 20 Nov 12, 2023 09:46 AM [facility] HGA1C BLOOD Specimen Type: BLOOD No comment entered. Ordering Provider: SOBIA DOMINGO Report Released Date/Time: Nov 07, 2023 04:35 PM Reporting Lab: [facility] [address] [facility] [address] Performing Lab: [address] [address] HGA1C 5.6 4.0-6.0 Social History: Smoking Status (Most current) and Tobacco Use (All prior to encounter date) This section includes the most current, and the historical, smoking and tobacco- related health factors from the [place] facility where the Encounter took place. Current Smoking Status This section includes the most current smoking, or tobacco-related health factor, from the [place] facility where the Encounter took place. Date/Time Current Smoking Status Comment Abad lora Apr 21, 2022 01:21 PM [place]-TOBACCO NEVER USED [facility] Tobacco Use History This section includes a history of the smoking, or tobacco-related health factors, that were collected on or before the date of the Encounter. The data comes from the [place] facility where the Encounter took place. Date/Time Smoking Status/Tobacco Use Comment F acility Dec 03, 2020 12:04 PM [place]-TOBACCO NEVER USED [facility] Radiology Reports: +/- 30 days of the [...] the Encounter. The data comes from all [place] treatment facilities. Date/Time Radiology Report Provider Source Dec 04, 2023 06:27 AM FLUOROS(SEPARATE PROCEDURE),UP TO 1 HOUR: NIKKO GOMEZ [place] [id number] -[id number] M Exm Date: DEC 04, 2023@06:27 Req Phys: UMESH ABARCA Pat Loc: SICU OE-ANDRÉS/12-05-2023@05:59 Img Loc: -MAIN RADIOLOGY SUITE Service: [facility], [facility] [address] [place] [address] (Case [id number] COMPLETE) FLUOROS(SEPARATE PROCEDURE),UP TO(RAD Detailed) CPT:09206 CPT Modifiers : TC TECHNICAL COMPONENT Reason for Study: bilater c6-c7 lami Clinical History: Report Status: Verified Date Reported: DEC 05, 2023 Date Verified: DEC 05, 2023 Weed Inspector E-Sig: Report: Fluoroscopy was provided to another service. For detailed report on procedure, please see note entered in CPRS by performing physician. Impression: 1. Technical service only. 2. For detailed report of procedure, please see note in CPRS entered by the by physician who performed the procedure. 3. This is a non-medical report and was therefore completed administratively. Primary Interpreting Staff: JANAY IFGUEROA, RADIOLOGIST Verified by gore seamer for JANAY FIGUEROA /JANAY DAVIS [facility] Nov 12, 2023 09:40 AM CHEST X-RAY, 2 VIE WS: NIKKO GOMEZ [place] [id number] -1980 M Exm Date: NOV 12, 2023@09:40 Req Phys: CAHYOSOBIA Pat Loc: ANDRÉS-NEUROSURGERY ENVELOPE MACHINE OPERATOR 2 (Req'g Lo Img Loc: -MAIN RADIOLOGY SUITE Service: [facility], [facility] [address] [place] [address] (Case [id number] COMPLETE) CHEST X-RAY, 2 VIEWS (RAD Detailed) CPT:14837 Reason for Study: Pre Op Clinical History: Report Status: Verified Date Reported: NOV 12, 2023 Date Verified: NOV 12, 2023 Weed Inspector E-Sig:/ES/Austin Branham MD. FACR. Report: History: Pre Op. Comparison: No previous pertinent examination is available. Technique: PA and lateral views Findings: No pulmonary consolidation, pleural effusion, pneumothorax, cardiomegaly or pulmonary edema is seen. Impression: No acute cardiopulmonary disease is seen. Primary Interpreting Staff: Austin Branham MD. FACR, Neuroradiologist (Weed Inspector) /AUSTIN IGNACIO [facility] Encounter Notes: All associated encounter notes This section contains the clinical notes associated to the Encounter. Date/Time Encounter Note(s) Provider Source Nov 08, 2023 02:55 PM ADDENDUM: LOCAL TITLE: Addendum STANDARD TITLE: ADDENDUM DATE OF NOTE: NOV 08, 2023@14:55 ENTRY DATE: NOV 08, 2023@14:55:01 AUTHOR: KATHE MURILLO EXP COSIGNER: URGENCY: STATUS: COMPLETED Patient is followed by [place] NSURG. It is up to the specialist to evaluate if the would qualify for a [facility] NSURG consult. Tagging UMESH ABARCA to review the veterans request and place [facility] NSURG consult if appropriate. Thank you! /ben/ Kathe Murillo DNP, SUPERVISOR COATING, RATE INSERTER-C Primary Care Nurse Practitioner Signed: 11/08/2023 14:55 Receipt Acknowledged By: 11/09/2023 07:28 /es/ UMESH ABARCA MD PhD FAANS FCNS ATTENDING NEUROSURGEON 11/09/2023 11:12 /ben/ SOBIA DOMINGO MSN, SUPERVISOR COATING, NAEL NURSE PRACTITIONER, NEUROSURGERY 11/12/2023 07:57 /es/ PAMELA JMAESN RN REGISTERED NURSE --- Original Document --- 11/06/23 COMMUNITY CARE-CARE COORDINATION PLAN NOTE 657 STL: [facility] received a call from the asking what his options are to be seen by a neurosurgeon closer to his home. He is suppose to have a procedure done and his is having surgery and he needs to be closer to home for all of this. He is going to reach out to neurosurg at the [place] to see if a Community Care consult can be placed. /ben/ JANINA CANDELARIO [employer] MANUFACTURING SHIFT SUPERVISOR Signed: 11/06/2023 11:07 Receipt Acknowledged By: 11/08/2023 14:54 /ben/ Kathe Murillo DNP, SHERRILL, JAMISON-C Primary Care Nurse Practitioner 11/07/2023 08:03 /es/ UMESH ABARCA MD PhD FAANS FCNS ATTENDING NEUROSURGEON 11/07/2023 08:19 /es/ PAMELA BARNEY RN REGISTERED NURSE 11/09/2023 ADDENDUM STATUS: COMPLETED lives in [facility]. He does not qualify for NS. /ben/ SOBIA DOMINGO, MSN, SUPERVISOR COATING, BC NURSE PRACTITIONER, NEUROSURGERY Signed: 11/09/2023 11:13 KATHE MURILLO [facility] Nov 06, 2023 11:01 AM NONVA NOTE: LOCAL TITLE: COMMUNITY CARE-CARE COORDINATION PLAN NOTE 657 ST[address] STANDARD TITLE: NONVA NOTE DATE OF NOTE: NOV 06, 2023@11:01 ENTRY DATE: NOV 06, 2023@11:01:13 AUTHOR: JANINA CANDELARIO EXP COSIGNER: URGENCY: STATUS: COMPLETED COMMUNITY CARE-CARE COORDINATION PLAN NOTE 657 ST[address] Has ADDENDA [facility] received a call from the asking what his options are to be seen by a neurosurgeon closer to his home. He is suppose to have a procedure done and his is having surgery and he needs to be closer to home for all of this. He is going to reach out to [place]urg at the [place] to see if a Community Care consult can be placed. /ben/ JANINA CANDELARIO [employer]VANCED MANUFACTURING SHIFT SUPERVISOR Signed: 11/06/2023 11:07 Receipt Acknowledged By: 11/08/2023 14:54 /ben/ Kathe Murillo DNP, SHERRILL, RATE INSERTER-C Primary Care Nurse Practitioner 11/07/2023 08:03 /ben/ UMESH ABARCA MD PhD FAANS FCNS ATTENDING NEUROSURGEON 11/07/2023 08:19 /es/ PAMELA HEWITT BSN RN REGISTERED NURSE 11/08/2023 ADDENDUM STATUS: COMPLETED Patient is followed by [place] NSURG. It is up to the specialist to evaluate if the would qualify for a [facility] NSURG consult. Tagging UMESH ABARCA to review the veterans request and place [facility] NSURG consult if appropriate. Thank you! /ben/ Kathe Murillo DNP, SHERRILL, RATE INSERTER-C Primary Care Nurse Practitioner Signed: 11/08/2023 14:55 Receipt Acknowledged By: 11/09/2023 07:28 /ben/ UMESH ABARCA MD PhD FAANS FCNS ATTENDING NEUROSURGEON 11/09/2023 11:12 /ben/ SOBIA DOMINGO, MSN, SUPERVISOR COATING, BC NURSE PRACTITIONER, NEUROSURGERY * AWAITING SIGNATURE * PAMELA HEWITT 11/09/2023 ADDENDUM STATUS: COMPLETED lives in [facility]. He does not qualify for [facility] NSGY. /ben/ SOBIA DOMINGO, MSN, SUPERVISOR COATING, BC NURSE PRACTITIONER, NEUROSURGERY Signed: 11/09/2023 11:[address] [facility]
--- OUTSIDE RECORDS SUMMARY | 2024-09-16 02:24 | XMS_ITS | Encounter Summary ---
Author Name [facility] [place] [facility] [place] [facility] [facility] [place] Address [address] [place] [address] Care Team Providers Care Mail Processing Associate Name Role Phone CONNIE MURILLO Primary Care [...] [facility] HEALT H PLAN Nov 08, 2013 [id number] [phone] WIDEL,CHR ISTOPHER PATIENT [facility]-SS PREFERRED PROVIDER ORGANIZAT ION (PPO) [facility] Apr 16, 2023 [id number] WIDEL,CHR ISTOPHER PATIENT FORMERLY [facility] APWU PART A ONLY Mar 11, 2014 [id number] WIDEL,CHR ISTOPHER PATIENT [facility] APW[facility] HEALT H PLAN Apr 16, 2020 [id number] [phone] WIDEL,CHR ISTOPHER PATIENT [facility] PRESCRIPT ION [facility] HEALT H PLAN Mar 11, 2014 [id number] [phone] WIDEL,CHR ISTOPHER PATIENT [facility] PRESCRIPT ION [facility] RX PLAN Nov 08, 2013 [id number] [phone] WIDEL,CHR ISTOPHER PATIENT [facility] PRESCRIPT ION [facility] Nov 08, 2013 [id number] [phone] WIDEL,CHR ISTOPHER PATIENT Selected Encounter This section includes the information on record at [place] for the Encounter. Date/Time Encounter Type Encounter Description Reason Provider Source Dec 04, 2023 06:02 AM OFFICE O/P EST SF 10 MIN ANESTHESIA PRE/POST-OP CONSULT ICD-10-CM Z01.818 Encounter for other preprocedural examination GITA JACOBS [place] Encounter Template Text not used by [place] Assessments - Encounter Diagnoses This section includes the primary and secondary diagnoses documented for the Encounter. Date/Time Primary/Secondary Diagnosis Diagnosis Name Provider Source Jan 17, 2024 07:11 AM PRIMARY Encounter for other preprocedural examination GITA JACOBS [facility] Jan 17, 2024 07:11 AM SECONDARY Encounter for preprocedural cardiovascular examination GITA JACOBS [facility] Jan 17, 2024 07:11 AM SECONDARY Encounter for preprocedural respiratory examination GITA JACOBS [facility] Plan of Treatment: Future Appointments (+ 6 months) and Future Tests (+/- 45 days) The Plan of Treatment section includes future care activities for the patient from all [place] treatmentfacilities. This section includes future appointments and future orders which are active, pending or scheduled. Future Appointments This section includes appointments that were scheduled to occur 6 months from the date of the Encounter, up to a maximum of 20 appointments. The data comes from all [place] treatment facilities. Appointment Date/Time Appointment Type Appointme nt Facility Name Dec 13, 2023 09:30 AM AMBULATORY - SURGERY [facility] Dec 26, 2023 02:00 PM AMBULATORY - REHAB MEDICIN E [facility] Jan 21, 2024 08:30 AM AMBULATORY - REHAB MEDICIN E [facility] Jan 21, 2024 09:30 AM AMBULATORY - SURGERY . [facility] Feb 04, 2024 09:00 AM AMBULATORY - REHAB MEDICIN E [facility] Feb 18, 2024 09:00 AM AMBULATORY - REHAB MEDICIN E [facility] May 15, 2024 09:30 AM AMBULATORY - MEDICINE [facility] Active, Pending, and Scheduled Orders This section includes a listing of several types of active, pending, and scheduled orders, including clinic medications orders, diagnostic test orders, procedure orders and consult orders; where the start date of the order is 45 days before the date of the Encounter or 45 days after the date of theEncounter. The data comes from all [place] treatment facilities. Test Date/Time Test Type Test Details Facility Name Nov 07, 2023 12:00 AM Laboratory - Blood Bank Order TYPE & SCREEN - LAB BLOOD SP [facility] Nov 07, 2023 12:00 AM Laboratory - Blood Bank Order RED BLOOD CELLS - LAB VBECS - NO SPECIMEN REQUIRED [facility] Dec 04, 2023 06:00 AM Laboratory - Blood Bank Order TYPE & SCREEN - LAB BLOOD [facility] Lab Results: +/- 30 days of the encounter This section includes the Chemistry and Hematology Lab Results on record with [place] for the patient. Radiology Reports and Pathology Reports are provided separately, in subsequent sections. Lab Results This section contains the Chemistry/Hematology Results that were resulted 30 days before or 30 daysafter the date of the Encounter. Date/Time Source Result Type Result - Unit Interpretation Reference Range Specimen Type Comment Dec 05, 2023 04:56 AM [facility] GLUCOSE,BLOOD-poct (STL) BLOOD Specimen Type: BLOOD Comment: Test Performed by: [id number] Meter #: [id number] Ordering Provider: UMESH ABARCA Report Released Date/Time: Dec 05, 2023 06:07 AM Reporting Lab: [address] [address] Performing Lab: [facility] [address] [facility] [address] GLUCOSE,BLOOD-poct (STL) 107 mg/dL H 72-99 Dec 04, 2023 10:43 PM [facility] GLUCOSE,BLOOD-poct (STL) BLOOD Specimen Type: BLOOD Comment: Test Performed by: [id number] Meter #: [id number] Ordering Provider: UMESH ABARCA Report Released Date/Time: Dec 04, 2023 11:11 PM Reporting Lab: [address] [address] Performing Lab: [address] [address] GLUCOSE,BLOOD-poct (STL) 154 mg/dL H 72-99 Dec 04, 2023 08:57 PM [facility] MAGNESIUM PLASMA Specimen Type: PLASM A No comment entered. Ordering Provider: ANGEL THOMPSON Report Released Date/Time: Dec 04, 2023 02:05 PM Reporting Lab: [address] [address] Performing Lab: [address] [address] MAGNESIUM 2.1 mg/dL 1.6-2.6 Dec 04, 2023 08:57 PM [facility] CBC BLOOD Specimen Type: BLOOD No comment entered. Ordering Provider: ANGEL THOMPSON Report Released Date/Time: Dec 04, 2023 02:05 PM Reporting Lab: [address] [address] Performing Lab: [address] [address] WBC 9.0 10*3/uL 3.6-11.2 RBC 4.43 10*6/uL [...] 0.00-0. 20 Dec 04, 2023 04:56 PM [facility] GLUCOSE,BLOOD-poct (STL) BLOOD Specimen Type: BLOOD Comment: Test Performed by: [id number] Meter #: [id number] Ordering Provider: UMESH ABARCA Report Released Date/Time: Dec 04, 2023 05:07 PM Reporting Lab: [address] [address] Performing Lab: [address] [address] GLUCOSE,BLOOD-poct (STL) 129 mg/dL H 72-99 Dec 04, 2023 02:00 PM [facility] MRSA SURVL NARES DNA NARES Specimen [...] Dec 04, 2023 02:05 PM Reporting Lab: [address] [address] Performing Lab: [facility] [address] [facility] [address] MRSA SURVL NARES DNA Negative Negative Dec 04, 2023 01:30 PM [facility] GLUCOSE,BLOOD-poct (L) BLOOD Specimen Type: BLOOD Comment: Test Performed by: [id number] Meter #: [id number] Ordering Provider: UMESH ABARCA Report Released Date/Time: Dec 04, 2023 01:43 PM Reporting Lab: [facility] [address] [facility] [address] Performing Lab: [place] [address] [facility] [address] GLUCOSE,BLOOD-poct ([facility]) 126 mg/dL H 72-9 9 Nov 12, 2023 10:45 AM [facility] MRSA SURVL NARES DNA NARES Specimen [...] Nov 07, 2023 04:35 PM Reporting Lab: [facility] [address] [facility] [address] Performing Lab: [facility] [address] [facility] [address] MRSA SURVL NARES DNA Negative Negative Nov 12, 2023 09:55 AM [facility] DRUGS OF ABUSE (NEW) (L) URINE Specimen Typ e: URINE No comment entered. Ordering Provider: SOBIA DOMINGO Report Released Date/Time: Nov 07, 2023 04:35 PM Reporting Lab: [facility] [address] [facility] [facility] [address] Performing Lab: [place] [address] [facility] [address] ETHANOL Negative mg/dL 0-20 AMPHET/METHAMPHETAMINE Negative ng/mL COCAINE METABOLITES Negative ng/mL CANNABINOIDS Negative ng/mL OPIATES Negative ng/mL CREATININE URINE/OTHERS 333.4 mg/dL H 63-1 66 Nov 12, 2023 09:46 AM [facility] PT/INR NEW (STL-MA) PLASMA Specimen Type: PLAS MA No comment entered. Ordering Provider: SOBIA DOMINGO Report Released Date/Time: Nov 07, 2023 04:35 PM Reporting Lab: [address] [address] Performing Lab: [address] [address] PROTIME 11.9 s 9.4-12.5 INR VALUE 1.1 {INR} Nov 12, 2023 09:46 AM [facility] APTT PLASMA Specimen Type: PLASM A No comment entered. Ordering Provider: SOBIA DOMINGO Report Released Date/Time: Nov 07, 2023 04:35 PM Reporting Lab: [address] [address] Performing Lab: [address] [address] APTT 28.5 s 26.7-39.9 Nov 12, 2023 09:46 AM [facility] CBC BLOOD Specimen Type: BLOOD No comment entered. Ordering Provider: SOBIA DOMINGO Report Released Date/Time: Nov 07, 2023 04:35 PM Reporting Lab: [address] [address] Performing Lab: [address] [address] WBC 5.1 10*3/uL 3.6-11.2 RBC 4.80 10*6/uL [...] 0.00-0. 20 Nov 12, 2023 09:46 AM [facility] HGA1C BLOOD Specimen Type: BLOOD No comment entered. Ordering Provider: SOBIA DOMINGO Report Released Date/Time: Nov 07, 2023 04:35 PM Reporting Lab: [address] [address] Performing Lab: [address] [address] HGA1C 5.6 4.0-6.0 Nov 12, 2023 09:46 AM [facility] COMPREHENSIVE METABOLIC PANEL PLASMA Specimen Type: PLASMA Comment: No hemolysis noted. Ordering Provider: SOBIA DOMINGO Report Released Date/Time: Nov 07, 2023 04:35 PM Reporting Lab: [address] [address] Performing Lab: [address] [address] CREATININE 0.86 mg/dL 0.7-1.3 UREA NITROGEN 9.1 [...] U/L 8-40 EGFR (CKD-EPI 2020) 109.5 >60 Vital Signs: All taken on the encounter date This section contains inpatient and outpatient Vital Signs collected on the date of the Encounter. Date/Time Temperature Pulse Blood Pressure Respiratory Rate SP02 Pain Height Weight Body Mass Index Source Dec 04, 2023 08:30 PM 5 [facility] Dec 04, 2023 07:23 PM 6 [facility] Dec 04, 2023 04:59 PM 2 [facility] Dec 04, 2023 03:11 PM 3 [facility] Dec 04, 2023 06:15 AM 97.7 72 134/97 16 100 4 72 245.8 33 [facility] Social History: Smoking Status (Most current) and Tobacco Use (All prior to encounter date) This section includes the most current, and the historical, smoking and tobacco- related health factors from the [place] facility where the Encounter took place. Current Smoking Status This section includes the most current smoking, or tobacco-related health factor, from the [place] facility where the Encounter took place. Date/Time Current Smoking Status Comment Abad lora Apr 21, 2022 01:21 PM [place] NEVER USED [facility] Tobacco Use History This section includes a history of the smoking, or tobacco-related health factors, that were collected on or before the date of the Encounter. The data comes from the [place] facility where the Encounter took place. Date/Time Smoking Status/Tobacco Use Comment F iesha Dec 03, 2020 12:04 PM [place]TO[place] NEVER USED [facility] Radiology Reports: +/- 30 days of [...] the Encounter. The data comes from all [place] treatment facilities. Date/Time Radiology Report Provider Source Dec 04, 2023 06:27 AM FLUOROS(SEPARATE PROCEDURE),UP TO 1 HOUR: NIKKO GOMEZ [place] [id number] -1980 M Exm Date: DEC 04, 2023@06:27 Req Phys: UMESH ABARCA Pat Loc: SICU OE-/12-05-2023@05:59 [facility] SU[facility] Service: Unknown [address] [address] (Case [id number] COMPLETE) FLUOROS(SEPARATE PROCEDURE),UP TO(RAD Detailed) CPT:02203 CPT Modifiers : TC TECHNICAL COMPONENT Reason for Study: bilater c6-c7 lami Clinical History: Report Status: Verified Date Reported: DEC 05, 2023 Date Verified: DEC 05, 2023 Pipe Organ Mechanic Apprentice E-Sig: Report: Fluoroscopy was provided to another [...] Interpreting Staff: JANAY FIGUEROA, RADIOLOGIST Verified by raspberry checker for AJNAY FIGUEROA /[facility] Nov 12, 2023 09:40 AM CHEST X-RAY, 2 VIE WS: NIKKO GOMEZ [place] [id number] -1980 M Exm Date: NOV 12, 2023@09:40 Req Phys: SOBIA DOMINGO Loc: -NEUROSURGERY LEAD NUCLEAR MEDICINE TECHNOLOGIST 2 (Req'g Lo Img [facility] Service: Unknown [address] [address] (Case [id number] COMPLETE) CHEST X-RAY, 2 VIEWS (RAD Detailed) CPT:57451 Reason for Study: Pre Op Clinical History: Report Status: Verified Date Reported: NOV 12, 2023 Date Verified: NOV 12, 2023 Pipe Organ Mechanic Apprentice E-Sig:/ES/Austin Branham MD. FACR. Report: History: Pre Op. Comparison: No previous pertinent examination is available. Technique: PA and lateral views Findings: No pulmonary consolidation, pleural effusion, pneumothorax, cardiomegaly or pulmonary edema is seen. Impression: No acute cardiopulmonary disease is seen. Primary Interpreting Staff: Austin Branham MD. FACR, Neuroradiologist (Pipe Organ Mechanic Apprentice) /[place] IGNACIO [facility] Encounter Notes: All associated encounter notes This section contains the clinical notes associated to the Encounter. Date/Time Encounter Note(s) Provider Source Dec 04, 2023 02:47 PM ANESTHESIOLOGY POS T OPERATIVE E & M NOTE: LOCAL TITLE: ANESTHESIA POST-OP STL STANDARD TITLE: ANESTHESIOLOGY POST OPERATIVE E & M NOTE DATE OF NOTE: DEC 04, 2023@14:47 ENTRY DATE: DEC 04, 2023@14:47:59 AUTHOR: GITA JACOBS EXP COSIGNER: URGENCY: STATUS: COMPLETED Post-Anesthesia Review: No anesthetic related complications. Intra Op Flowsheet Submitted /es/ GITA JACOBS MD Staff Anesthesiologist Signed: 12/04/2023 14:48 GITA JACOBS [facility] Dec 04, 2023 06:03 AM ANESTHESIOLOGY PRE OPERATIVE E & M NOTE: LOCAL TITLE: ANESTHESIA PRE-OP STL STANDARD TITLE: ANESTHESIOLOGY PRE OPERATIVE E & M NOTE DATE OF NOTE: DEC 04, 2023@06:03 ENTRY DATE: DEC 04, 2023@06:03:10 AUTHOR: GITA JACOBS EXP COSIGNER: URGENCY: STATUS: COMPLETED Pre-Operative Diagnosis: C spine stenosis Operation proposed: C6-7 laminectomy 43 yo HTN / HLD / diabetes / BLAYNE / prediabetes / GERD Vitals: Age: 43 Weight: 244.9 lb [111.08 kg] (11/12/2023 08:58) Height: 72 in [182.9 cm] (11/12/2023 08:58) BP: 144/89 (11/12/2023 08:58) Pulse: 77 (11/12/2023 08:58) Resp: 18 (11/12/2023 08:58) SpO2: 98% (11/12/2023 08:58) Temp: 98.1 F [36.7 C] (11/12/2023 08:58) Allergies: MORPHINE ACTIVE INPT MEDS: 1) CEFAZOLIN 2GM/BAG INJ,SOLN IVPB ONE-TIME TO BE GIVEN IN O.R. ONLY ON Nov@07:30 ACTIVE OUTPT MEDS: Active Outpatient Medications (including Supplies): Active Outpatient [...] 40MG BY MOUTH TWICE A ACTIVE DAY 4 Total Medications HGB 14.2 g/dL 11/12/2023 09:46 HCT 42.2 % (11/12/23 09:46) PLT 277 10*3/uL 11/12/2023 09:46 WBC 5.1 10*3/uL (11/12/23 09:46) PT 11.9 sec (11/12/23 09:46) INR 1.1 INR (11/12/23 09:46) APTT 28.5 sec 11/12/2023 09:46 SODIUM 140 mEq/L 11/12/2023 09:46 POTASSIUM 3.9 mEq/L 11/12/2023 09:46 CHLORIDE 107 mEq/L 11/12/2023 09:46 UREA NITROGEN 9.1 mg/dL 11/12/2023 09:46 CREATININE 0.86 mg/dL 11/12/2023 09:46 CALCIUM 8.7 mg/dL 11/12/2023 09:46 CARBON DIOXIDE 24 mEq/L 11/12/2023 09:46 GLUCOSE 106 H mg/dL 11/12/2023 09:46 EGFR (CKD-EPI 2020) 109.5 11/12/2023 09:46 ALBUMIN 4.2 g/dL 11/12/2023 09:46 HGA1C 5.6 % 11/12/2023 09:46 ALKALINE PHOSPHATASE 132 U/L 11/12/2023 09:46 SGPT/ALT 24 U/L (11/12/23 09:46) SGOT/AST 23 U/L (11/12/23 09:46) TOTAL BILIRUBIN 0.4 mg/dL 11/12/2023 09:46 No GLUCOSE,BLOOD-poct (STL) data found No URINALYSIS EO data found UDS: AMPHET/METHAMPHETAMINE Negative ng/mL 11/12/2023 09:55 CANNABINOIDS Negative ng/mL 11/12/2023 09:55 COCAINE METABOLITES Negative ng/mL 11/12/2023 09:55 OPIATES Negative ng/mL 11/12/2023 09:55 CXR: Impression for CHEST X-RAY, 2 VIEWS, 11/12/23, case [id number] No acute cardiopulmonary disease is seen. EKG:Sinus bradycardia Otherwise normal ECG No previous ECGs available Problem List: 1) Benign essential hypertension 2) Obesity 3) Osteoarthritis of knee 4) Sleep apnea 5) Prediabetes 6) Posttraumatic stress disorder 7) Gastroesophageal reflux disease 8) Cervicalgia 9) Tinnitus 10) Exposure to potentially hazardous substance REVIEW OF SYSTEMS: RESPIRATORY: BLAYNE CARDIOVASCULAR: HTN / HLD NEURO: c spine stenosis PSYCH: NO PTSD/MDD/ANXIETY ENDOCRINE: pre diabetes RENAL: NO KIDNEY DISEASE GI SYSTEM: GERD MUSCULOSKELETAL: left knee pain, and catching OTHER: NONE SIGNIFICANT CHRONIC STEROID USE? no HABITS: ETOH History: occ Smoking History: none Recreational Drug Use Past Yr: MJ 3 weeks ago Previous Surgical Procedures No previous Anesthesia complications Physical Exam: Young male in adequate health AIRWAY: MP CLASS: 2 SUBMANDIBULAR SPACE: 3 fingerbreadths RANGE OF MOTION: Full TEETH: large teeth with Braces in place ASA: 2 ANESTHETIC PLAN: General Premedications: NONE Planned anesthetic technique and options were discussed with the patient or guardian. Pre-Induction Reassessment: NPO Greater than 8 hours: Yes Medications given/taken today: PT DOES NOT TAKE BETA BLOCKERS. /ben/ GITA JACOBS MD Staff Anesthesiologist Signed: 12/04/2023 06:27 GITA JACOBS [facility]
--- OUTSIDE RECORDS SUMMARY | 2024-09-16 02:24 | XMS_ITS | Encounter Summary ---
Author Name [facility] [place] [facility] [facility] [place] Address [address] [place] [address] Care Team Providers Care Lone Lead Lineman Name Role Phone MURILLO CONNIE Primary Care [...] APWU HEALT H PLAN Nov 08, 2013 [id number] [phone] WIDEL,CHR ISTOPHER PATIENT APWU-SS PREFERRED PROVIDER ORGANIZAT ION (PPO) APWU Apr 16, 2023 [id number] WIDEL,CHR ISTOPHER PATIENT [facility] PART A ONLY Mar 11, 2014 [id number] WIDEL,CHR ISTOPHER PATIENT [facility] APW[facility] HEALT H PLAN Apr 16, 2020 [id number] [phone] WIDEL,CHR ISTOPHER PATIENT [facility] PRESCRIPT ION APWU HEALT H PLAN Mar 11, 2014 [id number] [phone] WIDEL,CHR ISTOPHER PATIENT [facility] PRESCRIPT ION APWU RX PLAN Nov 08, 2013 [id number] [phone] WIDEL,CHR ISTOPHER PATIENT [facility] PRESCRIPT ION AP[facility]U Nov 08, 2013 [id number] [phone] WIDEL,CHR ISTOPHER PATIENT Selected Encounter This section includes the information on record at [place] for the Encounter. Date/Time Encounter Type Encounter Description Reason Provider Source Dec 05, 2023 08:55 AM OT EVAL LOW COMPLEX 30 MIN OCCUPATIONAL THERAPY ICD-10-CM M54.2 Cervicalgia RUTHIE EDWARDS [facility] Encounter Template Text not used by [place] Assessments - Encounter Diagnoses This section includes the primary and secondary diagnoses documented for the Encounter. Date/Time Primary/Secondary Diagnosis Diagnosis Name Provider Source Dec 05, 2023 12:04 PM PRIMARY Cervicalgia KARELY EDWARDS [facility] Dec 05, 2023 12:04 PM SECONDARY Age-related physical debility KARELY EDWARDS [facility] Plan of Treatment: Future Appointments (+ 6 months) and Future Tests (+/- 45 days) The Plan of Treatment section includes future care activities for the [facility] [place] [facility] This section includes future appointments and future orders which are active, pending or scheduled. Future Appointments This section includes appointments that were scheduled to occur 6 months from the date of the Encounter, up to a maximum of 20 appointments. The data comes from all [place] treatment facilities. Appointment Date/Time Appointment Type Appointme nt Facility Name Dec 13, 2023 09:30 AM AMBULATORY - SURGERY [facility] Dec 26, 2023 02:00 PM [facility] Jan 21, 2024 08:30 AM AM[facility]ULATORY - [facility] Jan 21, 2024 09:30 AM AMBULATORY - SURGERY [facility] Feb 04, 2024 09:00 AM AMBULATORY - REHAB MEDICIN E [facility] Feb 18, 2024 09:00 AM AMBULATORY - REHAB MEDICIN E [facility] May 15, 2024 09:30 AM AMBULATORY - MEDICINE [facility] Active, Pending, and Scheduled Orders This section includes a listing of several types of active, pending, and scheduled orders, including clinic medications orders, diagnostic test orders, procedure orders and consult orders; where the start date of the order is 45 days before the date of the Encounter or 45 days after the date of theEncounter. The data comes from all [place] treatment facilities. Test Date/Time Test Type Test Details Facility Name Nov 07, 2023 12:00 AM Laboratory - Blood Bank Order RED BLOOD CELLS - LAB VBECS - NO SPECIMEN REQUIRED [facility] Nov 07, 2023 12:00 AM Laboratory - Blood Bank Order TYPE & SCREEN - LAB BLOOD [facility] Dec 04, 2023 06:00 AM Laboratory - Blood Bank Order TYPE & SCREEN - LAB BLOOD [facility] Lab Results: +/- 30 days of the encounter This section includes the Chemistry and Hematology Lab Results on record with [place] for the patient. Radiology Reports and Pathology Reports are provided separately, in subsequent sections. Lab Results This section contains the Chemistry/Hematology Results that were resulted 30 days before or 30 daysafter the date of the Encounter. Date/Time Source Result Type Result - Unit Interpretation Reference Range Specimen Type Comment Dec 05, 2023 04:56 AM [facility] GLUCOSE,BLOOD-poct (STL) BLOOD Specimen Type: BLOOD Comment: Test Performed by: [id number] Meter #: [id number] Ordering Provider: UMESH ABARCA Report Released Date/Time: Dec 05, 2023 06:07 AM Reporting Lab: [facility] [address] [facility] [address] Performing Lab: [place] [address] [facility] [address] GLUCOSE,BLOOD-poct (STL) 107 mg/dL H 72-99 Dec 04, 2023 10:43 PM [facility] GLUCOSE,BLOOD-poct (STL) BLOOD Specimen Type: BLOOD Comment: Test Performed by: [id number] Meter #: [id number] Ordering Provider: UMESH ABARCA Report Released Date/Time: Dec 04, 2023 11:11 PM Reporting Lab: [address] [address] Performing Lab: [address] [address] GLUCOSE,BLOOD-poct (STL) 154 mg/dL H 72-99 Dec 04, 2023 08:57 PM [facility] MAGNESIUM PLASMA Specimen Type: PLASM A No comment entered. Ordering Provider: ANGEL THOMPSON Report Released Date/Time: Dec 04, 2023 02:05 PM Reporting Lab: [address] [address] Performing Lab: [address] [address] MAGNESIUM 2.1 mg/dL 1.6-2.6 Dec 04, 2023 08:57 PM [facility] CBC BLOOD Specimen Type: BLOOD No comment entered. Ordering Provider: ANGEL THOMPSON Report Released Date/Time: Dec 04, 2023 02:05 PM Reporting Lab: [address] [address] Performing Lab: [address] [address] WBC 9.0 10*3/uL 3.6-11.2 RBC 4.43 10*6/uL [...] Dec 04, 2023 04:56 PM [facility] GLUCOSE,BLOOD-poct (STL) BLOOD Specimen Type: BLOOD Comment: Test Performed by: [id number] Meter #: [id number] Ordering Provider: UMESH ABARCA Report Released Date/Time: Dec 04, 2023 05:07 PM Reporting Lab: [address] [address] Performing Lab: [address] [address] GLUCOSE,BLOOD-poct (STL) 129 mg/dL H 72-99 Dec 04, 2023 02:00 PM [facility] MRSA SURVL NARES DNA NARES Specimen [...] Dec 04, 2023 02:05 PM Reporting Lab: [address] [address] Performing Lab: [address] [address] MRSA SURVL NARES DNA Negative Negative Dec 04, 2023 01:30 PM [facility] GLUCOSE,BLOOD-poct (L) BLOOD Specimen Type: BLOOD Comment: Test Performed by: [id number] Meter #: [id number] Ordering Provider: UMESH ABARCA Report Released Date/Time: Dec 04, 2023 01:43 PM Reporting Lab: [address] [address] Performing Lab: [address] [address] GLUCOSE,BLOOD-poct ([facility]) 126 mg/dL H 72-99 Nov 12, 2023 10:45 AM [facility] MRSA SURVL NARES DNA NARES Specimen [...] Nov 07, 2023 04:35 PM Reporting Lab: [address] [address] Performing Lab: [address] [address] MRSA SURVL NARES DNA Negative Negative Nov 12, 2023 09:55 AM [facility] DRUGS OF ABUSE (NEW) (L) URINE Specimen Typ e: URINE No comment entered. Ordering Provider: SOBIA DOMINGO Report Released Date/Time: Nov 07, 2023 04:35 PM Reporting Lab: [address] [address] Performing Lab: [address] [address] ETHANOL Negative mg/dL 0-20 AMPHET/METHAMPHETAMINE Negative ng/mL COCAINE METABOLITES Negative ng/mL CANNABINOIDS Negative ng/mL OPIATES Negative ng/mL CREATININE URINE/OTHERS 333.4 mg/dL H 63-1 66 Nov 12, 2023 09:46 AM [facility] PT/INR NEW (STL-MA) PLASMA Specimen Type: PLAS MA No comment entered. Ordering Provider: SOBIA DOMINGO Report Released Date/Time: Nov 07, 2023 04:35 PM Reporting Lab: [address] [address] Performing Lab: [address] [address] PROTIME 11.9 s 9.4-12.5 INR VALUE 1.1 {INR} Nov 12, 2023 09:46 AM [facility] APTT PLASMA Specimen Type: PLASM A No comment entered. Ordering Provider: SOBIA DOMINGO Report Released Date/Time: Nov 07, 2023 04:35 PM Reporting Lab: [address] [address] Performing Lab: [address] [address] APTT 28.5 s 26.7-39.9 Nov 12, 2023 09:46 AM [facility] CBC BLOOD Specimen Type: BLOOD No comment entered. Ordering Provider: SOBIA DOMINGO Report Released Date/Time: Nov 07, 2023 04:35 PM Reporting Lab: [address] [address] Performing Lab: [address] [address] WBC 5.1 10*3/uL 3.6-11.2 RBC 4.80 10*6/uL [...] 0.00-0. 20 Nov 12, 2023 09:46 AM [facility] COMPREHENSIVE METABOLIC PANEL PLASMA Specimen Type: PLASMA Comment: No hemolysis noted. Ordering Provider: SOBIA DOMINGO Report Released Date/Time: Nov 07, 2023 04:35 PM Reporting Lab: [address] [address] Performing Lab: [address] [address] CREATININE 0.86 mg/dL 0.7-1.3 UREA NITROGEN 9.1 [...] 109.5 >60 Nov 12, 2023 09:46 AM [facility] HGA1C BLOOD Specimen Type: BLOOD No comment entered. Ordering Provider: SOBIA DOMINGO Report Released Date/Time: Nov 07, 2023 04:35 PM Reporting Lab: [address] [address] Performing Lab: [address] [address] HGA1C 5.6 4.0-6.0 Vital Signs: All taken on the encounter date This section contains inpatient and outpatient Vital Signs collected on the date of the Encounter. Date/Time Temperature Pulse Blood Pressure Respiratory Rate SP02 Pain Height Weight Body Mass Index Source Dec 05, 2023 12:36 PM 6 [facility] Dec 05, 2023 10:01 AM 4 [facility] Dec 05, 2023 07:26 AM 6 [facility] Dec 05, 2023 01:15 AM 5 [facility] Dec 05, 2023 12:28 AM 8 [facility] Social History: Smoking Status (Most current) and Tobacco Use (All prior to encounter date) This section includes the most current, and the historical, smoking and tobacco- related health factors from the [place] facility where the Encounter took place. Current Smoking Status This section includes the most current smoking, or tobacco-related health factor, from the [place] facility where the Encounter took place. Date/Time Current Smoking Status Comment Facil ity Apr 21, 2022 01:21 PM [facility]-TOBACCO NEVER USED [facility] Tobacco Use History This section includes a history of the smoking, or tobacco-related health factors, that were collected on or before the date of the Encounter. The data comes from the [place] facility where the Encounter took place. Date/Time Smoking Status/Tobacco Use Comment F acility Dec 03, 2020 12:04 PM [facility]-TOBACCO NEVER USED [facility] Radiology Reports: +/- 30 days of [...] the Encounter. The data comes from all [place] treatment facilities. Date/Time Radiology Report Provider Source Dec 04, 2023 06:27 AM FLUOROS(SEPARATE PROCEDURE),UP TO 1 HOUR: NIKKO GOMEZ [id number] -1980 M Exm Date: DEC 04, 2023@06:27 Req Phys: UMESH [facility]CA [facility]05:59 Im Loc: [facility] SUITE Service: Unknown [address] [address] (Case [id number] COMPLETE) FLUOROS(SEPARATE PROCEDURE),UP TO(RAD Detailed) CPT:50315 CPT Modifiers : TC TECHNICAL COMPONENT Reason for Study: bilater c6-c7 lami Clinical History: Report Status: Verified Date Reported: DEC 05, 2023 Date Verified: DEC 05, 2023 Ice Guard Tester E-Sig: Report: Fluoroscopy was provided to another [...] Interpreting Staff: JANAY FIGUEROA, RADIOLOGIST Verified by body coverer for JANAY FIGUEROA /[facility] Nov 12, 2023 09:40 AM CHEST X-RAY, 2 VIE WS: NIKKO GOMEZ NM [id number] -1980 M Exm Date: NOV 12, 2023@09:40 Req Phys: CHAYOSOBIA Lorie Loc: -NEUROSURGERY COSMETICS AND TOILETRIES SALESPERSON 2 (Req'g Lo Img Loc: [facility] SUITE Service: Unknown [address] [address] (Case [id number] COMPLETE) CHEST X-RAY, 2 VIEWS (RAD Detailed) CPT:78946 Reason for Study: Pre Op Clinical History: Report Status: Verified Date Reported: NOV 12, 2023 Date Verified: NOV 12, 2023 Ice Guard Tester E-Sig:/ES/Austin Branham MD. FACR. Report: History: Pre Op. Comparison: No previous pertinent examination is available. Technique: PA and lateral views Findings: No pulmonary consolidation, pleural effusion, pneumothorax, cardiomegaly or pulmonary edema is seen. Impression: No acute cardiopulmonary disease is seen. Primary Interpreting Staff: Austin Branham MD. FACR, Neuroradiologist (Ice Guard Tester) /[facility] IGNACIO [facility] Encounter Notes: All associated encounter notes This section contains the clinical notes associated to the Encounter. Date/Time Encounter Note(s) Provider Source Dec 05, 2023 11:52 AM OCCUPATIONAL MEDIC INE CONSULT: LOCAL TITLE: OT CONSULT STL STANDARD TITLE: OCCUPATIONAL MEDICINE CONSULT DATE OF NOTE: DEC 05, 2023@11:52 ENTRY DATE: DEC 05, 2023@11:52:28 AUTHOR: BROOKE EDWARDS EXP COSIGNER: URGENCY: STATUS: COMPLETED Initial Occupational Therapy Note Date of initiation of treatment: 12/05/23 Requesting Provider: ANGEL THOMPSON Reason for request: post op eval and treatment s/p cervical decompression surgery Treatment visit #: 1 Refusals: 0 Diagnosis: Cervicalgia(ICD-10-CM M54.2) Order/Precautions: cervical, c-collar for comfort Treatment Time: (19 minutes OT eval) Contact OT via Vocera or Teams -Other people involved in treatment [X]None []Included: REASON FOR ADMISSION: s/p Cervical C6-7 bilateral laminectomy attn right foramen, removal of hypertrophied ligament PAST MEDICAL HISTORY: OA of knee, cervicalgia, HOME ENVIRONMENT: Lives with: House Type: 1 story house Stairs: 2-3 steps Toilet: SHT Shower: walk-in w/built in seat Self-Care: I Ambulation device: none IADLs: shared w/ Driving: I Medication management: I Falls: 0 in the past 3 months Patient goals are: return home SUBJECTIVE: when aseked about pain states I'm comfortable right now but did indicate increasing pain with activity OBJECTIVE: UE AROM: WFL for self-care UE STRENGTH: WFL for self-care Hand A/PROM/Coordination/Dictaphone Typist: WFL Tone/Edema/other: none issued Endurance: fair Mental Status: a & o x 4 Pt was able to demonstrate understanding of therapy instructions this date. Further cognitive screen not indicated at this time. IRF-SCAR Section GG Self-Care and Mobility MCNEAL: 6: Independent, 5: Setup or Cleanup Assistance. 4: Supervision or Touching Assistance. 3: Partial/Moderate Assistance. 2: Substantial/Maximal Assistance. 1: Dependent. 07: Refused. 09: Not Applicable--Did not perform this activity prior. 10: Not Attempted--Due to environmental limitations. 88: Not Attempted--Due to medical condition/safety concerns. - : not observed SELF-CARE Initial Eating: - Oral Hygiene: - Toilet Hygiene: - Wash Upper Body: - Shower/Bathe Self: - UB Dressin LB Dressin Timothy/Doff Footwear: 6 Comments: education on donning c-collar, he indicates his will assist PRN. required assist to situation shirt over torso due to pain MOBILITY Roll L+R: 6 Sit to Lying: - Lying to Sitting EOB: 6 Sit to Stand: 6 Chair/Bed to Chair Tx: 6 Toilet Transfer: - Comments: no AE used Equipment: none issued [place] Education [place] was informed of the purpose and benefit of OT. [place] educated on activity recommendations while in hospital. ASSESSMENT: 43 y/o male s/p Cervical C6-7 bilateral laminectomy attn right foramen, removal of hypertrophied ligament. Fabián was previously I with self-care and mobility. He demonstrates abilities to return home with assist from PRN for self-care and IADLs. Fabián was seen for 1 visit to complete consult. No further skilled OT services indicated at this time. DISCHARGE RECOMMENDATION: []Low Intensity Inpatient Rehabilitation []Comprehensive Inpatient Rehabilitation []24/7 Care - provided by facility or family; no therapy needs []24/7 Supervision either from family or facility [X]Home with []No further needs []Home Health OT []Prior Level of Assist []Outpatient OT [X]Assist for IADLs and PRN for ADLs []Physiatry Consult to Outpatient PMR Service []Other: PLAN: Discharge skilled OT services 2/2 not indicated at this time. Occupational Profile and History [X] Brief (low) [] Expanded (moderate) [] Extensive (high) Performance deficits identified: [X] ADLs [X] IADLs [] Functional mobility [] Range of motion [] Muscle Strength [X] Functional Endurance [] Functional Balance [] Fine motor coordination [] Adaptive equipment needs [] Cognition [] Other (please specify: ___) Mcneal: 1-3 performance deficits = Low complexity 3-5 performance deficits = moderate complexity 5 or more performance deficits = high complexity Level of Clinical Decision Making [] problem-focused assessment (low) [X] detailed assessment (medium) [] comprehensive assessment (high) --Therefore the level of complexity of this patient was: [X] Low [] Moderate [] High CLINICAL REMINDER Learning Assessment: Patient/Caregiver appeared ready for instruction (good eye contact, appropriate questions, active participation, etc.) Person(s) who received education: Patient Education Topic/Teaching Needs: Rehabilitation and Habilitation benefits and purpose of OT Methods used included: One-on-one: verbal Teaching outcomes: Good level of understanding /ben/ NICOLA Siddiqi/King, TALISHAR OT, Board Certified in Physical Rehabilitation Signed: 12/05/2023 12:04 BROOKE EDWARDS [facility]
--- OUTSIDE RECORDS SUMMARY | 2024-09-16 02:24 | XMS_ITS | Encounter Summary ---
Author Name [facility] Organization [facility] [place] Address [address] [place] [address] Care Team Providers Care Portfolio Accountant Name Role Phone KATHE MURILLO Primary Care [...] APWU HEALT H PLAN Nov 08, 2013 [id number] [phone] WIDEL,CHR ISTOPHER PATIENT APW[facility]-SS PREFERRED PROVIDER ORGANIZAT ION (PPO) APWU Apr 16, 2023 [id number] WIDEL,CHR ISTOPHER PATIENT [facility] APWU PART A ONLY Mar 11, 2014 [id number] WIDEL,CHR ISTOPHER PATIENT [facility] APWU HEALT H PLAN Apr 16, 2020 [id number] [phone] WIDEL,CHR ISTOPHER PATIENT [facility] PRESCRIPT ION APWU HEALT H PLAN Mar 11, 2014 [id number] [phone] WIDEL,CHR ISTOPHER PATIENT [facility] PRESCRIPT ION APWU RX PLAN Nov 08, 2013 [id number] [phone] WIDEL,CHR ISTOPHER PATIENT [facility] PRESCRIPT ION APWU Nov 08, 2013 [id number] [phone] WIDEL,CHR ISTOPHER PATIENT Selected Encounter This section includes the information on record at [place] for the Encounter. 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 Date/Time Primary/Secondary Diagnosis Diagnosis Name Provider Source Nov 12, 2023 08:56 AM PRIMARY Spondylosis w/o myelopathy or radiculopathy, cervical region UMESH ABARCA [facility] Plan of Treatment: Future Appointments (+ [...] 12, 2023 09:15 AM AMBULATORY - SURGERY . [facility] Nov 12, 2023 09:30 AM AMBULATORY - SURGERY [facility] Dec 04, 2023 06:00 AM AMBULATORY - NONE [facility] Dec 13, 2023 09:30 AM AMBULATORY - SURGERY [facility] Dec 26, 2023 02:00 PM AMBULATORY - REHAB MEDICIN E [facility] Jan 21, 2024 08:30 AM AMBULATORY - REHAB MEDICIN E [facility] Jan 21, 2024 09:30 AM AMBULATORY - SURGERY . [facility] Feb 04, 2024 09:00 AM AMBULATORY - REHAB MEDICIN E [facility] Feb 18, 2024 09:00 AM AMBULATORY - REHAB MEDICIN E [facility] Active, Pending, and Scheduled Orders This [...] & SCREEN - LAB BLOOD SP [facility] Nov 07, 2023 12:00 AM Laboratory - Blood Bank Order RED BLOOD CELLS - LAB VBECS - NO SPECIMEN REQUIRED [facility] Dec 04, 2023 06:00 AM Laboratory - Blood Bank Order TYPE & SCREEN - LAB BLOOD [facility] Lab Results: +/- 30 days of [...] Dec 05, 2023 04:56 AM [facility] GLUCOSE,BLOOD-poct (STL) BLOOD Specimen Type: BLOOD Comment: Test Performed by: [id number] Meter #: [id number] Ordering Provider: UMESH ABARCA Report Released Date/Time: Dec 05, 2023 06:07 AM Reporting Lab: [facility] [place] [address] [address] Performing Lab: [address] [address] GLUCOSE,BLOOD-poct (STL) 107 mg/dL H 72-99 Dec 04, 2023 10:43 PM [facility] GLUCOSE,BLOOD-poct (STL) BLOOD Specimen Type: BLOOD Comment: Test Performed by: [id number] Meter #: [id number] Ordering Provider: UMESH ABARCA Report Released Date/Time: Dec 04, 2023 11:11 PM Reporting Lab: [address] [address] Performing Lab: [address] [address] GLUCOSE,BLOOD-poct (STL) 154 mg/dL H 72-99 Dec 04, 2023 08:57 PM [facility] MAGNESIUM PLASMA Specimen Type: PLASM A No comment entered. Ordering Provider: DESTINI THOMPSON Report Released Date/Time: Dec 04, 2023 02:05 PM Reporting Lab: [address] [address] Performing Lab: [address] [address] MAGNESIUM 2.1 mg/dL 1.6-2.6 Dec 04, 2023 08:57 PM [facility] CBC BLOOD Specimen Type: BLOOD No comment entered. Ordering Provider: DESTINI THOMPSON Report Released Date/Time: Dec 04, 2023 02:05 PM Reporting Lab: [address] [address] Performing Lab: [address] [address] WBC 9.0 10*3/uL 3.6-11.2 RBC 4.43 10*6/uL [...] Dec 04, 2023 04:56 PM [facility] GLUCOSE,BLOOD-poct (STL) BLOOD Specimen Type: BLOOD Comment: Test Performed by: [id number] Meter #: [id number] Ordering Provider: UMESH ABARCA Report Released Date/Time: Dec 04, 2023 05:07 PM Reporting Lab: [address] [address] Performing Lab: [address] [address] GLUCOSE,BLOOD-poct (STL) 129 mg/dL H 72-99 Dec 04, 2023 02:00 PM [facility] MRSA SURVL NARES DNA NARES Specimen [...] Dec 04, 2023 02:05 PM Reporting Lab: [address] [address] Performing Lab: [facility] [address] [facility] [address] MRSA SURVL NARES DNA Negative Negative Dec 04, 2023 01:30 PM [facility] GLUCOSE,BLOOD-poct ([facility]) BLOOD Specimen Type: BLOOD Comment: Test Performed by: [id number] Meter #: [id number] Ordering Provider: UMESH ABARCA Report Released Date/Time: Dec 04, 2023 01:43 PM Reporting Lab: [facility] [address] [facility] [address] Performing Lab: [facility] [address] [place] [address] GLUCOSE,BLOOD-poct ([facility]) 126 mg/dL H 72-99 Nov 12, 2023 10:45 AM [facility] MRSA SURVL NARES DNA NARES Specimen [...] 07, 2023 04:35 PM Reporting Lab: [facility] [address] [facility] [address] Performing Lab: [facility] [address] [facility] [address] MRSA SURVL NARES DNA Negative Negative Nov 12, 2023 09:55 AM [facility] DRUGS OF ABUSE (NEW) ([facility]) URINE Specimen Typ e: URINE No comment entered. Ordering Provider: SOBIA DOMINGO Report Released Date/Time: Nov 07, 2023 04:35 PM Reporting Lab: [facility] [address] [facility] [address] Performing Lab: [facility] [address] [place] [address] ETHANOL Negative mg/dL 0-20 AMPHET/METHAMPHETAMINE Negative ng/mL COCAINE METABOLITES Negative ng/mL CANNABINOIDS Negative ng/mL OPIATES Negative ng/mL CREATININE URINE/OTHERS 333.4 mg/dL H 63-1 66 Nov 12, 2023 09:46 AM [facility] PT/INR NEW (STL-MA) PLASMA Specimen Type: PLAS MA No comment entered. Ordering Provider: SOBIA DOMINGO Report Released Date/Time: Nov 07, 2023 04:35 PM Reporting Lab: [address] [address] Performing Lab: [address] [address] PROTIME 11.9 s 9.4-12.5 INR VALUE 1.1 {INR} Nov 12, 2023 09:46 AM [facility] APTT PLASMA Specimen Type: PLASM A No comment entered. Ordering Provider: SOBIA DOMINGO Report Released Date/Time: Nov 07, 2023 04:35 PM Reporting Lab: [address] [address] Performing Lab: [address] [address] APTT 28.5 s 26.7-39.9 Nov 12, 2023 09:46 AM [facility] CBC BLOOD Specimen Type: BLOOD No comment entered. Ordering Provider: SOBIA DOMINGO Report Released Date/Time: Nov 07, 2023 04:35 PM Reporting Lab: [address] [address] Performing Lab: [address] [address] WBC 5.1 10*3/uL 3.6-11.2 RBC 4.80 10*6/uL [...] 0.00-0. 20 Nov 12, 2023 09:46 AM [facility] HGA1C BLOOD Specimen Type: BLOOD No comment entered. Ordering Provider: SOBIA DOMINGO Report Released Date/Time: Nov 07, 2023 04:35 PM Reporting Lab: [address] [address] Performing Lab: [address] [address] HGA1C 5.6 4.0-6.0 Nov 12, 2023 09:46 AM [facility] COMPREHENSIVE METABOLIC PANEL PLASMA Specimen Type: PLASMA Comment: No hemolysis noted. Ordering Provider: SOBIA DOMINGO Report Released Date/Time: Nov 07, 2023 04:35 PM Reporting Lab: [address] [address] Performing Lab: [address] [address] CREATININE 0.86 mg/dL 0.7-1.3 UREA NITROGEN 9.1 [...] Height Weight Body Mass Index Source Nov 05, 2023 10:01 AM 98.1 73 148/91 18 97 7 72 248.6 34 [facility] Social History: Smoking Status (Most [...] 21, 2022 01:21 PM [place]-TOBACCO NEVER USED [facility] Tobacco Use History This section includes a history of the smoking, or tobacco-related health factors, that were collected on or before the date of the Encounter. The data comes from the [place] facility where the Encounter took place. Date/Time Smoking Status/Tobacco Use Comment F acrj Dec 03, 2020 12:04 PM [place]-TOBACCO NEVER USED [facility] Radiology Reports: +/- 30 days of [...] FLUOROS(SEPARATE PROCEDURE),UP TO 1 HOUR: NIKKO GOMEZ [place] [id number] -[id number] M Exm Date: DEC 04, 2023@06:27 Req Phys: UMESH ABARCA Pat Loc: SICU OE-/12-05-2023@05:59 Img Loc: -MAIN RADIOLOGY SUITE Service: Unknown [address] [address] (Case [id number] COMPLETE) FLUOROS(SEPARATE PROCEDURE),UP TO(RAD Detailed) CPT:21945 CPT Modifiers : TC TECHNICAL COMPONENT Reason for Study: bilater c6-c7 lami Clinical History: Report Status: Verified Date Reported: DEC 05, 2023 Date Verified: DEC 05, 2023 Director Camp E-Sig: Report: Fluoroscopy was provided to another [...] Interpreting Staff: JANAY FIGUEROA, RADIOLOGIST Verified by burr bench operator for JANAY FIGUEROA /[facility] Nov 12, 2023 09:40 AM CHEST X-RAY, 2 VIE WS: NIKKO GOMEZ [place] [id number] -[id number] M Exm Date: NOV 12, 2023@09:40 Req Phys: SOBIA DOMINGO Loc: -NEUROSURGERY RECEIVING AND PROCESSING SUPERVISOR 2 (Req'g Lo Img Loc: -MAIN RADIOLOGY SUITE Service: Unknown [address] [address] (Case [id number] COMPLETE) CHEST X-RAY, 2 VIEWS (RAD Detailed) CPT:03002 Reason for Study: Pre Op Clinical History: Report Status: Verified Date Reported: NOV 12, 2023 Date Verified: NOV 12, 2023 Director Camp E-Sig:/ES/Austin Branham MD. FACR. Report: History: Pre Op. Comparison: No previous pertinent examination is available. Technique: PA and lateral views Findings: No pulmonary consolidation, pleural effusion, pneumothorax, cardiomegaly or pulmonary edema is seen. Impression: No acute cardiopulmonary disease is seen. Primary Interpreting Staff: Austin Branham MD. FACR, Neuroradiologist (Director Camp) /AUSTIN IGNACIO [facility] Encounter Notes: All associated encounter notes This section contains the clinical notes associated to the Encounter. Date/Time Encounter Note(s) Provider Source Nov 07, 2023 08:24 AM ADDENDUM: LOCAL TITLE: Addendum STANDARD TITLE: ADDENDUM DATE OF NOTE: NOV 07, 2023@08:24:35 ENTRY DATE: NOV 07, 2023@08:24:36 AUTHOR: DESTINI THOMPSON EXP COSIGNER: URGENCY: STATUS: COMPLETED Spoke with -- Explained community care criteria process. He does not qualify or community care. He states he wants to go community care to have surgery earlier than 12/04/23,, which is the surgery date we provided him. I explained that his case is an elective case, meaning not urgent or emergent based on physical exam and MRI findings; therefore, there is no indication for community care consult for earlier surgery. I explained that we offered him a surgery date within 30 days and he declined that date. He states he did not decline, he wanted to be moved up. I explained that he reported he could not do this date because his was having surgery around this time. I explained that he stated he would call back with his availability for a new date after he spoke to his . I explained we do not have any earlier available surgery dates but can move him up if we get a cancelation. I also explained that it is unlikely that he would be able to get approval through community care, get a consultation with a [facility] neurosurgeon, and have surgery all before 12/04/23. I offered to reschedule him for the 12/04/23 surgery date- he accepted. Preops ordered for 11/12/23. He verbalized understanding. 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 I saw: C6-7 right disc osteophyte, faCET ARTHROPATHY, with right foramenal narrowing, AND mild to moderate canal stenosis. No neck therapy. No conservative therapy. We asked Dr Griffin to please order: [...] c.t.s. EMG/NCV negative. PT started 6-8 times [place], No TENS unit at home had not tried traction. Mr Gomez told me he was already approved and was seeing a Dr FLOREZ at [facility]. We discovered this was not the case [...] desires. He was happy with the plan. 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 There is moderate central canal stenosis and severe right foraminal stenosis at the level of C6-C7. This report was approved by Freddy Gamino on 05/23/2021 5:16 PM IDr. SHARA have personally reviewed and interpreted this examination/study. This report was electronically signed by SHARA KHALIL on 05/23/2021 5:16 PM. 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 I saw: C6-7 right disc osteophyte, faCET ARTHROPATHY, with right foramenal narrowing, AND mild to moderate canal stenosis. No neck therapy. No conservative therapy. We asked Dr Griffin to please order: [...] c.t.s. EMG/NCV negative. PT started 6-8 times [place], No TENS unit at home had not tried traction. Mr Gomez told me he was already approved and was seeing a Dr FLOREZ at [facility]. We discovered this was not the case [...] desires. He was happy with the plan. F/U today. C6-7 bilateral laminectomy attn right 12/04/2023 preop November 11 or November 18 preop. /es/ UMESH ABARCA MD PhD [facility] ATTENDING NEUROSURGEON Signed: 11/05/2023 10:06 Receipt Acknowledged By: 11/05/2023 16:39 /es/ Kathe Murillo DNP, V BLOCK SAW OPERATOR, COOK LARDER-C Primary Care Nurse Practitioner 11/05/2023 10:16 /es/ PAMELA JAMESN RN REGISTERED NURSE 11/05/2023 17:20 /es/ DESTINI THOMPSON DNP, V BLOCK SAW OPERATOR, BC NURSE PRACTITIONER, NEUROSURGERY 11/05/2023 ADDENDUM STATUS: COMPLETED Zaria, If patient wants a later surgery date we can accomodate. If he wants another opinion he can see Dr Maldonado. I can not send him out for a later surgery date. /es/ UMESH ABARCA MD PhD [facility] ATTENDING NEUROSURGEON Signed: 11/05/2023 13:18 Receipt Acknowledged By: 11/05/2023 13:29 /es/ ZARIA TAM Health Sack Maker, Neurosurgery 11/05/2023 ADDENDUM STATUS: COMPLETED Patient called office to cancel surgery. /ben/ UMESH ABARCA MD PhD [facility] ATTENDING NEUROSURGEON Signed: 11/05/2023 13:22 Receipt Acknowledged By: 11/05/2023 13:33 /es/ PAMELA BARNEY RN REGISTERED NURSE 11/05/2023 18:50 /es/ DESTINI THOMPSON DNP, V BLOCK SAW OPERATOR, NURSE PRACTITIONER, NEUROSURGERY 11/05/2023 ADDENDUM STATUS: COMPLETED Called and spoke with patient-ptient did not specifically want to cancel surgery he just needed to speak and discuss about another surgery date. Patient will speak with his and come up with a new timeframe of which he would like to schedule surgery. /ben/ ZARIA TAM Health Sack Maker, Neurosurgery Signed: 11/05/2023 13:32 Receipt Acknowledged By: 11/05/2023 13:59 /ben/ UMESH ABARCA MD PhD [facility] ATTENDING NEUROSURGEON 11/05/2023 13:34 /ben/ PAMELA JAMESN RN REGISTERED NURSE 11/05/2023 17:20 /ben/ DESTINI THOMPSON DNP, APRN, NAEL NURSE PRACTITIONER, NEUROSURGERY 11/05/2023 ADDENDUM STATUS: COMPLETED Will hold off on scheduling surgery until calls back with timeframe on when he wants to be scheduled for surgery /ben/ DESTINI THOMPSON DNP, APRN, NAEL NURSE PRACTITIONER, NEUROSURGERY Signed: 11/05/2023 17:21 Receipt Acknowledged By: 11/06/2023 06:29 /ben/ ZARIA TAM Health Sack Maker, Neurosurgery 11/06/2023 ADDENDUM STATUS: COMPLETED pt l/m on ext. [phone] if you can call me to talk c/b number [phone] called and swpt- I would like to get sent thru [facility] to see if I can get to see an outside doctor to see if I can get surgery before December 03, if I count from yesterday the then the surgery date that I was offered is right at 30 days it is [facility] can get surgery before 30 days. I have my records and the CD also have to do is hand carry those records to an outside neurosurgeon I specifically asked the patient if he was actually wanting to get a different surgeon altogether [facility], the patient maintains that is not the reason why he is asking to [facility]. I explained I did not think a [facility] neurosurgery consult would be approved given the fact that [place] is able to offer him a relatively soon date. Asked patient when his 's surgery is scheduled for it is around December 03 or Discussed the above with Destini Thompson. Alerting Dr. Abarca and Destini Thompson to the above. Please advise. /ben/ ZARIA TAM Health Sack Maker, Neurosurgery Signed: 11/06/2023 17:58 Receipt Acknowledged By: 11/07/2023 08:04 /ben/ UMESH ABARCA MD PhD [facility] ATTENDING NEUROSURGEON 11/07/2023 09:59 /ben/ DESTINI THOMPSON DNP, APRN, NAEL NURSE PRACTITIONER, NEUROSURGERY DESTINI THOMPSON [facility] Nov 06, 2023 05:39 PM ADDENDUM: LOCAL TITLE: Addendum STANDARD TITLE: ADDENDUM DATE OF NOTE: NOV 06, 2023@17:39:33 ENTRY DATE: NOV 06, 2023@17:39:34 AUTHOR: ZARIA TAM COSIGNER: URGENCY: STATUS: COMPLETED pt l/m on ext. [phone] if you can call me to talk c/b number [phone] called and swpt- I would like to get sent thru community care to see if I can get to see an outside doctor to see if I can get surgery before December 03, if I count from yesterday the then the surgery date that I was offered is right at 30 days it is [facility] right [facility] if I can get surgery before 30 days. I have my records and the CD also have to do is hand carry those records to an outside neurosurgeon I specifically asked the patient if he was actually wanting to get a different surgeon altogether [facility] the [facility], the patient maintains that is not the reason why he is asking to go [facility]. I explained I did not think a [facility] neurosurgery consult would be approved given the fact that [place] is able to offer him a relatively soon date. Asked patient when his 's surgery is scheduled for it is around December 03 or Discussed the above with Destini Thompson. Alerting Dr. Abarca and Destini Thompson to the above. Please advise. 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 I saw: C6-7 right disc osteophyte, faCET ARTHROPATHY, with right foramenal narrowing, AND mild to moderate canal stenosis. No neck therapy. No conservative therapy. We asked Dr Griffin to please order: [...] c.t.s. EMG/NCV negative. PT started 6-8 times [place], No TENS unit at home had not tried traction. Mr Gomez told me he was already approved and was seeing a Dr FLOREZ at [facility]. We discovered this was not the case [...] desires. He was happy with the plan. 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 I saw: C6-7 right disc osteophyte, faCET ARTHROPATHY, with right foramenal narrowing, AND mild to moderate canal stenosis. No neck therapy. No conservative therapy. We asked Dr Griffin to please order: [...] and was seeing a Dr FLOREZ at [facility]. We discovered this was not the case [...] desires. He was happy with the plan. F/U today. C6-7 bilateral laminectomy attn right 12/04/2023 preop November 11 or November 18 preop. /es/ UMESH ABARCA MD PhD [facility] ATTENDING NEUROSURGEON Signed: 11/05/2023 10:06 Receipt Acknowledged By: 11/05/2023 16:39 /es/ Kathe Murillo DNP, SHERRILL, COOK LARDER-C Primary Care Nurse Practitioner 11/05/2023 10:16 /es/ PAMELA BARNEY RN REGISTERED NURSE 11/05/2023 17:20 /es/ DESTINI THOMPSON DNP, SHERRILL, NAEL NURSE PRACTITIONER, NEUROSURGERY 11/05/2023 ADDENDUM STATUS: COMPLETED Zaria, If patient wants a later surgery date we can accomodate. If he wants another opinion he can see Dr Maldonado. I can not send him out for a later surgery date. /es/ UMESH ABARCA MD PhD [facility] ATTENDING NEUROSURGEON Signed: 11/05/2023 13:18 Receipt Acknowledged By: 11/05/2023 13:29 /es/ ZARIA TAM Health Sack Maker, Neurosurgery 11/05/2023 ADDENDUM STATUS: COMPLETED Patient called office to cancel surgery. /es/ UMESH ABARCA MD PhD [facility] ATTENDING NEUROSURGEON Signed: 11/05/2023 13:22 Receipt Acknowledged By: 11/05/2023 13:33 /es/ PAMELA BARNEY RN REGISTERED NURSE 11/05/2023 18:50 /es/ DESTINI THOMPSON DNP, APRN, NURSE PRACTITIONER, NEUROSURGERY 11/05/2023 ADDENDUM STATUS: COMPLETED Called and spoke with patient-ptient did not specifically want to cancel surgery he just needed to speak and discuss about another surgery date. Patient will speak with his and come up with a new timeframe of which he would like to schedule surgery. /es/ ZARIA TAM Health Sack Maker, Neurosurgery Signed: 11/05/2023 13:32 Receipt Acknowledged By: 11/05/2023 13:59 /ben/ UMESH ABARCA MD PhD [facility] ATTENDING NEUROSURGEON 11/05/2023 13:34 /ben/ PAMELA BARNEY RN REGISTERED NURSE 11/05/2023 17:20 /ben/ DESTINI THOMPSON DNP, APRN, NAEL NURSE PRACTITIONER, NEUROSURGERY 11/05/2023 ADDENDUM STATUS: COMPLETED Will hold off on scheduling surgery until calls back with timeframe on when he wants to be scheduled for surgery /es/ DESTINI THOMPSON DNP V BLOCK SAW OPERATOR, NAEL NURSE PRACTITIONER, NEUROSURGERY Signed: 11/05/2023 17:21 Receipt Acknowledged By: 11/06/2023 06:29 /ben/ ZARIA TAM [facility], Neurosurgery 11/07/2023 ADDENDUM STATUS: COMPLETED Spoke with -- Explained community care criteria process. He does not qualify or community care. He states he wants to go community care to have surgery earlier than 12/04/23,, which is the surgery date we provided him. I explained that his case is an elective case, meaning not urgent or emergent based on physical exam and MRI findings; therefore, there is no indication for community care consult for earlier surgery. I explained that we offered him a surgery date within 30 days and he declined that date. He states he did not decline, he wanted to be moved up. I explained that he reported he could not do this date because his was having surgery around this time. I explained that he stated he would call back with his availability for a new date after he spoke to his . I explained we do not have any earlier available surgery dates but can move him up if we get a cancelation. I also explained that it is unlikely that he would be able to get approval through community care, get a consultation with a [facility] neurosurgeon, and have surgery all before 12/04/23. I offered to reschedule him for the 12/04/23 surgery date- he accepted. Preops ordered for 11/12/23. He verbalized understanding. /july Rodrigue THOMPSON DNP, APRN, NAEL NURSE PRACTITIONER, NEUROSURGERY Signed: 11/07/2023 08:33 ZARIA TAM [facility] Nov 05, 2023 05:20 PM ADDENDUM: LOCAL TITLE: Addendum STANDARD TITLE: ADDENDUM DATE OF NOTE: NOV 05, 2023@17:20:40 ENTRY DATE: NOV 05, 2023@17:20:41 AUTHOR: DESTINI THOMPSON EXP COSIGNER: URGENCY: STATUS: COMPLETED Will hold off on scheduling surgery until calls back with timeframe on when he wants to be scheduled for surgery /july Rodrigue THOMPSON DNP, APRN, NAEL NURSE PRACTITIONER, NEUROSURGERY Signed: 11/05/2023 17:21 Receipt Acknowledged By: 11/06/2023 06:29 /ben/ ZARIA TAM [facility], Neurosurgery --- Original Document --- 11/05/23 NEUROSURGERY STL: HPI: 40 yo with a h/o HTN, OA left knee (ACL and meninscxal repair and transplant), 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 I saw: C6-7 right disc osteophyte, faCET ARTHROPATHY, with right foramenal narrowing, AND mild to moderate canal stenosis. No neck therapy. No conservative therapy. We asked Dr Girffin to please order: Course of in person conservative management for the neck and the back including: PT/OT, stretching under supervision, gym, light weights, cervical and lumbar traction, TENS, aquatic, traction and inversion, [facility] program, accupuncture and chiropractor. [facility] program We ordered right and left arm EMG NCV R/O right chronic C7 radiculopathy and c.t.s. EMG/NCV negative. PT started 6-8 times [place], No TENS unit at home had not tried traction. Mr Gomez told me he was already approved and was seeing a Dr FLOREZ at [facility]. We discovered this was not the case [...] desires. He was happy with the plan. 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 There is moderate central canal stenosis and severe right foraminal stenosis at the level of C6-C7. This report was approved by Freddy Gamino on 05/23/2021 5:[address] SHARA Farah have personally reviewed and interpreted this examination/study. This report was electronically signed by SHARA KHALIL on 05/23/2021 5:16 PM. 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 I saw: C6-7 right disc osteophyte, faCET ARTHROPATHY, with right foramenal narrowing, AND mild to moderate canal stenosis. No neck therapy. No conservative therapy. We asked Dr Griffin to please order: [...] c.t.s. EMG/NCV negative. PT started 6-8 times [place], No TENS unit at home had not tried traction. Mr Gomez told me he was already approved and was seeing a Dr FLOREZ at [facility]. We discovered this was not the case [...] desires. He was happy with the plan. F/U today. C6-7 bilateral laminectomy attn right 12/04/2023 preop November 11 or November 18 preop. /es/ UMESH ABARCA MD PhD [facility] ATTENDING NEUROSURGEON Signed: 11/05/2023 10:06 Receipt Acknowledged By: 11/05/2023 16:39 /es/ Kathe Murillo DNP, V BLOCK SAW OPERATOR, COOK LARDER-C Primary Care Nurse Practitioner 11/05/2023 10:16 /es/ PAMELA BARNEY RN REGISTERED NURSE 11/05/2023 17:20 /es/ DESTINI THOMPSON DNP, V BLOCK SAW OPERATOR, NURSE PRACTITIONER, NEUROSURGERY 11/05/2023 ADDENDUM STATUS: COMPLETED Zaria, If patient wants a later surgery date we can accomodate. If he wants another opinion he can see Dr Maldonado. I can not send him out for a later surgery date. /ben/ UMESH ABARCA MD PhD [facility] NS ATTENDING NEUROSURGEON Signed: 11/05/2023 13:18 Receipt Acknowledged By: 11/05/2023 13:29 /es/ ZARIA TAM [facility], Neurosurgery 11/05/2023 ADDENDUM STATUS: COMPLETED Patient called office to cancel surgery. /es/ UMESH ABARCA MD PhD [facility] NS ATTENDING NEUROSURGEON Signed: 11/05/2023 13:22 Receipt Acknowledged By: 11/05/2023 13:33 /es/ PAMELA BARNEY RN REGISTERED NURSE 11/05/2023 18:50 /es/ DESTINI THOMPSON DNP, V BLOCK SAW OPERATOR, NURSE PRACTITIONER, NEUROSURGERY 11/05/2023 ADDENDUM STATUS: COMPLETED Called and spoke with patient-ptient did not specifically want to cancel surgery he just needed to speak and discuss about another surgery date. Patient will speak with his and come up with a new timeframe of which he would like to schedule surgery. /ben/ ZARIA TAM [facility], Neurosurgery Signed: 11/05/2023 13:32 Receipt Acknowledged By: 11/05/2023 13:59 /ben/ UMESH ABARCA MD PhD [facility] ATTENDING NEUROSURGEON 11/05/2023 13:34 /es/ PAMELA JAMESN RN REGISTERED NURSE 11/05/2023 17:20 /es/ DESTINI Rodrigue THOMPSON DNP, APRN, NAEL NURSE PRACTITIONER, NEUROSURGERY JAYDESTINI Rodrigue [facility] Nov 05, 2023 01:30 PM ADDENDUM: LOCAL TITLE: Addendum STANDARD TITLE: ADDENDUM DATE OF NOTE: NOV 05, 2023@13:30:24 ENTRY DATE: NOV 05, 2023@13:30:24 AUTHOR: ZARIA TAM COSIGNER: URGENCY: STATUS: COMPLETED Called and spoke with patient-ptient did not specifically want to cancel surgery he just needed to speak and discuss about another surgery date. Patient will speak with his and come up with a new timeframe of which he would like to schedule surgery. 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 I saw: C6-7 right disc osteophyte, faCET ARTHROPATHY, with right foramenal narrowing, AND mild to moderate canal stenosis. No neck therapy. No conservative therapy. We asked Dr Griffin to please order: [...] c.t.s. EMG/NCV negative. PT started 6-8 times [place], No TENS unit at home had not tried traction. Mr Gomez told me he was already approved and was seeing a Dr FLOREZ at [facility]. We discovered this was not the case [...] desires. He was happy with the plan. 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 I saw: C6-7 right disc osteophyte, faCET ARTHROPATHY, with right foramenal narrowing, AND mild to moderate canal stenosis. No neck therapy. No conservative therapy. We asked Dr Griffin to please order: [...] c.t.s. EMG/NCV negative. PT started 6-8 times [place], No TENS unit at home had not tried traction. Mr Gomez told me he was already approved and was seeing a Dr FLOREZ at [facility]. We discovered this was not the case [...] desires. He was happy with the plan. F/U today. C6-7 bilateral laminectomy attn right 12/04/2023 preop November 11 or November 18 preop. /ben/ UMESH ABARCA MD PhD [facility] FCNS ATTENDING NEUROSURGEON Signed: 11/05/2023 10:06 Receipt Acknowledged By: 11/05/2023 16:39 /es/ Kathe Murillo DNP, SHERRILL, COOK LARDER-C Primary Care Nurse Practitioner 11/05/2023 10:16 /es/ PAMELA BARNEY RN REGISTERED NURSE * AWAITING SIGNATURE * DESTINI THOMPSON 11/05/2023 ADDENDUM STATUS: COMPLETED Zaria, If patient wants a later surgery date we can accomodate. If he wants another opinion he can see Dr Maldonado. I can not send him out for a later surgery date. /es/ UMESH ABARCA MD PhD GABINO FCGAUTAM ATTENDING NEUROSURGEON Signed: 11/05/2023 13:18 Receipt Acknowledged By: 11/05/2023 13:29 /es/ ZARIA TAM [facility], Neurosurgery 11/05/2023 ADDENDUM STATUS: COMPLETED Patient called office to cancel surgery. /ben/ UMESH ABARCA MD PhD GABINO MANRIQUE ATTENDING NEUROSURGEON Signed: 11/05/2023 13:22 Receipt Acknowledged By: 11/05/2023 13:33 /es/ PAMELA BARNEY RN REGISTERED NURSE * AWAITING SIGNATURE * DESTINI THOMPSON CHRISTINE D [facility] Nov 05, 2023 01:21 PM ADDENDUM: LOCAL TITLE: Addendum STANDARD TITLE: ADDENDUM DATE OF NOTE: NOV 05, 2023@13:21:04 ENTRY DATE: NOV 05, 2023@13:21:06 AUTHOR: UMESH ABARCA EXP COSIGNER: URGENCY: STATUS: COMPLETED Patient called office to cancel surgery. 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 I saw: C6-7 right disc osteophyte, faCET ARTHROPATHY, with right foramenal narrowing, AND mild to moderate canal stenosis. No neck therapy. No conservative therapy. We asked Dr Griffin to please order: [...] c.t.s. EMG/NCV negative. PT started 6-8 times [place], No TENS unit at home had not tried traction. Mr Gomez told me he was already approved and was seeing a Dr FLOREZ at [facility]. We discovered this was not the case [...] desires. He was happy with the plan. 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 There is moderate central canal stenosis and severe right foraminal stenosis at the level of C6-C7. This report was approved by Freddy Gamino on 05/23/2021 5:16 PM I, Dr. SHARA KHALIL have personally reviewed and interpreted this examination/study. This report was electronically signed by SHARA KHALLI on 05/23/2021 5:16 PM. 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 I saw: C6-7 right disc osteophyte, faCET ARTHROPATHY, with right foramenal narrowing, AND mild to moderate canal stenosis. No neck therapy. No conservative therapy. We asked Dr Griffin to please order: [...] c.t.s. EMG/NCV negative. PT started 6-8 times [place], No TENS unit at home had not tried traction. Mr Gomez told me he was already approved and was seeing a Dr FLOREZ at [facility]. We discovered this was not the case [...] desires. He was happy with the plan. F/U today. C6-7 bilateral laminectomy attn right 12/04/2023 preop November 11 or November 18 preop. /es/ UMESH ABARCA MD PhD [facility] ATTENDING NEUROSURGEON Signed: 11/05/2023 10:06 Receipt Acknowledged By: 11/05/2023 16:39 /es/ Kathe Murillo DNP, SHERRILL, COOK LARDER-C Primary Care Nurse Practitioner 11/05/2023 10:16 /es/ PAMELA BARNEY RN REGISTERED NURSE 11/05/2023 17:20 /es/ DESTINI THOMPSON DNP, APRN, NAEL NURSE PRACTITIONER, NEUROSURGERY 11/05/2023 ADDENDUM STATUS: COMPLETED Zaria, If patient wants a later surgery date we can accomodate. If he wants another opinion he can see Dr Maldonado. I can not send him out for a later surgery date. /ben/ UMESH ABARCA MD PhD FAAGAUTAM FCNS ATTENDING NEUROSURGEON Signed: 11/05/2023 13:18 Receipt Acknowledged By: 11/05/2023 13:29 /es/ ZARIA TAM [facility], Neurosurgery 11/05/2023 ADDENDUM STATUS: COMPLETED Called and spoke with patient-ptient did not specifically want to cancel surgery he just needed to speak and discuss about another surgery date. Patient will speak with his and come up with a new timeframe of which he would like to schedule surgery. /ben/ ZARIA TAM [facility], Neurosurgery Signed: 11/05/2023 13:32 Receipt Acknowledged By: 11/05/2023 13:59 /es/ UMESH ABARCA MD PhD [facility] FCNS ATTENDING NEUROSURGEON 11/05/2023 13:34 /es/ PAMELA BARNEY RN REGISTERED NURSE 11/05/2023 17:20 /es/ DESTINI THOMPSON DNP, APRN, NAEL NURSE PRACTITIONER, NEUROSURGERY 11/05/2023 ADDENDUM STATUS: COMPLETED Will hold off on scheduling surgery until calls back with timeframe on when he wants to be scheduled for surgery // JULY Rodrigue THOMPSON DNP, APRN, NAEL NURSE PRACTITIONER, NEUROSURGERY Signed: 11/05/2023 17:21 Receipt Acknowledged By: * AWAITING SIGNATURE * ZARIA TAM [facility] Nov 05, 2023 01:16 PM ADDENDUM: LOCAL TITLE: Addendum STANDARD TITLE: ADDENDUM DATE OF NOTE: NOV 05, 2023@13:16:40 ENTRY DATE: NOV 05, 2023@13:16:41 AUTHOR: UMESH ABARCA EXP COSIGNER: URGENCY: STATUS: COMPLETED Zaria, If patient wants a later surgery date we can accomodate. If he wants another opinion he can see Dr Maldonado. I can not send him out for a later surgery date. 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 I saw: C6-7 right disc osteophyte, faCET ARTHROPATHY, with right foramenal narrowing, AND mild to moderate canal stenosis. No neck therapy. No conservative therapy. We asked Dr Griffin to please order: [...] and was seeing a Dr FLOREZ at [facility]. We discovered this was not the case [...] desires. He was happy with the plan. 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 There is moderate central canal stenosis and severe right foraminal stenosis at the level of C6-C7. This report was approved by Freddy Gamino on 05/23/2021 5:16 PM I, Dr. SHARA KHALIL have personally reviewed and interpreted this examination/study. This report was electronically signed by SHARA KHALIL on 05/23/2021 5:16 PM. 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 I saw: C6-7 right disc osteophyte, faCET ARTHROPATHY, with right foramenal narrowing, AND mild to moderate canal stenosis. No neck therapy. No conservative therapy. We asked Dr Griffin to please order: [...] and was seeing a Dr FLOREZ at [facility]. We discovered this was not the case and the patient may have been mixing up Neurology and NS. Started therapy for neck 2 different stretches. No TENS unit and No traction Wished to try the above prior to surgery. WE discussed C6-7 bilateral laminectomy attn right. Declined. Mr Gmoez felt he can get more out of therapy that he hasn't tried yet. Mr Gomez requested to call us if he desires. He was happy with the plan. F/U today. C6-7 bilateral laminectomy attn right 12/04/2023 preop November 11 or November 18 preop. /ben/ UMESH ABARCA MD PhD [facility] FCNS ATTENDING NEUROSURGEON Signed: 11/05/2023 10:06 Receipt Acknowledged By: * AWAITING SIGNATURE * KATHE MURILLO 11/05/2023 10:16 /es/ PAMELA HEWITT BSN RN REGISTERED NURSE * AWAITING SIGNATURE * DESTINI THOMPSON 11/05/2023 ADDENDUM STATUS: COMPLETED Patient called office to cancel surgery. /ben/ UMESH ABARCA MD PhD [facility] FCNS ATTENDING NEUROSURGEON Signed: 11/05/2023 13:22 Receipt Acknowledged By: * AWAITING SIGNATURE * PAMELA HEWITT * AWAITING SIGNATURE * DESTINI THOMPSON 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 I saw: C6-7 right disc osteophyte, faCET ARTHROPATHY, with right foramenal narrowing, AND mild to moderate canal stenosis. No neck therapy. No conservative therapy. We asked Dr Griffin to please order: [...] c.t.s. EMG/NCV negative. PT started 6-8 times [place], No TENS unit at home had not tried traction. Mr Gomez told me he was already approved and was seeing a Dr FLOREZ at [facility]. We discovered this was not the case [...] desires. He was happy with the plan. 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 There is moderate central canal stenosis and severe right foraminal stenosis at the level of C6-C7. This report was approved by Freddy Gamino on 05/23/2021 5:16 PM IDr. SHARA have personally reviewed and interpreted this examination/study. 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 I saw: C6-7 right disc osteophyte, faCET ARTHROPATHY, with right foramenal narrowing, AND mild to moderate canal stenosis. No neck therapy. No conservative therapy. We asked Dr Griffin to please order: [...] and was seeing a Dr FLOREZ at [facility]. We discovered this was not the case [...] desires. He was happy with the plan. F/U today. C6-7 bilateral laminectomy attn right 12/04/2023 preop November 11 or November 18 preop. /es/ UMESH ABARCA MD PhD [facility] ATTENDING NEUROSURGEON Signed: 11/05/2023 10:06 Receipt Acknowledged By: 11/05/2023 16:39 /es/ Kathe Murillo DNP, V BLOCK SAW OPERATOR, COOK LARDER-C Primary Care Nurse Practitioner 11/05/2023 10:16 /es/ PAMELA BARNEY RN REGISTERED NURSE 11/05/2023 17:20 /es/ DESTINI THOMPSON DNP, V BLOCK SAW OPERATOR, NURSE PRACTITIONER, NEUROSURGERY 11/05/2023 ADDENDUM STATUS: COMPLETED Zaria, If patient wants a later surgery date we can accomodate. If he wants another opinion he can see Dr Maldonado. I can not send him out for a later surgery date. /ben/ UMESH ABARCA MD PhD [facility] ATTENDING NEUROSURGEON Signed: 11/05/2023 13:18 Receipt Acknowledged By: 11/05/2023 13:29 /es/ ZARIA TAM [facility], Neurosurgery 11/05/2023 ADDENDUM STATUS: COMPLETED Patient called office to cancel surgery. /ben/ UMESH ABARCA MD PhD [facility] ATTENDING NEUROSURGEON Signed: 11/05/2023 13:22 Receipt Acknowledged By: 11/05/2023 13:33 /es/ PAMELA BARNEY RN REGISTERED NURSE 11/05/2023 18:50 /es/ DESTINI THOMPSON DNP, APRN, NURSE PRACTITIONER, NEUROSURGERY 11/05/2023 ADDENDUM STATUS: COMPLETED Called and spoke with patient-ptient did not specifically want to cancel surgery he just needed to speak and discuss about another surgery date. Patient will speak with his and come up with a new timeframe of which he would like to schedule surgery. /ben/ ZARIA TAM [facility], Neurosurgery Signed: 11/05/2023 13:32 Receipt Acknowledged By: 11/05/2023 13:59 /ben/ UMESH ABARCA MD PhD [facility] GAUTAM ATTENDING NEUROSURGEON 11/05/2023 13:34 /ben/ PAMELA R SALSMAN BSN RN REGISTERED NURSE 11/05/2023 17:20 /ben/ DESTINI THOMPSON DNP, APRN, NAEL NURSE PRACTITIONER, NEUROSURGERY 11/05/2023 ADDENDUM STATUS: COMPLETED Will hold off on scheduling surgery until calls back with timeframe on when he wants to be scheduled for surgery /quentin THOMPSON DNP, APRN, NAEL NURSE PRACTITIONER, NEUROSURGERY Signed: 11/05/2023 17:21 Receipt Acknowledged By: 11/06/2023 06:29 /ben/ ZARIA TAM [facility], Neurosurgery 11/06/2023 ADDENDUM STATUS: COMPLETED pt l/m on ext. [phone] if you can call me to talk c/b number [phone] called and swpt- I would like to get sent thru community care to see if I can get to see an outside doctor to see if I can get surgery before December 03, if I count from yesterday the then the surgery date that I was offered is right at 30 days it is [facility] get [facility] before 30 days. I have my records and the CD also have to do is hand carry those records to an outside neurosurgeon I specifically asked the patient if he was actually wanting to get a different [facility] altogether [facility], the patient maintains that is not the reason why [facility]. I explained I did not think a [facility] neurosurgery consult would be approved given the fact that [place] is able to offer him a relatively soon date. Asked patient when his 's surgery is scheduled for it is around December 03 or Discussed the above with Destini Thompson. Alerting Dr. Abarca and Destini Thompson to the above. Please advise. /ben/ ZARIA [facility] [employer], Neurosurgery Signed: 11/06/2023 17:58 Receipt Acknowledged By: 11/07/2023 08:04 /ben/ UMESH ABARCA MD PhD [facility] ATTENDING NEUROSURGEON * AWAITING SIGNATURE * DESTINI THOMPSON 11/07/2023 ADDENDUM STATUS: COMPLETED Spoke with -- Explained community care criteria process. He does not qualify or community care. He states he wants to go [facility] to have surgery earlier than 12/04/23,, which is the surgery date we provided him. I explained that his case is an elective case, meaning not urgent or emergent based on physical exam and MRI findings; therefore, there is no indication for community care consult for earlier surgery. I explained that we offered him a surgery date within 30 days and he declined that date. He states he did not decline, he wanted to be moved up. I explained that he reported he could not do this date because his was having surgery around this time. I explained that he stated he would call back with his availability for a new date after he spoke to his . I explained we do not have any earlier available surgery dates but can move him up if we get a cancelation. I also explained that it is unlikely that he would be able to get approval through community care, get a consultation with a [facility] neurosurgeon, and have surgery all before 12/04/23. I offered to reschedule him for the 12/04/23 surgery date- he accepted. Preops ordered for 11/12/23. He verbalized understanding. July Rodrigue THOMPSON DNP, V BLOCK SAW OPERATOR, [employer] NURSE PRACTITIONER, NEUROSURGERY Signed: 11/07/2023 08:33 UMESH ABARCA [facility]
[2024-09-16 07:34] VITALS: BP 119/81; PULSE 67; RESP 18; TEMP 36.1; O2SAT 97; BMI 32.3
[2024-09-16] MEDS: LACTATED RINGERS 1,000 ML 150 ML IV CONT (07:42)
--- NOTE | 2024-09-16 07:45 | WPDANESEPPF ---
Anes - Initial Pre Proc Eval Procedure: Operation Date: 09/16/24 09:00 Proposed Procedures p Screening Colonoscopy - Hunter Mckinney MD Date/Time: 09/16/24 07:45 Surgeon: Hunter Mckinney MD Pre Op Diagnosis: Encounter for screening for malignant neoplasm of Patient Data Age: 43 Gender: M Height: 1.83 m Weight: 108.2 kg Last Vital Signs Temp 36.1 C L 09/16/24 07:34 Pulse 67 09/16/24 07:34 Resp 18 09/16/24 07:34 BP 119/81 09/16/24 07:34 Pulse Ox 97 09/16/24 07:34 O2 Del Method Room Air 09/16/24 07:34 Allergies Allergy/AdvReac Type Severity Reaction Status Date / Time morphine AdvReac Intermediate Dizziness Verified 09/16/24 07:33 Home Medications ?Medication ?Instructions ?Recorded ?Confirmed ?Type Bariatric calcium 1 gummy PO BID 09/09/24 09/16/24 History fexofenadine 180 mg tablet 180 mg PO DAILY PRN sinus symptoms 09/09/24 09/09/24 History (Charlene Allergy) kqtmiyax-rvhbktfw-dwfn 45 mg-folic 1 cap PO BID 09/09/24 09/16/24 History acid 800 mcg-vit K 120 mcg capsule (Bariatric Multivitamins) omeprazole 40 mg capsule,delayed 40 mg PO BID PRN acid reflux 09/09/24 09/09/24 History release semaglutide (weight loss) 1.7 1.7 mg subcut WEEKLY weight loss 09/09/24 09/16/24 History mg/0.75 mL subcutaneous pen injector (Wegovy) Patient hx anesthesia problems: none Family hx anesthesia problems: none Results Review: All pre-operative results and documents have been reviewed as part of the pre-operative evaluation. [facility] Past Medical History Medical History (Updated 09/16/24 @ 07:29 by Silvino Tran DO) Anxiety PTSD (post-traumatic stress disorder) Hiatal hernia GERD (gastroesophageal reflux disease) Social History Social History Smoking status: Never smoker Alcohol intake: current Drinks per week: 5 Alcohol use details: DRINKS Substance use: current Substance use type: marijuana Other substance usage details: OCC. FOR ANXIETY AND INSOMNIA Spiritual care concerns: No Anes - Eval Final PreProcedure Day of Procedure 09/16/24 07:45 Patient weight: obese Heart: regular rate and rhythm Lungs: clear to auscultation Airway: Mallampati scale class II Neurological: alert and oriented Last oral intake: >/= 8 hours ASA classification: II Emergent: no Anesthetic plan: proceed Anesthesia type and monitoring: general GIVS and standard monitoring Results Review: All pre-operative results and documents have been reviewed as part of the pre-operative evaluation. Informed Consent: The patient's anesthetic plan and its attendant risks and benefits were discussed with the patient/family/POA. Questions were solicited and answers provided to the satisfaction of the patient/family/POA.
--- NOTE | 2024-09-16 09:01 | PM.IMHP ---
H&P: HPI History of Present Illness Date/Time: 09/16/24 09:01 Chief Complaint: Screening colonoscopy Narrative: This is the patient's first colonoscopy. There are no GI symptoms and there is no family history of colorectal cancer. Review of Systems Review of Systems: All systems reviewed & are unremarkable except as noted in HPI and below [facility] Past Medical History Medical History (Updated 09/16/24 @ 09:01 by Hunter Mckinney MD) Anxiety PTSD (post-traumatic stress disorder) Hiatal hernia GERD (gastroesophageal reflux disease) Social History Social History Smoking status: Never smoker Alcohol intake: current Drinks per week: 5 Alcohol use details: DRINKS Substance use: current Substance use type: marijuana Other substance usage details: OCC. FOR ANXIETY AND INSOMNIA Spiritual care concerns: No Meds Home Medications and Allergies Home Medications ?Medication ?Instructions ?Recorded ?Confirmed ?Type Bariatric calcium 1 gummy PO BID 09/09/24 09/16/24 History fexofenadine 180 mg tablet 180 mg PO DAILY PRN sinus symptoms 09/09/24 09/09/24 History (Charlene Allergy) vjabqxnj-wbradpty-hsoa 45 mg-folic 1 cap PO BID 09/09/24 09/16/24 History acid 800 mcg-vit K 120 mcg capsule (Bariatric Multivitamins) omeprazole 40 mg capsule,delayed 40 mg PO BID PRN acid reflux 09/09/24 09/09/24 History release semaglutide (weight loss) 1.7 1.7 mg subcut WEEKLY weight loss 09/09/24 09/16/24 History mg/0.75 mL subcutaneous pen injector (Wegovy) Allergies Allergy/AdvReac Type Severity Reaction Status Date / Time morphine AdvReac Intermediate Dizziness Verified 09/16/24 07:33 Vital Signs Vital Signs - 24 hr 09/16/24 07:34 Temperature 97 F L Pulse Rate 67 Respiratory Rate 18 Blood Pressure 119/81 Pulse Oximetry 97 Oxygen Delivery Room Air Exam Const: General: cooperative and healthy appearing Resp: Effort & Inspection: normal respiratory effort and able to speak in complete sentences Auscultation: clear to auscultation bilaterally Cardio: Rate: regular rate Rhythm: regular rhythm GI: Inspection: normal to inspection GI Palp: No No hepatosplenomegaly present Auscultation: normal bowel sounds Rectal Exam: deferred Skin: General skin exam: normal color Psych: Appearance: grossly normal Mental Status: mental status grossly normal Assessment and Plan Assessment and plan (1) Encounter for screening colonoscopy: Code(s): Z12.11 - Encounter for screening for malignant neoplasm of colon Status: Acute Assessment and Plan: The patient is deemed a good candidate for the procedure. Consent signed. Will proceed.
[2024-09-16] MEDS: SIMETHICONE ORAL SUSPENSION 20 MG/0.3 ML 30 ML BOTTLE 0.6 ML IRRIGATION (09:21)
[2024-09-16 09:31] VITALS: BP 120/78; PULSE 68; RESP 23; O2SAT 100
[2024-09-16 09:41] VITALS: BP 124/80; PULSE 65; RESP 17; O2SAT 100
[2024-09-16 09:51] VITALS: BP 125/83; PULSE 55; RESP 16; O2SAT 100
== END 2024-09-16 09:59 | disposition home or self-care (01) ==
PROVIDERS: PCP Internal Medicine; Referring Provider Internal Medicine; Visit Provider Internal Medicine Gastroenterology
PROC: 0DJD8ZZ Inspection of Lower Intestinal Tract, Via Natural or Artificial Opening Endoscopic (ICD-10-PCS; CPT 45378; principal; 2024-09-16 09:00)
DX: Z12.11 Encounter for screening for malignant neoplasm of colon (principal); K64.8 Other hemorrhoids; K57.30 Diverticulosis of large intestine without perforation or abscess without bleeding; F41.9 Anxiety disorder, unspecified; K21.9 Gastro-esophageal reflux disease without esophagitis; F43.10 Post-traumatic stress disorder, unspecified; F12.90 Cannabis use, unspecified, uncomplicated; E66.9 Obesity, unspecified; Z68.32 Body mass index [BMI] 32.0-32.9, adult; Z79.85 Long-term (current) use of injectable non-insulin antidiabetic drugs
CPT/HCPCS: 45378; J2003; J2704; J7120